=== PATIENT | male | born 1975 | race Caucasian/White ===

== ENCOUNTER 2020-12-12 13:16 | Outpatient (REF) | payer OTHER, SELFPAY ==
[2020-12-12 15:02] LABS: Erythrocyte Sedimentation Rate 4 MM/HR (0-15)
[2020-12-12 15:25] LABS: Folate > 20.0 ng/mL (> or = 4.0); Vitamin B12 434 pg/mL (200-900)
[2020-12-13 08:42] LABS: Lyme Abs Screen <0.90 index
[2020-12-13 08:56] LABS: Syphilis Screen Nonreactive (Nonreactive)
[2020-12-13 23:22] LABS: Anti Nuclear Antibody Screen NEGATIVE (NEGATIVE)
== END 2020-12-12 13:17 | disposition home or self-care (01) ==
LOC: HO.LAB 13:16
PROVIDERS: PCP Internal Medicine; Visit Provider Psychiatry & Neurology Neurology
DX: G31.84 Mild cognitive impairment of uncertain or unknown etiology (principal)
CPT/HCPCS: 36415; 82607; 82746; 85652; 86038; 86039; 86617; 86618; 86780

== ENCOUNTER 2020-12-21 13:06 | Outpatient (REF) | payer OTHER, SELFPAY ==
--- NOTE | ~2020-12-21 | MR_ITS ---
MRI OF THE BRAIN WITHOUT IV CONTRAST INDICATION: Encephalopathy COMPARISON: None available. TECHNIQUE: Multiplanar multisequence MR imaging of the brain was obtained without IV contrast. FINDINGS: There is no hydrocephalus, extra-axial surface collection, or herniation. No parenchymal signal abnormality. The major flow voids at the skull base are preserved. There is no acute infarct on diffusion-weighted imaging. There is no intracranial hemorrhage on the gradient recalled echo acquisition. The midline structures are normal. The cerebellar tonsils are normally positioned. The cerebellum and brainstem are normal. The craniocervical junction is normal. Osseous marrow signal intensity is homogenous. The visualized soft tissues are unremarkable. MR/MR head/brain wo con IMPRESSION: Unremarkable noncontrast MRI of the brain.
== END 2020-12-21 13:07 | disposition home or self-care (01) ==
LOC: HO.MRI 13:06
PROVIDERS: PCP Internal Medicine; Visit Provider Psychiatry & Neurology Neurology
DX: G93.40 Encephalopathy, unspecified (principal)
CPT/HCPCS: 70551

== ENCOUNTER → 2021-04-26 10:31 | Outpatient (BNVA) | payer OTHER, SELFPAY | PROVIDERS: PCP Internal Medicine; Visit Provider Urology | DX: N50.819 Testicular pain, unspecified (principal); N43.40 Spermatocele of epididymis, unspecified | CPT/HCPCS: 99212 ==

== ENCOUNTER 2021-05-28 11:05 | Day surgery (SDC) | payer OTHER, SELFPAY ==
--- NOTE | 2021-05-25 12:21 | P.CONAN_ITS ---
Documented by User: Lisa Vo NP 05/25/21 12:23 HPI - Anesthesia Eval Consult details Narrative: 46yo M for Right micro inguinal Denervation Testicle, Excision Spermatocele of epididymis FOR[facility], [facility] Active Problems Active Problems: All Active Problems (Updated 05/21/21 @ 14:51 by Renita Malcolm, RN) Orchalgia (Acute) Spermatocele (Acute) Past Medical History Medical History (Updated 05/25/21 @ 12:23 by Lisa Vo NP) Anxiety GERD (gastroesophageal reflux disease) Spermatocele Surgical History Surgical History (Updated 05/21/21 @ 14:51 by Renita Malcolm, RN) History of testicular surgery Social History Social History Patient Tobacco Use Status: Former Tobacco user Quit Date: 1 YR AGO Use of substances other than those prescribed or required for medical reasons: No Are you DNR?: No Advance Directives: No Advance Directives Information Provided: Yes Meds Allergies Allergy/AdvReac Type Severity Reaction Status Date / Time No Known Allergies Allergy Verified 05/21/21 14:51 [No Known Allergies*] Home Medications Medication Instructions Recorded Confirmed Last Taken Type fluticasone propionate 50 1 spray INTRANASAL DAILY 04/26/21 05/21/21 Unknown History mcg/actuation nasal spray,suspension lorazepam 2 mg tablet 2 mg PO TID PRN 04/26/21 05/21/21 Unknown History omeprazole 20 mg capsule,delayed 20 mg PO DAILY 04/26/21 05/21/21 Unknown History release pantoprazole 20 mg tablet,delayed 20 mg PO DAILY 04/26/21 05/21/21 Unknown History release quetiapine 25 mg tablet 0 mg PO DAILY 04/26/21 05/21/21 Unknown History Exam Exam Date and Time: May 25, 2021 1221 Assessment and Plan Assessment Anesthesia Assessment: Chart Reviewed Documented by User: Jayleen Cash MD 05/28/21 12:42 [facility] Past Medical History Medical History (Updated 05/25/21 @ 12:23 by iLsa Vo NP) Anxiety GERD (gastroesophageal reflux disease) Spermatocele Family History Family history of problems with anesthesia: No Surgical History Surgical History (Updated 05/21/21 @ 14:51 by Renita Malcolm RN) History of testicular surgery History of Problems with Anesthesia: No Social History Social History Patient Tobacco Use Status: Former Tobacco user Quit Date: 1 YR AGO Use of substances other than those prescribed or required for medical reasons: No Are you DNR?: No Advance Directives: No Advance Directives Information Provided: Yes Meds Allergies Allergy/AdvReac Type Severity Reaction Status Date / Time No Known Allergies Allergy Verified 05/21/21 14:51 [No Known Allergies*] Home Medications Medication Instructions Recorded Confirmed Last Taken Type fluticasone propionate 50 1 spray INTRANASAL DAILY 04/26/21 05/21/21 Unknown History mcg/actuation nasal spray,suspension lorazepam 2 mg tablet 2 mg PO TID PRN 04/26/21 05/21/21 Unknown History omeprazole 20 mg capsule,delayed 20 mg PO DAILY 04/26/21 05/21/21 Unknown History release pantoprazole 20 mg tablet,delayed 20 mg PO DAILY 04/26/21 05/21/21 Unknown History release quetiapine 25 mg tablet 0 mg PO DAILY 04/26/21 05/21/21 Unknown History Exam Airway Mallampati Class: II (Caps upper front) TM Dist: >3cm Neck ROM: Full Heart: rrr Lungs: cta Assessment and Plan Assessment Anesthesia Assessment: Anesthesia Plan Discussed and Chart Reviewed Final Anesthetic Review Family History of Problems with Anesthesia: No History of Problems with Anesthesia: No NPO: Yes ASA Class: II Final Preanesthetic Review: No Changes in Pt Med Stat, Meds/Allgs Chart Reviewed and Consent Obtained/Reviewed Patient Risk: Intermediate Procedure Risk: Intermediate Anesthetic Plan Anesthetic Plan: GA Disposition: Standard PACU
[2021-05-28] VITALS (10 sets, daily range): BP systolic 152–174; BP diastolic 85–97; PULSE 57–72; RESP 16–18; TEMP 36.5–37.1; O2SAT 98–100; BMI 27.1
[2021-05-28] MEDS: Lactated Ringers 1,000 ML 100 ML IVCONT (12:45)
--- NOTE | 2021-05-28 13:18 | MHC.SHP ---
Pre-Procedural Eval Section A Date of Service: 05/28/21 The patient is an INPATIENT: No Changes since office visit: No Cold of Flu in the past 2 weeks, No New Medical Problems, No Changes in Medication and No Patient answered all questions The History & Physical has been completed within 30 days and I have reviewed it.: Yes Section B Chief Complaint: testicular pain,spermatocele of epididymis Details of Present Illness: Right-sided testicular denervation Allergies: Allergies Allergy/AdvReac Type Severity Reaction Status Date / Time No Known Allergies Allergy Verified 05/21/21 14:51 [No Known Allergies*] Plan Diagnosis/Plan: Unchanged (Right-sided testicular denervation) I have reviewed the history and physical and performed a pertinent physical examination on my patient. No changes have occurred unless specified.
--- NOTE | 2021-05-28 15:00 | P.OP_ITS ---
Operative Note Operative Note Date of Service: 05/28/21 Narrative: PreOperative Diagnosis: Right persistent testicular pain with spermatocele Post Operative Diagnosis: Right persistent sacral pain Procedure: Right microscopic inguinal denervation and testicular exploration Surgeon: Dr Reed Box Anesthesia: General Indications for procedure: Right Persistent testicular pain. Prior for matter select me with question of recurrence on the right side. offered microscopic inguinal cord denervation. Understands this is 80% successful and primary risk is loss of testicle. Procedure: After informed consent was verified the patient was brought to the operating room and placed in a supine position. Anesthesia was administered per protocol. The patient was shaved and prepped and draped in a sterile fashion. Safety pause time-out was performed. Antibiotics had been given. The right inguinal canal was palpated. This was marked and then a 4 cm incision was marked approximately 1 cm distal to the inguinal canal. The skin was infiltrated with local anesthetic. Using a 15 blade skin was incised and dissection was performed in the subcutaneous tissue. Dissection was performed until inguinal cord was isolated. The cord was delivered through the incision to the skin surface. A tongue depressor was then used to elevate the cord from the incision. The testicle was delivered from the scrotum. If there was scarring from the prior spermatocele on the tunica vaginalis. Careful dissection was performed around the head of the epididymis. Small area of scarring was felt that appeared to have been recurrent spermatocele but there was no evidence of recurrence spermatocele. The testicle was placed back in the scrotum. In had not been freed from the reattachment that had formed with the gubernaculum. The operating microscope was brought into place. Dissection was then performed on the cord. Muscle fibers surrounding the cord were all dissected. This was performed using bipolar cautery and scissors. The overlying tissue was removed and the cord packets exposed. Fascia was cauterized and dissected from the packet. The vas deferens packet was dissected. The primary vascular packet was then tagged with a vessel loop and retracted from the field. Dissection and denervation were performed on the 3 identified areas including the cremasteric muscle layer, rigo vasal tissues, and the posterior periarterial - lipomatous tissue. Care was taken to leave all veins and feeding arterial vessels intact. Doppler ultrasound was available to assist with identification. Following the dissection and cautery of the posterior periarterial packet the vas deferens packet was identified and the cord was isolated. Using an ocular blade the cord was denervated for approximately 1-1.5 cm. The blade was swept across the surface of the vas deferens small bleeding areas were controlled using bipolar cautery When this was complete the cord was examined. The tongue depressor was removed and the cord allowed to sit in its normal position. The area was irrigated with saline. Reapproximation of deep tissue was performed using interrupted 3-0 Vicryl. Skin was reapposed using a 4-0 running Monocryl. Incisions were closed with Dermabond He tolerated the procedure well and was extubated in operating room and trans ferred in stable condition to the recovery area.
[2021-05-28] MEDS: Acetaminophen 325 MG TABLET 650 MG PO (15:15)
[2021-05-28] MEDS: oxyCODONE HCl Immed Release 5 MG TABLET PO ×2 (15:16→16:18)
[2021-05-28] MEDS: fentaNYL citrate/PF 100 MCG/2 ML VIAL 50 MCG IVPUSH ×2 (15:17→15:31)
== END 2021-05-28 17:01 | disposition home or self-care (01) ==
PROVIDERS: PCP Internal Medicine; Visit Provider Urology
PROC: (CPT 55110; principal; 2021-05-28 13:00)
PROC: (CPT 54840; 2021-05-28 13:00)
DX: N50.811 Right testicular pain (principal); Z87.438 Personal history of other diseases of male genital organs
CPT/HCPCS: 55110; 55899; J0690; J1100; J2250; J2405; J3010

== ENCOUNTER → 2021-07-10 13:04 | Outpatient (BNVA) | payer OTHER, SELFPAY | PROVIDERS: PCP Internal Medicine; Visit Provider Urology | DX: N43.40 Spermatocele of epididymis, unspecified (principal) | CPT/HCPCS: 99212 ==

== ENCOUNTER → 2021-08-24 10:53 | Outpatient (BNVA) | payer OTHER, SELFPAY | PROVIDERS: PCP Internal Medicine; Visit Provider Urology | DX: N50.819 Testicular pain, unspecified (principal) | CPT/HCPCS: 99212 ==

== ENCOUNTER → 2021-11-30 10:58 | Outpatient (BNVA) | payer OTHER, SELFPAY | PROVIDERS: PCP Internal Medicine; Visit Provider Urology | DX: N28.1 Cyst of kidney, acquired (principal); R39.9 Unspecified symptoms and signs involving the genitourinary system; N50.819 Testicular pain, unspecified | CPT/HCPCS: 99212 ==

== ENCOUNTER 2021-11-30 12:56 | Outpatient (REF) | payer OTHER, SELFPAY | END 2021-11-30 12:57 | disposition home or self-care (01) | LOC: HO.LAB 12:56 | PROVIDERS: Visit Provider Urology | DX: R39.9 Unspecified symptoms and signs involving the genitourinary system (principal) | CPT/HCPCS: 87086 ==

== ENCOUNTER 2022-06-14 14:31 | Outpatient (REF) | payer OTHER, SELFPAY ==
[2022-06-14 15:42] LABS: Appearance Urine Clear; Color Urine Yellow; Glucose Urine UA Negative (Negative); Leukocyte Esterase Urine Negative (Negative); Nitrite Urine Negative (Negative); PH 6.5 (5.0-9.0); Specific Gravity - Urine 1.015 (1.005-1.025); Urine Blood Negative (Negative); Urine Ketones Negative (Negative); Urine Protein Negative (Neg-Trace)
[2022-06-14 15:47] LABS: Bacteria Urine None Seen (None Seen); Hyaline Casts Urine 0-2 /LPF (0-2); RBC Urine 0-2 /HPF (0-2); Squamous Epithelial Cell Urine 0-2 /HPF (0-2); WBC Urine 0-5 /HPF (0-5)
== END 2022-06-14 14:32 | disposition home or self-care (01) ==
LOC: HO.LAB 14:31
PROVIDERS: PCP Internal Medicine; Visit Provider Urology
DX: N50.819 Testicular pain, unspecified (principal)
CPT/HCPCS: 81001; 87086

== ENCOUNTER → 2022-06-26 15:25 | Outpatient (BNVA) | payer OTHER, SELFPAY | PROVIDERS: PCP Internal Medicine; Visit Provider Nurse Practitioner Family | DX: N45.1 Epididymitis (principal); N50.811 Right testicular pain; N43.40 Spermatocele of epididymis, unspecified | CPT/HCPCS: 99212 ==

== ENCOUNTER 2022-07-10 12:59 | Outpatient (REF) | payer OTHER, SELFPAY ==
--- NOTE | ~2022-07-10 | US_ITS ---
EXAMINATION: US SCROTUM CLINICAL INFORMATION: Right testicular pain. COMPARISON: Ultrasound scrotum 12/29/2018. TECHNIQUE: A sonogram of the scrotum was performed assessing silva-scale appearance and color Doppler flow. Spectral Doppler analysis of the arterial and venous flow were performed in the testes bilaterally. FINDINGS: RIGHT: Right testicle measures 4.6 x 2.3 x 3.4 cm, volume 19.3 mL. No focal testicular parenchymal lesions are visualized. Spectral Doppler analysis of the arterial and venous flow is very minimally increased in the right testis. Right epididymal head is remarkable for a 0.6 x 0.5 x 0.7 cm mixed solid and cystic mass with hyperechoic solid components. Right epididymal head cysts measuring up to 1.9 cm, previously 1.2 cm. No right hydrocele or varicocele is seen. Right epididymal Doppler flow is normal. LEFT: Left testicle measures 4.8 x 2.2 x 2.7 cm, volume 14.9 mL. No focal testicular parenchymal lesions are visualized. Spectral Doppler analysis of the arterial and venous flow is normal in the left testis. Left epididymal head is normal in size. No left hydrocele or varicocele is seen. Left epididymal Doppler flow is normal. US/US scrotum IMPRESSION: A 0.7 cm mixed solid and cystic mass in the right epididymal head, of indeterminate etiology however most common differential considerations could include a adenomatoid tumor, epididymal leiomyoma, or a papillary cystadenoma of the epididymis. Recommend urologic evaluation and management. The right testicle demonstrates very minimal asymmetric hypervascularity with respect to the contralateral side, of uncertain clinical significance, consider correlation with clinical symptoms and labs as an isolated orchitis would be uncommon. Several right epididymal head cysts measuring up to 1.9 cm.
== END 2022-07-10 13:00 | disposition home or self-care (01) ==
LOC: HO.US 12:59
PROVIDERS: PCP Internal Medicine; Visit Provider Nurse Practitioner Family
DX: N50.811 Right testicular pain (principal); N45.1 Epididymitis
CPT/HCPCS: 76870

== ENCOUNTER → 2022-07-17 11:17 | Outpatient (BNVA) | payer OTHER, SELFPAY | PROVIDERS: PCP Internal Medicine; Visit Provider Nurse Practitioner Family | DX: N50.811 Right testicular pain (principal); N50.3 Cyst of epididymis | CPT/HCPCS: 99212 ==

== ENCOUNTER 2022-07-23 15:37 | Outpatient (REF) | payer OTHER, SELFPAY ==
[2022-07-23 17:06] LABS: Appearance Urine Clear; Color Urine Yellow; Glucose Urine UA Negative (Negative); Leukocyte Esterase Urine Negative (Negative); Nitrite Urine Negative (Negative); PH 6.5 (5.0-9.0); Urine Blood Negative (Negative); Urine Ketones Negative (Negative); Urine Protein Negative (Neg-Trace)
[2022-07-23 17:09] LABS: Bacteria Urine None Seen (None Seen); Hyaline Casts Urine 0-2 /LPF (0-2); RBC Urine 0-2 /HPF (0-2); Squamous Epithelial Cell Urine 0-2 /HPF (0-2); WBC Urine 0-5 /HPF (0-5)
== END 2022-07-23 15:38 | disposition home or self-care (01) ==
LOC: HO.LAB 15:37
PROVIDERS: PCP Internal Medicine; Visit Provider Urology
DX: N45.1 Epididymitis (principal)
CPT/HCPCS: 81001; 87086

== ENCOUNTER 2022-09-16 06:32 | Day surgery (SDC) | payer OTHER, SELFPAY ==
[2022-09-16] VITALS (10 sets, daily range): BP systolic 124–149; BP diastolic 68–94; PULSE 62–74; RESP 15–18; TEMP 36.3–36.7; O2SAT 97–99; BMI 29.8
[2022-09-16] MEDS: Lactated Ringers 1,000 ML 50 ML IVCONT (07:43)
--- NOTE | 2022-09-16 08:26 | P.HPSUR_ITS ---
Pre-Procedural Eval Section A Date of Service: 09/16/22 The patient is an INPATIENT: No Changes since office visit: No Cold of Flu in the past 2 weeks, No New Medical Problems, No Changes in Medication and No Patient answered all questions The History & Physical has been completed within 30 days and I have reviewed it.: Yes Section B Chief Complaint: Epididymitis Relevant Family History (Specify if Yes): No Relevant Social History: None Present Medications: see Short Stay Collaborative assessment Medical History: No relevant PMH History of Previous Operations: Relevant previous surgery/procedure and date(s) Allergies: Allergies Allergy/AdvReac Type Severity Reaction Status Date / Time prednisone AdvReac Anxiety Uncoded 09/16/22 06:43 Review of Systems Sugical H&P ROS: Negative: Constitution, Cardiovascular, Respiratory, Neurological, Psychiatric, Hem-Onc, Allergic/Immunologic, Gastrointestinal, Genitourinary, Musculoskeletal, Integumentary, Endocrine and Eyes/Ears/Nose/Thro at Exam Surgical H&P Exam: Normal: HEENT, Normal: Heart, Normal: Lungs, Normal: Extremities, Normal: Abdomen, Normal: Skin and Normal: Neurological Plan Diagnosis/Plan: Unchanged ( right epididymectomy) I have reviewed the history and physical and performed a pertinent physical examination on my patient. No changes have occurred unless specified. Time Spent With Patient Time: Total time managing care of this patient today ____ minutes.
--- NOTE | 2022-09-16 08:32 | HO.ANESPROP2 ---
HPI - Anesthesia Eval Consult details Narrative: Right epididymectomy PMFSH Active Problems Active Problems: All Active Problems (Updated 09/10/22 @ 16:26 by Renita Malcolm RN) Orchalgia (Acute) Renal cyst (Acute) Epididymitis (Acute) Right testicular pain (Acute) Epididymal cyst (Acute) Spermatocele (Acute) Past Medical History Medical History Anxiety GERD (gastroesophageal reflux disease) Hypertension Spermatocele Family History Family history of problems with anesthesia: No Surgical History Surgical History History of colonoscopy History of surgery History of testicular surgery Hx of esophagogastroduodenoscopy History of Problems with Anesthesia: No Social History Social History Patient Tobacco Use Status: Former Tobacco user Quit Date: 3 yrs ago Use of substances other than those prescribed or required for medical reasons: No Are you DNR?: No Advance Directives: No Advance Directives Information Provided: Yes Meds Allergies Allergy/AdvReac Type Severity Reaction Status Date / Time prednisone AdvReac Anxiety Uncoded 09/16/22 06:43 Active Medications: Current Medications Lactated Ringer's (Lr) 1,000 mls @ 50 mls/hr IVCONT .Q20H JAIMEE Last Admin: 09/16/22 07:43 Dose: 50 mls/hr Levofloxacin (Levaquin) 500 mg in 100 mls @ 100 mls/hr IV PREOP ONE Stop: 09/16/22 08:36 Home Medications Medication Instructions Recorded Confirmed Last Taken Type lorazepam 2 mg tablet 2 mg PO TID PRN Anxiety 04/26/21 09/16/22 09/16/22 05:45 History cholecalciferol (vitamin D3) 50 50 mcg PO DAILY 07/10/21 09/16/22 Unknown History mcg (2,000 unit) capsule (Vitamin D3) amlodipine 5 mg tablet 5 mg PO DAILY 07/17/22 09/16/22 Unknown History cetirizine 10 mg tablet 10 mg PO DAILY 09/16/22 09/16/22 Unknown History Exam Exam Date and Time: September 16, 2022 0832 Height,Weight and Vital Signs: Height 5 ft 11 in Weight 97.069 kg Last Vital Signs Temp 98.0 F 09/16/22 07:26 Pulse 68 09/16/22 07:26 Resp 15 09/16/22 07:26 BP 149/78 H 09/16/22 07:26 Pulse Ox 97 09/16/22 07:26 O2 Del Method Room Air 09/16/22 07:26 Airway Mallampati Class: II TM Dist: >3cm Neck ROM: Full Heart: ok Lungs: ok Assessment and Plan Assessment Anesthesia Assessment: Anesthesia Plan Discussed and Chart Reviewed Final Anesthetic Review Family History of Problems with Anesthesia: No History of Problems with Anesthesia: No NPO: Yes ASA Class: II Final Preanesthetic Review: No Changes in Pt Med Stat, Meds/Allgs Chart Reviewed, Consent Obtained/Reviewed and Anes Risks/Benef Reviewed Patient Risk: Intermediate Procedure Risk: Low Anesthetic Plan Anesthetic Plan: GA and Agree w/ Assess. and Plan Disposition: Standard PACU
--- NOTE | 2022-09-16 09:55 | W.PM.OPN ---
Operative Note Operative Note Date of Service: 09/16/22 Narrative: PreOperative Diagnosis: persistent right orchalgia Post Operative Diagnosis: persistent right orchalgia, right spermatocele Procedure: right epididymectomy, right spermatocele removal Surgeon: Dr Reed Box Anesthesia: general Indications for procedure: prior scrotal Procedure is for hydrocele, prior right inguinal denervation procedure. Persistent right orchalgia particularly on epididymal structures around the testicle. Plan for right epididymectomy. He is aware of potential of loss of vascular supply to the testicle and loss of testicle. Procedure: After informed consent was verified the patient was brought to the operating room and placed in a supine position. Anesthesia was administered per protocol. The patient was prepped and draped in a sterile fashion. Safety pause time-out was performed. Antibiotics being given. Incision made on prior right scrotal horizontal incision. This was taken down onto the testicle itself. There was no hydrocele sac consistent previously been removed. The testicle was then released sharply from the scar attachments and mobilized. The testicle was delivered through the incision. Mobilization was continued to allow the testicle and cord structures a to be mobile. We were able to palpate the head of the epididymis and Vasa through the scar tissue. Scar tissue was carefully dissected around the head of the epididymis. Stay suture was placed through the head of the epididymis to give us traction. The epididymis was carefully dissected from the testicle. The feeding vessels were isolated and controlled with suture. The dissection was continued and the epididymis released along with the Vasa. Would during the dissection a small spermatocele was identified through the cord structures. This was released and during dissection with punctured so was removed. The Vasa was followed up to its proximal portion. A suture was placed through the para basal tissue around the Vasa before division. Once the head of the epididymis with laser attachments had been handed off for pathology any bleeding areas were cauterized. The testicle was replaced back into the scrotum. Closure was performed using 2-0 Vicryl for deep structures and interrupted 4-0 chromic sutures to reapposed the skin. dressing was applied with scrotal support. The patient tolerated the procedure well, was extubated in operating room And transferred in stable condition recovery area. Pathology: epididymis with Vasa Drains: none
[2022-09-16] MEDS: ondansetron HCL 4 MG/2 ML VIAL IVPUSH (10:13)
[2022-09-16] MEDS: oxyCODONE HCl Immed Release 5 MG TABLET 10 MG PO (10:14)
[2022-09-16] MEDS: fentaNYL citrate/PF 100 MCG/2 ML VIAL 50 MCG IVPUSH ×2 (10:18→10:26)
== END 2022-09-16 11:15 | disposition home or self-care (01) ==
PROVIDERS: PCP Internal Medicine; Visit Provider Urology
PROC: (CPT 54860; principal; 2022-09-16 08:10)
DX: N45.1 Epididymitis (principal); N50.811 Right testicular pain; N50.3 Cyst of epididymis; N43.40 Spermatocele of epididymis, unspecified; N44.8 Other noninflammatory disorders of the testis; N50.82 Scrotal pain; Z98.890 Other specified postprocedural states; I10 Essential (primary) hypertension; F41.1 Generalized anxiety disorder; K21.9 Gastro-esophageal reflux disease without esophagitis; Z79.899 Other long term (current) drug therapy; Z88.8 Allergy status to other drugs, medicaments and biological substances; Z87.891 Personal history of nicotine dependence
CPT/HCPCS: 54860; 54840; 88304; J0131; J1885; J1956; J2250; J2405; J2795; J3010

== ENCOUNTER → 2022-10-01 08:59 | Outpatient (BNVA) | payer OTHER, SELFPAY | PROVIDERS: PCP Internal Medicine; Visit Provider Urology ==

== ENCOUNTER → 2022-10-30 15:07 | Outpatient (BNVA) | payer OTHER, SELFPAY | PROVIDERS: PCP Internal Medicine; Visit Provider Urology | DX: N45.1 Epididymitis (principal); N50.819 Testicular pain, unspecified | CPT/HCPCS: 99212 ==

== ENCOUNTER 2023-03-12 15:09 | Outpatient (AMB) | payer OTHER, SELFPAY ==
--- NOTE | 2023-03-12 15:26 | A.OFFVIS_ITS ---
Intake Intake Visit Reasons: follow up/urinary issues Intake Note: Patient presents for follow up urinary issues Urology Medications: none Blood Thinner: none Statistician Theoretical Required: No Accompanied by: Self / Same As Patient Allergies prednisone Adverse Reaction (Uncoded 03/15/23 15:50) Anxiety Medication List - Last Reconciled 03/15/23 by ANNABELLE Gabriel amlodipine 5 mg PO DAILY cetirizine 10 mg PO DAILY cholecalciferol (vitamin D3) (Vitamin D3) 50 mcg PO DAILY cholecalciferol (vitamin D3) (Vitamin D3) 50 mcg PO DAILY hydrocodone-acetaminophen 5-325 mg 1 tab PO Q4H PRN 7 days lorazepam 2 mg PO TID PRN quetiapine 25 - 75 mg PO BEDTIME HPI HPI Comments History of Present Illness Details Rolan is a 47-year-old male patient of Dr. Camilo. He has a past medical history of anxiety, GERD, and hypertension. He presents to the office to day for follow-up of his ongoing scrotal issues and new onset lower urinary tract symptoms. Of note, patient was seen approximately [address] Box at which time reassurance was provided for patient's ongoing orchalgia. Patient has undergone multiple surgical interventions for ongoing orchalgia. He has had a right epididymectomy and spermatocelectomy 09/12 and prior denervation 05/2021 but persistent pain. Discussed and stressed that epididymectomy has a 70-80% success rate and there is still a chance of persistent pain postprocedure. He is requesting a scrotal ultrasound for reassurance. When asked he does report new onset urinary issues. He states he has been having urinary urgency, and frequency with episodes of incontinence if not near a bathroom. He discusses while at work he will have urinary urgency and frequency however given the bathroom is a far distance at times he is incontinent. He otherwise denies hematuria, dysuria, foul smelling urine, changes to urinary stream, flank pain, fever, and or chills. In office urinalysis results reviewed with the patient today. Patient defers physical exam of symptoms despite reported symptoms. Educated and stressed the importance of physical exam for further assessment evaluation however patient declines at this time. [facility] Medical History Hypertension GERD (gastroesophageal reflux disease) Anxiety Spermatocele Surgical History History of surgery History of colonoscopy Hx of esophagogastroduodenoscopy History of testicular surgery Social History Patient Tobacco Use Status: Former Tobacco user Quit Date: 3 yrs ago Review of Systems Const Reports as per HPI Eyes Reports no additional complaints ENT Reports no additional complaints Card Reports as per HPI Resp Reports no additional complaints GI Reports as per HPI Reports as per HPI Musc Reports no additional complaints Neuro Reports no additional complaints Psych Reports as per HPI Endo Reports no additional complaints Roldan/Lymph Reports no additional complaints Aller/Immun Reports no additional complaints Physical Exam Const General: healthy appearing, comfortable, no acute distress, well developed, alert and awake Orientation/consciousness: patient oriented x3 Limitations: no limitations HEENT Head: Yes normal to inspection, Yes normocephalic and Yes atraumatic Ears: hearing grossly normal bilaterally Eyes General: appearance normal, both eyes and all related structures Neck Neck: Yes normal visual inspection and Yes trachea midline Chest Chest palpation & inspection: normal inspection of the chest Resp Effort & Inspection: normal respiratory effort and able to speak in complete sentences Cardio Rate: regular rate GI Inspection: Yes normal to inspection General: Yes no CVA tenderness Back/Spine/Pelvis Back: no CVA tenderness Skin General skin exam: no rashes or lesions noted Neuro General: patient oriented x3 Extrem General: Yes normal to inspection Psych Appearance: grossly normal and well kempt Mental Status: mental status grossly normal Speech and movement: Normal speech and movement present and Clear speech present Affect: normal affect Attitude: cooperative Thought process: Normal thought process present Thought content: Normal thought content present Insight: Fair insight present (Psych) Judgement: Fair judgement present (Psych) Results AMB Urinalysis, Automated UA Leukoctes 0 Shukri/uL Last Edit by [employer] Baker on 03/12/23 15:54 UA Nitrite Negative Last Edit by Mansi Baker on 03/12/23 15:54 UA Urobilinogen 0.2 mg/dL Last Edit by [employer] Baker on 03/12/23 15:54 UA Protein 15 mg/dL Last Edit by [employer] Baker on 03/12/23 15:54 UA pH 6.5 Last Edit by [employer] Baker on 03/12/23 15:54 UA Blood 0 Francis/uL Last Edit by Mansi Baker on 03/12/23 15:54 UA Specific [place] 1.020 Last Edit by Mansi Baker on 03/12/23 15:54 UA Ketone Negative Last Edit by Mansi Baker on 03/12/23 15:54 UA Bilirubin 0 mg/dL Last Edit by Mansi Baker on 03/12/23 15:54 UA Glucose 0 mg/dL Last Edit by Mansi Baker on 03/12/23 15:54 Results Reviewed Results Reviewed: Laboratory Last Values Urine pH (Auto) 6.5 03/12/23 15:27 Specific [place] (Auto) 1.020 03/12/23 15:27 Urine Protein (Auto) 15 mg/dL 03/12/23 15:27 Glucose (UA)(Auto) 0 mg/dL 03/12/23 15:27 Urine Ketones (Auto) Negative 03/12/23 15:27 Urine Blood (Auto) 0 Francis/uL 03/12/23 15:27 Urine Nitrite (Auto) Negative 03/12/23 15:27 Urine Bilirubin (Auto) 0 mg/dL 03/12/23 15:27 Urine Urobilinogen (Auto) 0.2 mg/dL 03/12/23 15:27 Leukocyte Esterase (Auto) 0 Shukri/uL 03/12/23 15:27 Assessment & Plan Assessment & Plan (1) Orchalgia: Code(s): N50.819 - Testicular pain, unspecified (2) Lower urinary tract symptoms: Code(s): R39.9 - Unspecified symptoms and signs involving the genitourinary system (3) Renal cyst: Code(s): N28.1 - Cyst of kidney, acquired Plan In office urinalysis results reviewed with the patient today; as noted above. Patient continues to report testicular/scrotal pain; despite reassurance provided at last office visit with Dr. Box. Will obtain scrotal ultrasound for further assessment evaluation; as noted above. Will obtain retroperitoneal ultrasound for further assessment evaluation. Discussed at length potential causes for orchialgia Discussed bladder triggers/irritants. Follow-up in 1 month with imaging and lab to be completed prior; or sooner with any issues, concerns, and or questions. Orders: Orders US retroperitoneal comp 03/12/23 R39.9 - Unspecified symptoms and signs involving the genitourinary system AMB Urinalysis Automated 03/12/23 Z13.9 - Encounter for screening, unspecified US scrotum 03/12/23 N50.819 - Testicular pain, unspecified Prostate Specific Antigen Today N40.1 - Benign prostatic hyperplasia with lower urinary tract symptoms Patient Instructions: The patient had an opportunity to ask questions regarding the treatment plan. All questions were answered. Physical exam, labs, and imaging were discussed and reviewed in detail. As well as risks, benefits, and discussion of treatment choices. No major barriers to understanding were identified. The patient expressed understanding and agreement with the above treatment plan. The patient was made aware they should contact our office by phone for worsening of their current condition, the appearance of new symptoms, or with any qu estions or concerns. Compliance is encouraged with any medications and follow up testing that is ordered. It is a privilege to be allowed the opportunity to participate in? your urological care.? Again, if you have any questions or concerns If you have any questions or concerns please do not hesitate to contact me. The office is [phone]. This note is constructed using voice recognition software. While every effort has been made to ensure accuracy fisher swordfish errors may have been included. Yours sincerely, ANNABELLE Gabriel Coding Level of Care Code Est Pt Level 3 (64580) Diagnoses Orchalgia N50.819 Lower urinary tract symptoms R39.9 Renal cyst N28.1
== END 2023-03-12 16:10 | disposition home or self-care (01) ==
PROVIDERS: PCP Internal Medicine; Visit Provider Nurse Practitioner Family
DX: N50.819 Testicular pain, unspecified (principal); R39.9 Unspecified symptoms and signs involving the genitourinary system; N28.1 Cyst of kidney, acquired
CPT/HCPCS: 99213

== ENCOUNTER → 2023-03-12 15:09 | Outpatient (BNVA) | payer OTHER, SELFPAY | PROVIDERS: PCP Internal Medicine; Visit Provider Nurse Practitioner Family | DX: N50.819 Testicular pain, unspecified (principal); N28.1 Cyst of kidney, acquired; R39.9 Unspecified symptoms and signs involving the genitourinary system | CPT/HCPCS: 81003; 99212 ==

== ENCOUNTER 2023-03-31 14:59 | Outpatient (REF) | payer OTHER, SELFPAY ==
--- NOTE | ~2023-03-31 | US_ITS ---
EXAMINATION: US SCROTUM CLINICAL INFORMATION: Testicular pain, unspecified. COMPARISON: Scrotal ultrasound 07/10/2022 and 12/29/2018. TECHNIQUE: A sonogram of the scrotum was performed assessing silva-scale appearance and color Doppler flow. Spectral Doppler analysis of the arterial and venous flow were performed in the testes bilaterally. FINDINGS: RIGHT: Right testicle measures 5.1 x 2.2 x 3.5 cm, volume 20.1 mL. No focal testicular parenchymal lesions are visualized. Spectral Doppler analysis of the arterial and venous flow is normal in the right testis. There are multiple right epididymal head lesion measuring 1.8 cm (simple cyst), 0.7 cm (simple cyst), and 0.7 cm (mixed solid and cystic mass) without significant change from 07/10/2022. No right hydrocele or varicocele is seen. Right epididymal Doppler flow is normal. LEFT: Left testicle measures 4.6 x 2.4 x 3.1 cm, volume 17.9 mL. No focal testicular parenchymal lesions are visualized. Spectral Doppler analysis of the arterial and venous flow is normal in the left testis. Left epididymal head is normal in size. No left hydrocele or varicocele is seen. Left epididymal Doppler flow is normal. US/US scrotum IMPRESSION: Stable mixed cystic and solid mass in the right epididymal head measuring 0.7 cm.
--- NOTE | ~2023-03-31 | US_ITS ---
EXAMINATION: US RETROPERITONEAL COMPLETE (RENAL) CLINICAL INFORMATION: Unspecified symptoms and signs involving the genitourinary system. COMPARISON: CT abdomen and pelvis 09/29/2020. TECHNIQUE: Real-time imaging of the kidneys and bladder. FINDINGS: RIGHT KIDNEY: 11.3 x 4.5 x 5.6 cm (SAG x AP x TRV). The kidney is normal in size, contour, and echogenicity. Renal cortical thickness is normal. No calculi or focal parenchymal lesions. No hydronephrosis. LEFT KIDNEY: 11.9 x 5.6 x 5.8 cm (SAG x AP x TRV). The kidney is normal in size, contour, and echogenicity. Renal cortical thickness is normal. No calculi or focal parenchymal lesions. No hydronephrosis. BLADDER: Well distended. Bilateral ureteral jets are demonstrated. Prevoid bladder volume is 136.0 mL. Postvoid bladder volume is 16.0 mL. Posterior volume 22.6 mL. US/US retroperitoneal comp IMPRESSION: Unremarkable examination.
== END 2023-03-31 15:00 | disposition home or self-care (01) ==
LOC: HO.US 14:59
PROVIDERS: PCP Internal Medicine; Visit Provider Nurse Practitioner Family
DX: N50.819 Testicular pain, unspecified (principal); R39.9 Unspecified symptoms and signs involving the genitourinary system
CPT/HCPCS: 76770; 76870

== ENCOUNTER 2023-04-07 14:10 | Outpatient (REF) | payer OTHER, SELFPAY ==
[2023-04-07 15:58] LABS: Prostate Specific Antigen 0.77 ng/mL (<0.05-4.0)
[2023-04-11 19:09] LABS: Testosterone, Free 37.1 pg/mL (35.0-155.0); Testosterone, Total 183 ng/dL (250-1100)
== END 2023-04-07 14:11 | disposition home or self-care (01) ==
LOC: HO.LAB 14:10
PROVIDERS: Absent Provider Urology; PCP Internal Medicine; Visit Provider Nurse Practitioner Family
DX: Z12.5 Encounter for screening for malignant neoplasm of prostate (principal); N40.1 Benign prostatic hyperplasia with lower urinary tract symptoms; R39.9 Unspecified symptoms and signs involving the genitourinary system; N50.819 Testicular pain, unspecified
CPT/HCPCS: 36415; 81003; 84153; 84402; 84403; 99212

== ENCOUNTER 2023-04-07 14:55 | Outpatient (AMB) | payer OTHER, SELFPAY ==
--- NOTE | 2023-04-07 15:29 | MHC.OFFVIS ---
Intake Intake Visit Reasons: 1m/US Intake Note: Patient presents for follow up ultrasound/psa lab/testicular pain Urology Medications: none Blood Thinner: none Cs Associate Required: No Accompanied by: Self / Same As Patient Allergies prednisone Adverse Reaction (Uncoded 04/07/23 15:59) Anxiety Medication List - Last Reconciled 04/07/23 by CAROLINA GabrielP- amlodipine 5 mg PO DAILY cetirizine 10 mg PO DAILY cholecalciferol (vitamin D3) (Vitamin D3) 50 mcg PO DAILY cholecalciferol (vitamin D3) (Vitamin D3) 50 mcg PO DAILY hydrocodone-acetaminophen 5-325 mg 1 tab PO Q4H PRN 7 days ibuprofen 800 mg PO Q12H 30 days lorazepam 2 mg PO TID PRN quetiapine 25 - 75 mg PO BEDTIME HPI HPI Comments History of Present Illness Details Rolan is a 47-year-old male patient of Dr. Camilo. He has a past medical history of anxiety, GERD, and hypertension. He presents to the office today for follow-up of his ongoing scrotal issues and new onset lower urinary tract symptoms. Of note, patient was seen approximately 1 month ago for ongoing lower urinary tract symptoms and ongoing/longstanding orchalgia. At which time a retroperitoneal ultrasound and scrotal ultrasound was ordered for further assessment evaluation. These results were reviewed with the patient today. Scrotal ultrasound noting stable mixed cystic and solid mass in the right epididymal head measuring a 0.7cm which is stable when compared to previous scrotal ultrasound in June of this year. Bilateral kidneys with no calculi, lesions, and or hydronephrosis. The bladder is well distended and normal. Pre void bladder volume is approximately 140 mL. Postvoid bladder volume is approximately 15 mL. Prostate volume is approximately 23 mL. He has had a right epididymectomy and spermatocelectomy 09/12 and prior denervation 05/2021 but persistent pain. Discussed and stressed that epididymectomy has a 70-80% success rate and there is still a chance of persistent pain post-procedure. Reassurance is provided. When asked he does report urinary issues (He states he has been having urinary urgency, and frequency with episodes of incontinence if not near a bathroom). However does not feel they are bothersome enough to undergo further work up with in office cystoscopy and or urodynamics and or trial of medication. He discusses while at work he will have urinary urgency and frequency however given the bathroom is a far distance at times he is incontinent. He otherwise denies hematuria, dysuria, foul smelling urine, changes to urinary stream, flank pain, fever, and or chills. In office urinalysis results reviewed with the patient today. Patient defers physical exam of symptoms despite reported symptoms. Educated and stressed the importance of physical exam for further assessment evaluation however patient continues to decline at this time. last seen 02/12 [facility] Medical History Hypertension GERD (gastroesophageal reflux disease) Anxiety Spermatocele Surgical History History of surgery History of colonoscopy Hx of esophagogastroduodenoscopy History of testicular surgery Social History Patient Tobacco Use Status: Former Tobacco user Quit Date: 3 yrs ago Review of Systems Const Reports as per HPI Eyes Reports no additional complaints ENT Reports no additional complaints Card Reports as per HPI Resp Reports no additional complaints GI Reports as per HPI Reports as per HPI Musc Reports no additional complaints Neuro Reports no additional complaints Psych Reports as per HPI Endo Reports no additional complaints Roldan/Lymph Reports no additional complaints Aller/Immun Reports no additional complaints Physical Exam Const General: healthy appearing, comfortable, no acute distress, well developed, alert and awake Orientation/consciousness: patient oriented x3 Limitations: no limitations HEENT Head: Yes normal to inspection, Yes normocephalic and Yes atraumatic Ears: hearing grossly normal bilaterally Eyes General: appearance normal, both eyes and all related structures Neck Neck: Yes normal visual inspection and Yes trachea midline Chest Chest palpation & inspection: normal inspection of the chest Resp Effort & Inspection: normal respiratory effort and able to speak in complete sentences Cardio Rate: regular rate GI Inspection: Yes normal to inspection General: Yes no CVA tenderness Back/Spine/Pelvis Back: no CVA tenderness Skin General skin exam: no rashes or lesions noted Neuro General: patient oriented x3 Extrem General: Yes normal to inspection Psych Appearance: grossly normal and well kempt Mental Status: mental status grossly normal Speech and movement: Normal speech and movement present and Clear speech present Affect: normal affect Attitude: cooperative Thought process: Normal thought process present Thought content: Normal thought content present Insight: Fair insight present (Psych) Judgement: Fair judgement present (Psych) Results AMB Urinalysis, Automated UA Leukoctes 0 Shukri/uL Last Edit by Mansi Baker on 04/07/23 16:04 UA Nitrite Negative Last Edit by Mansi Baker on 04/07/23 16:04 UA Urobilinogen 0.2 mg/dL Last Edit by Mansi Baker on 04/07/23 16:04 UA Protein 15 mg/dL Last Edit by [facility] on 04/07/23 16:04 UA pH 7.5 Last Edit by [facility] on 04/07/23 16:04 UA Blood 0 Francis/uL Last Edit by [employer]upp[employer] on 04/07/23 16:04 UA Specific [place] 1.010 Last Edit by [facility] on 04/07/23 16:04 UA Ketone Negative Last Edit by [facility] on 04/07/23 16:04 UA Bilirubin 0 mg/dL Last Edit by [facility] on 04/07/23 16:04 UA Glucose 0 mg/dL Last Edit by [facility] [employer]upp[employer]an on 04/07/23 16:04 Results Reviewed Results Reviewed: Laboratory Last Values Urine pH (Auto) 7.5 04/07/23 15:31 Specific [place] (Auto) 1.010 04/07/23 15:31 Urine Protein (Auto) 15 mg/dL 04/07/23 15:31 Glucose (UA)(Auto) 0 mg/dL 04/07/23 15:31 Urine Ketones (Auto) Negative 04/07/23 15:31 Urine Blood (Auto) 0 Francis/uL 04/07/23 15:31 Urine Nitrite (Auto) Negative 04/07/23 15:31 Urine Bilirubin (Auto) 0 mg/dL 04/07/23 15:31 Urine Urobilinogen (Auto) 0.2 mg/dL 04/07/23 15:31 Leukocyte Esterase (Auto) 0 Shukri/uL 04/07/23 15:31 Date of Service: 03/31/23 EXAMINATION: US RETROPERITONEAL COMPLETE (RENAL) FINDINGS: RIGHT KIDNEY: 11.3 x 4.5 x 5.6 cm (SAG x AP x TRV). The kidney is normal in size, contour, and echogenicity. Renal cortical thickness is normal. No calculi or focal parenchymal lesions. No hydronephrosis. LEFT KIDNEY: 11.9 x 5.6 x 5.8 cm (SAG x AP x TRV). The kidney is normal in size, contour, and echogenicity. Renal cortical thickness is normal. No calculi or focal parenchymal lesions. No hydronephrosis. BLADDER: Well distended. Bilateral ureteral jets are demonstrated. Prevoid bladder volume is 136.0 mL. Postvoid bladder volume is 16.0 mL. Posterior volume 22.6 mL. IMPRESSION: Unremarkable examination. Date of Service: 03/31/23 EXAMINATION: US SCROTUM FINDINGS: RIGHT: Right testicle measures 5.1 x 2.2 x 3.5 cm, volume 20.1 mL. No focal testicular parenchymal lesions are visualized. Spectral Doppler analysis of the arterial and venous flow is normal in the right testis. There are multiple right epididymal head lesion measuring 1.8 cm (simple cyst), 0.7 cm (simple cyst), and 0.7 cm (mixed solid and cystic mass) without significant change from 07/10/2022. No right hydrocele or varicocele is seen. Right epididymal Doppler flow is normal. LEFT: Left testicle measures 4.6 x 2.4 x 3.1 cm, volume 17.9 mL. No focal testicular parenchymal lesions are visualized. Spectral Doppler analysis of the arterial and venous flow is normal in the left testis. Left epididymal head is normal in size. No left hydrocele or varicocele is seen. Left epididymal Doppler flow is normal. IMPRESSION: Stable mixed cystic and solid mass in the right epididymal head measuring 0.7 cm. Assessment & Plan Assessment & Plan (1) Lower urinary tract symptoms: Code(s): R39.9 - Unspecified symptoms and signs involving the genitourinary system (2) Orchalgia: Code(s): N50.819 - Testicular pain, unspecified Plan In office urinalysis results reviewed with the patient today; as noted above. Recent retroperitoneal ultrasound in scrotal ultrasound results reviewed with the patient today; as noted above. Discussed at length potential causes for orchialgia Discussed bladder triggers/irritants. Discussed further workup with in office cystoscopy and/or urodynamics however patient declines at this time Discuss trial of medication Discussed importance of timed voiding to avoid episodes of urinary incontinence. Patient reports feeling urinary issues are not bothersome. Follow-up in 6 month with [facility]; or sooner with any issues, concerns, and or questions. Orders: Orders AMB Urinalysis Automated Today Z13.9 - Encounter for screening, unspecified Medications: New ibuprofen 800 mg PO Q12H 30 days 60 tabs 1RF Patient Instructions: The patient had an opportunity to ask questions regarding the treatment plan. All questions were answered. Physical exam, labs, and imaging were discussed and reviewed in detail. As well as risks, benefits, and discussion of treatment choices. No major barriers to understanding were identified. The patient expressed understanding and agreement with the above treatment plan. The patient was made aware they should contact our office by phone for worsening of their current condition, the appearance of new symptoms, or with any questions or concerns. Compliance is encouraged with any medications and follow up testing that is ordered. It is a privilege to be allowed the opportunity to participate in? your urological care.? Again, if you have any questions or concerns If you have any questions or concerns please do not hesitate to contact me. The office is [phone]. This note is constructed using voice recognition software. While every effort has been made to ensure accuracy senior oracle database administrator errors may have been included. Yours sincerely, ANNABELLE Gabriel Coding Level of Care Code Est Pt Level 3 (97208) Diagnoses Lower urinary tract symptoms R39.9 Orchalgia N50.819
== END 2023-04-07 15:58 | disposition home or self-care (01) ==
PROVIDERS: PCP Internal Medicine; Visit Provider Nurse Practitioner Family
DX: R39.9 Unspecified symptoms and signs involving the genitourinary system (principal); N50.819 Testicular pain, unspecified
CPT/HCPCS: 99213

== ENCOUNTER 2023-10-07 15:50 | Outpatient (AMB) | payer OTHER, SELFPAY ==
--- NOTE | 2023-10-07 15:51 | MHC.OFFVIS ---
Intake Intake Visit Reasons: 6m/PVR Intake Note: Patient presents for follow up testicular pain Urology Medications: none Blood Thinner: none PVR: 44ml's Sexual Abuse Counsellor Required: No Accompanied by: Self / Same As Patient Allergies prednisone Adverse Reaction (Uncoded 10/07/23 16:19) Anxiety Medication List - Last Reconciled 10/07/23 by CAROLINA GabrielP- amlodipine 5 mg PO DAILY cetirizine 10 mg PO DAILY cholecalciferol (vitamin D3) (Vitamin D3) 50 mcg PO DAILY hydrocodone-acetaminophen 5-325 mg 1 tab PO Q4H PRN 7 days ibuprofen 800 mg PO Q12H 30 days lorazepam 2 mg PO TID PRN quetiapine 25 - 75 mg PO BEDTIME tadalafil (Cialis) 5 mg PO DAILY 90 days HPI HPI Comments History of Present Illness Details Rolan is a 48-year-old male patient of Dr. Camilo. He has a past medical history of anxiety, GERD, and hypertension. He presents to the office today for follow-up of his ongoing scrotal issues, ongoing/longstanding orchalgia, lower urinary tract symptoms, and hypogonadism. In discussion with the patient today he continues to report ongoing scrotal discomfort. He reports at times he experiences pain more frequently and with different intensity. However he describes this pain as variable day to day. Previous workup has included scrotal ultrasound noting stable mixed cystic and solid mass in the right epididymal head measuring a 0.7cm which is stable when compared to previous scrotal ultrasounds. Retroperitoneal ultrasound noted bilateral kidneys with no calculi, lesions, and or hydronephrosis. The bladder is well distended and normal. Pre void bladder volume is approximately 140 mL. Postvoid bladder volume is approximately 15 mL. Prostate volume is approximately 23 mL. He has had a right epididymectomy and spermatocelectomy 09/12 and prior denervation 05/2021 but persistent pain. Discussed and stressed that epididymectomy has a 70-80% success rate and there is still a chance of persistent pain post-procedure. Reassurance is provided. When asked he reports previous lower urinary tract symptoms he had been experiencing of urinary urgency and frequency with episodes of incontinence if not near a bathroom have since resolved. Recent PSA and testosterone results reviewed with the patient today. 04/14 PSA 0.8 04/14 Total Testosterone 183, free testosterone 37.1 He currently denies any bothersome urinary issues. He continues to report intermittent ongoing right-sided groin and scrotal discomfort. Patient defers physical exam of symptoms despite reported symptoms. Educated and stressed the importance of physical exam for further assessment evaluation however patient continues to decline at this time. He otherwise offers no other issues or concerns at this time. [facility] Medical History Hypertension GERD (gastroesophageal reflux disease) Anxiety Spermatocele Surgical History History of surgery History of colonoscopy Hx of esophagogastroduodenoscopy History of testicular surgery Social History Patient Tobacco Use Status: Former Tobacco user Quit Date: 3 yrs ago Review of Systems Const Reports as per HPI Eyes Reports no additional complaints ENT Reports no additional complaints Card Reports as per HPI Resp Reports no additional complaints GI Reports as per HPI Reports as per HPI Musc Reports no additional complaints Neuro Reports no additional complaints Psych Reports as per HPI Endo Reports no additional complaints Roldan/Lymph Reports no additional complaints Aller/Immun Reports no additional complaints Physical Exam Const General: healthy appearing, comfortable, no acute distress, well developed, alert and awake Orientation/consciousness: patient oriented x3 Limitations: no limitations HEENT Head: Yes normal to inspection, Yes normocephalic and Yes atraumatic Ears: hearing grossly normal bilaterally Eyes General: appearance normal, both eyes and all related structures Neck Neck: Yes normal visual inspection and Yes trachea midline Chest Chest palpation & inspection: normal inspection of the chest Resp Effort & Inspection: normal respiratory effort and able to speak in complete sentences Cardio Rate: regular rate GI Inspection: Yes normal to inspection General: Yes no CVA tenderness Back/Spine/Pelvis Back: no CVA tenderness Skin General skin exam: no rashes or lesions noted Neuro General: patient oriented x3 Extrem General: Yes normal to inspection Psych Appearance: grossly normal and well kempt Mental Status: mental status grossly normal Speech and movement: Normal speech and movement present and Clear speech present Affect: normal affect Attitude: cooperative Thought process: Normal thought process present Thought content: Normal thought content present Insight: Fair insight present (Psych) Judgement: Fair judgement present (Psych) Office Procedures Post Void Residual Post Residual Void Post Void Residual (PVR): 44 [id number] Void Residual by ultrasound Results AMB Urinalysis, Automated UA Leukoctes 0 Shukri/uL Last Edit by Mansi Baker on 10/07/23 16:17 UA Nitrite Negative Last Edit by Mansi Baker on 10/07/23 16:17 UA Urobilinogen 0.2 mg/dL Last Edit by Mansi Baker on 10/07/23 16:17 UA Protein 0 mg/dL Last Edit by Mansi Baker on 10/07/23 16:17 UA pH 7.0 Last Edit by Mansi Baker on 10/07/23 16:17 UA Blood 0 Francis/uL Last Edit by Mansi Baker on 10/07/23 16:17 UA Specific [place] 1.010 Last Edit by Mansi Baker on 10/07/23 16:17 UA Ketone Negative Last Edit by Mansi Baker on 10/07/23 16:17 UA Bilirubin 0 mg/dL Last Edit by Mansi Baker on 10/07/23 16:17 UA Glucose 0 mg/dL Last Edit by Mansi Baker on 10/07/23 16:17 Results Reviewed Results Reviewed: Laboratory Last Values Urine pH (Auto) 7.0 10/07/23 15:54 Specific [place] (Auto) 1.010 10/07/23 15:54 Urine Protein (Auto) 0 mg/dL 10/07/23 15:54 Glucose (UA)(Auto) 0 mg/dL 10/07/23 15:54 Urine Ketones (Auto) Negative 10/07/23 15:54 Urine Blood (Auto) 0 Francis/uL 10/07/23 15:54 Urine Nitrite (Auto) Negative 10/07/23 15:54 Urine Bilirubin (Auto) 0 mg/dL 10/07/23 15:54 Urine Urobilinogen (Auto) 0.2 mg/dL 10/07/23 15:54 Leukocyte Esterase (Auto) 0 Shkuri/uL 10/07/23 15:54 Assessment & Plan Assessment & Plan (1) Hypogonadism in male: Code(s): E29.1 - Testicular hypofunction (2) Orchalgia: Code(s): N50.819 - Testicular pain, unspecified (3) Scrotal pain: Code(s): N50.82 - Scrotal pain Plan In office urinalysis results reviewed with the patient today; as noted above. Most recent PSA and testosterone results reviewed with the patient today; as noted above. Discussed referral to physical therapy given right-sided groin pain patient is experiencing; however patient declines at this time. Will obtain scrotal ultrasound for further assessment evaluation. Start 5 mg of Cialis daily as discussed and prescribed. Discussed at length potential causes and affects of hypogonadism. Discussed further treatment options for orchalgia and hypogonadism; this was discussed at length. He currently denies any bothersome urinary issues. He reports be happy with current voiding parameters. Will obtain prolactin, LH, SHBG, estradiol, FSH, testosterone, and free testosterone. Discussed lifestyle modifications to assist with hypogonadism Follow-up in 3 months with labs and imaging to be completed prior; or sooner with any issues, concerns, and or questions Orders: Orders AMB Urinalysis Automated Today Z13.9 - Encounter for screening, unspecified AMB Post Void Residual by ultrasound Today R39.9 - Unspecified symptoms and signs involving the genitourinary system US scrotum Today N43.3 - Hydrocele, unspecified Prolactin 3 Months E29.1 - Testicular hypofunction Lutenizing Hormone 3 Months E29.1 - Testicular hypofunction Sex Hormone Binding Globulin 3 Months E29.1 - Testicular hypofunction Estradiol Ultra Sensitive 3 Months E29.1 - Testicular hypofunction Follicle Stimulating Hormone 3 Months E29.1 - Testicular hypofunction Testosterone, Free/Total 3 Months E29.1 - Testicular hypofunction Medications: New tadalafil (Cialis) [id number] [facility] [id number] Member [id number] 5 mg PO DAILY 90 days 90 tabs 1RF Patient Instructions: The patient had an opportunity to ask questions regarding the treatment plan. All questions were answered. Physical exam, labs, and imaging were discussed and reviewed in detail. As well as risks, benefits, and discussion of treatment choices. No major barriers to understanding were identified. The patient expressed understanding and agreement with the above treatment plan. The patient was made aware they should contact our office by phone for worsening of their current condition, the appearance of new symptoms, or with any questions or concerns. Compliance is encouraged with any medications and follow up testing that is ordered. It is a privilege to be allowed the opportunity to participate in? your urological care.? Again, if you have any questions or concerns If you have any questions or concerns please do not hesitate to contact me. The office is [phone]. This note is constructed using voice recognition software. While every effort has been made to ensure accuracy consumer product advisor errors may have been included. Yours sincerely, KALE Gabriel-TONY Coding Level of Care Code Est Pt Level 4 (11817) Diagnoses Hypogonadism in male E29.1 Orchalgia N50.819 Scrotal pain N50.82 CPT Codes Post Residual Void - PVR CPT Code: 52496-Idhj Void Residual by ultrasound ([id number])
== END 2023-10-07 16:21 | disposition home or self-care (01) ==
PROVIDERS: PCP Internal Medicine; Visit Provider Nurse Practitioner Family
DX: E29.1 Testicular hypofunction (principal); N50.819 Testicular pain, unspecified; N50.82 Scrotal pain
CPT/HCPCS: 99214

== ENCOUNTER → 2023-10-07 15:50 | Outpatient (BNVA) | payer OTHER, SELFPAY | PROVIDERS: PCP Internal Medicine; Visit Provider Nurse Practitioner Family | DX: E29.1 Testicular hypofunction (principal); N50.819 Testicular pain, unspecified; N50.82 Scrotal pain | CPT/HCPCS: 51798; 81003; 99212 ==

== ENCOUNTER 2024-01-02 15:40 | Outpatient (REF) | payer OTHER, SELFPAY ==
--- NOTE | ~2024-01-02 | US_ITS ---
EXAMINATION: US SCROTUM CLINICAL INFORMATION: Hydrocele, unspecified. COMPARISON: Ultrasound scrotum 03/31/2023. Per animal warden, patient states 3 previous testicular surgeries. Correlation with surgical report is recommended. TECHNIQUE: A sonogram of the scrotum was performed assessing silva-scale appearance and color Doppler flow. Spectral Doppler analysis of the arterial and venous flow were performed in the testes bilaterally. FINDINGS: RIGHT: Right testicle measures 5.0 x 2.4 x 3.1 cm, volume 18.8 mL. No focal testicular parenchymal lesions are visualized. Spectral Doppler analysis of the arterial and venous flow is normal in the right testis. Right epididymal head 1.4 x 1.3 x 1.6 cm and 0.7 x 0.5 x 0.6 cm cysts. Simple-appearing epididymal cysts were demonstrated on prior exams. 0.4 x 0.2 x 0.5 cm complex cyst versus solid mass in the right epididymal head with hyperechoic components redemonstrated, previously measuring 0.7 cm on 07/10/2022 and 03/31/2023. No right hydrocele or varicocele is seen. Right epididymal Doppler flow is normal. LEFT: Left testicle measures 4.5 x 2.8 x 2.7 cm, volume 17.6 mL. No focal testicular parenchymal lesions are visualized. Spectral Doppler analysis of the arterial and venous flow is normal in the left testis. Left epididymal head is normal in size. No left hydrocele or varicocele is seen. Left epididymal Doppler flow is normal. US/US scrotum IMPRESSION: 1. Redemonstration of 0.5 cm mass in the right epididymal head. Apparent differences in size could be related to differences in measurement/technique. Urology consultation recommended to determine further management. 2. Right epididymal head cysts measuring up to 1.8 cm.
== END 2024-01-02 15:41 | disposition home or self-care (01) ==
LOC: HO.US 15:40
PROVIDERS: PCP Internal Medicine; Visit Provider Nurse Practitioner Family
DX: N43.3 Hydrocele, unspecified (principal)
CPT/HCPCS: 76870

== ENCOUNTER 2024-01-29 15:21 | Outpatient (REF) | payer OTHER, SELFPAY ==
[2024-01-29 17:21] LABS: Appearance Urine Clear; Color Urine Yellow; Glucose Urine UA Negative (Negative); Leukocyte Esterase Urine Negative (Negative); Nitrite Urine Negative (Negative); PH 7.5 (5.0-9.0); Urine Blood Negative (Negative); Urine Ketones Negative (Negative); Urine Protein Negative (Neg-Trace)
[2024-01-30 21:49] LABS: Prolactin 11.8 ng/mL (2.0-18.0); Sex Hormone Binding Globulin 15 nmol/L (10-50)
[2024-02-04 23:24] LABS: Estradiol Ultra Sensitive 16 pg/mL (< OR = 29)
[2024-02-05 16:43] LABS: Testosterone, Free 36.3 pg/mL (35.0-155.0); Testosterone, Total 159 ng/dL (250-1100)
== END 2024-01-29 15:22 | disposition home or self-care (01) ==
LOC: HO.LAB 15:21
PROVIDERS: Visit Provider Nurse Practitioner Family
DX: E29.1 Testicular hypofunction (principal); R39.9 Unspecified symptoms and signs involving the genitourinary system
CPT/HCPCS: 36415; 81003; 82670; 83001; 83002; 84146; 84270; 84402; 84403

== ENCOUNTER → 2024-06-21 14:24 | Outpatient (BNVA) | payer SELFPAY | PROVIDERS: PCP Internal Medicine; Visit Provider Nurse Practitioner Family | DX: E29.1 Testicular hypofunction (principal); N50.812 Left testicular pain; N50.811 Right testicular pain; R39.9 Unspecified symptoms and signs involving the genitourinary system; F41.9 Anxiety disorder, unspecified | CPT/HCPCS: 81003; 99212 ==

== ENCOUNTER 2024-06-21 14:26 | Outpatient (AMB) | payer OTHER, SELFPAY ==
--- NOTE | 2024-06-21 14:27 | A.OFFVIS_ITS ---
Intake Visit Reasons: follow up/labs(set) Intake Note: Patient presents for follow up testicular pain, penile discharge, and lab results Urology Medications: none Blood Thinner: none Property Accountant Required: No Accompanied by: Self / Same As Patient Allergies prednisone Adverse Reaction (Uncoded 06/21/24 20:55) Anxiety Medication List - Last Reconciled 06/21/24 by ANNABELLE Gabriel amlodipine 5 mg PO DAILY cholecalciferol (vitamin D3) (Vitamin D3) 50 mcg PO DAILY ibuprofen 800 mg PO Q12H 30 days lorazepam 2 mg PO TID PRN quetiapine 25 - 75 mg PO BEDTIME HPI Comments Details: Rolan is a 49 year-old male patient of Dr. Camilo. He has a past medical history of anxiety, GERD, and hypertension. He presents to the office today for follow-up of his ongoing scrotal issues, ongoing/longstanding orchalgia, lower urinary tract symptoms, and hypogonadism. In discussion with the patient today he continues to report intermittent episodes of ongoing scrotal discomfort. He reports feeling scrotal discomfort is exacerbated when lifting heavy objects. He reports feeling pain is more bothersome while at work as this is when he typically tends to lift heavy objects. He discusses at length the recent loss of his son approximately 3 months ago in [place] to motorcycle accident. He discusses feeling this has affected his health and well-being. He discusses feeling he is losing weight as he is unable to have an appetite. He discusses his new patient appointment today with his psychiatric provider to discuss further treatment options as he knows he has been anxious and depressed. During last office visit over 6 months ago patient had been reporting low libido and fatigue at which time hypogonadal labs were ordered for further assessment evaluation. These results reviewed with the patient today as noted and trended below. PSA 04/14 0.8 Estradiol 02/13 16 FSH 02/13 3.0 LH 02/13 5.0 Prolactin 02/13 11.8 Total testosterone 04/14 183, 02/13 159 Free testosterone 04/14 37.1, 02/13 36.3 SHBG 02/13 15 Previous workup has included scrotal ultrasound 04/14 noting multiple right epididymal head lesions measuring 1.8 cm, 0.7 cm, and 0.7 cm without significant change from previous scrotal ultrasound 07/10/2022. Most recent scrotal ultrasound 01/13 reviewed with the patient today. Redemonstration of 0.5 cm right epididymal head mass in right epididymal head cysts measuring up to 1.8 cm. We discussed stability regarding results. Patient defers physical exam of symptoms despite reported symptoms. Educated and stressed the importance of physical exam for further assessment evaluation however patient continues to decline at this time. Retroperitoneal ultrasound 04/14 noted bilateral kidneys with no calculi, lesions, and or hydronephrosis. The bladder is well distended and normal. Pre void bladder volume is approximately 140 mL. Postvoid bladder volume is approximately 15 mL. Prostate volume is approximately 23 mL. He has had a right epididymectomy and spermatocelectomy 09/12 and prior denervation 05/2021 but persistent pain. Discussed and stressed that epididymectomy has a 70-80% success rate and there is still a chance of persistent pain post- procedure. Reassurance was provided. When asked he reports previous lower urinary tract symptoms he had been experiencing of urinary urgency and frequency with episodes of incontinence if not near a bathroom continue however he feels these symptoms are variable. Educated and stressed the importance of physical exam for further assessment evaluation however patient continues to decline at this time. He otherwise offers no other issues or concerns at this time. [facility] Medical History Hypertension GERD (gastroesophageal reflux disease) Anxiety Spermatocele Surgical History History of surgery History of colonoscopy Hx of esophagogastroduodenoscopy History of testicular surgery Social History Patient Tobacco Use Status: Former Tobacco user Review of Systems Const Reports as per HPI Eyes Reports no additional complaints ENT Reports no additional complaints Card Reports as per HPI Resp Reports no additional complaints GI Reports as per HPI Reports as per HPI Musc Reports no additional complaints Neuro Reports no additional complaints Psych Reports as per HPI Endo Reports no additional complaints Roldan/Lymph Reports no additional complaints Aller/Immun Reports no additional complaints Physical Exam Const General: healthy appearing, comfortable, no acute distress, well developed, alert and awake Orientation/consciousness: patient oriented x3 Limitations: no limitations HEENT Head: Yes normal to inspection, Yes normocephalic and Yes atraumatic Ears: hearing grossly normal bilaterally Eyes General: appearance normal, both eyes and all related structures Neck Neck: Yes normal visual inspection and Yes trachea midline Chest Chest palpation & inspection: normal inspection of the chest Resp Effort & Inspection: normal respiratory effort and able to speak in complete sentences Cardio Rate: regular rate GI Inspection: Yes normal to inspection General: Yes no CVA tenderness Back/Spine/Pelvis Back: no CVA tenderness Skin General skin exam: no rashes or lesions noted Neuro General: patient oriented x3 Extrem General: Yes normal to inspection Psych Appearance: grossly normal and well kempt Mental Status: mental status grossly normal Speech and movement: Normal speech and movement present and Clear speech present Affect: normal affect Attitude: cooperative Thought process: Normal thought process present Thought content: Normal thought content present Insight: Fair insight present (Psych) Judgement: Fair judgement present (Psych) Results AMB Urinalysis, Automated UA Leukoctes 0 Hsukri/uL Last Edit by HeTexted on 06/21/24 15:12 UA Nitrite Negative Last Edit by HeTexted on 06/21/24 15:12 UA Urobilinogen 0.2 mg/dL Last Edit by HeTexted on 06/21/24 15:12 UA Protein 0 mg/dL Last Edit by HeTexted on 06/21/24 15:12 UA pH 5.5 Last Edit by HeTexted on 06/21/24 15:12 UA Blood 0 Francis/uL Last Edit by HeTexted on 06/21/24 15:12 UA Specific [place] 1.020 Last Edit by HeTexted on 06/21/24 15:12 UA Ketone Last Edit by HeTexted on 06/21/24 15:12 UA Bilirubin 0 mg/dL Last Edit by HeTexted on 06/21/24 15:12 UA Glucose 0 mg/dL Last Edit by HeTexted on 06/21/24 15:12 Results Reviewed Results Reviewed: Laboratory Last Values Urine pH (Auto) 5.5 06/21/24 15:11 Specific [place] (Auto) 1.020 06/21/24 15:11 Urine Protein (Auto) 0 mg/dL 06/21/24 15:11 Glucose (UA)(Auto) 0 mg/dL 06/21/24 15:11 Urine Blood (Auto) 0 Francis/uL 06/21/24 15:11 Urine Nitrite (Auto) Negative 06/21/24 15:11 Urine Bilirubin (Auto) 0 mg/dL 06/21/24 15:11 Urine Urobilinogen (Auto) 0.2 mg/dL 06/21/24 15:11 Leukocyte Esterase (Auto) 0 Shukri/uL 06/21/24 15:11 Assessment & Plan Assessment & Plan (1) Hypogonadism in male: Code(s): E29.1 - Testicular hypofunction Category: Medical (2) Lower urinary tract symptoms: Code(s): R39.9 - Unspecified symptoms and signs involving the genitourinary system Category: Medical (3) Orchalgia: Code(s): N50.819 - Testicular pain, unspecified Category: Medical Plan In office urinalysis results reviewed with the patient today; as noted above. Previous testosterone labs reviewed with the patient today; as noted above. Previous scrotal ultrasound results reviewed with the patient today; as noted above. We discussed redraw of PSA as well as testosterone free and total for further assessment evaluation. We discussed further treatment options of hypogonadism. Will obtain retroperitoneal ultrasound for further assessment evaluation as patient continues to report variable lower urinary tract symptoms. Patient currently denies any UTI like symptoms. We discussed importance of follow-up with PCP as well as psychiatrist to discussed further treatment options regarding anxiety and depression that patient was reporting. Information provided regarding counseling service however he declines as he reports new patient psychiatric evaluation appointment today. Follow-up in 1-3 months with labs and imaging; or sooner with any issues, concerns, and or questions. Orders: Orders Prostate Specific Antigen Today E29.1 - Testicular hypofunction AMB Urinalysis Automated Today Z13.9 - Encounter for screening, unspecified Testosterone, Free/Total Today E29.1 - Testicular hypofunction Patient Instructions: The patient had an opportunity to ask questions regarding the treatment plan. All questions were answered. Physical exam, labs, and imaging were discussed and reviewed in detail. As well as risks, benefits, and discussion of treatment choices. No major barriers to understanding were identified. The patient expressed understanding and agreement with the above treatment plan. The patient was made aware they should contact our office by phone for worsening of their current condition, the appearance of new symptoms, or with any questions or concerns. Compliance is encouraged with any medications and follow up testing that is ordered. It is a privilege to be allowed the opportunity to participate in? your urological care.? Again, if you have any questions or concerns If you have any questions or concerns please do not hesitate to contact me. The office is [phone]. This note is constructed using voice recognition software. While every effort has been made to ensure accuracy team driver errors may have been included. Yours sincerely, ANNABELLE Gabriel Coding Level of Care Code Est Pt Level 4 (31872) Complex EM visit Add On G2211 Diagnoses Hypogonadism in male E29.1 Lower urinary tract symptoms R39.9 Orchalgia N50.819 Time Spent (min) 35
== END 2024-06-21 15:16 | disposition home or self-care (01) ==
PROVIDERS: PCP Internal Medicine; Visit Provider Nurse Practitioner Family
DX: E29.1 Testicular hypofunction (principal); R39.9 Unspecified symptoms and signs involving the genitourinary system; N50.819 Testicular pain, unspecified; Z13.9 Encounter for screening, unspecified
CPT/HCPCS: 99214; G2211

== ENCOUNTER 2024-07-20 10:14 | Outpatient (REF) | payer OTHER, SELFPAY ==
--- NOTE | ~2024-07-20 | US_ITS ---
CLINICAL HISTORY: Lower urinary tract symptoms, renal cyst US kidneys and bladder Comparison: None Findings: Right kidney 12.8 cm length. No significant focal abnormality. Left kidney 12.1 cm length. No significant focal abnormality. No bilateral hydronephrosis. Normal bilateral renal echogenicity. The urinary bladder is unremarkable. Prevoid volume 244 mL. Post void volume 19 mL. Bilateral ureteral jets visualized. Impression: No significant abnormalities. Ultrasound prostate Comparison: None Findings: Heterogeneous prostate with calcifications. Prostate measures 3.8 x 3.7 x 3.1 cm. Prostate volume 22 mL, this is normal. Impression: Heterogeneous prostate without enlargement This document has been electronically signed by: Bry Humphrey MD on 07/20/2024 19:20:55
--- OUTSIDE RECORDS SUMMARY | 2024-07-20 11:08 | XMS_ITS | Encounter Summary ---
Author Organization [facility] Address [address] [place] [address] Care Team Providers Care Body Shop Supervisor Name Role Phone Venancio Camilo MD Primary Care Provider [phone] Encounter Details Date Type Department Care Team (Late Contact Info) Description 06/15/2024 Telephone Adult Medicine [facility] [address] [place] [id number] Venancio Camilo MD [address] [place], [place] [id number] Social History Tobacco Use Types Packs/Day Years Used Date Smoking Tobacco: Former Cigarettes Smokeless Tobacco: Never Alcohol Use Standard Drinks/Week Comments No 0 (1 standard drink = 0.6 oz pur e alcohol) Sex and Gender Information Value Date Recorded Sex Assigned at Male 07/15/2024 1:15 PM EST Gender Identity Male 07/15/2024 1:15 PM EST Sexual Orientation Straight 07/15/2024 1: 15 PM EST Job Start Date Occupation Industry Not on file Not on file Not on file documented as of this encounter Progress Notes * Kamala Ac - 06/15/2024 1:48 PM EST PATIENT WOULD LIKE A CALL BACK REGARDING MOST RECENT URINE SCREENING. documented in this encounter Plan of Treatment Upcoming Encounters Date Type Department Care Team (Late Contact Info) Description 07/28/2024 10:30 AM EST Appointment [facility] Ultrasound [address] [place] [phone] 08/20/2024 11:00 AM EST Office Visit Gastroenterology - [address] [place] [address] Irma Pimentel PA [address] [place] [address] documented as of this encounter Visit Diagnoses Not on filedocumented in this encounter Care Teams Body Shop Supervisor Relationship Specialty Start Date End Date Venancio Camilo MD [address] [place] [id number] PCP - General Internal Medicine 12/09/14 documented as of this encounter
--- OUTSIDE RECORDS SUMMARY | 2024-07-20 11:08 | XMS_ITS | Clinical Summary ---
Author Organization [facility] Address [address] [place] [id number] Care Team Providers Care Mineral Economist Name Role Phone Diana Velázquez MD Primary Care Provider [phone] Social History Tobacco Use Types Packs/Day Years Used Date Smoking Tobacco: Never Assessed Sex and Gender Information Value Date Recorded Sex Assigned at Not on file Gender Identity Not on file Sexual Orientation Not on file Plan of Treatment Health Maintenance Due Date Last Done Comments Hepatitis C Virus Screening 1975 HIV Screening 1988 DTaP/Tdap/Td Vaccines (1 - Tdap) 1994 Hepatitis B Vaccines (1 of 3 - 19+ 3-dose series) 1994 COVID-19 Vaccine (2023-2 5 season) 2024 Pneumococcal Vaccine: Pediat malena (0-5 Years) and At-Risk Patients (6 to 49 Years) Aged Out No longer eligible b ased on patient's age to complete this topic Care Teams Mineral Economist Relationship Specialty Start Date End Date Diana Velázquez MD [address] [place] [id number] PCP - General 07/02/22
--- OUTSIDE RECORDS SUMMARY | 2024-07-20 11:08 | XMS_ITS | Encounter Summary ---
Author Organization [facility] Address [address] [address] Phone Care Team Providers Care Director Child Name Role Phone Venancio Camilo MD Primary Care Provider [phone] Reason for Visit * Reason Comments Hypertension Vitamin D Deficiency Encounter Details Date Type Department Care Team (Late st Contact Info) Description 06/21/2024 11:45 AM EST Office Visit [facility]. [address] [address] Chasity Kaufman ARNP [address] [phone] Hypertension (Primary Dx) Social History Tobacco Use Types Packs/Day Years Used Date Smoking Tobacco: Former Smokeless Tobacco: Never Alcohol Use Standard Drinks/Week Comments Not Currently 0 (1 standard drink = 0.6 oz pure alcohol) Alcoholic Drinks/day: Occasional social drink Sex and Gender Information Value Date Recorded Sex Assigned at Not on file Legal Sex Male 4:57 PM EST Gender Identity Not on file Sexual Orientation Not on file documented as of this encounter Last Filed Vital Signs Vital Sign Reading Time Taken Comments Blood Pressure 146/90 06/21/2024 12:30 PM EST Pulse 116 06/21/2024 11:59 AM EST Temperature - - Respiratory Rate - - Oxygen Saturation 98% 06/21/2024 11:59 AM EST Inhaled Oxygen Concentration - - Weight 86.2 kg (190 lb) 06/21/2024 11:59 AM EST Height - - Body Mass Index 26.5 09/11/2021 3:25 PM EDT documented in this encounter Patient Instructions * Patient Instructions* Chasity Kaufman ARNP - 06/21/2024 11:45 AM EST Blood pressure monitoring education: Monitor home blood pressure values after sitting for 5 minutes with back and arm support. Keep a log. Bring your log and blood pressure cuff to your next visit. documented in this encounter Progress Notes * Chasity Kaufman ARNP - 06/21/2024 11:45 AM EST Images from the original note were not included. Patient Name: Rolan Esteban, Male Date of : 1975, 49 y.o. Date: 06/21/2024 History of Present Illness Rolan Esteban is a 49 y.o. male here in follow-up for Hypertension. He's had a documented h/o anxiety, H pylori and a small renal stone and benign renal cyst. No h/o proteinuria. He's been grieving the loss of his son. His blood pressure has been running elevated in the 140s-150s systolic for the past week. He self increased his Amlodipine from 2.5 mg QD to 5 mg QD without improvement. The following portions of the patient's chart were reviewed in this encounter and updated as appropriate: Allergies Meds Problems Med Hx Surg Hx Fam Hx Review of Systems Constitutional: Negative for chills, fever, weight gain and weight loss. HENT: Negative for nosebleeds. Eyes: Negative for blurred vision and double vision. Respiratory: Negative for cough and shortness of breath. Cardiovascular: Negative for chest pain, palpitations and leg swelling. Gastrointestinal: Negative for abdominal pain, constipation, diarrhea, nausea, vomiting and poor appetite. Genitourinary: Negative for dysuria, flank pain, frequency, hematuria and urgency. Skin: Negative for rash. Neurological: Negative for dizziness, tingling, numbness and headaches. Endo/Heme/Allergies: Does not bruise/bleed easily. Psychiatric/Behavioral: Negative. Medication List Current Outpatient Medications Medication Sig Dispense Refill amLODIPine (NORVASC) 2.5 MG tablet Take 3 tablets (7.5 mg total) by mouth 1 (one) time each day 90 tablet 2 cholecalciferol (VITAMIN D-3 SUPER STRENGTH) 50 MCG (2000 UT) tablet Take 1 tablet by mouth 1 (one)time each day LORazepam (ATIVAN) 2 MG tablet TAKE 1 TABLET BY MOUTH 3 TIMES PER DAY NEEDED FOR ANXIETY QUEtiapine (SEROquel) 25 MG tablet TAKE 1 3 TABLETS BY MOUTH AT BEDTIME. No current facility-administered medications for this visit. Allergy List Allergies Allergen Reactions Lisinopril Diarrhea and Nausea And Vomiting Losartan Physical Exam BP 146/90 (BP Location: Left upper arm, Patient Position: Sitting, BP Cuff Size: Adult) Pulse (!)116 Wt 190 lb (86.2 kg) SpO2 98% BMI 26.50 kg/m?? Vitals reviewed. Constitutional: He is oriented to person, place, and time. He does not appear ill. No distress. HEENT: Mouth/Throat: Oropharynx is clear and moist. Eyes: Conjunctivae are normal. Neck: No JVD present. Cardiovascular: Normal rate and regular rhythm. He exhibits no edema. Pulmonary/Chest: Effort normal and breath sounds normal. Abdominal: Soft. He exhibits no distension. There is no abdominal tenderness. Neurological: He is alert and oriented to person, place, and time. Skin: Skin is warm and dry. No erythema. Psychiatric: He has a normal mood and affect. His behavior is normal. Chemistry Lab Units 12/02/23 1510 12/02/23 1509 02/19/23 1441 08/14/22 1626 CREATININE mg/dL 0.96 0.92 1.0 1.0 BUN mg/dL 14 14 14 10 POTASSIUM mmol/L 4.5 4.5 4.6 4.4 SODIUM mmol/L 139 139 138 141 CO2 mmol/L 22 23 26 31* CHLORIDE mmol/L 104 103 101 103 ALBUMIN g/dL 4.2 4.1 4.4 4.4 4.7 EGFRNAFR ML/MIN/1.73 M2 -- -- 97 98 EGFR mL/min/1.73 98 103 -- -- WBC AUTO x10E3/uL 7.3 -- 9.9 8.9 HEMATOCRIT % 46.8 -- 43.7 48.2 HEMOGLOBIN g/dL 15.2 -- 14.3 15.4 PLATELETS AUTO x10E3/uL 343 -- 368 363 Bone Mineral Lab Units 12/26/23 1234 12/02/23 1510 12/02/23 1509 02/19/23 1441 08/14/22 1626 CALCIUM mg/dL -- 9.0 9.1 9.5 10.1 PHOSPHORUS mg/dL -- 2.8 2.9 3.2 3.0 ALK PHOS U/L -- -- -- 88 -- PTH pg/mL -- 25 -- -- -- VIT D 25 HYDROXY ng/mL 43.2 34.8 -- -- -- Urine Lab Units 12/02/23 1510 12/02/23 1509 02/19/23 1450 08/14/22 1626 ALB MG/G CREAT UR mg/g creat 6 5 Unable to calculate 106.8 7.0 255.3 Assessment & Plan Problem List Items Addressed This Visit Hypertension - Primary Overview Blood pressure has been elevated for the past week Currently taking Amlodipine 5 mg QD (pt self increased from 2.5 mg 1 wk ago) Increase Amlodipine from 5 mg to 7.5 mg QD Continue home BP monitoring and bring in reads to next visit (calibrated home monitor here today - reads to 10 points higher) No proteinuria and Normal Renal function as of 12/2023 - Rechecking this Follow low NA diet Avoid NSAIDs/OTC Decongestant medications Target BP <120/80 Exercise, weight loss for healthy BMI Orders Placed This Encounter amLODIPine (NORVASC) 2.5 MG tablet Return in about 4 weeks (around 07/19/2024) for Next scheduled follow-up with Rocio for BP check. MICHELLE Vega Cosigned by Man Lerma MD at 06/28/2024 1:07 AM EST documented in this encounter Plan of Treatment Upcoming Encounters Date Type Department Care Team (Late st Contact Info) Description 07/26/2024 11:45 AM EST [facility] [address] [address] Chasity Kaufman ARNP [address] [facility] [address] [place] [address] 09/02/2024 11:30 AM EDT Office Visit [facility] [address] [phone] Chasity Kaufman ARNP [address] [phone] 11/02/2024 4:00 PM EDT Office Visit [facility] [address] [phone] Chasity Kaufman ARNP [address] [address] documented as of this encounter Visit Diagnoses Diagnosis Hypertension- Primary documented in this encounter Care Teams Director Child Relationship Specialty Start Date End Date Venancio Camilo MD [address] [place] [phone] PCP - General 07/03/20 documented as of this encounter
--- OUTSIDE RECORDS SUMMARY | 2024-07-20 11:08 | XMS_ITS | Encounter Summary ---
Author Organization [facility] Address [address] [place] [address] Care Team Providers Care Professor Of Mechanical Engineering Name Role Phone Venancio Camilo MD Primary Care Provider [phone] Encounter Details Date Type Department Care Team (Late st Contact Info) Description 07/09/2024 2:10 PM EST Lab Draw Station - [address] [place] [phone] Heartburn; Weight loss, unintentional Social History Tobacco Use Types Packs/Day Years [...] as of this encounter Progress Notes * MICKY Workman - 07/09/2024 2:10 PM EST Please call patient and let him know his vitamin D level is excellent! Will await ultrasound. documented in this encounter Plan of Treatment Upcoming Encounters Date Type Department Care Team (Late st Contact Info) Description 07/28/2024 10:30 AM EST Appointment [facility] [address] [place] [phone] 08/20/2024 11:00 AM EST Office Visit Gastroenterology - [address] [place] [phone] Irma Pimentel PA [address] [place] [address] documented as of this encounter Procedures Procedure Name Priority Date/Time Associated Diagnosis Comments VITAMIN B12 AND FOLATE Routine 07/09/2024 2:36 PM EST Weight loss, unintentional CBC WITH AUTO DIFFERENTIAL Routine 07/09/2024 2:36 PM EST Weight loss, unintentional HELICOBACTER PYLORI BREATH TEST Routine 07/09/2024 2:36 PM EST Heartburn VITAMIN D 1,25 DIHYDROXY Routine 07/09/2024 2:36 PM EST Weight loss, unintentional CBC AND DIFFERENTIAL Routine 07/09/2024 2:36 PM EST Weight loss, unintentional COMPREHENSIVE METABOLIC PANEL Routine 07/09/2024 2:36 PM EST Weight loss, unintentional documented in this encounter Results * CBC auto differential (07/09/2024 2:36 PM EST) WBC 8.7 4.8 - 10.8 K/mcL LAB HEMETOLOGY METHOD 07/09/2024 4:05 PM [facility] RBC 5.30 4.50 - 5.50 M/mcL LAB HEMETOLOGY METHOD 07/09/2024 4:05 PM [facility] Hemoglobin 15.3 13.5 - 17.5 g/dL LAB HEMETOLOGY METHOD 07/09/2024 4:05 PM [facility] Hematocrit 46.4 42.0 - 54.0 % LAB HEMETOLOGY METHOD 07/09/2024 4:05 PM [facility] MCV 87.7 79.0 - 98.0 FL LAB HEMETOLOGY METHOD 07/09/2024 4:05 PM [facility] MCH 28.9 27.0 - 32.0 pcg LAB HEMETOLOGY METHOD 07/09/2024 4:05 PM [facility] MCHC 33.0 32.0 - 37.0 g/dL LAB HEMETOLOGY METHOD 07/09/2024 4:05 PM [facility] RDW 12.6 11.0 - 15.0 % LAB HEMETOLOGY METHOD 07/09/2024 4:05 PM [facility] Platelets 397 130 - 400 K/mcL LAB HEMETOLOGY METHOD 07/09/2024 4:05 PM [facility] MPV 9.4 7.0 - 11.0 FL LAB HEMETOLOGY METHOD 07/09/2024 4:05 PM [facility] NRBC 0.0 <1.0 % LAB HEMETOLOGY METHOD 07/09/2024 4:05 PM [facility] NRBC Absolute 0.00 <0.10 K/mcL LAB HEMETOLOGY METHOD 07/09/2024 4:05 PM [facility] Neutrophils Relative 67.1 % LAB HEMETOLOGY METHOD 07/09/2024 4:05 PM [facility] Lymphocytes Relative 26.4 % LAB HEMETOLOGY METHOD 07/09/2024 4:05 PM [facility] Monocytes Relative 5.5 % LAB HEMETOLOGY METHOD 07/09/2024 4:05 PM [facility] Eosinophils Relative 0.2 % LAB HEMETOLOGY METHOD 07/09/2024 4:05 PM [facility] Basophils Relative 0.6 % LAB HEMETOLOGY METHOD 07/09/2024 4:05 PM [facility] Immature Granulocytes Relative 0.2 % LAB HEMETOLOGY METHOD 07/09/2024 4:05 PM [facility] Neutrophils Absolute 5.83 1.50 - 7.00 K/mcL LAB HEMETOLOGY METHOD 07/09/2024 4:05 PM EST [facility] Lymphocytes Absolute 2.30 1.00 - 5.00 K/mcL LAB HEMETOLOGY METHOD 07/09/2024 4:05 PM [facility] Monocytes Absolute 0.48 0.20 - 1.00 K/mcL LAB HEMETOLOGY METHOD 07/09/2024 4:05 PM [facility] Eosinophils Absolute 0.02 0.00 - 0.50 K/[facility] LAB HEMETOLOGY METHOD 07/09/2024 4:05 PM [facility] Basophils Absolute 0.05 0.00 - 0.20 K/[facility] HEMETOLOGY METHOD 07/09/2024 4:05 PM [facility] Immature Granulocytes Absolute 0.02 0.00 - 0.03 K/[facility] HEMETOLOGY METHOD 07/09/2024 4:05 PM [facility] Blood Venous blood specimen / Unknown Venipuncture / Unknown 07/09/2024 2:36 PM EST 07/09/2024 4:05 PM EST Irma WEEKS LAB BLOOD ORDERABLES [facility] [address] [place], [place] [address] [phone] * Vitamin B12 and folate (07/09/2024 2:36 PM EST) [facility] Vitamin B-12 401 250 - 900 pcg/mL LAB CHEMISTRY METHOD 07/09/2024 10:02 PM EST [facility] Folate 11.1 2.8 - 17.0 ng/ml LAB CHEMISTRY METHOD 07/09/2024 10:02 PM [facility] Blood Venous blood specimen / Unknown Venipuncture / Unknown 07/09/2024 2:36 PM EST 07/09/2024 9:35 PM EST Irma WEEKS LAB BLOOD ORDERABLES [facility] [address] [place] [address], * Vitamin D 1,25 dihydroxy (07/09/2024 2:36 PM EST) Vitamin D, 1, 25-Dihydroxy 77 20 - 79 pg/mL 07/12/2024 9:28 PM EST [facility] Comment: Vitamin D 1, 25 dihydroxy levels should be primarily used to assess Vitamin D status in patients with renal disease and hypercalcemia. Vitamin D 1,25-dihydroxy levels are generally less than 5 pg/mL in end stage renal disease patients. The preferred initial test for assessing Vitamin D status in the general population is Vitamin D 25-hydroxy (VITD). Test performed at [facility], [address] , [place], [place] ??[address] ? [phone] Geraldine Kern MD, PhD - Application Assistant Blood Venous blood specimen / Unknown Venipuncture / Unknown 07/09/2024 2:36 PM EST 07/09/2024 3:37 PM EST Irma Pimentel PA LAB BLOOD ORDERABLES Performing Organization Address City/[facility]/ZIP Co de Phone Number [facility] [address] [place] [address] * Comprehensive metabolic panel (07/09/2024 2:36 PM EST) Sodium 135 133 - 145 mmol/L LAB CHEMISTRY METHOD 07/09/2024 9:35 PM EST [facility] Potassium 4.4 3.5 - 5.5 mmol/L LAB CHEMISTRY METHOD 07/09/2024 9:35 PM EST [facility] Chloride 102 96 - 110 mmol/L LAB CHEMISTRY METHOD 07/09/2024 9:35 PM EST [facility] CO2 29 21 - 32 mmol/L LAB CHEMISTRY METHOD 07/09/2024 9:35 PM [facility] Anion Gap 4 3 - 11 LAB CHEMISTRY METHOD 07/09/2024 9:35 PM [facility] Glucose 95 70 - 100 mg/dL LAB CHEMISTRY METHOD 07/09/2024 9:35 PM [facility] BUN 10 5 - 25 mg/dL LAB CHEMISTRY METHOD 07/09/2024 9:35 PM [facility] Creatinine 1.09 0.70 - 1.30 mg/dL LAB CHEMISTRY METHOD 07/09/2024 9:35 PM [facility] eGFR 83 >=60 mL/min/1. 73m2 LAB CHEMISTRY METHOD 07/09/2024 9:35 PM [facility] Comment:Calculation based on the??Chronic Kidney Disease Epidemiology Collaboration (CKD-EPI) equation refit??without adjustment for race. BUN/Creatinine Ratio 9.2 LAB CHEMISTRY METHOD 07/09/2024 9:35 PM [facility] Calcium 9.1 8.5 - 10.5 mg/dL LAB CHEMISTRY METHOD 07/09/2024 9:35 PM [facility] AST (SGOT) 11 10 - 42 unit/L LAB CHEMISTRY METHOD 07/09/2024 9:35 PM [facility] ALT (SGPT) 21 10 - 60 unit/L LAB CHEMISTRY METHOD 07/09/2024 9:35 PM [facility] Alkaline Phosphatase 98 42 - 121 unit/L LAB CHEMISTRY METHOD 07/09/2024 9:35 PM [facility] Total Protein 7.7 6.0 - 8.0 g/dL LAB CHEMISTRY METHOD 07/09/2024 9:35 PM [facility] Albumin 4.1 3.2 - 5.0 g/dL LAB CHEMISTRY METHOD 07/09/2024 9:35 PM [facility] Total Bilirubin 0.7 0.0 - 1.4 mg/dL LAB CHEMISTRY METHOD 07/09/2024 9:35 PM EST [facility] Blood Venous blood specimen / Unknown Venipuncture / Unknown 07/09/2024 2:36 PM EST 07/09/2024 9:35 PM EST Irma WEEKS LAB BLOOD ORDERABLES Performing Organization Address City/[facility]/ZIP Co de Phone Number [facility] [address] [place] [address], * Helicobacter pylori breath test (07/09/2024 2:36 PM EST) H Pylori Breath Test Negative Negative LAB CHEMISTRY METHOD 07/10/2024 1:19 PM EST [facility] Breath Oral cavity structure / Unknown Non-blood Collection / Unknown 07/09/2024 2:36 PM EST 07/10/2024 11:25 AM EST Irma WEEKS LAB BODY FLUIDS AND STOOLS ORDERABLES Performing Organization Address City/[facility]/ZIP Co de Phone Number [facility] [address] [place] [address], documented in this encounter Visit Diagnoses Diagnosis Heartburn Weight loss, unintentional Loss of weight documented in this encounter Care Teams Professor Of Mechanical Engineering Relationship Specialty Start Date End Date Venancio Camilo MD [address] [place] [phone] PCP - General Internal Medicine 12/09/14 documented as of this encounter
--- OUTSIDE RECORDS SUMMARY | 2024-07-20 11:08 | XMS_ITS | Clinical Summary ---
Author Organization Patient Business Ser [facility] Address [address] [place] [address] Care Team Providers Care Vice President Network Name Role Phone Venancio Camilo MD Primary Care Provider [phone] Allergies Active Allergy Reactions Criticality Noted Date Comments Lisinopril Diarrhea,Nausea And Vomiting 020 Medications Medication Sig Dispensed Refills Start Date End Date Status diclofenac (VOLTAREN) 1 % topical gel 4 Active amLODIPine (NORVASC) 2.5 mg tablet 1 Active LORazepam (ATIVAN) 2 mg tablet TAKE 1 TABLET BY MOUTH 3 TIMES PER DAY NEEDED FOR ANXIETY 1 Active QUEtiapine (SEROquel) 25 mg tablet Take 1 tablet (25 mg total) by mouth at bedtime. Active Vitamin D3 50 mcg (2,000 unit) capsuleIndicati ons:Scrotal pain,Right lower quadrant pain TAKE 1 CAPSULE BY MOUTH EVERY DAY 90 capsule 5 Active losartan (COZAAR) 25 mg tablet Take 1 tablet (25 mg total) by mouth 1 (one) time each day. 5 07/06/19 26 Active psyllium (Metamucil, with sugar,) 3.4 gram packetIndicatio ns:RUQ pain Take 1 packet by mouth 1 (one) time each day. Mix and drink with at least 8 ounces of water or juice. 30 packet 11 5 07/09/19 26 Active omeprazole (PriLOSEC) [address] capsuleIndicati ons:Heartburn Take 1 capsule (20 mg total) by mouth 1 (one) time each day. 30 each 5 07/12/19 26 Active Additional Information Patient not taking.Reported on 07/19/2024 cholecalciferol (VITAMIN D-3) 50 mcg (2,000 unit) capsule Take 1 capsule (2,000 Units total) by mouth 1 (one) time each day. 4 06/28/19 25 Discontinued cetirizine (ZyrTEC) 10 mg tablet Take 1 tablet (10 mg total) by mouth 1 (one) time each day. 3 07/19/19 25 Discontinued(The rapy completed) omeprazole OTC (PriLOSEC OTC) 20 mg EC tabletIndicatio ns:Heartburn Take 1 tablet (20 mg total) by mouth 1 (one) time each day. Do not crush, chew, or split. 30 tablet 5 5 07/12/19 25 Discontinued Active Problems Problem Noted Date Diagnosed Date Abdominal pain 05/07/2024 Epigastric pain 05/07/2024 Hemorrhoids 05/07/2024 Rectal bleed 05/07/2024 Straining with stools 05/07/2024 Tubular adenoma of colon 05/07/2024 Allergic rhinitis 07/31/2022 Liver hemangioma 03/06/2022 H. pylori infection 01/19/2021 Hypertension 11/09/2019 Overview (05/07/2024): Please see most recent note with director of guidance/hypertension specialist, Dr. Burkett December 2020. Nephrology is aware of patient's discontinuation of Norvasc/blood pressure medication Fatty liver 05/04/2015 SRI (obstructive sleep apnea) 11/23/2014 Known medical problems 09/07/2014 Overview (05/07/2024): Sleep-related hypoventilation Hepatitis C antibody test positive 10/05/2013 Overview (05/07/2024): Hepatitis C viral load is undetectable on September 2013. The patient explains to me that he was treated for 6 months for hepatitis at [facility]. Anxiety 04/14/2013 Overview (05/07/2024): Patient has a psychiatrist. Dr Footadge? Assessment & Plan (07/20/2024 8:28 AM EST): Patient is established with behavioral health. His anxiety seems to be uncontrolled. With patient's overall complex picture, will defer management to their expertise. No crisis symptoms. Orders: Vitamin B1; Future Vitamin B6; Future Complete blood count; Future Thyroid stimulating hormone; Future Hemoglobin A1c; Future XR Lumbar Spine 4+ Views; Future Thyroid stimulating hormone; Future Basic metabolic panel; Future Treponema pallidum antibody with reflex to RPR and particle agglutination; Future Testosterone free, bioavailable and total; Future Assessment & Plan (06/15/2024 8:57 AM EST): Patient reports she has been increasingly anxious after his son on this year. The patient has an upcoming appointment with his psychiatrist, but is currently in between psychiatrists because his previous one retired. He takes Seroquel and lorazepam for management of his anxiety. The patient is asking me to give him 7 weeks of continuous leave. 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 I explained to the patient that I typically do not complete long-term relief with thing such as anxiety and depression. He was encouraged to bring this form to his psychiatrist who will be seeing next week. I discussed the signs and symptoms that warrant emergent evaluation. I gave the patient the information for [facility] in [place] should he develop any crisis symptoms. He should continue to follow closely with a psychiatrist. No SI or HI. I will need to review the forms, but I was clear with the pt I would not be doing any extended time off. I will consider completing 1-2 weeks so the pt may see his psychiatrist. Nephrolithiasis 04/14/2012 Overview (05/07/2024): CT 04/01 2mm nonobstructing left stone Encounters Date Type Department Care Team Description 07/19/2024 4:00 PM EST Office Visit Adult Medicine [address] [phone] Melquiades Villasenor PA Routine general medical examination at a health care facility (Primary Dx); Anxiety; Memory difficulties; Urinary symptom or sign; Chronic low back pain, unspecified back pain laterality, unspecified whether sciatica present 07/13/2024 Telephone Gastroenterology - [address] [place] [phone] Cherelle Muhammad MA 07/12/2024 Telephone Gastroenterology - [address] [place] [phone] Neeru Loyola MD 07/09/2024 2:10 PM EST Lab Draw Station - [address] [place] [phone] Heartburn; Weight loss, unintentional 07/09/2024 1:20 PM EST Office Visit Gastroenterology - [address] [place] [phone] Irma Pimentel PA Weight loss, unintentional (Primary Dx); Heartburn; RUQ pain 06/15/2024 8:00 AM EST Office Visit Adult Medicine [address] [phone] Melquiades Villasenor PA Urinary frequency (Primary Dx); Anxiety 06/15/2024 Telephone Adult Medicine [address] [phone] Venancio Camilo MD 05/06/2024 Telephone Adult Medicine [address] [phone] Venancio Camilo MD Back Pain from Last 3 Months Immunizations Name Administration Dates Next Due Influenza Quadravalent, MDCK , 0.5ml, with preservative (Flucelvax) 6mo and older 05/07/2017 Influenza trivalent, 0.5mL, preservative free (Fluarix; FluLaval; Fluzone) ages 6mo and older (Afluria) 3 years and older 04/17/2015,04/15/2014 Tdap Tetanus diptheria acell ular pertussis (Boostrix; Adacel) 7yo and older 07/01/2023,04/14/2013 Surgical History Surgery Date Site/Laterality Comments OTHER SURGICAL HISTORY PROCEDURE: [place] EXCISION MULLERIAN DUCT CYST; COMMENT: testicular cyst removal COLONOSCOPY 02/14/2021 TAx1 recall 5 years ESOPHAGOGASTRODUODENOSCOPY 02/14/2021 negative gastric biopsy Medical History Medical History Date Comments Nephrolithiasis 04/14/2012 DX:Nephrolithias is Abdominal pain DX:Abdominal cathy n Straining with stools DX:Straini ng with stools Rectal bleed DX:Rectal bleed History of Helicobacter pylo ri infection DX:History of Helicobacter p ylori infection Esophageal reflux DX:Esophageal reflux Hemorrhoids DX:Hemorrhoids Tubular adenoma of colon DX:Tubu lar adenoma of colon Anxiety state DX:Anxiety state Depressive disorder DX:Depressiv e disorder Tubular adenoma of colon DX:Tubu lar adenoma of colon Essential hypertension DX:Essent ial hypertension Epigastric pain DX:Epigastric pa in Family History Medical History Relation Name Comments No Known Problems Brother 1 No Known Problems Brother 2 No Known Problems Brother 3 No Known Problems Brother 4 No Known Problems Father Hypertension Mother Floria Other: anxiety Mother Floria Other: prediabetes Mother Floria Breast cancer Sister discovered at age 51. chemo Other: elevated BP Sister Relation Name Status Comments Brother 1 Alive twin, anxiety Brother 2 Alive Brother 3 Alive Brother 4 Alive Daughter Alive Father Alive not known Mother Mariah Alive asthma, anxiety , osteoporosis, HTN, fibromyalgia. DM Sister Alive anxiety Son Alive Social History Tobacco Use Types Packs/Day Years Used Date Smoking Tobacco: Former Cigarettes Smokeless Tobacco: Never Tobacco Cessation:Counseling Given: Not Answered Alcohol Use Standard Drinks/Week Comments No 0 (1 standard drink = 0.6 oz pur e alcohol) Sex and Gender Information Value Date Recorded Sex Assigned at Male 07/15/2024 1:15 PM EST Gender Identity Male 07/15/2024 1:15 PM EST Sexual Orientation Straight 07/15/2024 1: 15 PM EST Job Start Date Occupation Industry Not on file Not on file Not on file Obstetrics History Last Filed Vital Signs Vital Sign Reading Time Taken Comments Blood Pressure 122/76 07/19/2024 3:47 PM EST Pulse 86 07/19/2024 3:47 PM EST Temperature 36.5 ??C (97.7 ??F) 07/19/2024 3:47 PM ES T Respiratory Rate 14 07/19/2024 3:47 PM EST Oxygen Saturation 98% 07/19/2024 3:47 PM EST Inhaled Oxygen Concentration - - Weight 83 kg (183 lb) 07/19/2024 3:47 PM EST Height 180.3 cm (5' 11 ) 07/19/2024 3:47 PM EST Body Mass Index 25.52 07/19/2024 3:47 PM EST Plan of Treatment Upcoming Encounters Date Type Department Care Team (Late st Contact Info) Description 07/28/2024 10:30 AM EST Appointment [facility] Ultrasound [address] [place] [phone] 08/20/2024 11:00 AM EST Office Visit Gastroenterology - [address] [place] [phone] Irma Pimentel PA [address] [phone] Health Maintenance Due Date Last Done Comments Pneumococcal Vaccine: Pediatrics (0 to 5 Years) and At-Risk Patients (6 to 64 Years) (1 of 2 - PCV) 1981 Hepatitis A Vaccines (1 of 2 - Risk 2-dose series) 1994 Hepatitis B Vaccines (1 of 3 - 19+ 3-dose series) 1994 Colorectal Cancer Screening: Colonoscopy 07/25/2020 Social Influencers of Health Screening 07/25/2020 COVID-19 Vaccine ( - 2023-2 5 season) 2024 Influenza Vaccine (#1) 2024 7, 04/17/2015, 04/15/2014 Depression Screening 07/01/2024 07/01/2023 Diabetes: Blood Sugar Contro l Test (HGBA1C) 01/16/2025 07/19/2024, 07/03/2023, 09/11/2021 Diabetes: Annual Urine Albumin-Creatinine Ratio (uACR) 06/21/2025 06/21/2024, 12/02/2023 Diabetes: Annual GFR (Glomerular Filtration Rate) 07/19/2025 07/19/2024, 07/09/2024, 07/02/2023 Hypertension/CHF/CAD Annual BMP Blood Test 07/19/2025 07/19/2024, 07/09/2024, 07/02/2023 Cholesterol Screening (Lipid Panel) 07/02/2028 07/02/2023 DTaP,Tdap,and Td Vaccines (3 - Td or Tdap) 07/01/2033 07/01/2023, 04/14/2013 HIV Screening Completed 07/02/2023 Hepatitis C Screening Completed 07/02/2023 Diabetes: Annual Foot Exam Discontinued Diabetes: Annual Retina Eye Exam Discontinued HIB Vaccines Aged Out No longer eligi ble based on patient's age to complete this topic HPV Vaccines Aged Out No longer eligi ble based on patient's age to complete this topic IPV Vaccines Aged Out No longer eligi ble based on patient's age to complete this topic MMR Vaccines Aged Out No longer eligi ble based on patient's age to complete this topic Meningococcal ACWY Vaccine Aged Out N o longer eligible based on patient's age to complete this topic RSV Immunization Patients Under 20 months Aged Out No longer eligible based on patient's age to complete this topic Varicella Vaccines Aged Out No longer eligible based on patient's age to complete this topic Procedures Procedure Name Priority Date/Time Associated Diagnosis Comments TREPONEMA PALLIDUM ANTIBODY WITH REFLEX TO RPR AND PARTICLE AGGLUTINATION Routine 07/19/2024 5:06 PM EST Routine general medical examination at a health care facility Anxiety Memory difficulties BASIC METABOLIC PANEL Routine 07/19/2024 5:06 PM EST Routine general medical examination at a health care facility Anxiety Memory difficulties HEMOGLOBIN A1C Routine 07/19/2024 5:06 PM EST Routine general medical examination at a health care facility Anxiety Memory difficulties THYROID STIMULATING HORMONE Routine 07/19/2024 5:06 PM EST Routine general medical examination at a health care facility Anxiety Memory difficulties COMPLETE BLOOD COUNT Routine 07/19/2024 5:06 PM EST Routine general medical examination at a health care facility Anxiety Memory difficulties TESTOSTERONE FREE, BIOAVAILABLE AND TOTAL Routine 07/19/2024 5:06 PM EST Routine general medical examination at a health care facility Anxiety Memory difficulties CBC WITH AUTO DIFFERENTIAL Routine 07/09/2024 2:36 PM EST Weight loss, unintentional VITAMIN B12 AND FOLATE Routine 07/09/2024 2:36 PM EST Weight loss, unintentional VITAMIN D 1,25 DIHYDROXY Routine 07/09/2024 2:36 PM EST Weight loss, unintentional CBC AND DIFFERENTIAL Routine 07/09/2024 2:36 PM EST Weight loss, unintentional COMPREHENSIVE METABOLIC PANEL Routine 07/09/2024 2:36 PM EST Weight loss, unintentional HELICOBACTER PYLORI BREATH TEST Routine 07/09/2024 2:36 PM EST Heartburn SANCHEZ URINE CULTURE TUBE Routine 06/15/2024 9:02 AM EST Urinary frequency URINALYSIS WITH REFLEX MICROSCOPIC AND CULTURE Routine 06/15/2024 9:02 AM EST Urinary frequency URINALYSIS WITH REFLEX MICROSCOPIC AND CULTURE Routine 06/15/2024 9:02 AM EST Urinary frequency HM URINE ALBUMIN CREATININE RATIO Routine 12/02/2023 HEPATITIS C SCREENING Routine 07/02/2023 HM HIV SCREENING Routine 07/02/2023 LIPID PANEL Routine 07/02/2023 HM DEPRESSION SCREENING Routine 07/01/2023 from Last 3 Months or Most Recently Relevant to Health Maintenance Results * Treponema pallidum antibody with reflex to RPR and particle agglutination (07/19/2024 5:06 PM EST) T. Pallidum Antibodies Negative Negative LAB CHEMISTRY METHOD 07/19/2024 8:00 PM EST [facility] Blood Venous blood specimen / Unknown Venipuncture / Unknown 07/19/2024 5:06 PM EST 07/19/2024 5:06 PM EST Melquiades WEEKS LAB BLOOD ORDERA BLES [facility] [address] [place] [address], * (ABNORMAL) Testosterone free, bioavailable and total (07/19/2024 5:06 PM EST) Testosterone 175(L) 229 - 902 ng/dL LAB CHEMISTRY METHOD 07/19/2024 7:50 PM EST [facility] Testosterone, Free 5.2 4.6 - 22.4 ng/dL LAB CHEMISTRY METHOD 07/19/2024 7:50 PM EST [facility] Testosterone, Bioavailable 114 110 - 575 ng/dL LAB CHEMISTRY METHOD 07/19/2024 7:50 PM EST [facility] Sex Hormone Binding 13.7 See Comment nmol/L LAB CHEMISTRY METHOD 07/19/2024 7:50 PM EST [facility] Comment: FEMALES: ??pre-menopausal ?? 10.8 - >180 ??post-menopausal ??23.2 - 159.1 MALES: ?? 21-49 years ? 14.6 - 94.6 ?? 50-89 years ? 21.6 - 113.1 CHILDREN: ??No established reference range Over the counter supplements containing high doses of biotin may interfere with this assay. ??If interference is suspected, patients should be retested after refraining from biotin supplements for 72 hours. Albumin 4.0 3.2 - 5.0 g/dL LAB CHEMISTRY METHOD 07/19/2024 7:50 PM EST [facility] Blood Venous blood specimen / Unknown Venipuncture / Unknown 07/19/2024 5:06 PM EST 07/19/2024 5:06 PM EST Melquiades WEEKS LAB BLOOD ORDERA BLES [facility] [address] [place] [address], [place] [phone] * Complete blood count (07/19/2024 5:06 PM EST) [facility] WBC 9.2 4.8 - 10.8 K/mcL LAB HEMETOLOGY METHOD 07/19/2024 6:54 PM [facility] RBC 5.20 4.50 - 5.50 M/mcL LAB HEMETOLOGY METHOD 07/19/2024 6:54 PM EST [facility] Hemoglobin 15.4 13.5 - 17.5 g/dL LAB HEMETOLOGY METHOD 07/19/2024 6:54 PM [facility] Hematocrit 45.8 42.0 - 54.0 % LAB HEMETOLOGY METHOD 07/19/2024 6:54 PM [facility] MCV 87.4 79.0 - 98.0 FL LAB HEMETOLOGY METHOD 07/19/2024 6:54 PM [facility] MCH 29.4 27.0 - 32.0 pcg LAB HEMETOLOGY METHOD 07/19/2024 6:54 PM [facility] MCHC 33.6 32.0 - 37.0 g/dL LAB HEMETOLOGY METHOD 07/19/2024 6:54 PM [facility] RDW 12.5 11.0 - 15.0 % LAB HEMETOLOGY METHOD 07/19/2024 6:54 PM [facility] Platelets 393 130 - 400 K/mcL LAB HEMETOLOGY METHOD 07/19/2024 6:54 PM [facility] MPV 10.0 7.0 - 11.0 FL LAB HEMETOLOGY METHOD 07/19/2024 6:54 PM [facility] NRBC 0.0 <1.0 % LAB HEMETOLOGY METHOD 07/19/2024 6:54 PM [facility] NRBC Absolute 0.00 <0.10 K/mcL LAB HEMETOLOGY METHOD 07/19/2024 6:54 PM EST [facility] Blood Venous blood specimen / Unknown Venipuncture / Unknown 07/19/2024 5:06 PM EST 07/19/2024 5:06 PM EST Melquiades WEEKS LAB BLOOD ORDERA BLES Performing Organization Address City/[facility]/ZIP Co de Phone Number [facility] [address] [place] [address], [place] [phone] * Thyroid stimulating hormone (07/19/2024 5:06 PM EST) Pathologist [facility] TSH 0.70 0.40 - 4.00 mcIU/mL LAB CHEMISTRY METHOD 07/19/2024 7:47 PM EST [facility] Blood Venous blood specimen / Unknown Venipuncture / Unknown 07/19/2024 5:06 PM EST 07/19/2024 5:06 PM EST Melquiades WEKES LAB BLOOD ORDERA BLES Performing Organization Address [facility]/ZIP Co de Phone Number [facility] [address] [place] [address], [place] [phone] * Hemoglobin A1c (07/19/2024 5:06 PM EST) Pathologist [facility] Hemoglobin A1C 5.3 <6.5 % LAB CHEMISTRY METHOD 07/19/2024 9:16 PM EST [facility] Mean Bld Glu Estim. 105 mg/dL LAB CHEMISTRY METHOD 07/19/2024 9:16 PM EST [facility] Blood Venous blood specimen / Unknown Venipuncture / Unknown 07/19/2024 5:06 PM EST 07/19/2024 5:06 PM EST Melquiades WEEKS LAB BLOOD ORDERA BLES Performing Organization Address City/[facility]/ZIP Co de Phone Number [facility] [address] [place] [address], * Basic metabolic panel (07/19/2024 5:06 PM EST) Sodium 136 133 - 145 mmol/L LAB CHEMISTRY METHOD 07/19/2024 7:36 PM [facility] Potassium 3.9 3.5 - 5.5 mmol/L LAB CHEMISTRY METHOD 07/19/2024 7:36 PM [facility] Chloride 103 96 - 110 mmol/L LAB CHEMISTRY METHOD 07/19/2024 7:36 PM [facility] CO2 26 21 - 32 mmol/L LAB CHEMISTRY METHOD 07/19/2024 7:36 PM [facility] Anion Gap 7 3 - 11 LAB CHEMISTRY METHOD 07/19/2024 7:36 PM [facility] Glucose 98 70 - 100 mg/dL LAB CHEMISTRY METHOD 07/19/2024 7:36 PM [facility] BUN 11 5 - 25 mg/dL LAB CHEMISTRY METHOD 07/19/2024 7:36 PM [facility] Creatinine 0.94 0.70 - 1.30 mg/dL LAB CHEMISTRY METHOD 07/19/2024 7:36 PM [facility] eGFR 99 >=60 mL/min/1. 73m2 LAB CHEMISTRY METHOD 07/19/2024 7:36 PM [facility] Comment:Calculation based on the??Chronic Kidney Disease Epidemiology Collaboration (CKD-EPI) equation refit??without adjustment for race. BUN/Creatinine Ratio 11.7 LAB CHEMISTRY METHOD 07/19/2024 7:36 PM [facility] Calcium 9.3 8.5 - 10.5 mg/dL LAB CHEMISTRY METHOD 07/19/2024 7:36 PM [facility] Blood Venous blood specimen / Unknown Venipuncture / Unknown 07/19/2024 5:06 PM EST 07/19/2024 5:06 PM EST Melquiades WEEKS LAB BLOOD ORDERA BLES [facility] [address] [place] [address], [place] [phone] * Vitamin B12 and folate (07/09/2024 2:36 PM EST) [facility] Vitamin B-12 401 250 - 900 pcg/mL LAB CHEMISTRY METHOD 07/09/2024 10:02 PM EST [facility] Folate 11.1 2.8 - 17.0 ng/ml LAB CHEMISTRY METHOD 07/09/2024 10:02 PM [facility] Blood Venous blood specimen / Unknown Venipuncture / Unknown 07/09/2024 2:36 PM EST 07/09/2024 9:35 PM EST Irma WEEKS LAB BLOOD ORDERABLES [facility] [address] [place] [address], [place] [phone] * CBC auto differential (07/09/2024 2:36 PM EST) [facility] WBC 8.7 4.8 - 10.8 K/mcL LAB HEMETOLOGY METHOD 07/09/2024 4:05 PM [facility] RBC 5.30 4.50 - 5.50 M/mcL LAB HEMETOLOGY METHOD 07/09/2024 4:05 PM [facility] Hemoglobin 15.3 13.5 - 17.5 g/dL LAB HEMETOLOGY METHOD 07/09/2024 4:05 PM [facility] Hematocrit 46.4 42.0 - 54.0 % LAB HEMETOLOGY METHOD 07/09/2024 4:05 PM [facility] MCV 87.7 79.0 - 98.0 FL LAB HEMETOLOGY METHOD 07/09/2024 4:05 PM [facility] MCH 28.9 27.0 - 32.0 pcg LAB HEMETOLOGY METHOD 07/09/2024 4:05 PM [facility] MCHC 33.0 32.0 - 37.0 g/dL LAB HEMETOLOGY METHOD 07/09/2024 4:05 PM [facility] RDW 12.6 11.0 - 15.0 % LAB HEMETOLOGY METHOD 07/09/2024 4:05 PM [facility] Platelets 397 130 - 400 K/mcL LAB HEMETOLOGY METHOD 07/09/2024 4:05 PM [facility] MPV 9.4 7.0 - 11.0 FL LAB HEMETOLOGY METHOD 07/09/2024 4:05 PM [facility] NRBC 0.0 <1.0 % LAB HEMETOLOGY METHOD 07/09/2024 4:05 PM [facility] NRBC Absolute 0.00 <0.10 K/mcL LAB HEMETOLOGY METHOD 07/09/2024 4:05 PM [facility] Neutrophils Relative 67.1 % LAB HEMETOLOGY METHOD 07/09/2024 4:05 PM [facility] Lymphocytes Relative 26.4 % LAB HEMETOLOGY METHOD 07/09/2024 4:05 PM [facility] Monocytes Relative 5.5 % LAB HEMETOLOGY METHOD 07/09/2024 4:05 PM [facility] Eosinophils Relative 0.2 % LAB HEMETOLOGY METHOD 07/09/2024 4:05 PM [facility] Basophils Relative 0.6 % LAB HEMETOLOGY METHOD 07/09/2024 4:05 PM [facility] Immature Granulocytes Relative 0.2 % LAB HEMETOLOGY METHOD 07/09/2024 4:05 PM EST [facility] Neutrophils Absolute 5.83 1.50 - 7.00 K/mcL LAB HEMETOLOGY METHOD 07/09/2024 4:05 PM [facility] Lymphocytes Absolute 2.30 1.00 - 5.00 K/mcL LAB HEMETOLOGY METHOD 07/09/2024 4:05 PM [facility] Monocytes Absolute 0.48 0.20 - 1.00 K/mcL LAB HEMETOLOGY METHOD 07/09/2024 4:05 PM [facility] Eosinophils Absolute 0.02 0.00 - 0.50 K/mcL LAB HEMETOLOGY METHOD 07/09/2024 4:05 PM [facility] Basophils Absolute 0.05 0.00 - 0.20 K/mcL LAB HEMETOLOGY METHOD 07/09/2024 4:05 PM [facility] Immature Granulocytes Absolute 0.02 0.00 - 0.03 K/mcL LAB HEMETOLOGY METHOD 07/09/2024 4:05 PM [facility] Blood Venous blood specimen / Unknown Venipuncture / Unknown 07/09/2024 2:36 PM EST 07/09/2024 4:05 PM EST Irma WEEKS LAB BLOOD ORDERABLES [facility] [address] [place] [address], * Helicobacter pylori breath test (07/09/2024 2:36 PM EST) H Pylori Breath Test Negative Negative LAB CHEMISTRY METHOD 07/10/2024 1:19 PM EST [facility] Breath Oral cavity structure / Unknown Non-blood Collection / Unknown 07/09/2024 2:36 PM EST 07/10/2024 11:25 AM EST Irma Pimentel PA LAB BODY FLUIDS AND STOOLS ORDERABLES [facility] [address] [place] [address], * Vitamin D 1,25 dihydroxy (07/09/2024 2:36 PM EST) Vitamin D, 1, 25-Dihydroxy 77 20 - 79 pg/mL 07/12/2024 9:28 PM EST [facility] Comment: Vitamin D 1, 25 dihydroxy levels should be primarily used to assess Vitamin D status in patients with renal disease and hypercalcemia. Vitamin D 1,25-dihydroxy levels are generally less than 5 pg/mL in end stage renal disease patients. The preferred initial test for assessing Vitamin D status in the general population is Vitamin D 25-hydroxy (VITD). Test performed at [facility], [address] , [place], [place] ??[address] ? [phone] Geraldine Kern MD, PhD - [employer] Blood Venous blood specimen / Unknown Venipuncture / Unknown 07/09/2024 2:36 PM EST 07/09/2024 3:37 PM EST Irma WEEKS LAB BLOOD ORDERABLES [facility] [address] [place] [address] * Comprehensive metabolic panel (07/09/2024 2:36 PM EST) Pathologist [facility] Sodium 135 133 - 145 mmol/L LAB CHEMISTRY METHOD 07/09/2024 9:35 PM EST [facility] Potassium 4.4 3.5 - 5.5 mmol/L LAB CHEMISTRY METHOD 07/09/2024 9:35 PM EST [facility] Chloride 102 96 - 110 mmol/L LAB CHEMISTRY METHOD 07/09/2024 9:35 PM EST [facility] CO2 29 21 - 32 mmol/L LAB CHEMISTRY METHOD 07/09/2024 9:35 PM EST [facility] Anion Gap 4 3 - 11 LAB CHEMISTRY METHOD 07/09/2024 9:35 PM [facility] Glucose 95 70 - 100 mg/dL LAB CHEMISTRY METHOD 07/09/2024 9:35 PM [facility] [facility] BUN 10 5 - 25 mg/dL LAB CHEMISTRY METHOD 07/09/2024 9:35 PM [facility] Creatinine 1.09 0.70 - 1.30 mg/dL LAB CHEMISTRY METHOD 07/09/2024 9:35 PM [facility] eGFR 83 >=60 mL/min/1. 73m2 LAB CHEMISTRY METHOD 07/09/2024 9:35 PM [facility] Comment:Calculation based on the??Chronic Kidney Disease Epidemiology Collaboration (CKD-EPI) equation refit??without adjustment for race. BUN/Creatinine Ratio 9.2 LAB CHEMISTRY METHOD 07/09/2024 9:35 PM [facility] Calcium 9.1 8.5 - 10.5 mg/dL LAB CHEMISTRY METHOD 07/09/2024 9:35 PM [facility] AST (SGOT) 11 10 - 42 unit/L LAB CHEMISTRY METHOD 07/09/2024 9:35 PM [facility] ALT (SGPT) 21 10 - 60 unit/L LAB CHEMISTRY METHOD 07/09/2024 9:35 PM [facility] Alkaline Phosphatase 98 42 - 121 unit/L LAB CHEMISTRY METHOD 07/09/2024 9:35 PM [facility] Total Protein 7.7 6.0 - 8.0 g/dL LAB CHEMISTRY METHOD 07/09/2024 9:35 PM [facility] Albumin 4.1 3.2 - 5.0 g/dL LAB CHEMISTRY METHOD 07/09/2024 9:35 PM [facility] Total Bilirubin 0.7 0.0 - 1.4 mg/dL LAB CHEMISTRY METHOD 07/09/2024 9:35 PM [facility] Blood Venous blood specimen / Unknown Venipuncture / Unknown 07/09/2024 2:36 PM EST 07/09/2024 9:35 PM EST Irma WEEKS LAB BLOOD ORDERABLES [facility] [address] [place] [address], * (ABNORMAL) Urinalysis with reflex microscopic and culture (06/15/2024 9:02 AM EST) Specific [place] Urine 1.014 1.003 - 1.030 LAB URINALYSIS - AUTOMATED METHOD 06/15/2024 10:07 AM [facility] pH, Urine 7.0 5.0 - 8.0 pH LAB URINALYSIS - AUTOMATED METHOD 06/15/2024 10:07 AM [facility] Leukocytes, Urine Negative Negative LAB URINALYSIS - AUTOMATED METHOD 06/15/2024 10:07 AM [facility] Nitrite, Urine Negative Negative LAB URINALYSIS - AUTOMATED METHOD 06/15/2024 10:07 AM [facility] Protein, Urine Negative <=Trace mg/dL LAB URINALYSIS - AUTOMATED METHOD 06/15/2024 10:07 AM [facility] Glucose, Urine Negative Negative mg/dL LAB URINALYSIS - AUTOMATED METHOD 06/15/2024 10:07 AM [facility] Ketones, Urine Trace(A) Negative mg/dL LAB URINALYSIS - AUTOMATED METHOD 06/15/2024 10:07 AM [facility] Urobilinogen, Urine 1.0 0.2 - 1.0 mg/dL LAB URINALYSIS - AUTOMATED METHOD 06/15/2024 10:07 AM [facility] Bilirubin, Urine Negative Negative LAB URINALYSIS - AUTOMATED METHOD 06/15/2024 10:07 AM [facility] Blood, Urine Negative Negative LAB URINALYSIS - AUTOMATED METHOD 06/15/2024 10:07 AM EST [facility] Urine Urine specimen obtained by clean catch procedure / Unknown Non-blood Collection / Unknown 06/15/2024 9:02 AM EST 06/15/2024 9:02 AM EST Melquiades WEEKS LAB URINE ORDERA BLES [facility] [address] [place] [address], [place] [phone] * Sanchez urine culture tube (06/15/2024 9:02 AM EST) [facility] Extra Tube Hold for add-ons. 06/15/2024 11:01 AM EST [facility] Comment:Auto resulted. Urine Urine specimen obtained by clean catch procedure / Unknown Non-blood Collection / Unknown 06/15/2024 9:02 AM EST 06/15/2024 9:02 AM EST Melquiades WEEKS LAB URINE ORDERA BLES [facility] [address] [place] [address], [place] [phone] * Urine Albumin Creatinine Ratio (12/02/2023) Pathologist [facility] Urine Albumin Creatinine Ratio abstracted Historical Provider [facility] * HIV Screening (07/02/2023) [facility] HIV Screening abstracted Historical Provider [facility] * Hepatitis C Screening (07/02/2023) [facility] Hepatitis C Screening abstracted Historical Provider [facility] * (ABNORMAL) Lipid panel (07/02/2023) [facility] LDL/HDL Ratio 5(A) 0 - 4 Triglycerides 179(A) 0 - 150 mg/dL Cholesterol 185 0 - 200 mg/dL HDL 37(A) 40 mg/dL LDL Cholesterol 113(A) 0 - 100 mg/dL Blood Venous blood specimen / Unknown Historical Provider LAB BLOOD ORDERAB LES * Depression Screening (07/01/2023) [facility] Depression Screening abstracted Historical Provider [facility] from Last 3 Months or Most Recently Relevant to Health Maintenance Care Teams Vice President Network Relationship Specialty Start Date End Date Venancio Camilo MD [address] [place] [address] PCP - General Internal Medicine 12/09/14
--- OUTSIDE RECORDS SUMMARY | 2024-07-20 11:08 | XMS_ITS | Encounter Summary ---
Author Organization [facility] Address [address] [phone] Phone Care Team Providers Care [employer] Name Role Phone Venancio Camilo MD Primary Care Provider [phone] Reason for Visit * Reason Comments Med Refill Encounter Details Date Type Department Care Team (Late st Contact Info) Description 06/21/2024 Refill [facility] [address] [place] [phone] Chasity Kaufman ARNP [address] [phone] Hypertension Social History Tobacco Use Types Packs/Day Years [...] on file documented as of this encounter Plan of Treatment Upcoming Encounters Date Type Department Care Team (Late st Contact Info) Description 07/26/2024 11:45 AM EST Office Visit [facility] [address] [phone] Chasity Kaufman ARNP [address] [phone] 09/02/2024 11:30 AM EDT Office Visit [facility] [address] [phone] Chasity Kaufman ARNP [address] [phone] 11/02/2024 4:00 PM EDT Office Visit [facility] [address] [phone] Chasity Kaufman ARNP [address] [phone] documented as of this encounter Visit Diagnoses Diagnosis Hypertension documented in this encounter Care Teams [employer] Relationship Specialty Start Date End Date Venancio Camilo MD [address] [place] [id number] PCP - General 07/03/20 documented as of this encounter
--- OUTSIDE RECORDS SUMMARY | 2024-07-20 11:08 | XMS_ITS | Encounter Summary ---
Author Organization [facility] Address [address] [place] [address] Care Team Providers Care Camp Program Director Name Role Phone Venancio Camilo MD Primary Care Provider [phone] Reason for Visit * Reason Comments Annual Exam Encounter Details Date Type Department Care Team (Late st Contact Info) Description 07/19/2024 4:00 PM EST Office Visit Adult Medicine [facility] [address] [place] [address] Melquiades Villasenor PA [address] [place] [address] Routine general medical examination at a health care facility (Primary Dx); Anxiety; Memory difficulties; Urinary symptom or sign; Chronic low back pain, unspecified back pain laterality, unspecified whether sciatica present Social History Tobacco Use Types Packs/Day Years [...] Mass Index 25.52 07/19/2024 3:47 PM EST documented in this encounter Progress Notes * MICKY Pham - 07/19/2024 4:00 PM ESTAssociated Problem(s): Anxiety Patient is established with behavioral health. His anxiety seems to be uncontrolled. With patient'soverall complex picture, will defer management to their expertise. No crisis symptoms. Orders: Vitamin B1; Future Vitamin B6; Future Complete blood count; Future Thyroid stimulating hormone; Future Hemoglobin A1c; Future XR Lumbar Spine 4+ Views; Future Thyroid stimulating hormone; Future Basic metabolic panel; Future Treponema pallidum antibody with reflex to RPR and particle agglutination; Future Testosterone free, bioavailable and total; Future * MICKY Pham - 07/19/2024 4:00 PM EST Images from the original note were not included. Physical Examination Rolan Esteban is a 49 y.o. male presenting for Annual Exam Subjective History Of Present Illness: HPI This is a 49-year-old gentleman presenting for physical exam. He has been very anxious over the last few months due to the passing of a loved one. He feels like his mouth is been exceedingly dry overthe last month. He is worried about diabetes. He also feels like he is more forgetful, and having difficulty concentrating. He feels like this started around the time his anxiety got worse. He is also worried about bubbles in his urine. He reports unintentional weight loss, and states he has been eating 2 meals a day. He also complains of a weaker urine stream, and feels like he needs to press onhis lower abdomen to finish urinating. He is following with nephrology and GI. Wt Readings from Last 10 Encounters: 07/19/24 83 kg (183 lb) 07/09/24 86.2 kg (190 lb) 06/15/24 89.1 kg (196 lb 6.4 oz) 02/04/24 98 kg (216 lb) 07/02/23 98 kg (216 lb) 07/01/23 100 kg (221 lb) 11/27/22 100 kg (221 lb) 11/12/22 102 kg (225 lb) 10/29/22 101 kg (221 lb 9.6 oz) 07/31/22 96.7 kg (213 lb 3.2 oz) Comprehensive Medical and Social History: Patient Active Problem List Diagnosis Abdominal pain Allergic rhinitis Anxiety Epigastric pain Fatty liver H. pylori infection Hemorrhoids Hepatitis C antibody test positive Hypertension Liver hemangioma Nephrolithiasis SRI (obstructive sleep apnea) Rectal bleed Straining with stools Tubular adenoma of colon Known medical problems Allergies Allergen Reactions Lisinopril Diarrhea and Nausea And Vomiting Current Outpatient Medications Medication Instructions amLODIPine (NORVASC) 2.5 mg tablet diclofenac (VOLTAREN) 1 % topical gel LORazepam (ATIVAN) 2 mg tablet TAKE 1 TABLET BY MOUTH 3 TIMES PER DAY NEEDED FOR ANXIETY losartan (COZAAR) 25 mg tablet 1 tablet, oral, Daily omeprazole (PRILOSEC) 20 mg, oral, Daily psyllium (Metamucil, with sugar,) 3.4 gram packet 1 packet, oral, Daily, Mix and drink with at least 8 ounces of water or juice. QUEtiapine (SEROQUEL) 25 mg, oral, Nightly Vitamin D3 2,000 Units, oral, Daily Past Medical History: Diagnosis Date Abdominal pain DX:Abdominal pain Anxiety state DX:Anxiety state Depressive disorder DX:Depressive disorder Epigastric pain DX:Epigastric pain Esophageal reflux DX:Esophageal reflux Essential hypertension DX:Essential hypertension Hemorrhoids DX:Hemorrhoids History of Helicobacter pylori infection DX:History of Helicobacter pylori infection Nephrolithiasis 04/14/2012 DX:Nephrolithiasis Rectal bleed DX:Rectal bleed Straining with stools DX:Straining with stools Tubular adenoma of colon DX:Tubular adenoma of colon Tubular adenoma of colon DX:Tubular adenoma of colon Past Surgical History: Procedure Laterality Date COLONOSCOPY 02/14/2021 TAx1 recall 5 years ESOPHAGOGASTRODUODENOSCOPY 02/14/2021 negative gastric biopsy OTHER SURGICAL HISTORY PROCEDURE: RI EXCISION MULLERIAN DUCT CYST; COMMENT: testicular cyst removal Social History Socioeconomic History Marital status: Spouse name: None Number of children: None Years of education: 11th Highest education level: None Occupational History None Tobacco Use Smoking status: Former Current packs/day: 0.10 Types: Cigarettes Smokeless tobacco: Never Substance and Sexual Activity Alcohol use: No Drug use: No Sexual activity: Yes Partners: Female control/protection: None Other Topics Concern None Social History Narrative 05/07/17 - 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 Lives in [place] with and kids. Tells me that he feels safe at home. Family History Problem Relation Name Age of Onset Other (Other: anxiety) Mother Mariah Other (Other: prediabetes) Mother Mariah Hypertension Mother Mariah No Known Problems Father Breast cancer Sister discovered at age 51. chemo Other (Other: elevated BP) Sister No Known Problems Brother No Known Problems Brother No Known Problems Brother No Known Problems Brother Immunization History Administered Date(s) Administered Influenza Quadravalent, MDCK, 0.5ml, with preservative (Flucelvax) 6mo and older 05/07/2017 Influenza trivalent, 0.5mL, preservative free (Fluarix; FluLaval; Fluzone) ages 6mo and older (Afluria) 3 years and older 04/15/2014, 04/17/2015 Tdap Tetanus diptheria acellular pertussis (Boostrix; Adacel) 7yo and older 04/14/2013, 07/01/2023 Health Maintenance Topic Date Due Pneumococcal Vaccine: Pediatrics (0 to 5 Years) and At-Risk Patients (6 to 64 Years) (1 of 2 - PCV)Never done Diabetes: Annual Foot Exam Never done Diabetes: Annual Retina Eye Exam Never done Hepatitis B Vaccines (1 of 3 - 19+ 3-dose series) Never done Hepatitis A Vaccines (1 of 2 - Risk 2-dose series) Never done Colorectal Cancer Screening: Colonoscopy Never done Social Influencers of Health Screening Never done Influenza Vaccine (1) 02/22/2024 COVID-19 Vaccine ( - 2023- season) Never done Depression Screening 07/01/2024 Diabetes: Blood Sugar Control Test (HGBA1C) 01/16/2025 Diabetes: Annual Urine Albumin-Creatinine Ratio (uACR) 06/21/2025 Diabetes: Annual GFR (Glomerular Filtration Rate) 07/19/2025 Hypertension/CHF/CAD Annual BMP Blood Test 07/19/2025 Cholesterol Screening (Lipid Panel) 07/02/2028 DTaP,Tdap,and Td Vaccines (3 - Td or Tdap) 07/01/2033 HIV Screening Completed Hepatitis C Screening Completed HIB Vaccines Aged Out IPV Vaccines Aged Out MMR Vaccines Aged Out Varicella Vaccines Aged Out Meningococcal ACWY Vaccine Aged Out HPV Vaccines Aged Out RSV Immunization Patients Under 20 months Aged Out Review of Systems: Review of Systems Constitutional: Positive for unexpected weight change. Negative for chills, diaphoresis and fever. HENT: Negative for ear discharge, ear pain, nosebleeds and sore throat. Eyes: Negative for discharge and redness. Respiratory: Negative for cough and shortness of breath. Cardiovascular: Negative for chest pain, palpitations and leg swelling. Gastrointestinal: Negative for abdominal pain and blood in stool. Endocrine: Negative for polyuria. Genitourinary: Positive for decreased urine volume. Negative for difficulty urinating, hematuria, penile discharge and scrotal swelling. Musculoskeletal: Negative for gait problem. Skin: Negative for rash. Neurological: Negative for dizziness, syncope and weakness. Psychiatric/Behavioral: Negative for confusion. Objective BP 122/76 Pulse 86 Temp 36.5 ??C (97.7 ??F) (Temporal) Resp 14 Ht 1.803 m (71 ) Wt 83 kg (183 lb) BMI 25.52 kg/m?? SpO2: 98 % Physical Exam Constitutional: General: He is not in acute distress. Appearance: Normal appearance. He is not ill-appearing. HENT: Head: Normocephalic and atraumatic. Right Ear: Tympanic membrane and ear canal normal. Left Ear: Tympanic membrane and ear canal normal. Nose: Nose normal. No rhinorrhea. Mouth/Throat: Mouth: Mucous membranes are moist. Pharynx: Oropharynx is clear. No oropharyngeal exudate or posterior oropharyngeal erythema. Eyes: General: Right eye: No discharge. Left eye: No discharge. Conjunctiva/sclera: Conjunctivae normal. Pupils: Pupils are equal, round, and reactive to light. Cardiovascular: Rate and Rhythm: Normal rate and regular rhythm. Heart sounds: No murmur heard. Pulmonary: Effort: Pulmonary effort is normal. Breath sounds: Normal breath sounds. No wheezing, rhonchi or rales. Abdominal: General: Bowel sounds are normal. There is no distension. Palpations: Abdomen is soft. There is no mass. Tenderness: There is no abdominal tenderness. There is no guarding or rebound. Hernia: No hernia is present. Genitourinary: Penis: Normal. Testes: Normal. Rectum: Normal. Guaiac result negative. Comments: Somewhat enlarged prostate without induration or masses. Musculoskeletal: General: Normal range of motion. Cervical back: Normal range of motion and neck supple. Right lower leg: No edema. Left lower leg: No edema. Skin: General: Skin is warm and dry. Capillary Refill: Capillary refill takes less than 2 seconds. Coloration: Skin is not jaundiced. Findings: No bruising, erythema or rash. Neurological: General: No focal deficit present. Mental Status: He is alert and oriented to person, place, and time. Mental status is at baseline. Motor: No weakness. Gait: Gait normal. Deep Tendon Reflexes: Reflexes normal. Psychiatric: Mood and Affect: Mood normal. Behavior: Behavior normal. Thought Content: Thought content normal. Judgment: Judgment normal. Assessment/Plan Patient completed physical examination today. Health Care Maintenance and Immunizations reviewed. Assessment & Plan Routine general medical examination at a health care facility Orders: Vitamin B1; Future Vitamin B6; Future Complete blood count; Future Thyroid stimulating hormone; Future Hemoglobin A1c; Future XR Lumbar Spine 4+ Views; Future Thyroid stimulating hormone; Future Basic metabolic panel; Future Treponema pallidum antibody with reflex to RPR and particle agglutination; Future Testosterone free, bioavailable and total; Future Anxiety Patient is established with behavioral health. His anxiety seems to be uncontrolled. With patient'soverall complex picture, will defer management to their expertise. No crisis symptoms. Orders: Vitamin B1; Future Vitamin B6; Future Complete blood count; Future Thyroid stimulating hormone; Future Hemoglobin A1c; Future XR Lumbar Spine 4+ Views; Future Thyroid stimulating hormone; Future Basic metabolic panel; Future Treponema pallidum antibody with reflex to RPR and particle agglutination; Future Testosterone free, bioavailable and total; Future Memory difficulties Suspect anxiety plays a large component. Labs to exclude reversible dementia. Recently B12 levels were normal. Orders: Vitamin B1; Future Vitamin B6; Future Complete blood count; Future Thyroid stimulating hormone; Future Hemoglobin A1c; Future XR Lumbar Spine 4+ Views; Future Thyroid stimulating hormone; Future Basic metabolic panel; Future Treponema pallidum antibody with reflex to RPR and particle agglutination; Future Testosterone free, bioavailable and total; Future Urinary symptom or sign Decreased urine stream most consistent with BPH. Patient does follow with urology. Will check PSA. Prostate examination showed enlargement but no induration or mass. Orders: Urinalysis with reflex microscopic and culture; Future Prostate specific antigen screen; Future Chronic low back pain, unspecified back pain laterality, unspecified whether sciatica present He has chronic low back pain. In the setting of unintentional weight loss, favor repeating x-ray imaging. I did review his x-rays from 2 years ago. He reported having low testosterone in the past. Will place orders for repeat testing. He has upcoming follow-up visits with nephrology as well as gastroenterology. The GI team is following him for his unintentional weight loss. Pt to follow back with myself or pcp in 2-3 months. Sooner if any new or worsening symptoms. Discussed the patient's BMI with him. The BMI is above average. No BMI management plan is appropriate. Patient was counseled on the following: Eat healthy foods. Choose fruits, vegetables, whole grains,lean protein, and low-fat dairy foods. Limit saturated fat and reduce salt. Exercise. Get at least 30 minutes of exercise on most days of the week. Walking can be a good choice. Reach and stay at your healthy weight. This will lower your risk for many health problems. Take care of your mental health. Try to stay connected with friends, family, and community, and find ways to manage stress. Avoid tobacco and nicotine: Don't smoke, vape, or chew. If you need help quitting, please do not be afraidto reach out. [place] your teeth twice a day and follow routinely with the dentist. Safety Issues- Always wear a seat belt and a helmet when in a bike or motorcycle. Apply Sunscreen daily to your face and body if appropriate. Aim to get at least 7 hours of sleep to maintain good health and well-being. MICKY Pham [facility] [address] [address] Dept: [phone] Dept Date of Service: 07/19/2024 documented in this encounter Plan of Treatment Upcoming Encounters Date Type Department Care Team (Late st Contact Info) Description 07/28/2024 10:[address] [facility] Ultrasound [address] [place] [phone] 08/20/2024 11:00 AM EST Office Visit Gastroenterology - [address] [facility] [address] [place] [phone] Irma Pimentel PA [address] [facility] [address] Mi[address] [place] [id number] Pending Results Name Type Priority Associated Diagnoses Date /Time Vitamin B1 Lab Routine Routine general medical examination at a health care facility Anxiety Memory difficulties 07/19/2024 5:06 PM EST Vitamin B6 Lab Routine Routine general medical examination at a [facility] facility Anxiety Memory difficulties 07/19/2024 5:06 PM EST Scheduled Orders Name Type Priority Associated Diagnoses Orde r Schedule Vitamin B1 Lab Routine Routine general medical examination at a health care facility Anxiety Memory difficulties 1 Occurrences starting 07/19/2024 until 07/19/2025 Vitamin B6 Lab Routine Routine general medical examination at a health care facility Anxiety Memory difficulties 1 Occurrences starting 07/19/2024 until 07/19/2025 XR Lumbar Spine 4+ Views Imaging Routine Routine general medical examination at a [facility] care facility Anxiety Memory difficulties Expected: 07/19/2024, Expires: 07/19/2025 Urinalysis with reflex microscopic and culture Lab Routine Urinary symptom or sign 1 Occurrences starting 07/20/2024 until 07/20/2025 Prostate specific antigen screen Lab Routine Urinary symptom or sign 1 Occurrences starting 07/20/2024 until 07/20/2025 documented as of this encounter Results * (ABNORMAL) Testosterone free, bioavailable and total (07/19/2024 5:06 PM EST) Testosterone 175(L) 229 - 902 ng/dL LAB CHEMISTRY METHOD 07/19/2024 7:50 PM EST [facility] Testosterone, Free 5.2 4.6 - 22.4 ng/dL LAB CHEMISTRY METHOD 07/19/2024 7:50 PM EST [facility] Testosterone, Bioavailable 114 110 - 575 ng/dL LAB CHEMISTRY METHOD 07/19/2024 7:50 PM EST [facility] Sex Hormone Binding 13.7 See Comment nmol/L LAB CHEMISTRY METHOD 07/19/2024 7:50 PM EST [facility] Comment: FEMALES: ??pre-menopausal ?? 10.8 [...] LAB CHEMISTRY METHOD 07/19/2024 7:50 PM EST [facility] Blood Venous blood specimen / Unknown Venipuncture / Unknown 07/19/2024 5:06 PM EST 07/19/2024 5:06 PM EST Melquiades WEEKS LAB BLOOD ORDERA BLES Performing Organization Address [facility]/ZIP Co de Phone Number [facility] [address] [place] [address], * Treponema pallidum antibody with reflex to RPR and particle agglutination (07/19/2024 5:06 PM EST) T. Pallidum Antibodies Negative Negative LAB CHEMISTRY METHOD 07/19/2024 8:00 PM EST [facility] Blood Venous blood specimen / Unknown Venipuncture / Unknown 07/19/2024 5:06 PM EST 07/19/2024 5:06 PM EST Melquiades WEEKS LAB BLOOD ORDERA BLES Performing Organization Address City/[facility]/ZIP Co de Phone Number [facility] [address] [place] [address], * Basic metabolic panel (07/19/2024 5:06 PM EST) Sodium 136 133 - 145 mmol/L LAB CHEMISTRY METHOD 07/19/2024 7:36 PM [facility] Potassium 3.9 3.5 - 5.5 mmol/L LAB CHEMISTRY METHOD 07/19/2024 7:36 PM [facility] Chloride 103 96 - 110 mmol/L LAB CHEMISTRY METHOD 07/19/2024 7:36 PM [facility] CO2 26 21 - 32 mmol/L LAB CHEMISTRY METHOD 07/19/2024 7:36 PM [facility] Anion Gap 7 3 - 11 LAB CHEMISTRY METHOD 07/19/2024 7:36 PM [facility] Glucose 98 70 - 100 mg/dL LAB CHEMISTRY METHOD 07/19/2024 7:36 PM [facility] BUN 11 5 - 25 mg/dL LAB CHEMISTRY METHOD 07/19/2024 7:36 PM [facility] Creatinine 0.94 0.70 - 1.30 mg/dL LAB CHEMISTRY METHOD 07/19/2024 7:36 PM [facility] eGFR 99 >=60 mL/min/1. 73m2 LAB CHEMISTRY METHOD 07/19/2024 7:36 PM [facility] Comment:Calculation based on the??Chronic Kidney Disease Epidemiology Collaboration (CKD-EPI) equation refit??without adjustment for race. BUN/Creatinine Ratio 11.7 LAB CHEMISTRY METHOD 07/19/2024 7:36 PM [facility] Calcium 9.3 8.5 - 10.5 mg/dL LAB CHEMISTRY METHOD 07/19/2024 7:36 PM [facility] Blood Venous blood specimen / Unknown Venipuncture / Unknown 07/19/2024 5:06 PM EST 07/19/2024 5:06 PM EST Melquiades WEEKS LAB BLOOD ORDERA BLES Performing Organization Address City/[facility]/ZIP Co de Phone Number [facility] [address] [place] [address], * Hemoglobin A1c (07/19/2024 5:06 PM EST) Pathologist [facility] Hemoglobin A1C 5.3 <6.5 % LAB CHEMISTRY METHOD 07/19/2024 9:16 PM EST [facility] Mean Bld Glu Estim. 105 mg/dL LAB CHEMISTRY METHOD 07/19/2024 9:16 PM EST [facility] Blood Venous blood specimen / Unknown Venipuncture / Unknown 07/19/2024 5:06 PM EST 07/19/2024 5:06 PM EST Melquiades WEEKS LAB BLOOD ORDERA BLES Performing Organization Address [facility]/ZIP Co de Phone Number [facility] [address] [place] [address], [place] [phone] * Thyroid stimulating hormone (07/19/2024 5:06 PM EST) [facility] TSH 0.70 0.40 - 4.00 mcIU/mL LAB CHEMISTRY METHOD 07/19/2024 7:47 PM EST [facility] Blood Venous blood specimen / Unknown Venipuncture / Unknown 07/19/2024 5:06 PM EST 07/19/2024 5:06 PM EST Melquiades WEEKS LAB BLOOD ORDERA BLES Performing Organization Address City/[facility]/ZIP Co de Phone Number [facility] [address] [place] [address], [place] [phone] * Complete blood count (07/19/2024 5:06 PM EST) [facility] WBC 9.2 4.8 - 10.8 K/mcL LAB HEMETOLOGY METHOD 07/19/2024 6:54 PM [facility] RBC 5.20 4.50 - 5.50 M/mcL LAB HEMETOLOGY METHOD 07/19/2024 6:54 PM [facility] Hemoglobin 15.4 13.5 - 17.5 g/dL LAB HEMETOLOGY METHOD 07/19/2024 6:54 PM [facility] Hematocrit 45.8 42.0 - 54.0 % LAB HEMETOLOGY METHOD 07/19/2024 6:54 PM [facility] MCV 87.4 79.0 - 98.0 FL LAB HEMETOLOGY METHOD 07/19/2024 6:54 PM [facility] MCH 29.4 27.0 - 32.0 pcg LAB HEMETOLOGY METHOD 07/19/2024 6:54 PM [facility] MCHC 33.6 32.0 - 37.0 g/dL LAB HEMETOLOGY METHOD 07/19/2024 6:54 PM [facility] RDW 12.5 11.0 - 15.0 % LAB HEMETOLOGY METHOD 07/19/2024 6:54 PM [facility] Platelets 393 130 - 400 K/mcL LAB HEMETOLOGY METHOD 07/19/2024 6:54 PM [facility] MPV 10.0 7.0 - 11.0 FL LAB HEMETOLOGY METHOD 07/19/2024 6:54 PM [facility] NRBC 0.0 <1.0 % LAB HEMETOLOGY METHOD 07/19/2024 6:54 PM [facility] NRBC Absolute 0.00 <0.10 K/mcL LAB HEMETOLOGY METHOD 07/19/2024 6:54 PM [facility] Blood Venous blood specimen / Unknown Venipuncture / Unknown 07/19/2024 5:06 PM EST 07/19/2024 5:06 PM EST Melquiades WEEKS LAB BLOOD ORDERA BLES [facility] [address] [place] [address], documented in this encounter Visit Diagnoses Diagnosis Routine general medical examination at a health care facility- Primary Anxiety Anxiety state, unspecified Memory difficulties Memory loss Urinary symptom or sign Chronic low back pain, unspecified back pain laterality, unspecified whether sciatica present documented in this encounter Discontinued Medications Medication Sig Discontinue Reason Start Date End Da te cetirizine (ZyrTEC) 10 mg tablet Take 1 tablet (10 mg total) by mouth 1 (one) time each day. Therapy completed 07/31/2022 07/19/2024 documented as of this encounter Orders Lab Orders Without Results Count Last Ordered D ate First Ordered Date THYROID STIMULATING HORMONE 1 07/19/2024 documented in this encounter Care Teams Camp Program Director Relationship Specialty Start Date End Date Venancio Camilo MD [address] [place] [address] PCP - General Internal Medicine 12/09/14 documented as of this encounter
--- OUTSIDE RECORDS SUMMARY | 2024-07-20 11:08 | XMS_ITS | Encounter Summary ---
Author Organization [facility] Address [address] [facility] [address] [place] [address] Phone Care Team Providers Care Medical Equipment Technician Name Role Phone Venancio Camilo MD Primary Care Provider [phone] Encounter Details Date Type Department Care Team (Late st Contact Info) Description 07/05/2024 Office Communication [facility] [address] [phone] María Clifton [place] [address] [facility] [address] [place] [address] Social History Tobacco Use Types Packs/Day Years [...] Office Visit [facility] [address] [phone] Chasity Kaufman ARNP [address] [phone] 09/02/2024 11:30 AM EDT Office Visit [facility] [address] [phone] Chasity Kaufman ARNP [address] [phone] 11/02/2024 4:00 PM EDT Office Visit [facility] [address] [phone] Chasity Kaufman [facility] [address] [address] documented as of this encounter Visit Diagnoses Not on filedocumented in this encounter Care Teams Medical Equipment Technician Relationship Specialty Start Date End Date Venancio Camilo MD [address] [place] [address] PCP - General 07/03/20 documented as of this encounter
--- OUTSIDE RECORDS SUMMARY | 2024-07-20 11:08 | XMS_ITS | Encounter Summary ---
Author Organization [facility] Address [address] [facility] 200 [place] [address] Phone Care Team Providers Care Clinical Pharmacy Manager Name Role Phone Venancio Camilo MD Primary Care Provider [phone] Encounter Details Date Type Department Care Team (Late st Contact Info) Description 10/26/2021 Documentation Only [facility] [address] [place] [address] Jesus Bull MD [address] [place] [phone] Social History Tobacco Use Types Packs/Day Years Used Date Smoking Tobacco: Former Smokeless Tobacco: Never Alcohol Use Standard Drinks/Week Comments Yes 0 (1 standard drink = 0.6 oz [...] Office Visit [facility] [address] [phone] Chasity Kaufman ARNP [address] [phone] 09/02/2024 11:30 AM EDT Office Visit [facility] [address] [phone] Chasity Kaufman ARNP [address] [phone] 11/02/2024 4:00 PM EDT Office Visit [facility] [address] [phone] Chasity Kaufman ARNP [address] [phone] documented as of this encounter Visit Diagnoses Not on filedocumented in this encounter Care Teams Clinical Pharmacy Manager Relationship Specialty Start Date End Date Venancio Camilo MD [address] [place] [address] PCP - General 07/03/20 documented as of this encounter
--- OUTSIDE RECORDS SUMMARY | 2024-07-20 11:08 | XMS_ITS | Encounter Summary ---
Author Organization [facility] Address [address] [place] [address] Phone Care Team Providers Care Quarry Boss Name Role Phone Venancio Camilo MD Primary Care Provider [phone] Encounter Details Date Type Department Care Team (Late Contact Info) Description 05/20/2022 Telephone [facility] [address] [place] [address] Jesus Bull MD [address] [place] [address], [address] [phone] Social History Tobacco Use Types Packs/Day Years [...] on file documented as of this encounter Miscellaneous Notes * Telephone Encounter - Daniella Darnell - 05/21/2022 1:23 PM EST Pt couldn't come in today so he's scheduled for next Friday at 11:30 * Telephone Encounter - Daniella Darnell - 05/20/2022 10:37 AM EST Pt called, he has been experiencing some pain in his lower back for a couple weeks and would like to speak with you about it. Please call him back at [phone] Thank you documented in this encounter Plan of Treatment Upcoming Encounters Date Type Department Care Team (Late st Contact Info) Description 07/26/2024 11:45 AM EST [facility] [address] [phone] Mandeep Chasity, SPECIAL EDUCATION ITINERANT TEACHER [facility] [address] [phone] 09/02/2024 11:30 AM EDT Office Visit [facility] [address] [phone] Chasity Kaufman ARNP [facility] [address] [phone] 11/02/2024 4:00 PM EDT [facility] [address] [phone] Chasity Kaufman ARNP [facility] [address] [phone] documented as of this encounter Visit Diagnoses Not on filedocumented in this encounter Care Teams Quarry Boss Relationship Specialty Start Date End Date Venancio Camilo MD [address] [place] [address] PCP - General 07/03/20 documented as of this encounter
--- OUTSIDE RECORDS SUMMARY | 2024-07-20 11:08 | XMS_ITS | Encounter Summary ---
Author Organization [facility] Address [address] [facility] 200 [place] [address] Phone Care Team Providers Care Technical Account Executive Name Role Phone Venancio Camilo MD Primary Care Provider [phone] Encounter Details Date Type Department Care Team (Late st Contact Info) Description 08/15/2022 Telephone [facility] [address] [place] [address] Daniella Darnell MA Social History Tobacco Use Types Packs/Day Years [...] Notes * Telephone Encounter - Daniella Darnell MA - 08/15/2022 4:53 PM EST Pt called he would to review his lab results from 08/14/22 with you. Please call him back at [phone] Thank you documented in this encounter Plan of Treatment Upcoming Encounters Date Type Department Care Team (Late st Contact Info) Description 07/26/2024 11:45 AM EST Office Visit [facility] [address] [facility] 204 [place] [address] Chasity Kaufman ARNP [address] [facility] 204 [place] [address] 09/02/2024 11:30 AM EDT Office Visit [facility] [address] [phone] Chasity Kaufman ARNP [address] [phone] 11/02/2024 4:00 PM EDT Office Visit [facility] [address] [phone] Chasity Kaufman ARNP [address] [phone] documented as of this encounter Visit Diagnoses Not on filedocumented in this encounter Care Teams Technical Account Executive Relationship Specialty Start Date End Date Venancio Camilo MD [address] [place] [address] PCP - General 07/03/20 documented as of this encounter
--- OUTSIDE RECORDS SUMMARY | 2024-07-20 11:08 | XMS_ITS | Encounter Summary ---
Author Organization [facility] Address [address] [facility] 200 [place] [address] Phone Care Team Providers Care Sample Clerk Name Role Phone Venancio Camilo MD Primary Care Provider [phone] Encounter Details Date Type Department Care Team (Late st Contact Info) Description 11/02/2021 Documentation Only [facility] [address] [place] [address] Jesus Bull MD [address] [place] [phone] Social History Tobacco Use Types Packs/Day Years [...] Office Visit [facility] [address] [phone] Chasity Kaufman ARNP [address] [phone] 09/02/2024 11:30 AM EDT Office Visit [facility] [address] [phone] Chasity Kaufman ARNP [address] [phone] 11/02/2024 4:00 PM EDT Office Visit [facility] [address] [phone] Chasity Kaufman ARNP [address] [phone] documented as of this encounter Visit Diagnoses Not on filedocumented in this encounter Care Teams Sample Clerk Relationship Specialty Start Date End Date Venancio Camilo MD [address] [place] [address] PCP - General 07/03/20 documented as of this encounter
--- OUTSIDE RECORDS SUMMARY | 2024-07-20 11:08 | XMS_ITS | Encounter Summary ---
Author Organization [facility] Address [address] [place] [address] Care Team Providers Care Stud Setter Name Role Phone Pcp, Nani Primary Care Provider Diana Castro MD Primary Care Provider [phone] Encounter Details Date Type Department Care Team (Late st Contact Info) Description 03/19/2018 Scanned Document [facility] [place] [address] [facility] [address] [place] [address] Prashant Naylor MD [address] [facility] [address] [place] [address] Social History Tobacco Use Types Packs/Day Years Used Date Smoking Tobacco: Never Assessed Sex and Gender Information Value Date Recorded Sex Assigned at Not on file Gender Identity Not on file Sexual Orientation Not on file documented as of this encounter Plan of Treatment Not on file documented as of this encounter Visit Diagnoses Not on filedocumented in this encounter Care Teams Stud Setter Relationship Specialty Start Date End Date Pcp, Nani PCP - General General Medicine 03/17/18 07/01/22 Diana Velázquez MD [address] [place] [address] PCP - General 07/02/22 documented as of this encounter
--- OUTSIDE RECORDS SUMMARY | 2024-07-20 11:08 | XMS_ITS | Encounter Summary ---
Author Organization [facility] Address [address] [address] Phone Care Team Providers Care Medical Orderly Name Role Phone Venancio Camilo MD Primary Care Provider [phone] Reason for Visit * Reason Comments Hypertension Encounter Details Date Type Department Care Team (Latest Contact Info) Description 07/06/2024 11:45 AM EST Office Visit [facility] [address] [phone] Chasity Kaufman ARNP [address] [phone] Hypertension (Primary Dx); Vitamin D deficiency, not otherwise specified; Type 2 diabetes mellitus with hyperglycemia (HCC) Social History Tobacco Use Types Packs/Day Years [...] Sign Reading Time Taken Comments Blood Pressure 130/90 07/06/2024 11:59 AM EST Pulse 84 07/06/2024 11:59 AM EST Temperature - - Respiratory Rate - - Oxygen Saturation - - Inhaled Oxygen Concentration - - Weight 85.6 kg (188 lb 12.8 oz) 025 11:59 AM EST Height - - Body Mass Index 26.33 09/11/2021 3:25 PM EDT documented in this encounter Progress Notes * Chasity Kaufman ARNP - 07/06/2024 11:45 AM EST Images from the original note were not included. Patient Name: Rolan Esteban, Male Date of : 1975, 49 y.o. Date: 07/06/24 History of Present Illness Rolan Esteban is a 49 y.o. male here in follow-up for Hypertension. He's had a documented h/o anxiety, H pylori and a small renal stone and benign renal cyst. No h/o proteinuria. He's been grieving the loss of his son. He reports he did not feel well with intermittent confusion and very thirsty since he increased hisAmlodipine dose from 5 to 7.5 mg. He is asking to come off this medication altogether. His serum glucose was elevated at 144 on 06/21/24 with no DM history. Mom is a diabetic. The following portions of the patient's chart were reviewed in this encounter and updated as appropriate: Allergies Meds Problems Med Hx Surg Hx Fam Hx Review of Systems Constitutional: Positive for weight loss. Negative for chills, fever and weight gain. HENT: Negative for nosebleeds. Eyes: Negative for blurred vision and double vision. Respiratory: Negative for cough and shortness of breath. Cardiovascular: Negative for chest pain, palpitations and leg swelling. Gastrointestinal: Negative for abdominal pain, constipation, diarrhea, nausea, vomiting and poor appetite. Genitourinary: Negative for dysuria, flank pain, frequency, hematuria and urgency. Musculoskeletal: Positive for back pain. Skin: Negative for rash. Neurological: Negative for dizziness, tingling, numbness and headaches. Endo/Heme/Allergies: Does not bruise/bleed easily. Increased thirst Psychiatric/Behavioral: The patient is nervous/anxious. Medication List Current Outpatient Medications Medication Sig Dispense Refill cholecalciferol (VITAMIN D-3 SUPER STRENGTH) 50 MCG (2000 UT) tablet Take 1 tablet by mouth 1 (one)time each day LORazepam (ATIVAN) 2 MG tablet TAKE 1 TABLET BY MOUTH 3 TIMES PER DAY NEEDED FOR ANXIETY QUEtiapine (SEROquel) 25 MG tablet TAKE 1 3 TABLETS BY MOUTH AT BEDTIME. losartan (Cozaar) 25 MG tablet Take 1 tablet (25 mg total) by mouth 1 (one) time each day 30 [id number] No current facility-administered medications for this visit. Allergy List Allergies Allergen Reactions Lisinopril Diarrhea and Nausea And Vomiting Physical Exam BP 130/90 Pulse 84 Wt 188 lb 12.8 oz (85.6 kg) BMI 26.33 kg/m?? Vitals reviewed. Constitutional: He is oriented to person, place, and time. He does not appear ill. No distress. HEENT: Mouth/Throat: Oropharynx is clear and moist. Eyes: Conjunctivae are normal. Neck: No JVD present. Cardiovascular: Normal rate and regular rhythm. He exhibits no edema. Pulmonary/Chest: Effort normal and breath sounds normal. Abdominal: Soft. He exhibits no distension. There is no abdominal tenderness. No CVA tenderness bilat Musculoskeletal: He exhibits musculoskeletal pain. Comments: Bilateral thoracic muscle tenderness Neurological: He is alert and oriented to person, place, and time. Skin: Skin is warm and dry. No erythema. Psychiatric: He has a normal mood and affect. His behavior is normal. Chemistry Lab Units 06/21/24 1251 12/02/23 1510 12/02/23 1509 02/19/23 1441 08/14/22 1626 CREATININE mg/dL 0.97 0.96 0.92 1.0 1.0 BUN mg/dL 13 14 14 14 10 POTASSIUM mmol/L 4.1 4.5 4.5 4.6 4.4 SODIUM mmol/L 139 139 139 138 141 CO2 mmol/L 22 22 23 26 31* CHLORIDE mmol/L 100 104 103 101 103 ALBUMIN g/dL 4.6 4.2 4.1 4.4 4.4 4.7 EGFRNAFR ML/MIN/1.73 M2 -- -- -- 97 98 EGFR mL/min/1.73 96 98 103 -- -- WBC AUTO x10E3/uL -- 7.3 -- 9.9 8.9 HEMATOCRIT % -- 46.8 -- 43.7 48.2 HEMOGLOBIN g/dL -- 15.2 -- 14.3 15.4 PLATELETS AUTO x10E3/uL -- 343 -- 368 363 Bone Mineral Lab Units 06/21/24 1251 12/26/23 1234 12/02/23 1510 12/02/23 1509 02/19/23 1441 08/14/22 1626 CALCIUM mg/dL 9.8 -- 9.0 9.1 9.5 10.1 PHOSPHORUS mg/dL 2.7* -- 2.8 2.9 3.2 3.0 ALK PHOS U/L -- -- -- -- 88 -- PTH pg/mL -- -- 25 -- -- -- VIT D 25 HYDROXY ng/mL -- 43.2 34.8 -- -- -- Urine Lab Units 06/21/24 1251 12/02/23 1510 12/02/23 1509 02/19/23 1450 08/14/22 1626 PROT/CREAT RATIO UR mg/g creat 64 -- -- -- -- ALB MG/G CREAT UR mg/g creat 6 6 5 Unable to calculate 106.8 7.0 255.3 Assessment & Plan Problem List Items Addressed This Visit Hypertension - Primary Overview Blood pressure is sub-optimally controlled, BP 130/90 today Target <120/80 Currently taking Amlodipine 5 mg QD - last took yesterday, wants to stop this Discontinue Amlodipine altogether Start Losartan 25 mg QD Check BMP in 1 week Continue home BP monitoring and bring in reads to next visit (calibrated home monitor here today - reads to 10 points higher) No proteinuria and Normal Renal function Follow low NA diet Avoid NSAIDs/OTC Decongestant medications Exercise, weight loss for healthy BMI and to reduce anxiety F/u with PCP regarding Anxiety, possible tx Vitamin D deficiency, not otherwise specified Overview Vitamin D 25 level WNL On daily supplementation Monitor level annually Other Visit Diagnoses Type 2 diabetes mellitus with hyperglycemia (HCC) (Chronic) (Acute) Recently elevated serum glucose at 142 as of 06/21/24 w/o h/o DM Checking HgbA1c Follow low Carb/low sugar diet Follow-up with your PCP as discussed Orders Placed This Encounter Hemoglobin A1c TSH Renal function panel Glucose, random losartan (Cozaar) 25 MG tablet Return in about 8 weeks (around 08/31/2024) for Next scheduled follow-up with Rocio for BP check. MICHELLE Vega Cosigned by Francisco J Head MD at 07/07/2024 8:59 AM EST documented in this encounter Plan of Treatment Upcoming Encounters Date Type Department Care Team (Late st Contact Info) Description 07/26/2024 11:45 AM EST [facility] Visit [facility] [address] [place] [phone] Chasity Kaufman ARNP [address] [phone] 09/02/2024 11:30 AM EDT Office Visit [facility] [address] [phone] Chasity Kaufman ARNP [address] [phone] 11/02/2024 4:00 PM EDT Office Visit [facility] [address] [phone] Chasity Kaufman ARNP [facility] [address] [phone] Scheduled Orders Name Type Priority Associated Diagnoses Orde r Schedule Hemoglobin A1c Lab Routine Type 2 diabetes mellitus with hyperglycemia (HCC) Expected: 07/06/2024, Expires: 08/06/2025 TSH Lab Routine Hypertension Expected: 07/06/2024, Expires: 08/06/2025 Renal function panel Lab Routine Hypertension Expected: 07/06/2024, Expires: 08/06/2025 Glucose, random Lab Routine Type 2 diabetes mellitus with hyperglycemia (HCC) Expected: 07/06/2024, Expires: 08/06/2025 documented as of this encounter Visit Diagnoses Diagnosis Hypertension- Primary Vitamin D deficiency, not otherwise specified Type 2 diabetes mellitus with hyperglycemia (HCC) documented in this encounter Care Teams Medical Orderly Relationship Specialty Start Date End Date Venancio Camilo MD [address] [place] [address] PCP - General 07/03/20 documented as of this encounter
--- OUTSIDE RECORDS SUMMARY | 2024-07-20 11:08 | XMS_ITS | Encounter Summary ---
Author Organization [facility] Address [address] [place] [address] Care Team Providers Care Manager Location Name Role Phone Venancio Camilo MD Primary Care Provider [phone] Encounter Details Date Type Department Care Team (Late Contact Info) Description 07/13/2024 Telephone Gastroenterology - [address] [facility] [address] [place] [phone] Cherelle Muhammad MA Social History Tobacco Use Types Packs/Day [...] as of this encounter Progress Notes * Cherelle Muhammad MA - 07/13/2024 8:12 AM EST ----- Message from MICKY Galan sent at 07/13/2024 7:57 AM EST ----- Please call patient and let him know his vitamin D level is excellent! Will await ultrasound. documented in this encounter Plan of Treatment Upcoming Encounters Date Type Department Care Team (Late Contact Info) Description 07/28/2024 10:30 AM EST Appointment [facility] Ultrasound [address] [place] [address] 08/20/2024 11:00 AM EST Office Visit Gastroenterology - [address] [facility] [address] [place] [phone] Irma Pimentel PA [address] [place] [address] documented as of this encounter Visit Diagnoses Not on filedocumented in this encounter Care Teams Manager Location Relationship Specialty Start Date End Date Venancio Camilo MD [address] [place] [address] PCP - General Internal Medicine 12/09/14 documented as of this encounter
--- OUTSIDE RECORDS SUMMARY | 2024-07-20 11:08 | XMS_ITS | Encounter Summary ---
Author Organization [facility] Address [address] [place] [address] Care Team Providers Care Porcelain Enameler Name Role Phone Venancio Camilo MD Primary Care Provider [phone] Reason for Referral * Imaging (Routine) - Pending Review Specialty Diagnoses / Procedures Referred By Anna stern Referred To Contact Radiology Diagnoses RUQ pain Procedures US Abdomen Limited Irma Pimentel PA [address] [address] Referral ID Status Reason Start Date Expiration Date V isits Requested Visits Authorized [id number] Pending Review 07/09/2024 07/09/2025 1 1 Reason for Visit * Reason Comments Abdominal Pain Encounter Details Date Type Department Care Team (Latest Contact Info) Description 07/09/2024 1:20 PM EST Office Visit Gastroenterology - [address] [place] [address] [facility] [address] [address] Irma Pimentel PA [address] [address] Weight loss, unintentional (Primary Dx); Heartburn; RUQ pain Social History Tobacco Use Types Packs/Day Years [...] Sign Reading Time Taken Comments Blood Pressure - - Pulse - - Temperature - - Respiratory Rate - - Oxygen Saturation - - Inhaled Oxygen Concentration - - Weight 86.2 kg (190 lb) 07/09/2024 1:27 PM EST Height 180.3 cm (5' 11 ) 07/09/2024 1:27 PM EST Body Mass Index 26.5 07/09/2024 1:27 PM EST documented in this encounter Ordered Prescriptions Prescription Sig Dispensed Refills Start Date End Da te psyllium (Metamucil, with sugar,) 3.4 gram packetIndications:RUQ pain Take 1 packet by mouth 1 (one) time each day. Mix and drink with at least 8 ounces of water or juice. 30 packet 11 07/09/2024 07/09/2025 omeprazole OTC (PriLOSEC OTC) 20 mg EC tabletIndications:Heartbu rn Take 1 tablet (20 mg total) by mouth 1 (one) time each day. Do not crush, chew, or split. 30 tablet 5 07/09/2024 07/12/2024 documented in this encounter Progress Notes * MICKY Workman - 07/09/2024 1:20 PM EST CHIEF COMPLAINT: Abdominal Pain HPI: Rolan Esteban is a 49 y.o. old male who was originally referred to us by Venancio Camilo MD now presents to the gastroenterology department today for abdominal pain. Right sided abdominal pain and back pain. Constant daily rated 3/10. Worse with anxiety. Haven't taken anything for the pain. Ibuprofen helpful for lower back pain. Pain present for about 3 weeks. Patient reports about 10-15lbs in last 2 weeks. Weight on 02/04/24 216lb per ortho visitnote. [id number] on 06/08/24 per nephrology note. On 06/15/24 weight 196lb per internal med note. In nephrology note from 07/06/24, provider comments that weight loss has been encouraged. Patient does not believe the weight loss is intentional and is very anxious about this and concerned regardingcancer. He struggles with constipation. BM every other day typically, reports a lot of straining. Reports heartburn typically daily, not controlled. He has used TUMs before but is currently not using medication for this concern. Denies hematochezia, nausea/vomiting, melena ROS: GENERAL: No malaise, significant weight loss or fever HEENT: No changes in hearing or vision, nose bleeds or swallowing problems NECK: No lumps, goiter, pain or significant neck swelling RESPIRATORY: No cough, wheezing or shortness of breath CARDIOVASCULAR: No chest pain, leg swelling or palpitations GI: See above MUSCULOSKELETAL: No joint pain or swelling, back pain, or muscle pain. SKIN: No lesions, rash or itching The remainder of the review of systems is reviewed and negative. PROBLEM LIST: Patient Active Problem List Diagnosis Abdominal pain Allergic rhinitis Anxiety Epigastric pain Fatty liver H. pylori infection Hemorrhoids Hepatitis C antibody test positive Hypertension Liver hemangioma Nephrolithiasis SRI (obstructive sleep apnea) Rectal bleed Straining with stools Tubular adenoma of colon Known medical problems Past Medical History: Diagnosis Date Abdominal pain [...] adenoma of colon DX:Tubular adenoma of colon PAST SURGICAL HISTORY: Past Surgical History: Procedure Laterality Date COLONOSCOPY 02/14/2021 TAx1 recall 5 years ESOPHAGOGASTRODUODENOSCOPY 02/14/2021 negative gastric biopsy OTHER SURGICAL HISTORY PROCEDURE: CA EXCISION MULLERIAN DUCT CYST; COMMENT: testicular cyst removal SOCIAL HISTORY: Social History Tobacco Use Smoking status: Former Current packs/day: 0.10 Types: Cigarettes Smokeless tobacco: Never Substance Use Topics Alcohol use: No FAMILY HISTORY: Family History Problem Relation Name Age of Onset Other (Other: anxiety) Mother Floria Other (Other: prediabetes) Mother Floria Hypertension Mother Floria No Known Problems Father Breast cancer Sister discovered at age 51. chemo Other (Other: elevated BP) Sister No Known Problems Brother No Known Problems Brother No Known Problems Brother No Known Problems Brother ACTIVE MEDICATIONS: Current Outpatient Medications Medication Sig Dispense Refill LORazepam (ATIVAN) 2 mg tablet TAKE 1 TABLET BY MOUTH 3 TIMES PER DAY NEEDED FOR ANXIETY losartan (COZAAR) 25 mg tablet Take 1 tablet (25 mg total) by mouth 1 (one) time each day. QUEtiapine (SEROquel) 25 mg tablet Take 1 tablet (25 mg total) by mouth at bedtime. Vitamin D3 50 mcg (2,000 unit) capsule TAKE 1 CAPSULE BY MOUTH EVERY DAY 90 capsule 0 amLODIPine (NORVASC) 2.5 mg tablet (Patient not taking: Reported on 07/09/2024) cetirizine (ZyrTEC) 10 mg tablet Take 1 tablet (10 mg total) by mouth 1 (one) time each day. (Patient not taking: Reported on 06/15/2024) diclofenac (VOLTAREN) 1 % topical gel Apply 4 g topically 2 times daily. (Patient not taking: Reported on 06/15/2024) omeprazole OTC (PriLOSEC OTC) 20 mg EC tablet Take 1 tablet (20 mg total) by mouth 1 (one) time each day. Do not crush, chew, or split. 30 tablet 5 psyllium (Metamucil, with sugar,) 3.4 gram packet Take 1 packet by mouth 1 (one) time each day. Mixand drink with at least 8 ounces of water or juice. 30 packet 11 No current facility-administered medications for this visit. ALLERGIES: Allergies Allergen Reactions Lisinopril Diarrhea and Nausea And Vomiting PHYSICAL EXAM: Visit Vitals Ht 1.803 m (71 ) Wt 86.2 kg (190 lb) BMI 26.50 kg/m?? Smoking Status Former BSA 2.06 m?? APPEARANCE: Alert and in no acute distress EYES: PERRLA, conjunctiva and sclera normal. MOUTH/THROAT: no erythema or exudates NECK: Neck supple, no adenopathy HEART: RRR with normal S1 and S2, no murmurs appreciated LUNG: clear to auscultation LYMPH NODES: grossly normal ABDOMEN: soft non tender, no ascites, guarding, or rebound, no organomegaly. EXTREMITIES: Extremities warm and well perfused SKIN: Skin color, texture, turgor normal. NEURO: Awake, alert and oriented, normal ROM LABS: No results found. Assessment/Plan Assessment & Plan Weight loss, unintentional Will order labwork, per patient request. Advised to follow up in 1 month, if continued weight loss and no change in abdominal pain will order CT scan for unintentional weight loss. Orders: Comprehensive metabolic panel; Future CBC and differential; Future Vitamin D 1,25 dihydroxy; Future Vitamin B12 and folate; Future Heartburn Uncontrolled. Will test for h.pylori, patient does have history of prior infection. Plan to start omeprazole 20mg daily if negative. Orders: Helicobacter pylori breath test; Future omeprazole OTC (PriLOSEC OTC) 20 mg EC tablet; Take 1 tablet (20 mg total) by mouth 1 (one) time each day. Do not crush, chew, or split. RUQ pain Suspect constipation-related. Advised to start metamucil daily for constipation relief as this may improve abdominal discomfort. Will repeat RUQ ultrasound for this concern and given patient's history of liver hemangioma and hepatitis C. Orders: US Abdomen Limited; Future psyllium (Metamucil, with sugar,) 3.4 gram packet; Take 1 packet by mouth 1 (one) time each day. Mix and drink with at least 8 ounces of water or juice. Follow up in about 6 weeks (around 08/20/2024). Gastroenterology and Hepatology Practice [facility] [email or web address] [phone] [place] [id number] MICKY Workman documented in this encounter Plan of Treatment Upcoming Encounters Date Type Department Care Team (Late st Contact Info) Description 07/28/2024 10:30 AM EST Appointment [facility] Ultrasound [address] [place] [phone] 08/20/2024 11:00 AM EST Office Visit Gastroenterology - 299 [facility] [address] [phone] Irma Pimentel PA [address] [address] Scheduled Orders Name Type Priority Associated Diagnoses Orde r Schedule US Abdomen Limited Imaging Routine RUQ pain Expected: 07/09/2024, Expires: 07/09/2025 documented as of this encounter Results * Vitamin B12 and folate (07/09/2024 2:36 PM EST) Pathologist [facility] [place] Vitamin B-12 401 250 - 900 pcg/mL LAB CHEMISTRY METHOD 07/09/2024 10:02 PM EST [facility] Folate 11.1 2.8 - 17.0 ng/ml LAB CHEMISTRY METHOD 07/09/2024 10:02 PM EST [facility] Blood Venous blood specimen / Unknown Venipuncture / Unknown 07/09/2024 2:36 PM EST 07/09/2024 9:35 PM EST Irma WEEKS LAB BLOOD ORDERABLES [facility] [address] [place] [address], * Vitamin D 1,25 dihydroxy (07/09/2024 2:36 PM EST) Pathologist [facility] [place] Vitamin D, 1, 25-Dihydroxy 77 20 - 79 pg/mL 07/12/2024 9:28 PM EST [facility] Comment: Vitamin D 1, 25 dihydroxy levels should be primarily used to assess Vitamin D status in patients with renal disease and hypercalcemia. Vitamin D 1,25-dihydroxy levels are generally less than 5 pg/mL in end stage renal disease patients. The preferred initial test for assessing Vitamin D status in the general population is Vitamin D 25-hydroxy (VITD). Test performed at [facility], [address] [facility], [place], [place] ??[address] ? [phone] Geraldine Kern MD, PhD - Political Science Research Assistant Blood Venous blood specimen / Unknown Venipuncture / Unknown 07/09/2024 2:36 PM EST 07/09/2024 3:37 PM EST Irma WEEKS LAB BLOOD ORDERABLES [address] [place] [address] [address] [place] [address] * Comprehensive metabolic panel (07/09/2024 2:36 PM EST) Sodium 135 133 - 145 mmol/L LAB CHEMISTRY METHOD 07/09/2024 9:35 PM [facility] Potassium 4.4 3.5 - 5.5 mmol/L LAB CHEMISTRY METHOD 07/09/2024 9:35 PM [facility] Chloride 102 96 - 110 mmol/L LAB CHEMISTRY METHOD 07/09/2024 9:35 PM [facility] CO2 29 21 - 32 mmol/L LAB CHEMISTRY METHOD 07/09/2024 9:35 PM [facility] Anion Gap 4 3 - 11 LAB CHEMISTRY METHOD 07/09/2024 9:35 PM [facility] Glucose 95 70 - 100 mg/dL LAB CHEMISTRY METHOD 07/09/2024 9:35 PM [facility] BUN 10 5 - 25 mg/dL LAB CHEMISTRY METHOD 07/09/2024 9:35 PM [facility] Creatinine 1.09 0.70 - 1.30 mg/dL LAB CHEMISTRY METHOD 07/09/2024 9:35 PM [facility] eGFR 83 >=60 mL/min/1. 73m2 LAB CHEMISTRY METHOD 07/09/2024 9:35 PM [facility] Comment:Calculation based on the??Chronic Kidney Disease Epidemiology Collaboration (CKD-EPI) equation refit??without adjustment for race. BUN/Creatinine Ratio 9.2 LAB CHEMISTRY METHOD 07/09/2024 9:35 PM [facility] Calcium 9.1 8.5 - 10.5 mg/dL LAB CHEMISTRY METHOD 07/09/2024 9:35 PM [facility] AST (SGOT) 11 10 - 42 unit/L LAB CHEMISTRY METHOD 07/09/2024 9:35 PM [facility] ALT (SGPT) 21 10 - 60 unit/L LAB CHEMISTRY METHOD 07/09/2024 9:35 PM [facility] Alkaline Phosphatase 98 42 - 121 unit/L LAB CHEMISTRY METHOD 07/09/2024 9:35 PM [facility] Total Protein 7.7 6.0 - 8.0 g/dL LAB CHEMISTRY METHOD 07/09/2024 9:35 PM [facility] Albumin 4.1 3.2 - 5.0 g/dL LAB CHEMISTRY METHOD 07/09/2024 9:35 PM [facility] Total Bilirubin 0.7 0.0 - 1.4 mg/dL LAB CHEMISTRY METHOD 07/09/2024 9:35 PM [facility] Blood Venous blood specimen / Unknown Venipuncture / Unknown 07/09/2024 2:36 PM EST 07/09/2024 9:35 PM EST Irma WEEKS LAB BLOOD ORDERABLES [facility] [address] [place] [address], [place] [phone] * Helicobacter pylori breath test (07/09/2024 2:36 PM EST) H Pylori Breath Test Negative Negative LAB CHEMISTRY METHOD 07/10/2024 1:19 PM EST [facility] Breath Oral cavity structure / Unknown Non-blood Collection / Unknown 07/09/2024 2:36 PM EST 07/10/2024 11:25 AM EST Irma WEEKS LAB BODY FLUIDS AND STOOLS ORDERABLES Performing Organization Address City/[facility]/ZIP Co de Phone Number [facility] [address] [place] [address], [place] [phone] documented in this encounter Visit Diagnoses Diagnosis Weight loss, unintentional- Primary Loss of weight Heartburn RUQ pain Abdominal pain, right upper quadrant documented in this encounter Historical Medications * This list may reflect changes made after this encounter. Medication Sig Dispensed Refills Start Date End Date losartan (COZAAR) 25 mg tablet Take 1 tablet (25 mg total) by mouth 1 (one) time each day. 07/06/2024 07/06/2025 added in this encounter Care Teams Porcelain Enameler Relationship Specialty Start Date End Date Venancio Camilo MD [address] [place] [address] PCP - General Internal Medicine 12/09/14 documented as of this encounter
--- OUTSIDE RECORDS SUMMARY | 2024-07-20 11:08 | XMS_ITS | Encounter Summary ---
Author Organization [facility] Address [address] [place] [address] Care Team Providers Care Fuel Handler Name Role Phone Venancio Camilo MD Primary Care Provider [phone] Encounter Details Date Type Department Care Team ([facility] st Contact Info) Description 07/12/2024 Telephone Gastroenterology - [address] [facility] [address] [place] [phone] Neeru Loyola MD [address] [place] [address] Social History Tobacco Use Types Packs/Day Years [...] encounter Progress Notes * MICKY Workman - 07/12/2024 9:12 AM EST Called patient, reviewed blood work. All WNL, still waiting on Vit D level. Will go forward with plan as scheduled. U/S then follow up for weight check. * Negrita George - 07/12/2024 9:04 AM EST 09 pt, looking for results of labs done last Friday, please call documented in this encounter Plan of Treatment Upcoming Encounters Date Type Department Care Team (Late st Contact Info) Description 07/28/2024 10:30 AM EST Appointment [facility] Ultrasound [address] [place] [phone] 08/20/2024 11:00 AM EST Office Visit Gastroenterology - [address] [facility] [address] [place] [phone] Irma Pimentel PA [address] [address] documented as of this encounter Visit Diagnoses Not on filedocumented in this encounter Care Teams Fuel Handler Relationship Specialty Start Date End Date Venancio Camilo MD [address] [place] [address] PCP - General Internal Medicine 12/09/14 documented as of this encounter
--- OUTSIDE RECORDS SUMMARY | 2024-07-20 11:09 | XMS_ITS | Encounter Summary ---
Author Organization [facility] Address [address] [facility] [address] [place] [address] Care Team Providers Care Compliance Consultant Name Role Phone Unavailable Primary Care Provider Unavailabl e Encounter Details Date Type Department Care Team (Latest Contact Info) Description 03/21/2021 Abstract [facility] CONVERSIONS Dental, Provider, DDS Social History Tobacco Use Types Packs/Day Years Used Date Smoking Tobacco: Never Assessed Sex and Gender Information Value Date Recorded Sex Assigned at Male 04/22/2022 10:39 AM EDT Legal Sex Male 10:39 AM EDT Gender Identity Male 04/22/2022 10:39 AM EDT Sexual Orientation Straight 04/22/2022 10 :39 AM EDT documented as of this encounter Plan of Treatment Not on file documented as of this encounter Visit Diagnoses Not on filedocumented in this encounter
--- OUTSIDE RECORDS SUMMARY | 2024-07-20 11:09 | XMS_ITS | Clinical Summary ---
Author Organization [facility] Address [address] [address] Phone Care Team Providers Care Waste Water Treatment Plant Operator Name Role Phone Venancio Camilo MD Primary Care Provider [phone] Allergies Active Allergy Reactions Criticality Noted Date Comments Lisinopril Diarrhea,Nausea And Vomiting 020 Medications LORazepam (ATIVAN) 2 MG tablet TAKE 1 TABLET BY MOUTH 3 TIMES PER DAY NEEDED FOR ANXIETY 1 Active QUEtiapine (SEROquel) 25 MG tablet TAKE 1 3 TABLETS BY MOUTH AT BEDTIME. 1 Active cholecalcifero l (VITAMIN D-3 SUPER STRENGTH) 50 MCG (1999 UT) tablet Take 1 tablet by mouth 1 (one) time each day 3 Active losartan (Cozaar) 25 MG tabletIndicati ons:Hypertensi on Take 1 tablet (25 mg total) by mouth 1 (one) time each day 30 tablet 11 5 07/06/19 26 Active Blood Pressure Monitoring (Omron 3 Series BP Monitor) deviceIndicati ons:Hypertensi on 1 Device 1 (one) time each day 1 each 5 Active amLODIPine (NORVASC) 2.5 MG tabletIndicati ons:Hypertensi on Take 1 tablet (2.5 mg total) by mouth 1 (one) time each day 30 tablet 2 4 06/21/20 24 Discontinued amLODIPine (NORVASC) 2.5 MG tabletIndicati ons:Hypertensi on Take 3 tablets (7.5 mg total) by mouth 1 (one) time each day 90 tablet 2 4 06/21/20 24 Discontinued amLODIPine (NORVASC) 2.5 MG tabletIndicati ons:Hypertensi on TAKE 3 TABLETS (7.5 MG TOTAL) BY MOUTH EVERY DAY 270 tablet 4 07/06/19 25 Discontinued Active Problems Problem Noted Date Diagnosed Date Vitamin D deficiency, not otherwise specified Overview (06/09/2024): Vitamin D 25 level WNL On daily supplementation Monitor level annually Assessment & Plan (11/03/2023 4:38 PM EDT): Checking level, on supplementation for this Abdominal pain 11/04/2022 Defecation straining 11/04/2022 Epigastric pain 11/04/2022 Assessment & Plan (11/03/2023 4:37 PM EDT): Patient requesting to have H pylori checked again as same symptoms as previous time I stressed the importance of PCP needing to be aware of this, but did send him for testing for now Hemorrhoid 11/04/2022 History of Helicobacter pylori infection 023 Rectal hemorrhage 11/04/2022 Tubular adenoma of colon 11/04/2022 Allergic rhinitis 07/31/2022 Hemangioma of liver 03/06/2022 Infection caused by Helicobacter pylori 01/20/20 21 Hypertension 08/10/2020 Overview (07/06/2024): Blood pressure is sub-optimally controlled, BP 130/90 [...] F/u with PCP regarding Anxiety, possible tx Assessment & Plan (06/09/2024 8:14 PM EST): Blood pressure is well controlled On single therapy Amlodipine 2.5 mg QD Off Metoprolol No Edema Normal renal function No proteinuria No medication changes Assessment & Plan (11/03/2023 4:36 PM EDT): Blood pressure well controlled Amlodipine 5 mg QD Rx renewed for him today, also taking Metoprolol XL 25 mg QD No Edema Continue current medications, no changes made today Fatty liver 05/04/2015 Obstructive sleep apnea syndrome 11/23/2014 Sleep hypoventilation 09/07/2014 Hepatitis C antibody detected 10/05/2013 Overview (08/14/2022): Hepatitis C viral load is undetectable on September 2013. The patient explains to me that he was treated for 6 months for hepatitis at [facility]. Anxiety 04/14/2013 Overview (11/04/2022): Patient has a psychiatrist. Dr Mares? Nephrolithiasis 04/14/2012 Overview (08/14/2022): CT 04/01 2mm nonobstructing left stone Encounters Date Type Department Care Team Description 07/06/2024 11:45 AM EST [facility] [address] [phone] Chasity Kaufman ARNP Hypertension (Primary Dx); Vitamin D deficiency, not otherwise specified; Type 2 diabetes mellitus with hyperglycemia (HCC) 07/05/2024 Office Communication [facility] [address] [phone] María Clifton MA 06/21/2024 11:45 AM EST [facility] [address] [phone] Chasity Kaufman ARNP Hypertension (Primary Dx) 06/21/2024 Refill [facility] [address] [phone] Chasity Kaufman ARNP Hypertension 06/08/2024 3:45 PM EST Office [facility] [address] [phone] Chasity Kaufman ARNP Vitamin D deficiency, not otherwise specified (Primary Dx); Hypertension from Last 3 Months Family History Medical History Relation Comments Diabetes Mother 78 prediabetic Relation Status Comments Father Alive Mother Alive Social History Tobacco Use Types Packs/Day Years Used Date Smoking Tobacco: Former Smokeless Tobacco: Never Tobacco Cessation:Counseling Given: Not Answered Alcohol Use Standard Drinks/Week Comments Not Currently 0 (1 standard drink = 0.6 oz pure alcohol) Alcoholic Drinks/day: Occasional social drink Sex and Gender Information Value Date Recorded Sex Assigned at Not on file Legal Sex Male 4:57 PM EST Gender Identity Not on file Sexual Orientation Not on file Last Filed Vital Signs Vital Sign Reading Time Taken Comments Blood Pressure 130/90 07/06/2024 11:59 AM EST Pulse 84 07/06/2024 11:59 AM EST Temperature - - Respiratory Rate - - Oxygen Saturation 98% 06/21/2024 11: 59 AM EST Inhaled Oxygen Concentration - - Weight 85.6 kg (188 lb 12.8 oz) 025 11:59 AM EST Height 180.3 cm (5' 11 ) 09/11/2021 3:25 PM EDT Body Mass Index 26.33 09/11/2021 3:25 PM EDT Plan of Treatment Upcoming Encounters Date Type Department Care Team (Late st Contact Info) Description 07/26/2024 11:45 AM EST [facility] Visit [facility] [address] [phone] Chasity Kaufman ARNP [address] [phone] 09/02/2024 11:30 AM EDT Office Visit [facility] [address] [place] [phone] Chasity Kaufman ARNP [address] [phone] 11/02/2024 4:00 PM EDT Office Visit [facility] [address] [phone] KaufmanChasityMICHELLE [address] [phone] Health Maintenance Due Date Last Done Comments Pneumococcal Vaccine: Pediat rics (0 to 5 Years) and At-Risk Patients (6 to 64 Years) (1 of 2 - PCV) 1981 Hepatitis B Vaccine (1 of 3 - 19+ 3-dose series) 1994 Influenza Vaccine (#1) 2024 7, 04/17/2015, 04/15/2014 Colorectal Cancer Screening: Annual FOBT 2024 Colorectal Cancer Screening: Colonoscopy 2024 Colorectal Cancer Screening: Sigmoidoscopy 2024 Diabetes: Hemoglobin A1C 07/06/2024 022, 06/22/2020, 10/07/2019 Diabetes: Ophthalmology Exam 07/06/2024 Diabetes: Pedal Pulse Checked 07/06/2024 Diabetes: Sensory Foot Exam 07/06/2024 Diabetes: Visual Foot Exam 07/06/2024 Procedures Procedure Name Priority Date/Time Associated Diagnosis Comments PROTEIN / CREATININE RATIO, URINE Routine 06/21/2024 12:51 PM EST Hypertension URINE ALBUMIN / CREATININE RATIO Routine 06/21/2024 12:51 PM EST Hypertension RENAL FUNCTION PANEL Routine 06/21/2024 12:51 PM EST Hypertension HEMOGLOBIN A1C Routine 09/11/2021 3:57 PM EDT from Last 3 Months or Most Recently Relevant to Health Maintenance Results * Urine Protein / creatinine ratio (06/21/2024 12:51 PM EST) Creatinine, Ur 175.5 Not Estab. mg/dL [facility] Protein, Ur 11.2 Not Estab. mg/dL [facility] Urine Protein/Creatin ine Ratio 64 0 - 200 mg/g creat [facility] Urine (Urine, Clean Catch) 06/21/2024 12:51 PM EST 06/21/2024 Chasity Kaufman [facility] LAB URINE ORDERABLES Final Result Performing Organization Address City/[facility]/ZIP Co de Phone Number [facility] [address] [place] [address] * Urine Albumin / Creatinine Ratio (06/21/2024 12:51 PM EST) Urine Microalbumin 9.8 Not Estab. ug/mL [facility] Microalbumin/Crea tinine Ratio 6 0 - 29 mg/g creat [facility] Comment: ? Normal: ?0 - ??29 ? Moderately increased: 30 - 300 ? Severely increased: ? >300 Urine (Urine, Clean Catch) 06/21/2024 12:51 PM EST 06/21/2024 Ch[facility]ity [facility] LAB URINE ORDERABLES Final Result Performing Organization Address City/[facility]/ZIP Co de Phone Number [employer] Desi [facility] [address] [place] [address] * (ABNORMAL) Renal function panel (06/21/2024 12:51 PM EST) Glucose 142(H) 70 - 99 mg/dL [facility] BUN 13 6 - 24 mg/dL [facility] Creatinine 0.97 0.76 - 1.27 mg/dL [facility] eGFR CKD-EPI CR 2020 96 >59 mL/min/1.7 3 [facility] BUN/Creatinine Ratio 13 9 - 20 [facility] Sodium 139 134 - 144 mmol/L [facility] Potassium 4.1 3.5 - 5.2 mmol/L [facility] Chloride 100 96 - 106 mmol/L [facility] Bicarbonate (CO2) 22 20 - 29 mmol/L [facility] Calcium 9.8 8.7 - 10.2 mg/dL [facility] Albumin 4.6 4.1 - 5.1 g/dL [facility] Phosphorus 2.7(L) 2.8 - 4.1 mg/dL [facility] Blood (Blood, Venous) 06/21/2024 12:51 PM EST 06/21/2024 Chasity Kaufman [facility] LAB BLOOD ORDERABLES Final Result [facility] [address] [place] [address] * Hemoglobin A1c (09/11/2021 3:57 PM EDT) [facility] Hemoglobin A1C 5.3 (4.0-5.6) % [facility] Comment: MONITORING: In known diabetic patients, hemoglobin A1c targets should be discussed with health care provider. DIAGNOSTIC USE: ??The [place] Diabetes Association (ADA) and the World Health Organization (WHO) recommend the use of HbA1c to diagnose diabetes using a threshold of 6.5%. Patients who have an HbA1c between 5.7% and 6.4% are considered at increased risk for developing diabetes in the future. CAUTION: Falsely low HbA1c results may be observed in patients with hemolytic anemia, homozygous forms of abnormal hemoglobin (e.g. SS, CC, SC), , recent blood loss or hemoglobin F greater than 7%. Fructosamine may be used as an alternate test in these cases. REFERENCE: ADA: Standards of Medical Care in Diabetes 2020, The Journal of Clinical and Applied Research and Education Volume 43, Supplement 1 Testing performed or reported by [facility] Reference Shared Performance, a Service of [facility], [address] [place] [address] Katlyn Holley MD, Casino Investigator [facility]# [id number] 09/11/2021 3:57 PM EDT 09/11/2021 3:59 PM EDT Jesus Bull MD LAB BLOOD ORDERABLES Final Re sult [facility] from Last 3 Months or Most Recently Relevant to Health Maintenance Insurance [facility] MEDICAID Care Teams Waste Water Treatment Plant Operator Relationship Specialty Start Date End Date Venancio Camilo MD [address] [place] [id number] PCP - General 07/03/20
--- OUTSIDE RECORDS SUMMARY | 2024-07-20 11:09 | XMS_ITS | Encounter Summary ---
Author Organization [facility] Address [address] [facility] [address] [place] [address] Phone Care Team Providers Care Defence Force Senior Officer Name Role Phone Venancio Camilo MD Primary Care Provider [phone] Encounter Details Date Type Department Care Team (Late st Contact Info) Description 08/14/2022 Documentation Only [facility] [address] [place] [phone] Daniella Darnell MA Social History Tobacco Use [...] [facility] [address] [phone] Chasity Kaufman ARNP [address] [phone] 09/02/2024 11:30 AM EDT Office Visit [facility] [address] [phone] Chasity Kaufman ARNP [address] [phone] 11/02/2024 4:00 PM EDT Office Visit [facility] [address] [phone] Chasity Kaufman ARNP [address] [phone] documented as of this encounter Visit Diagnoses Not on filedocumented in this encounter Care Teams Defence [employer] Senior Officer Relationship Specialty Start Date End Date Venancio Camilo MD [address] [place] [phone] PCP - General 07/03/20 documented as of this encounter
--- OUTSIDE RECORDS SUMMARY | 2024-07-20 11:09 | XMS_ITS | Clinical Summary ---
Author Organization [employer] Address [address] [facility] [address] [place] [address] Care Team Providers Care Licensed Land Surveyor Name Role Phone Unavailable Primary Care Provider Unavailabl e Social History Tobacco Use Types Packs/Day Years Used Date Smoking Tobacco: Never Assessed Sex and Gender Information Value Date Recorded Sex Assigned at Male 04/22/2022 10:39 AM EDT Legal Sex Male 10:39 AM EDT Gender Identity Male 04/22/2022 10:39 AM EDT Sexual Orientation Straight 04/22/2022 10 :39 AM EDT Plan of Treatment Health Maintenance Due Date Last Done Comments CT Colonography 1975 Colonoscopy 1975 Colorectal Cancer Screening 1975 Depression Screening 1975 FIT DNA/Cologuard 1975 FIT 1975 FOBT 1975 Lipid Panel 1975 Sigmoidoscopy 1975 Alcohol/Substance Use Screening 1987 Tobacco Screening 1987 Family Planning (PISQ) 1990 DTaP/Tdap/Td Vaccines (1 - Tdap) 1994 Hepatitis B Vaccines (1 of 3 - 19+ 3-dose series) 1994 COVID-19 Vaccine ( - 2023-2 5 season) 2024 Influenza Vaccine (#1) 2024 Zoster Vaccines (1 of 2) 2025 RSV Patients and Pa tients Aged 60 years or older (1 - 1-dose 75+ series) 2050 HIB Vaccines Aged Out No longer eligi ble based on patient's age to complete this topic HPV Vaccines Aged Out No longer eligi ble based on patient's age to complete this topic Hepatitis A Vaccines Aged Out No long er eligible based on patient's age to complete this topic IPV Vaccines Aged Out No longer eligi ble based on patient's age to complete this topic Meningococcal Vaccine Aged Out No alexandra dwight eligible based on patient's age to complete this topic Pneumococcal Vaccine: Pediat rics (0 to 5 Years) and At-Risk Patients (6 to 64 Years) Aged Out No longer eligible b ased on patient's age to complete this topic RSV under 20 months Aged Out No longe r eligible based on patient's age to complete this topic Rotavirus Vaccines Aged Out No longer eligible based on patient's age to complete this topic
--- OUTSIDE RECORDS SUMMARY | 2024-07-20 11:09 | XMS_ITS | Encounter Summary ---
Author Organization [facility] Address [address] [facility] [address] [place] [address] Phone Care Team Providers Care Street And Building Decorator Name Role Phone Venancio Camilo MD Primary Care Provider [phone] Encounter Details Date Type Department Care Team (Late st Contact Info) Description 08/14/2022 Documentation Only [facility] [address] [place] [phone] Daniella Darnell MA Social History Tobacco Use [...] Office Visit [facility] [address] [phone] Chasity Kaufman ARNP [address] [phone] 09/02/2024 11:30 AM EDT Office Visit [facility] [address] [phone] Chasity Kaufman ARNP [address] [phone] 11/02/2024 4:00 PM EDT Office Visit [facility] [address] [phone] Chasity Kaufman ARNP [address] [phone] documented as of this encounter Visit Diagnoses Not on filedocumented in this encounter Care Teams Street And Building Decorator Relationship Specialty Start Date End Date Venancio Camilo MD [address] [place] [phone] PCP - General 07/03/20 documented as of this encounter
--- OUTSIDE RECORDS SUMMARY | 2024-07-20 11:09 | XMS_ITS | Data Portability ---
Author Organization [facility] [facility], [address] [place] [address] Assessment No assessment recorded. Plan of Treatment Reminders Order Date Submit Date Provider Last Modified By Organization Details Last Modified Time Details Appointments None record ed. Lab None record ed. Referral None record ed. Procedures None record ed. Surgeries None record ed. Imaging None record ed. Medication Orders None record ed. Patient TargetsNo targets recorded. Patient InstructionsNo instructions recorded. Reason for Referral None Reported. Procedures Surgical History Date Name Laterality Status Provider Name and Address Organization Details Recorded Time OC-UDS Send Out Template NON DOT completed Karmen Domingo [employer] 01/21/2024 16:15:15 Imaging Results None recorded. Procedure Notes None recorded. Medical Equipment None Reported. Medications Name Sig Start Date Stop Date Status Note LastModified by Organization Details LastModified Time quetiapine 25 mg tablet TAKE 1 TO 3 TABLETS BY MOUTH AT BEDTIME active Not Available Not Available No t Available ibuprofen 800 mg tablet TAKE 1 TABLET BY MOUTH EVERY 12 HOURS active Not Available Not Available No t Available amlodipine 5 mg tablet TAKE 1 TABLET BY MOUTH 1 TIME EACH DAY. active Not Available Not Available No t Available lorazepam 2 mg tablet TAKE 1 TABLET BY MOUTH 3 TIMES PER DAY NEEDED FOR ANXIETY active Not Available Not Available No t Available ibuprofen 600 mg tablet TAKE 1 TABLET BY MOUTH EVERY 6 HOURS NEEDED FOR PAIN FOR UP TO 30 DAYS. active Not Available Not Available No t Available cholecalciferol (vitamin D3) 50 mcg (2,000 unit) capsule TAKE 1 CAPSULE BY MOUTH EVERY DAY active Not Available Not Available No t Available Vitamin D3 50 mcg (2,000 unit) tablet TAKE 1 TABLET BY MOUTH EVERY DAY active Not Available Not Available No t Available Vitals None Recorded Social History None recorded. Functional Status None recorded. Mental Status None recorded. Family History Nothing Reported. Medical History No medical history recorded. Past Encounters Encounter ID Performer Location Encounter Start Date Encounter Closed Date Diagnosis/Indication Diagnosis SNOMED-CT Code Diagnosis ICD10 Code Diagnosis Note [id number] MICKY Johnson [address] [facility] [address] [facility] Y[place]ON ruiz [phone] 01/21/2024 16:00:27 01/21/2024 16:30:43 History and physical examination, occupation 059067283 Z02.1 Health Concerns Section Related Observation LastModified by Organization Detai ls LastModified Time None Recorded Concern Status LastModified by Organization Details LastModified Time None Recorded Advance Directives Directive None Recorded Payers Encounter Date Sequence Insurance Name Policy Number Policy Russo Covered Member ID Russo Member ID Guarantor Name 01/21/2024 [employer]-ESCREEN [employer] OTHER An elle Esteban
== END 2024-07-20 10:15 | disposition home or self-care (01) ==
LOC: HO.HMGCX 10:14
PROVIDERS: PCP Internal Medicine; Visit Provider Nurse Practitioner Family
DX: N50.82 Scrotal pain (principal); E29.1 Testicular hypofunction; R39.9 Unspecified symptoms and signs involving the genitourinary system
CPT/HCPCS: 76770

== ENCOUNTER → 2024-07-20 10:17 | Outpatient (BNV) | payer OTHER, SELFPAY | PROVIDERS: PCP Internal Medicine; Visit Provider Radiology Diagnostic Radiology | DX: N42.89 Other specified disorders of prostate (principal) | CPT/HCPCS: 76770 ==

== ENCOUNTER 2024-08-03 15:40 | Outpatient (REF) | payer OTHER, SELFPAY ==
--- NOTE | ~2024-08-03 | US_ITS ---
CLINICAL HISTORY: N50.82 - Scrotal pain US Scrotum with Doppler Comparison: None Findings: Right testicle normal size and echotexture, 4.9 x 2.2 x 3.6 cm. Left testicle normal size and echotexture, 4.8 x 2.1 x 3.4 cm. Color Doppler and arterial/venous spectral tracings of Both testicles within normal limits. A normal right epididymal head is not identified. Two benign-appearing unilocular cysts are noted versus a cyst with a single septation. The left epididymis is unremarkable. No varicoceles. No hydroceles. The larger of these measures 1.5 cm in greatest diameter and the smaller 6 mm in greatest diameter. IMPRESSION: right epididymal head is not identified. Two benign cysts or a cyst with a single septation noted in this area. This document has been electronically signed by: Pepito Díaz MD on 08/04/2024 09:39:59
--- OUTSIDE RECORDS SUMMARY | 2024-08-03 16:14 | XMS_ITS | Encounter Summary ---
Author Organization [facility] Address [address] [facility] [address] [place] [address] Phone Care Team Providers Care Sole Layer Hand Name Role Phone Venancio Camilo MD Primary Care Provider [phone] Encounter Details Date Type Department Care Team (Late st Contact Info) Description 10/26/2021 Documentation Only [facility] [address] [facility] [address] [place] [address] Jesus Bull MD [address] [place] [phone] Social History Tobacco Use Types Packs/Day Years [...] Care Team (Late st Contact Info) Description 10/25/2024 10:45 AM EDT Office Visit [facility] [address] [phone] Chasity Kaufman ARNP [address] [facility] [address] [place] [address] documented as of this encounter Visit Diagnoses Not on filedocumented in this encounter Care Teams Sole Layer Hand Relationship Specialty Start Date End Date Venancio Camilo MD [address] [place] [phone] PCP - General 07/03/20 documented as of this encounter
--- OUTSIDE RECORDS SUMMARY | 2024-08-03 16:14 | XMS_ITS | Encounter Summary ---
Author Organization [employer] Address [address] [place] [address] Care Team Providers Care Boarding Kennel Or Cattery Operator Name Role Phone Venancio Camilo MD Primary Care Provider [phone] Encounter Details Date Type Department Care Team (Late Contact Info) Description 07/09/2024 2:10 PM EST Lab Draw Station - [address] [address] Heartburn; Weight loss, unintentional Social History Tobacco Use Types Packs/Day Years Used Date Smoking Tobacco: Former Cigarettes Smokeless Tobacco: Never Alcohol Use Standard Drinks/Week Comments No 0 (1 standard drink = 0.6 oz pur e alcohol) Sex and Gender Information Value Date Recorded Sex Assigned at Male 07/15/2024 1:15 PM EST Legal Sex Male 5:08 PM EST Gender Identity Male 07/15/2024 1:15 PM EST Sexual Orientation Straight 07/15/2024 1: 15 PM EST documented as of this encounter Progress Notes * MICKY Workman - 07/09/2024 2:10 PM EST Please call patient and let him know his vitamin D level is excellent! Will await ultrasound. documented in this encounter Plan of Treatment Upcoming Encounters Date Type Department Care Team (Late Contact Info) Description 08/16/2024 11:30 AM EST Consult Endocrinology - [place] [address] [place] [phone] Pratik Dumont MD [address] [place] [address] 08/20/2024 11:00 AM EST Office Visit Gastroenterology - [address] [address] [facility] [address] [place] [address] Irma Pimentel PA [address] [place] [address] documented as of this encounter Procedures Procedure [...] K/mcL LAB HEMETOLOGY METHOD 07/09/2024 4:[address] [facility] RBC 5.30 4.50 - 5.50 M/mcL LAB HEMETOLOGY METHOD 07/09/2024 4:[address] [facility] Hemoglobin 15.3 13.5 - 17.5 g/dL LAB HEMETOLOGY METHOD 07/09/2024 4:[address] [facility] Hematocrit 46.4 42.0 - 54.0 % LAB HEMETOLOGY METHOD 07/09/2024 4:[address] [facility] MCV 87.7 79.0 - 98.0 FL LAB HEMETOLOGY METHOD 07/09/2024 4:[address] [facility] MCH 28.9 27.0 - 32.0 pcg LAB HEMETOLOGY METHOD 07/09/2024 4:[address] [facility] MCHC 33.0 32.0 - 37.0 g/dL LAB HEMETOLOGY METHOD 07/09/2024 4:[address] [facility] RDW 12.6 11.0 - 15.0 % LAB HEMETOLOGY METHOD 07/09/2024 4:[address] [facility] Platelets 397 130 - 400 K/mcL LAB HEMETOLOGY METHOD 07/09/2024 4:[address] [facility] MPV 9.4 7.0 - 11.0 FL LAB HEMETOLOGY METHOD 07/09/2024 4:[address] [facility] NRBC 0.0 <1.0 % LAB HEMETOLOGY METHOD 07/09/2024 4:[address] [facility] NRBC Absolute 0.00 <0.10 K/mcL LAB HEMETOLOGY METHOD 07/09/2024 4:[address] [facility] Neutrophils Relative 67.1 % LAB HEMETOLOGY METHOD 07/09/2024 4:[address] [facility] Lymphocytes Relative 26.4 % LAB HEMETOLOGY METHOD 07/09/2024 4:[address] [facility] Monocytes Relative 5.5 % LAB HEMETOLOGY METHOD 07/09/2024 4:[address] [facility] Eosinophils Relative 0.2 % LAB HEMETOLOGY METHOD 07/09/2024 4:[address] [facility] Basophils Relative 0.6 % LAB HEMETOLOGY METHOD 07/09/2024 4:[address] [facility] Immature Granulocytes Relative 0.2 % LAB HEMETOLOGY METHOD 07/09/2024 4:[address] [facility] Neutrophils Absolute 5.83 1.50 - 7.00 K/mcL LAB HEMETOLOGY METHOD 07/09/2024 4:[address] [facility] Lymphocytes Absolute 2.30 1.00 - 5.00 K/mcL LAB HEMETOLOGY METHOD 07/09/2024 4:[address] [facility] Monocytes Absolute 0.48 0.20 - 1.00 K/mcL LAB HEMETOLOGY METHOD 07/09/2024 4:[address] [facility] Eosinophils Absolute 0.02 0.00 - 0.50 K/mcL LAB HEMETOLOGY METHOD 07/09/2024 4:[address] [facility] Basophils Absolute 0.05 0.00 - 0.20 K/mcL LAB HEMETOLOGY METHOD 07/09/2024 4:[address] [facility] Immature Granulocytes Absolute 0.02 0.00 - 0.03 K/mcL LAB HEMETOLOGY METHOD 07/09/2024 4:[address] [facility] Blood Venous blood specimen / Unknown Venipuncture / Unknown 07/09/2024 2:36 PM EST 07/09/2024 4:05 PM EST us Irma WEEKS LAB BLOOD ORDERABLES Final Resu lt [facility] [address] [place] [address], * Vitamin B12 and folate (07/09/2024 2:36 PM EST) Pathologist [facility] Vitamin B-12 401 250 - 900 pcg/mL LAB CHEMISTRY METHOD 07/09/2024 10:02 PM EST [facility] Folate 11.1 2.8 - 17.0 ng/ml LAB CHEMISTRY METHOD 07/09/2024 10:02 PM EST [facility] Blood Venous blood specimen / Unknown Venipuncture / Unknown 07/09/2024 2:36 PM EST 07/09/2024 9:35 PM EST Irma Pimentel [place] LAB BLOOD ORDERABLES Final Resu lt Performing Organization Address City/[facility]/ZIP Co de Phone Number [facility] [address] [place] [address], * Vitamin D 1,25 dihydroxy (07/09/2024 2:36 PM EST) Vitamin D, 1, 25-Dihydroxy 77 20 - 79 pg/mL 07/12/2024 9:28 PM EST [facility] Comment: Vitamin D 1, 25 dihydroxy levels should be primarily used to assess Vitamin D status in patients with renal disease and hypercalcemia. Vitamin D 1,25-dihydroxy levels are generally less than 5 pg/mL in end stage renal disease patients. The preferred initial test for assessing Vitamin D status in the general population is Vitamin D 25-hydroxy (VITD). Test performed at [facility], [address] , [place], [place] ??[address] ? [phone] Geraldine Kern MD, PhD - Measurement Supervisor Blood Venous blood specimen / Unknown Venipuncture / Unknown 07/09/2024 2:36 PM EST 07/09/2024 3:37 PM EST Irma Pimentel [place] LAB BLOOD ORDERABLES Final Resu lt [facility] [address] [place] [address] * Comprehensive metabolic panel (07/09/2024 2:36 PM EST) Sodium 135 133 - 145 mmol/L LAB CHEMISTRY METHOD 07/09/2024 9:35 PM EST [facility] Potassium 4.4 3.5 - 5.5 mmol/L LAB CHEMISTRY METHOD 07/09/2024 9:[address] [facility] Chloride 102 96 - 110 mmol/L LAB CHEMISTRY METHOD 07/09/2024 9:[address] [facility] CO2 29 21 - 32 mmol/L LAB CHEMISTRY METHOD 07/09/2024 9:[address] [facility] Anion Gap 4 3 - 11 LAB CHEMISTRY METHOD 07/09/2024 9:[address] [facility] Glucose 95 70 - 100 mg/dL LAB CHEMISTRY METHOD 07/09/2024 9:[address] [facility] BUN 10 5 - 25 mg/dL LAB CHEMISTRY METHOD 07/09/2024 9:[address] [facility] Creatinine 1.09 0.70 - 1.30 mg/dL LAB CHEMISTRY METHOD 07/09/2024 9:[address] [facility] eGFR 83 >=60 mL/min/1. 73m2 LAB CHEMISTRY METHOD 07/09/2024 9:[address] [facility] Comment:Calculation based on the??Chronic Kidney Disease Epidemiology Collaboration (CKD-EPI) equation refit??without adjustment for race. BUN/Creatinine Ratio 9.2 LAB CHEMISTRY METHOD 07/09/2024 9:[address] [facility] Calcium 9.1 8.5 - 10.5 mg/dL LAB CHEMISTRY METHOD 07/09/2024 9:[address] [facility] AST (SGOT) 11 10 - 42 unit/L LAB CHEMISTRY METHOD 07/09/2024 9:[address] [facility] ALT (SGPT) 21 10 - 60 unit/L LAB CHEMISTRY METHOD 07/09/2024 9:[address] [facility] Alkaline Phosphatase 98 42 - 121 unit/L LAB CHEMISTRY METHOD 07/09/2024 9:[address] [facility] Total Protein 7.7 6.0 - 8.0 g/dL LAB CHEMISTRY METHOD 07/09/2024 9:[address] [facility] Albumin 4.1 3.2 - 5.0 g/dL LAB CHEMISTRY METHOD 07/09/2024 9:35 PM EST [facility] Total Bilirubin 0.7 0.0 - 1.4 mg/dL LAB CHEMISTRY METHOD 07/09/2024 9:35 PM EST [facility] Blood Venous blood specimen / Unknown Venipuncture / Unknown 07/09/2024 2:36 PM EST 07/09/2024 9:35 PM EST Irma WEEKS LAB BLOOD ORDERABLES Final Resu lt [facility] [address] [place] [address], [place] [phone] * Helicobacter pylori breath test (07/09/2024 2:36 PM EST) H Pylori Breath Test Negative Negative LAB CHEMISTRY METHOD 07/10/2024 1:19 PM EST [facility] Breath Oral cavity structure / Unknown Non-blood Collection / Unknown 07/09/2024 2:36 PM EST 07/10/2024 11:25 AM EST us Irma WEEKS LAB BODY FLUIDS AND STOOLS ORDE RABJILLIAN Final Result [facility] [address] [place] [address], [place] [phone] documented in this encounter Visit Diagnoses Diagnosis Heartburn Weight loss, unintentional Loss of weight documented in this encounter Care Teams Boarding Kennel Or Cattery Operator Relationship Specialty Start Date End Date Venancio Camilo MD [address] [place] [address] PCP - General Internal Medicine 12/09/14 documented as of this encounter
--- OUTSIDE RECORDS SUMMARY | 2024-08-03 16:14 | XMS_ITS | Encounter Summary ---
Author Organization [facility] Address [address] [place] [address] Care Team Providers Care Instructor Adjunct Pharmacy Technician Name Role Phone Venancio Camilo MD Primary Care Provider [phone] Reason for Visit * Reason Onset Date Comments Dry Mouth 07/29/2024 Encounter Details Date Type Department Care Team ([facility] st Contact Info) Description 07/29/2024 Telephone Adult Medicine [facility] [address] [place] [address] Venancio Camilo MD [address] [place] [address] Dry Mouth Social History Tobacco Use Types Packs/Day Years [...] as of this encounter Progress Notes * Juliana Peña - 07/29/2024 11:48 AM EST Patient returning phone call - states when you called his phone didn't ring. He is asking that you call back and if he doesn't shredder picker to please call right back * Lara Ruiz RN - 07/29/2024 11:39 AM EST Pt was seen by concepción flanagan 1 week ago for pE and by nephrology on Friday, did c/o thirst on amlodipine but this had improved since being changed to losartan Call to pt. Left message for pt to call triage * Juliet Sarkar - 07/29/2024 11:29 AM EST Patient call requires triage: Symptoms patient is presenting: c/o dry mouth, confusion, head pressure and body aches How long has patient had these symptoms?: 2 months For ALL patients calling to schedule any appointment (routine, sick visit, follow up, consult, etc.) in the outpatient setting please ask the following questions: Do you have fever of higher than 101, sore throat with difficulty swallowing or severe shortness ofbreath? no If YES to any of these above symptoms, send a message to triage and do not book. Red dot. If no, an audio or video visit should be booked. Have you had close contact with someone with Coronavirus in the last 14 days? no Have you traveled abroad? no Have you traveled recently to another state outside of [place], [place], [place], [place], [place], [place], [place]? no o If yes, did you quarantine for 14 days or have a negative covid test? no If yes to any of the above, patient is not to be scheduled in office until after 14 day quarantine or negative covid test. If pain or injury related was it due to an accident at work or from a motor vehicle accident? If yes, date of accident/Injury: No If yes, gather 3rd libertarian insurance information Third Democrat Information: not applicable PCP: Venancio Camilo MD Payor: [employer] PLAN / Plan: [employer] QHP / Product Type: *No Product type* / documented in this encounter Plan of Treatment Upcoming Encounters Date Type Department Care Team ([facility] st Contact Info) Description 08/16/2024 11:30 AM EST Consult Endocrinology - [address] [address] Pratik Dumont MD [address] [place] [address] 08/20/2024 11:00 AM EST Office Visit Gastroenterology - [address] [facility] [address] [place] [phone] Irma Pimentel PA [address] [place] [address] documented as of this encounter Visit Diagnoses Not on filedocumented in this encounter Care Teams Instructor Adjunct Pharmacy Technician Relationship Specialty Start Date End Date Venancio Camilo MD [address] [place] [address] PCP - General Internal Medicine 12/09/14 documented as of this encounter
--- OUTSIDE RECORDS SUMMARY | 2024-08-03 16:14 | XMS_ITS | Encounter Summary ---
Author Organization [facility] Address [address] [place] [address] Care Team Providers Care African Studies Professor Name Role Phone Venancio Camilo MD Primary Care Provider [phone] Reason for Referral * Imaging (Routine) - Closed Specialty Diagnoses / Procedures Referred By Contac t Referred To Contact Radiology Diagnoses RUQ pain Procedures US Abdomen Limited Irma Pimentel PA [address] [address] Phone: tel: fax: [address] [address] Phone: tel: Referral ID Status Reason Start Date Expiration Date Visits Re quested Visits Authorized [id number] Closed 07/09/2024 07/09/2025 1 1 Reason for Visit * Imaging (Routine) - Closed Specialty Diagnoses / Procedures Referred By Contac t Referred To Contact Radiology Diagnoses RUQ pain Procedures US Abdomen Limited Irma Pimentel PA [address] [address] Phone: tel: fax: [address] [address] Phone: tel: Referral ID Status Reason Start Date Expiration Date Visits Re quested Visits Authorized [id number] Closed 07/09/2024 07/09/2025 1 1 Encounter Details Date Type Department Care Team (Latest Contact Info) Description 07/28/2024 10:15 AM EST - 07/28/2024 11:59 PM EST Hospital Encounter [facility] Ultrasound [address] [place] [address] RUQ pain Discharge Disposition: Home or Self Care Social History Tobacco Use Types Packs/Day Years [...] PM EST documented as of this encounter Medications at Time of Discharge amLODIPine (NORVASC) 2.5 mg tablet 06/04/2021 diclofenac (VOLTAREN) 1 % topical gel 02/04/2024 LORazepam (ATIVAN) 2 mg tablet TAKE 1 TABLET BY MOUTH 3 TIMES PER DAY NEEDED FOR ANXIETY 08/25/2020 losartan (COZAAR) 25 mg tablet Take 1 tablet (25 mg total) by mouth 1 (one) time each day. 07/06/2024 07/06/2025 omeprazole (PriLOSEC) [address] capsuleIndication s:Heartburn Take 1 capsule (20 mg total) by mouth 1 (one) time each day. 30 each 11 07/12/2024 07/12/2025 psyllium (Metamucil, with sugar,) 3.4 gram packetIndications :RUQ pain Take 1 packet by mouth 1 (one) time each day. Mix and drink with at least 8 ounces of water or juice. 30 packet 11 07/09/2024 07/09/2025 QUEtiapine (SEROquel) 25 mg tablet Take 1 tablet (25 mg total) by mouth at bedtime. Vitamin D3 50 mcg (2,000 unit) capsuleIndication s:Scrotal pain,Right lower quadrant pain TAKE 1 CAPSULE BY MOUTH EVERY DAY 90 capsule 06/28/2024 documented as of this encounter Discharge Disposition Disposition Code Departure Means Destination Home or Self Care documented in this encounter Progress Notes * MICKY Workman - 07/28/2024 10:30 AM EST U/S reveals hepatic hemangioma, unchanged since 2021 U/S. Otherwise unremarkable study. F/u as scheduled. * MICKY Workman - 07/28/2024 10:30 AM EST Montenegrin speaking only. I am unsure what type of hormonal therapy he is referring to and what condition, but assuming he is referring to the liver hemangioma: Hormonal therapy with estrogen could potentially affect a liver hemangioma by causing it to grow, though this effect is not universal and many people with liver hemangiomas do not experience any change or complications from hormonal therapy. He should defer to the provider initiating hormonal therapy for further questions. They (or we) can monitor his liver with ultrasound in 6months-1 year documented in this encounter Plan of Treatment Upcoming Encounters Date Type Department Care Team (Late st Contact Info) Description 08/16/2024 11:30 AM EST Consult Endocrinology - [place] [id number] [place] [address] Pratik Dumont MD [address] [place] [address] 08/20/2024 11:00 AM EST Office Visit Gastroenterology - [address] [address] Irma Pimentel PA 299 [facility] [address] [address] documented as of this encounter Procedures Procedure Name Priority Date/Time Associated Diagnosis Comments US ABDOMEN LIMITED Routine 07/28/2024 11 :16 AM EST RUQ pain documented in this encounter Results * US Abdomen Limited (07/28/2024 11:16 AM EST) Anatomical Region Laterality Modality Body Ultrasound 07/28/2024 3:58 PM EST Impressions 07/28/2024 4:00 PM EST Similar 14 mm hepatic hemangioma. -------- FINAL REPORT -------- Dictated By: Bharat Kaminski Dictated Date: 07/28/2024 15:58 ET Assigned Physician: Bharat Kaminski Reviewed and Electronically Signed By: Bharat Kaminski Signed Date: 07/28/2024 16:00 ET Workstation ID: [id number] Transcribed By: Self Edit Transcribed Date: 07/28/2024 15:58 ET Narrative 07/28/2024 4:00 PM EST INDICATION: ??Right upper quadrant pain FINDINGS: Ultrasound of the right upper quadrant performed. Prior relevant studies: Outside study from May 27, 2022 Pancreas: Partially obscured due to bowel gas. Visualized portions demonstrate no abnormality. Liver: Normal in size, shape and echogenicity. Echogenic focus within the right lobe centrally measuring up to 14 mm there is no cysts with a hemangioma, similar to the prior study. Portal vein patent with hepatopedal flow. Gallbladder: No cholelithiasis, gallbladder wall thickening, pericholecystic fluid or distention. Common bile duct: 4 mm Right kidney: Survey images are within normal limits. Ascites: None Procedure Note Bharat Kaminski MD - 07/28/2024 INDICATION: Right upper quadrant pain FINDINGS: Ultrasound of the right upper quadrant performed. Prior relevant studies: Outside study from May 27, 2022 Pancreas: Partially obscured due to bowel gas. Visualized portionsdemonstrate no abnormality. Liver: Normal in size, shape and echogenicity. Echogenic focus within theright lobe centrally measuring up to 14 mm there is no cysts with ahemangioma, similar to the prior study. Portal vein patent withhepatopedal flow. Gallbladder: No cholelithiasis, gallbladder wall thickening,pericholecystic fluid or distention. Common bile duct: 4 mm Right kidney: Survey images are within normal limits. Ascites: None IMPRESSION: Similar 14 mm hepatic hemangioma. -------- FINAL REPORT -------- Dictated By: Bharat Kaminski Dictated Date: 07/28/2024 15:58 ET Assigned Physician: Bharat Kaminski Reviewed and Electronically Signed By: Bharat Kaminski Signed Date: 07/28/2024 16:00 ET Workstation ID: [id number] Transcribed By: Self Edit Transcribed Date: 07/28/2024 15:58 ET us rIma WEEKS IMG US PROCEDURES Final Result documented in this encounter Visit Diagnoses Diagnosis RUQ pain Abdominal pain, right upper quadrant documented in this encounter Care Teams African Studies Professor Relationship Specialty Start Date End Date Venancio Camilo MD [address] [place] [phone] PCP - General Internal Medicine 12/09/14 documented as of this encounter
--- OUTSIDE RECORDS SUMMARY | 2024-08-03 16:14 | XMS_ITS | Clinical Summary ---
Author Organization [employer] Address [address] [facility] [address] [place] [address] Care Team Providers Care Band Reamer Machine Operator Name Role Phone Unavailable Primary Care Provider [...] 5 Years) and At-Risk Patients (6 to 49) Years) Aged Out No longer eligible b ased on patient's age to complete this topic RSV under 20 months Aged Out No longe r eligible based on patient's age to complete this topic Rotavirus Vaccines Aged Out No longer eligible based on patient's age to complete this topic
--- OUTSIDE RECORDS SUMMARY | 2024-08-03 16:14 | XMS_ITS | Encounter Summary ---
Author Organization [facility] Address [address] [address] Phone Care Team Providers Care Soft Iron Inspector Name Role Phone Venancio Camilo MD Primary Care Provider [phone] Reason for Visit * Reason Comments Hypertension Encounter Details Date Type Department Care Team (Latest Contact Info) Description 07/06/2024 11:45 AM EST Office Visit [facility] [address] [address] Chasity Kaufman ARNP [address] [address] Hypertension (Primary Dx); Vitamin D [...] mouth 1 (one) time each day 30 [id number] No current facility-administered medications for this visit. [...] [facility] [address] [address] Chasity Kaufman ARNP [address] [address] Scheduled Orders Name Type Priority Associated Diagnoses [...] (HCC) documented in this encounter Care Teams Soft Iron Inspector Relationship Specialty Start Date End Date Venancio Camilo MD [address] [place] [address] PCP - General 07/03/20 documented as of this encounter
--- OUTSIDE RECORDS SUMMARY | 2024-08-03 16:14 | XMS_ITS | Clinical Summary ---
Author Organization Patient Business Ser [facility] Address [address] [place] [address] Care Team Providers Care Coroner'S Juror Name Role Phone Venancio Camilo MD Primary Care Provider [phone] Allergies Active Allergy Reactions Criticality Noted Date Comments Lisinopril Diarrhea,Nausea And Vomiting 020 Medications diclofenac (VOLTAREN) 1 % topical gel 02/04/20 24 Active amLODIPine (NORVASC) 2.5 mg tablet 06/04/20 21 Active LORazepam (ATIVAN) 2 mg tablet TAKE 1 TABLET BY MOUTH 3 TIMES PER DAY NEEDED FOR ANXIETY 08/26/19 21 Active QUEtiapine (SEROquel) 25 mg tablet Take 1 tablet (25 mg total) by mouth at bedtime. Active Vitamin D3 50 mcg (2,000 unit) capsuleIndica tions:Scrotal pain,Right lower quadrant pain TAKE 1 CAPSULE BY MOUTH EVERY DAY 90 capsule 06/28/19 25 Active losartan (COZAAR) 25 mg tablet Take 1 tablet (25 mg total) by mouth 1 (one) time each day. 07/06/19 25 026 Active psyllium (Metamucil, with sugar,) 3.4 gram packetIndicat ions:RUQ pain Take 1 packet by mouth 1 (one) time each day. Mix and drink with at least 8 ounces of water or juice. 30 packet 07/09/19 25 026 Active omeprazole (PriLOSEC) [address] capsuleIndica tions:Heartbu rn Take 1 capsule (20 mg total) by mouth 1 (one) time each day. 30 each 11 07/12/19 026 Active Additional Information Patient not taking.Reported on 07/19/2024 cetirizine (ZyrTEC) 10 mg tablet Take 1 tablet (10 mg total) by mouth 1 (one) time each day. 07/31/19 025 Discontinued(Th erapy completed) omeprazole OTC (PriLOSEC OTC) 20 mg EC tabletIndicat ions:Heartbur n Take 1 tablet (20 mg total) by mouth 1 (one) time each day. Do not crush, chew, or split. 30 tablet 5 07/09/19 025 Discontinued Active Problems Problem Noted Date Diagnosed Date Abdominal pain 05/07/2024 Epigastric pain 05/07/2024 Hemorrhoids 05/07/2024 Rectal bleed 05/07/2024 Straining with stools 05/07/2024 Tubular adenoma of colon 05/07/2024 Allergic rhinitis 07/31/2022 Liver hemangioma 03/06/2022 H. pylori infection 01/19/2021 Hypertension 11/09/2019 Overview (05/07/2024): Please see most recent note with hotel clerk/hypertension specialist, Dr. Burkett December 2020. Nephrology is aware of patient's discontinuation of Norvasc/blood pressure medication Fatty liver 05/04/2015 SRI (obstructive sleep apnea) 11/23/2014 Known medical problems 09/07/2014 Overview (05/07/2024): Sleep-related hypoventilation Hepatitis C antibody test positive 10/05/2013 Overview (05/07/2024): Hepatitis C viral load is undetectable on September 2013. The patient explains to me that he was treated for 6 months for hepatitis at [facility]. Anxiety 04/14/2013 Overview (05/07/2024): Patient has a psychiatrist. Dr Mares? Assessment & Plan (07/20/2024 8:28 AM EST): [...] of continuous leave. 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 I explained to the patient that I typically do not complete long-term relief with thing such as anxiety and depression. He was encouraged to bring this form to his psychiatrist who will be seeing next week. I discussed the signs and symptoms that warrant emergent evaluation. I gave the patient the information for [facility] in [place] should he develop any crisis symptoms. He [...] Encounters Date Type Department Care Team Description 07/29/2024 Telephone Adult Medicine [address] [phone] Venancio Camilo MD Dry Mouth 07/28/2024 10:15 AM EST - 07/28/2024 11:59 PM EST Hospital Encounter [facility] Ultrasound [address] [place] [phone] RUQ pain Discharge Disposition: Home or Self Care 07/19/2024 4:00 PM EST Office Visit Adult Medicine [address] [phone] Melquiades Villasenor PA Routine general medical examination at a health care facility (Primary Dx); Anxiety; Memory difficulties; Urinary symptom or sign; Chronic low back pain, unspecified back pain laterality, unspecified whether sciatica present 07/13/2024 Telephone Gastroenterology - [address] [place] [phone] Cherelle Muhammad MA 07/12/2024 Telephone Gastroenterology - [address] [place] [phone] Neeru Loyola MD 07/09/2024 2:10 PM EST Lab Draw Station - [address] [place] [address] Heartburn; Weight loss, unintentional 07/09/2024 1:20 PM EST Office Visit Gastroenterology - [address] [place] [phone] Irma Pimentel PA Weight loss, unintentional (Primary Dx); Heartburn; RUQ pain 06/15/2024 8:00 AM EST Office Visit Adult Medicine [address] [phone] Melquiades Villasenor PA Urinary frequency (Primary Dx); Anxiety 06/15/2024 Telephone Adult Medicine [address] [phone] Venancio Camilo MD 05/06/2024 Telephone Adult Medicine [address] [phone] Venancio Camilo MD Back Pain from Last [...] Date Site/Laterality Comments OTHER SURGICAL HISTORY PROCEDURE: WI EXCISION MULLERIAN DUCT CYST; COMMENT: testicular cyst [...] Father Hypertension Mother Floria Other: anxiety Mother Florjess Other: prediabetes Mother Mariah Breast cancer Sister discovered at age 51. [...] Orientation Straight 07/15/2024 1: 15 PM EST Obstetrics History Last Filed Vital Signs Vital [...] 08/16/2024 11:30 AM EST Consult Endocrinology - [place] [address] [place] [phone] Pratik Dumont MD [address] [place] [phone] 08/20/2024 11:00 AM EST Office Visit Gastroenterology - [address] [facility] [address] [place] [phone] Irma Pimentel PA [address] [facility] [address] [place] [phone] Health Maintenance Due Date Last Done Comments Hepatitis A Vaccines (1 of 2 - Risk 2-dose series) 1994 Hepatitis B Vaccines (1 of 3 - 19+ 3-dose series) 1994 Pneumococcal Vaccine: Pediatrics (0 to 5 Years) and At-Risk Patients (6 to 64 Years) (1 of 2 - PCV) 1994 Social Influencers of Health Screening 07/25/2020 DTaP,Tdap,and Td Vaccines (3 - Td or Tdap) 12/30/2023 07/01/2023, 04/14/2013 COVID-19 Vaccine ( - 2023-2 5 season) 2024 Influenza Vaccine (#1) 2024 7, 04/17/2015, 04/15/2014 Depression Screening 07/01/2024 07/01/2023 Diabetes: Blood Sugar Contro l Test (HGBA1C) 01/16/2025 07/19/2024, 07/03/2023, 09/11/2021 Diabetes: Annual Urine Albumin-Creatinine Ratio (uACR) 06/21/2025 06/21/2024, 12/02/2023 Diabetes: Annual GFR (Glomerular Filtration Rate) 07/19/2025 07/19/2024, 07/09/2024, 07/02/2023 Hypertension/CHF/CAD Annual BMP Blood Test 07/19/2025 07/19/2024, 07/09/2024, 07/02/2023 Colorectal Cancer Screening: Colonoscopy 02/18/2026 Cholesterol Screening (Lipid Panel) 07/02/2028 07/02/2023 HIV Screening Completed 07/02/2023 Hepatitis C Screening [...] patient's age to complete this topic Meningococcal B Vacine Aged Out No lo nger eligible based on patient's age to complete this topic RSV Immunization Patients Under 20 months Aged Out No longer eligible based on patient's age to complete this topic Varicella Vaccines Aged Out No longer eligible based on patient's age to complete this topic Procedures Procedure Name Priority Date/Time Associated Diagnosis Comments US ABDOMEN LIMITED Routine 07/28/2024 11 :16 AM EST RUQ pain SANCHEZ URINE CULTURE TUBE Routine 07/27/2024 8:40 AM EST Urinary symptom or sign URINALYSIS WITH REFLEX MICROSCOPIC AND CULTURE Routine 07/27/2024 8:39 AM EST Urinary symptom or sign URINALYSIS WITH REFLEX MICROSCOPIC AND CULTURE Routine 07/27/2024 8:39 AM EST Urinary symptom or sign TESTOSTERONE FREE, BIOAVAILABLE AND TOTAL Routine 07/27/2024 8:39 AM EST Other fatigue PROSTATE SPECIFIC ANTIGEN SCREEN Routine 07/27/2024 8:39 AM EST Urinary symptom or sign TREPONEMA PALLIDUM ANTIBODY WITH REFLEX TO RPR [...] a health care facility Anxiety Memory difficulties VITAMIN B6 Routine 07/19/2024 5:06 PM EST Routine general medical examination at a health care facility Anxiety Memory difficulties VITAMIN B1 Routine 07/19/2024 5:06 PM EST Routine general [...] Recently Relevant to Health Maintenance Results * US Abdomen Limited (07/28/2024 11:16 AM EST) Anatomical Region Laterality Modality Body Ultrasound 07/28/2024 3:58 PM EST Impressions 07/28/2024 4:00 PM EST Similar 14 mm hepatic hemangioma. -------- FINAL REPORT -------- Dictated By: Bharat Kaminski Dictated Date: 07/28/2024 15:58 ET Assigned Physician: Bharat Kaminski Reviewed and Electronically Signed By: Bharat Kaminski Signed Date: 07/28/2024 16:00 ET Workstation ID: [id number] Transcribed By: Self Edit Transcribed Date: 07/28/2024 [...] Signed Date: 07/28/2024 16:00 ET Workstation ID: [id number] Transcribed By: Self Edit Transcribed Date: 07/28/2024 15:58 ET us Irma WEEKS IMG US PROCEDURES Final Result * Sanchez urine culture tube (07/27/2024 8:40 AM EST) Only the most recent of2 resultswithin the time period is included. Extra Tube Hold for add-ons. 07/27/2024 11:[address] [facility] Comment:Auto resulted. Urine Urine specimen obtained by clean catch procedure / Unknown Non-blood Collection / Unknown 07/27/2024 8:40 AM EST 07/27/2024 8:40 AM EST Melquiades WEEKS LAB URINE ORDERABLES Fin al Result [facility] [address] [place] [address], [place] [phone] * Prostate specific antigen screen (07/27/2024 8:39 AM EST) PSA 0.75 0.00 - 4.00 ng/mL LAB CHEMISTRY METHOD 07/27/2024 12:19 PM EST [facility] Blood Venous blood specimen / Unknown Venipuncture / Unknown 07/27/2024 8:39 AM EST 07/27/2024 8:39 AM EST Narrative [facility] - 07/27/2024 12:19 PM EST The Siemens Advia Centaur Chemiluminescent Immunoassay is used. Results obtained with different assay methods or kits cannot be used interchangeably. Results cannot be interpreted as absolute evidence of the presence or absence of malignant disease. Melquiades WEEKS LAB BLOOD ORDERABLES Fin al Result Performing Organization Address City/[facility]/ZIP Co de Phone Number [facility] [address] [place] [address], * Urinalysis with reflex microscopic and culture (07/27/2024 8:39 AM EST) Only the most recent of2 resultswithin the time period is included. Specific [place] Urine 1.023 1.003 - 1.030 LAB URINALYSIS - AUTOMATED METHOD 07/27/2024 10:14 AM EST [facility] pH, Urine 6.0 5.0 - 8.0 pH LAB URINALYSIS - AUTOMATED METHOD 07/27/2024 10:14 AM EST [facility] Leukocytes, Urine Negative Negative LAB URINALYSIS - AUTOMATED METHOD 07/27/2024 10:14 AM [facility] Nitrite, Urine Negative Negative LAB URINALYSIS - AUTOMATED METHOD 07/27/2024 10:14 AM [facility] Protein, Urine Negative <=Trace mg/dL LAB URINALYSIS - AUTOMATED METHOD 07/27/2024 10:14 AM [facility] Glucose, Urine Negative Negative mg/dL LAB URINALYSIS - AUTOMATED METHOD 07/27/2024 10:14 AM [facility] Ketones, Urine Negative Negative mg/dL LAB URINALYSIS - AUTOMATED METHOD 07/27/2024 10:14 AM [facility] Urobilinogen, Urine 1.0 0.2 - 1.0 mg/dL LAB URINALYSIS - AUTOMATED METHOD 07/27/2024 10:14 AM [facility] Bilirubin, Urine Negative Negative LAB URINALYSIS - AUTOMATED METHOD 07/27/2024 10:14 AM [facility] Blood, Urine Negative Negative LAB URINALYSIS - AUTOMATED METHOD 07/27/2024 10:14 AM [facility] Urine Urine specimen obtained by clean catch procedure / Unknown Non-blood Collection / Unknown 07/27/2024 8:39 AM EST 07/27/2024 8:39 AM EST us Melquiades WEEKS LAB URINE ORDERABLES Fin al Result [facility] [address] [place] [address], * (ABNORMAL) Testosterone free, bioavailable and total (07/27/2024 8:39 AM EST) Only the most recent of2 resultswithin the time period is included. Testosterone 175(L) 229 - 902 ng/dL LAB CHEMISTRY METHOD 07/27/2024 12:13 PM [facility] Testosterone, Free 5.2 4.6 - 22.4 ng/dL LAB CHEMISTRY METHOD 07/27/2024 12:13 PM [facility] Testosterone, Bioavailable 116 110 - 575 ng/dL LAB CHEMISTRY METHOD 07/27/2024 12:13 PM [facility] Sex Hormone Binding 13.0 See Comment nmol/L LAB CHEMISTRY METHOD 07/27/2024 12:13 PM [facility] Comment: FEMALES: ??pre-menopausal ?? 10.8 [...] from biotin supplements for 72 hours. Albumin 4.1 3.2 - 5.0 g/dL LAB CHEMISTRY METHOD 07/27/2024 12:13 PM [facility] Blood Venous blood specimen / Unknown Venipuncture / Unknown 07/27/2024 8:39 AM EST 07/27/2024 8:39 AM EST Melquiades WEEKS LAB BLOOD ORDERABLES Fin al Result [facility] [address] [place] [address], * Treponema pallidum antibody with reflex to RPR and particle agglutination (07/19/2024 5:06 PM EST) T. Pallidum Antibodies Negative Negative LAB CHEMISTRY METHOD 07/19/2024 8:00 PM [facility] Blood Venous blood specimen / Unknown Venipuncture / Unknown 07/19/2024 5:06 PM EST 07/19/2024 5:06 PM EST us Melquiades WEEKS LAB BLOOD ORDERABLES Fin al Result [facility] [address] [place] [address], * Complete blood count (07/19/2024 5:06 PM EST) [facility] WBC 9.2 4.8 - 10.8 K/mcL LAB HEMETOLOGY METHOD 07/19/2024 6:54 PM EST [facility] RBC 5.20 4.50 - 5.50 M/mcL LAB HEMETOLOGY METHOD 07/19/2024 6:54 PM [facility] Hemoglobin 15.4 13.5 - 17.5 g/dL LAB HEMETOLOGY METHOD 07/19/2024 6:54 PM [facility] Hematocrit 45.8 42.0 - 54.0 % LAB HEMETOLOGY METHOD 07/19/2024 6:54 PM [facility] MCV 87.4 79.0 - 98.0 FL LAB HEMETOLOGY METHOD 07/19/2024 6:54 PM [facility] MCH 29.4 27.0 - 32.0 pcg LAB HEMETOLOGY METHOD 07/19/2024 6:54 PM [facility] MCHC 33.6 32.0 - 37.0 g/dL LAB HEMETOLOGY METHOD 07/19/2024 6:54 PM [facility] RDW 12.5 11.0 - 15.0 % LAB HEMETOLOGY METHOD 07/19/2024 6:54 PM [facility] Platelets 393 130 - 400 K/mcL LAB HEMETOLOGY METHOD 07/19/2024 6:54 PM [facility] MPV 10.0 7.0 - 11.0 FL LAB HEMETOLOGY METHOD 07/19/2024 6:54 PM [facility] NRBC 0.0 <1.0 % LAB HEMETOLOGY METHOD 07/19/2024 6:54 PM EST [facility] NRBC Absolute 0.00 <0.10 K/mcL LAB HEMETOLOGY METHOD 07/19/2024 6:54 PM EST [facility] Blood Venous blood specimen / Unknown Venipuncture / Unknown 07/19/2024 5:06 PM EST 07/19/2024 5:06 PM EST Melquiades WEEKS LAB BLOOD ORDERABLES Fin al Result Performing Organization Address [facility]/ZIP Co de Phone Number [facility] [address] [place] [address], [place] [phone] * Thyroid stimulating hormone (07/19/2024 5:06 PM EST) Pathologist [facility] TSH 0.70 0.40 - 4.00 mcIU/mL LAB CHEMISTRY METHOD 07/19/2024 7:47 PM EST [facility] Blood Venous blood specimen / Unknown Venipuncture / Unknown 07/19/2024 5:06 PM EST 07/19/2024 5:06 PM EST Melquiades WEEKS LAB BLOOD ORDERABLES Fin al Result Performing Organization Address [facility]/ZIP Co de Phone Number [facility] [address] [place] [address], [place] [phone] * Vitamin B1 (07/19/2024 5:06 PM EST) Vitamin B1 Whole Blood 58 38 - 122 ug/L 07/23/2024 7:57 AM EST [facility] Comment: This test was developed and the performance characteristics determined by [facility]. It has not been cleared or approved by the FDA. The laboratory is regulated under CLIA as qualified to perform high-complexity testing. This test is used for patient testing purposes. It should not be regarded as investigational or for research. Test performed at [facility], [facility] [address] [place], [place] ??[address] ? [phone] Geraldine Kern MD, PhD - Utility Lineman Blood Venous blood specimen / Unknown Venipuncture / Unknown 07/19/2024 5:06 PM EST 07/19/2024 5:06 PM EST Melquiades WEEKS LAB BLOOD ORDERABLES Fin al Result Performing Organization Address [facility]/ZIP Co de Phone Number [facility] [address] [place] [address] * Vitamin B6 (07/19/2024 5:06 PM EST) [facility] Vitamin B6 (Pyridoxine) Level 15 5 - 50 ug/L 07/23/2024 10:28 AM EST [facility] Comment: This test was developed and the performance characteristics determined by [facility]. It has not been cleared or approved by the FDA. The laboratory is regulated under CLIA as qualified to perform high-complexity testing. This test is used for patient testing purposes. It should not be regarded as investigational or for research. Test performed at [facility], [address] [place], [place] ??[address] ? [phone] Geraldine Kern MD, PhD - Utility Lineman Blood Venous blood specimen / Unknown Venipuncture / Unknown 07/19/2024 5:06 PM EST 07/19/2024 5:06 PM EST Melquiades WEEKS LAB BLOOD ORDERABLES Fin al Result Performing Organization Address [facility]/ZIP Co de Phone Number [facility] [address] [place] [address] * Hemoglobin A1c (07/19/2024 5:06 PM EST) Pathologist [facility] Hemoglobin A1C 5.3 <6.5 % LAB CHEMISTRY METHOD 07/19/2024 9:16 PM EST [facility] Mean Bld Glu Estim. 105 mg/dL LAB CHEMISTRY METHOD 07/19/2024 9:16 PM EST [facility] Blood Venous blood specimen / Unknown Venipuncture / Unknown 07/19/2024 5:06 PM EST 07/19/2024 5:06 PM EST us Melquiades WEEKS LAB BLOOD ORDERABLES Fin al Result [facility] [address] [place] [address], [place] [phone] * Basic metabolic panel (07/19/2024 5:06 PM EST) Sodium 136 133 - 145 mmol/L LAB CHEMISTRY METHOD 07/19/2024 7:36 PM [facility] Potassium 3.9 3.5 - 5.5 mmol/L LAB CHEMISTRY METHOD 07/19/2024 7:36 PM [facility] Chloride 103 96 - 110 mmol/L LAB CHEMISTRY METHOD 07/19/2024 7:36 PM [facility] CO2 26 21 - 32 mmol/L LAB CHEMISTRY METHOD 07/19/2024 7:36 PM [facility] Anion Gap 7 3 - 11 LAB CHEMISTRY METHOD 07/19/2024 7:36 PM [facility] Glucose 98 70 - 100 mg/dL LAB CHEMISTRY METHOD 07/19/2024 7:36 PM [facility] BUN 11 5 - 25 mg/dL LAB CHEMISTRY METHOD 07/19/2024 7:36 PM [facility] Creatinine 0.94 0.70 - 1.30 mg/dL LAB CHEMISTRY METHOD 07/19/2024 7:36 PM [facility] eGFR 99 >=60 mL/min/1. 73m2 LAB CHEMISTRY METHOD 07/19/2024 7:36 PM [facility] Comment:Calculation based on the??Chronic Kidney Disease Epidemiology Collaboration (CKD-EPI) equation refit??without adjustment for race. BUN/Creatinine Ratio 11.7 LAB CHEMISTRY METHOD 07/19/2024 7:36 PM EST [facility] Calcium 9.3 8.5 - 10.5 mg/dL LAB CHEMISTRY METHOD 07/19/2024 7:36 PM EST [facility] Blood Venous blood specimen / Unknown Venipuncture / Unknown 07/19/2024 5:06 PM EST 07/19/2024 5:06 PM EST Melquiades WEEKS LAB BLOOD ORDERABLES Fin al Result Performing Organization Address [facility]/ZIP Co de Phone Number [facility] [address] [place] [address], [place] [phone] * Vitamin B12 and folate (07/09/2024 2:36 PM EST) Pathologist [facility] Vitamin B-12 401 250 - 900 pcg/mL LAB CHEMISTRY METHOD 07/09/2024 10:02 PM EST [facility] Folate 11.1 2.8 - 17.0 ng/ml LAB CHEMISTRY METHOD 07/09/2024 10:02 PM EST [facility] Blood Venous blood specimen / Unknown Venipuncture / Unknown 07/09/2024 2:36 PM EST 07/09/2024 9:35 PM EST Irma WEEKS LAB BLOOD ORDERABLES Final Resu lt Performing Organization Address City/[facility]/ZIP Co de Phone Number [facility] [address] [place] [address], [place] [phone] * CBC auto differential (07/09/2024 2:36 PM EST) WBC 8.7 4.8 - 10.8 K/[facility] LAB HEMETOLOGY METHOD 07/09/2024 4:05 PM [facility] RBC 5.30 4.50 - 5.50 M/[facility] LAB HEMETOLOGY METHOD 07/09/2024 4:05 PM EST [facility] Hemoglobin 15.3 13.5 - 17.5 g/dL LAB HEMETOLOGY METHOD 07/09/2024 4:05 PM [facility] Hematocrit 46.4 42.0 - 54.0 % LAB HEMETOLOGY METHOD 07/09/2024 4:05 PM [facility] MCV 87.7 79.0 - 98.0 FL LAB HEMETOLOGY METHOD 07/09/2024 4:05 PM [facility] MCH 28.9 27.0 - 32.0 pcg LAB HEMETOLOGY METHOD 07/09/2024 4:05 PM [facility] MCHC 33.0 32.0 - 37.0 g/dL LAB HEMETOLOGY METHOD 07/09/2024 4:05 PM [facility] RDW 12.6 11.0 - 15.0 % LAB HEMETOLOGY METHOD 07/09/2024 4:05 PM [facility] Platelets 397 130 - 400 K/mcL LAB HEMETOLOGY METHOD 07/09/2024 4:05 PM [facility] MPV 9.4 7.0 - 11.0 FL LAB HEMETOLOGY METHOD 07/09/2024 4:05 PM [facility] NRBC 0.0 <1.0 % LAB HEMETOLOGY METHOD 07/09/2024 4:05 PM [facility] NRBC Absolute 0.00 <0.10 K/mcL LAB HEMETOLOGY METHOD 07/09/2024 4:05 PM [facility] Neutrophils Relative 67.1 % LAB HEMETOLOGY METHOD 07/09/2024 4:05 PM [facility] Lymphocytes Relative 26.4 % LAB HEMETOLOGY METHOD 07/09/2024 4:05 PM [facility] Monocytes Relative 5.5 % LAB HEMETOLOGY METHOD 07/09/2024 4:05 PM [facility] Eosinophils Relative 0.2 % LAB HEMETOLOGY METHOD 07/09/2024 4:05 PM [facility] Basophils Relative 0.6 % LAB HEMETOLOGY METHOD 07/09/2024 4:05 PM [facility] Immature Granulocytes Relative 0.2 % LAB HEMETOLOGY METHOD 07/09/2024 4:05 PM [facility] Neutrophils Absolute 5.83 1.50 - 7.00 K/mcL LAB HEMETOLOGY METHOD 07/09/2024 4:05 PM [facility] Lymphocytes Absolute 2.30 1.00 - 5.00 K/mcL LAB HEMETOLOGY METHOD 07/09/2024 4:05 PM [facility] Monocytes Absolute 0.48 0.20 - 1.00 K/mcL LAB HEMETOLOGY METHOD 07/09/2024 4:05 PM [facility] Eosinophils Absolute 0.02 0.00 - 0.50 K/mcL LAB HEMETOLOGY METHOD 07/09/2024 4:05 PM [facility] Basophils Absolute 0.05 0.00 - 0.20 K/mcL LAB HEMETOLOGY METHOD 07/09/2024 4:05 PM [facility] Immature Granulocytes Absolute 0.02 0.00 - 0.03 K/mcL LAB HEMETOLOGY METHOD 07/09/2024 4:05 PM [facility] Blood Venous blood specimen / Unknown Venipuncture / Unknown 07/09/2024 2:36 PM EST 07/09/2024 4:05 PM EST us Irma WEEKS LAB BLOOD ORDERABLES Final Resu lt [facility] [address] [place] [address], * Helicobacter pylori breath test (07/09/2024 2:36 PM EST) Pathologist [facility] H Pylori Breath Test Negative Negative LAB CHEMISTRY METHOD 07/10/2024 1:19 PM EST [facility] Breath Oral cavity structure / Unknown Non-blood Collection / Unknown 07/09/2024 2:36 PM EST 07/10/2024 11:25 AM EST Irma WEEKS LAB BODY FLUIDS AND STOOLS ORDE RABLES Final Result Performing Organization Address [facility]/ZIP Co de Phone Number [facility] [address] [place] [address], [place] [phone] * Vitamin D 1,25 dihydroxy (07/09/2024 2:36 PM EST) [facility] Vitamin D, 1, 25-Dihydroxy 77 20 - 79 pg/mL 07/12/2024 9:28 PM EST [facility] Comment: Vitamin D 1, 25 dihydroxy levels should be primarily used to assess Vitamin D status in patients with renal disease and hypercalcemia. Vitamin D 1,25-dihydroxy levels are generally less than 5 pg/mL in end stage renal disease patients. The preferred initial test for assessing Vitamin D status in the general population is Vitamin D 25-hydroxy (VITD). Test performed at [facility], [address] [place], [place] ??[address] ? [phone] Geraldine Kern MD, PhD - Utility Lineman Blood Venous blood specimen / Unknown Venipuncture / Unknown 07/09/2024 2:36 PM EST 07/09/2024 3:37 PM EST Irma WEEKS LAB BLOOD ORDERABLES Final Resu lt [facility] [address] [place] [address] * Comprehensive metabolic panel (07/09/2024 2:36 PM EST) [facility] Sodium 135 133 - 145 mmol/L LAB CHEMISTRY METHOD 07/09/2024 9:35 PM [facility] Potassium 4.4 3.5 - 5.5 mmol/L LAB CHEMISTRY METHOD 07/09/2024 9:35 PM [facility] [facility] Chloride 102 96 - 110 mmol/L LAB CHEMISTRY METHOD 07/09/2024 9:35 PM [facility] CO2 29 21 - 32 mmol/L LAB CHEMISTRY METHOD 07/09/2024 9:35 PM [facility] Anion Gap 4 3 - 11 LAB CHEMISTRY METHOD 07/09/2024 9:35 PM [facility] Glucose 95 70 - 100 mg/dL LAB CHEMISTRY METHOD 07/09/2024 9:35 PM [facility] BUN 10 5 - 25 mg/dL LAB CHEMISTRY METHOD 07/09/2024 9:35 PM [facility] Creatinine 1.09 0.70 - 1.30 mg/dL LAB CHEMISTRY METHOD 07/09/2024 9:35 PM [facility] eGFR 83 >=60 mL/min/1. 73m2 LAB CHEMISTRY METHOD 07/09/2024 9:35 PM [facility] Comment:Calculation based on the??Chronic Kidney Disease Epidemiology Collaboration (CKD-EPI) equation refit??without adjustment for race. BUN/Creatinine Ratio 9.2 LAB CHEMISTRY METHOD 07/09/2024 9:35 PM [facility] Calcium 9.1 8.5 - 10.5 mg/dL LAB CHEMISTRY METHOD 07/09/2024 9:35 PM [facility] AST (SGOT) 11 10 - 42 unit/L LAB CHEMISTRY METHOD 07/09/2024 9:35 PM [facility] ALT (SGPT) 21 10 - 60 unit/L LAB CHEMISTRY METHOD 07/09/2024 9:35 PM [facility] Alkaline Phosphatase 98 42 - 121 unit/L LAB CHEMISTRY METHOD 07/09/2024 9:35 PM [facility] Total Protein 7.7 6.0 - 8.0 g/dL LAB CHEMISTRY METHOD 07/09/2024 9:35 PM EST [facility] Albumin 4.1 3.2 - 5.0 g/dL LAB CHEMISTRY METHOD 07/09/2024 9:35 PM EST [facility] Total Bilirubin 0.7 0.0 - 1.4 mg/dL LAB CHEMISTRY METHOD 07/09/2024 9:35 PM EST [facility] Blood Venous blood specimen / Unknown Venipuncture / Unknown 07/09/2024 2:36 PM EST 07/09/2024 9:35 PM EST Result [facility] Irma WEEKS LAB BLOOD ORDERABLES Final Resu lt [facility] [address] [place] [address], * Urine Albumin Creatinine Ratio (12/02/2023) Pathologist [facility] Urine Albumin Creatinine Ratio abstracted [facility] Provider HEALTH MAINTENANCE Final Result * HIV Screening (07/02/2023) [facility] HIV Screening abstracted Result [facility] Provider HEALTH MAINTENANCE Final Result * Hepatitis C Screening (07/02/2023) [facility] Hepatitis C Screening abstracted Historical Provider HEALTH MAINTENANCE Final Result * (ABNORMAL) Lipid panel (07/02/2023) [facility] LDL/HDL Ratio 5(A) 0 - 4 Triglycerides 179(A) 0 - 150 mg/dL Cholesterol 185 0 - 200 mg/dL HDL 37(A) >=40 mg/dL LDL Cholesterol 113(A) 0 - 100 mg/dL Blood Venous blood specimen / Unknown Historical Provider LAB BLOOD ORDERABLES Key l Result * Depression Screening (07/01/2023) Depression Screening abstracted us Historical Provider HEALTH MAINTENANCE Final Result from Last 3 Months or Most Recently Relevant to Health Maintenance Insurance [facility] Care Teams Coroner'S Juror Relationship Specialty Start Date End Date Venancio Camilo MD [address] [place] [address] PCP - General Internal Medicine 12/09/14
--- OUTSIDE RECORDS SUMMARY | 2024-08-03 16:14 | XMS_ITS | Encounter Summary ---
Author Organization [facility] Address [address] [address] Phone Care Team Providers Care Skein Drier Name Role Phone Venancio Camilo MD Primary Care Provider [phone] Reason for Visit * Reason Comments Hypertension Encounter Details Date Type Department Care Team (Late st Contact Info) Description 07/26/2024 11:45 AM EST Office Visit [facility]. [address] [address] Chasity Kaufman ARNP [address] [address] Hypertension (Primary Dx) Social History [...] Sign Reading Time Taken Comments Blood Pressure 136/84 07/26/2024 11:33 AM EST Pulse 68 07/26/2024 11:33 AM EST Temperature - - Respiratory Rate - - Oxygen Saturation 97% 07/26/2024 11:33 AM EST Inhaled Oxygen Concentration - - Weight 83.5 kg (184 lb) 07/26/2024 11:33 AM EST Height - - Body Mass Index 25.66 09/11/2021 3:25 PM EDT documented in this encounter Patient Instructions * Patient Instructions* Chasity Kaufman ARNP - 07/26/2024 11:45 AM EST Blood pressure monitoring education: Monitor home blood pressure values after sitting for 5 minutes with back and arm support. Keep a log. Bring your log and blood pressure cuff to your next visit. documented in this encounter Progress Notes * Chasity Kaufman ARNP - 07/26/2024 11:45 AM EST Images from the original note were not included. Patient Name: Rolan Esteban, Male Date of : 1975, 49 y.o. Date: 07/26/24 History of Present Illness Rolan Esteban is [...] increased hisAmlodipine dose from 5 to 7.5 mg and he discontinued this medication altogether. He is tolerating Losartan well. Has not been checking home BP regularly, but can recall readings in the 120s- 130s systolic. The following portions of the patient's chart [...] Medication Sig Dispense Refill LORazepam (ATIVAN) 2 MG tablet TAKE 1 TABLET BY MOUTH 3 TIMES PER DAY NEEDED FOR ANXIETY losartan (Cozaar) 25 MG tablet Take 1 tablet (25 mg total) by mouth 1 (one) time each day 30 [id number] QUEtiapine (SEROquel) 25 MG tablet TAKE 1 3 TABLETS BY MOUTH AT BEDTIME. Blood Pressure Monitoring (Omron 3 Series BP Monitor) device 1 Device 1 (one) time each day 1 each 0 No current facility-administered medications for this visit. Allergy List Allergies Allergen Reactions Lisinopril Diarrhea and Nausea And Vomiting Physical Exam BP 136/84 Pulse 68 Wt 184 lb (83.5 kg) SpO2 97% BMI 25.66 kg/m?? Vitals reviewed. Constitutional: He is oriented [...] His behavior is normal. Chemistry Lab Units 07/19/24 1706 07/19/24 0000 07/09/24 1436 06/21/24 1251 12/02/23 1510 12/02/23 1509 02/19/23 1441 08/14/22 1626 CREATININE mg/dL 0.94 0.94 1.09 0.97 0.96 0.92 1.0 1.0 BUN mg/dL 11 11 10 13 14 14 14 10 POTASSIUM mmol/L 3.9 3.9 4.4 4.1 4.5 4.5 4.6 4.4 SODIUM mmol/L 136 136* 135 139 139 139 138 141 CO2 mmol/L 26 26 29 22 22 23 26 31* CHLORIDE mmol/L 103 -- 102 100 104 103 101 103 ALBUMIN g/dL -- -- 4.1 4.6 4.2 4.1 4.4 4.4 4.7 EGFRNAFR -- 99 -- -- -- -- 97 98 EGFR mL/min/1.73m2 99 -- 83 96 98 103 -- -- WBC AUTO 10*3/ML -- 9.2 -- -- 7.3 -- 9.9 8.9 HEMATOCRIT -- 45.8 -- -- 46.8 -- 43.7 48.2 HEMOGLOBIN -- 15.4 -- -- 15.2 -- 14.3 15.4 PLATELETS AUTO 10*3/UL -- 393 -- -- 343 -- 368 363 Bone Mineral Lab Units 07/19/24 1706 07/19/24 0000 07/09/24 1436 06/21/24 1251 12/26/23 1234 12/02/23 1510 12/02/23 1509 02/19/23 1441 08/14/22 1626 CALCIUM mg/dL 9.3 9.3 9.1 9.8 -- 9.0 9.1 9.5 10.1 PHOSPHORUS mg/dL -- -- -- 2.7* -- 2.8 2.9 3.2 3.0 ALK PHOS unit/L -- -- 98 -- -- -- -- 88 -- PTH pg/mL -- -- -- -- -- 25 -- -- -- VIT D 25 HYDROXY ng/mL -- -- -- -- 43.2 34.8 -- -- -- Urine Lab Units 06/21/24 1251 12/02/23 1510 12/02/23 1509 02/19/23 1450 08/14/22 1626 PROT/CREAT RATIO UR mg/g creat 64 -- -- -- -- ALB MG/G CREAT UR mg/g creat 6 6 5 Unable to calculate 106.8 7.0 255.3 Assessment & Plan Problem List Items Addressed This Visit Hypertension - Primary Overview Blood pressure is sub-optimally controlled in the office Need more home BP readings to determine where his BP is averaging Consider 24 hour BP monitor if need be No Edema No medication changes made today Target <120/80 C/w Losartan 25 mg QD Recommend increasing Losartan to 50 mg QD as next plan if BP avg >130/80 No proteinuria and Normal Renal function Follow low NA diet Avoid NSAIDs/OTC Decongestant medications Exercise, weight loss for healthy BMI and to reduce anxiety F/u with PCP regarding Anxiety, possible tx Does have h/o low Testosterone - following up with Urology for pending treatment - states topical tx was talked about Return in about 3 months (around 10/23/2024) for Next scheduled follow-up with Rocio for BP Check. MICHELLE Vega Cosigned by Titi Longoria MD at 07/27/2024 5:36 AM EST documented in this encounter Plan of Treatment Upcoming Encounters Date Type Department Care Team (Late st Contact Info) Description 10/25/2024 10:45 AM EDT Office Visit [facility] [address] [address] Chasity Kaufman ARNP [address] [address] documented as of this encounter Procedures Procedure Name Priority Date/Time Associated Diagnosis Comments EXT RESULT ENTRY Routine 07/19/2024 documented in this encounter Results * (ABNORMAL) EXT RESULT ENTRY (07/19/2024) WBC 9.2 3.3 - 10.0 10*3/ML Red Blood Cell Count 5.20 Hemoglobin 15.4 13.5 - 17.5 Hematocrit 45.8 41.0 - 53.0 Platelets 393 150 - 399 10*3/UL Sodium 136(A) 137 - 147 Potassium 3.9 3.4 - 5.5 Carbon Dioxide 26 mmol/L Anion Gap 7 <=30 MMOL/L Glucose 98 60 - 200 BUN 11 4 - 21 mg/dL Creatinine 0.94 0.60 - 1.30 mg/dL Calcium 9.3 8.7 - 10.7 mg/dL eGFR Non-Afr Citizen Of [place] 99 07/19/2024 Historical Provider LAB BLOOD ORDERABLES Key l Result documented in this encounter Visit Diagnoses Diagnosis Hypertension- Primary documented in this encounter Care Teams Skein Drier Relationship Specialty Start Date End Date Venancio Camilo MD [address] [place] [address] PCP - General 07/03/20 documented as of this encounter
--- OUTSIDE RECORDS SUMMARY | 2024-08-03 16:14 | XMS_ITS | Encounter Summary ---
Author Organization [facility] Address [address] [facility] [address] [place] [address] Phone Care Team Providers Care Rn Procedures Name Role Phone Venancio Camilo MD Primary Care Provider [phone] Encounter Details Date Type Department Care Team (Late st Contact Info) Description 11/02/2021 Documentation Only [facility] [address] [facility] [address] [place] [address] Jesus Bull MD [address] [place] [phone] Social History Tobacco Use Types Packs/Day Years [...] Visit [facility] [address] [address] Chasity Kaufman ARNP [address] [facility] [address] [place] [address] documented as of this encounter Visit Diagnoses Not on filedocumented in this encounter Care Teams Rn Procedures Relationship Specialty Start Date End Date Venancio Camilo MD [address] [place] [address] PCP - General 07/03/20 documented as of this encounter
--- OUTSIDE RECORDS SUMMARY | 2024-08-03 16:14 | XMS_ITS | Encounter Summary ---
Author Organization [facility] Address [address] [place] [address] Care Team Providers Care Junior Analyst Name Role Phone Pcp, Nani Primary Care Provider Diana Castro MD Primary Care Provider [phone] Encounter Details Date Type Department Care Team (Late st Contact Info) Description 03/19/2018 Scanned Document [facility] Urologic Surgery [place] [address] [facility] [address] [place] [address] Prashant Naylor MD [address] [facility] [address] [place] [address] Social History Tobacco Use Types Packs/Day Years Used Date Smoking Tobacco: Never Assessed Sex and Gender Information Value Date Recorded Sex Assigned at Not on file Gender Identity Not on file Sexual Orientation Not on file documented as of this encounter Plan of Treatment Not on file documented as of this encounter Visit Diagnoses Not on filedocumented in this encounter Care Teams Junior Analyst Relationship Specialty Start Date End Date Pcp, Nani PCP - General General Medicine 03/17/18 07/01/22 Diana Velázquez MD [address] [place] [address] PCP - General 07/02/22 documented as of this encounter
--- OUTSIDE RECORDS SUMMARY | 2024-08-03 16:14 | XMS_ITS | Encounter Summary ---
Author Organization [facility] Address [address] [place] [address] Care Team Providers Care Barrel Assembler Name Role Phone Venancio Camilo MD Primary Care Provider [phone] Reason for Visit * Reason Comments Annual Exam Encounter Details Date Type Department Care Team (Late st Contact Info) Description 07/19/2024 4:00 PM EST Office Visit [place] [facility] [address] [place] [address] Melquiades Villasenor PA [address] [place] [address] Routine general medical examination at a health [...] PM EST documented as of this encounter Last Filed [...] negative gastric biopsy OTHER SURGICAL HISTORY PROCEDURE: MS EXCISION MULLERIAN DUCT CYST; COMMENT: testicular cyst [...] 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 Lives in [place] with and kids. Tells me that he [...] please do not be afraidto reach out. [place] your teeth twice a day and follow routinely with the dentist. Safety Issues- Always wear a seat belt and a helmet when in a bike or motorcycle. Apply Sunscreen daily to your face and body if appropriate. Aim to get at least 7 hours of sleep to maintain good health and well-being. MICKY Pham [facility] [address] [address] Dept: [phone] Dept Date of Service: 07/19/2024 documented in this encounter Plan of Treatment Upcoming Encounters Date Type Department Care Team (Late st Contact Info) Description 08/16/2024 11:30 AM EST Consult Endocrinology - [place] [address] [place] [address] Pratik Dumont MD [address] [place] [address] 08/20/2024 11:00 AM EST Office Visit Gastroenterology - [address] [facility] [address] [place] [phone] Irma Pimentel PA [address] [address] Scheduled Orders Name Type Priority Associated Diagnoses Orde r Schedule XR Lumbar Spine 4+ Views Imaging Routine Routine general medical examination at a health care facility Anxiety Memory difficulties Expected: 07/19/2024, Expires: 07/19/2025 documented as of this encounter Results * Prostate specific antigen screen (07/27/2024 8:39 AM EST) PSA 0.75 0.00 - 4.00 ng/mL LAB CHEMISTRY METHOD 07/27/2024 12:19 PM EST [facility] Blood Venous blood specimen / Unknown Venipuncture / Unknown 07/27/2024 8:39 AM EST 07/27/2024 8:39 AM EST Narrative [facility] - 07/27/2024 12:19 PM EST The Siemens Advia Centaur Chemiluminescent Immunoassay is used. Results obtained with different assay methods or kits cannot be used interchangeably. Results cannot be interpreted as absolute evidence of the presence or absence of malignant disease. us Melquiades WEEKS LAB BLOOD ORDERABLES Fin al Result [facility] [address] [place] [address], [place] [phone] * (ABNORMAL) Testosterone free, bioavailable and total (07/19/2024 5:06 PM EST) Testosterone 175(L) 229 - 902 ng/dL LAB CHEMISTRY METHOD 07/19/2024 7:50 PM EST [facility] Testosterone, Free 5.2 4.6 - 22.4 ng/dL LAB CHEMISTRY METHOD 07/19/2024 7:50 PM EST [facility] Testosterone, Bioavailable 114 110 - 575 ng/dL LAB CHEMISTRY METHOD 07/19/2024 7:50 PM EST [facility] Sex Hormone Binding 13.7 See Comment nmol/L LAB CHEMISTRY METHOD 07/19/2024 7:50 PM EST [facility] Comment: FEMALES: ??pre-menopausal ?? 10.8 [...] LAB CHEMISTRY METHOD 07/19/2024 7:50 PM EST [facility] Blood Venous blood specimen / Unknown Venipuncture / Unknown 07/19/2024 5:06 PM EST 07/19/2024 5:06 PM EST us Melquiades WEEKS LAB BLOOD ORDERABLES Fin al Result [facility] [address] [place] [address], * Treponema pallidum antibody with reflex to RPR and particle agglutination (07/19/2024 5:06 PM EST) T. Pallidum Antibodies Negative Negative LAB CHEMISTRY METHOD 07/19/2024 8:00 PM [facility] Blood Venous blood specimen / Unknown Venipuncture / Unknown 07/19/2024 5:06 PM EST 07/19/2024 5:06 PM EST us Melquiades WEEKS LAB BLOOD ORDERABLES Fin al Result [facility] [address] [place] [address], * Basic metabolic panel (07/19/2024 5:06 PM EST) Sodium 136 133 - 145 mmol/L LAB CHEMISTRY METHOD 07/19/2024 7:36 PM [facility] Potassium 3.9 3.5 - 5.5 mmol/L LAB CHEMISTRY METHOD 07/19/2024 7:36 PM [facility] Chloride 103 96 - 110 mmol/L LAB CHEMISTRY METHOD 07/19/2024 7:36 PM [facility] CO2 26 21 - 32 mmol/L LAB CHEMISTRY METHOD 07/19/2024 7:36 PM [facility] Anion Gap 7 3 - 11 LAB CHEMISTRY METHOD 07/19/2024 7:36 PM [facility] Glucose 98 70 - 100 mg/dL LAB CHEMISTRY METHOD 07/19/2024 7:36 PM [facility] BUN 11 5 - 25 mg/dL LAB CHEMISTRY METHOD 07/19/2024 7:36 PM [facility] Creatinine 0.94 0.70 - 1.30 mg/dL LAB CHEMISTRY METHOD 07/19/2024 7:36 PM [facility] eGFR 99 >=60 mL/min/1. 73m2 LAB CHEMISTRY METHOD 07/19/2024 7:36 PM [facility] Comment:Calculation based on the??Chronic Kidney Disease Epidemiology Collaboration (CKD-EPI) equation refit??without adjustment for race. BUN/Creatinine Ratio 11.7 LAB CHEMISTRY METHOD 07/19/2024 7:36 PM EST [facility] Calcium 9.3 8.5 - 10.5 mg/dL LAB CHEMISTRY METHOD 07/19/2024 7:36 PM EST [facility] Blood Venous blood specimen / Unknown Venipuncture / Unknown 07/19/2024 5:06 PM EST 07/19/2024 5:06 PM EST Melquiades WEEKS LAB BLOOD ORDERABLES Fin al Result Performing Organization Address City/[facility]/ZIP Co de Phone Number [facility] [address] [place] [address], [place] [phone] * Hemoglobin A1c (07/19/2024 5:06 PM EST) Hemoglobin A1C 5.3 <6.5 % LAB CHEMISTRY METHOD 07/19/2024 9:16 PM EST [facility] Mean Bld Glu Estim. 105 mg/dL LAB CHEMISTRY METHOD 07/19/2024 9:16 PM EST [facility] Blood Venous blood specimen / Unknown Venipuncture / Unknown 07/19/2024 5:06 PM EST 07/19/2024 5:06 PM EST Melquiades WEEKS LAB BLOOD ORDERABLES Fin al Result [facility] [address] [place] [address], [place] [phone] * Thyroid stimulating hormone (07/19/2024 5:06 PM EST) TSH 0.70 0.40 - 4.00 mcIU/mL LAB CHEMISTRY METHOD 07/19/2024 7:47 PM EST [facility] Blood Venous blood specimen / Unknown Venipuncture / Unknown 07/19/2024 5:06 PM EST 07/19/2024 5:06 PM EST us Melquiades WEEKS LAB BLOOD ORDERABLES Fin al Result [facility] [address] [place] [address], * Complete blood count (07/19/2024 5:06 PM EST) Pathologist [facility] WBC 9.2 4.8 - 10.8 K/mcL LAB HEMETOLOGY METHOD 07/19/2024 6:54 PM [facility] RBC 5.20 4.50 - 5.50 M/mcL LAB HEMETOLOGY METHOD 07/19/2024 6:54 PM [facility] Hemoglobin 15.4 13.5 - 17.5 g/dL LAB HEMETOLOGY METHOD 07/19/2024 6:54 PM [facility] Hematocrit 45.8 42.0 - 54.0 % LAB HEMETOLOGY METHOD 07/19/2024 6:54 PM [facility] MCV 87.4 79.0 - 98.0 FL LAB HEMETOLOGY METHOD 07/19/2024 6:54 PM [facility] MCH 29.4 27.0 - 32.0 pcg LAB HEMETOLOGY METHOD 07/19/2024 6:54 PM [facility] MCHC 33.6 32.0 - 37.0 g/dL LAB HEMETOLOGY METHOD 07/19/2024 6:54 PM [facility] RDW 12.5 11.0 - 15.0 % LAB HEMETOLOGY METHOD 07/19/2024 6:54 PM [facility] Platelets 393 130 - 400 K/mcL LAB HEMETOLOGY METHOD 07/19/2024 6:54 PM [facility] MPV 10.0 7.0 - 11.0 FL LAB HEMETOLOGY METHOD 07/19/2024 6:54 PM EST [facility] NRBC 0.0 <1.0 % LAB HEMETOLOGY METHOD 07/19/2024 6:54 PM EST [facility] NRBC Absolute 0.00 <0.10 K/mcL LAB HEMETOLOGY METHOD 07/19/2024 6:54 PM EST [facility] Blood Venous blood specimen / Unknown Venipuncture / Unknown 07/19/2024 5:06 PM EST 07/19/2024 5:06 PM EST Melquiades WEEKS LAB BLOOD ORDERABLES Fin al Result Performing Organization Address City/[facility]/ZIP Co de Phone Number [facility] [address] [place] [address], [place] [phone] * Vitamin B6 (07/19/2024 5:06 PM EST) Pathologist [facility] Vitamin B6 (Pyridoxine) Level 15 5 - 50 ug/L 07/23/2024 10:28 AM EST [facility] Comment: This test was developed and the performance characteristics determined by [facility]. It has not been cleared or approved by the FDA. The laboratory is regulated under CLIA as qualified to perform high-complexity testing. This test is used for patient testing purposes. It should not be regarded as investigational or for research. Test performed at [facility], [address] , [place], [place] ??[address] ? [phone] Geraldine Kern MD, PhD - Community Health Advisor Blood Venous blood specimen / Unknown Venipuncture / Unknown 07/19/2024 5:06 PM EST 07/19/2024 5:06 PM EST Melquiades WEEKS LAB BLOOD ORDERABLES Fin al Result [facility] [address] [place] [address] * Vitamin B1 (07/19/2024 5:06 PM EST) Vitamin B1 Whole Blood 58 38 - 122 ug/L 07/23/2024 7:57 AM EST [facility] Comment: This test was developed and the performance characteristics determined by [facility]. It has not been cleared or approved by the FDA. The laboratory is regulated under CLIA as qualified to perform high-complexity testing. This test is used for patient testing purposes. It should not be regarded as investigational or for research. Test performed at [facility], [address] , [place], [place] ??[address] ? [phone] Geraldine Kern MD, PhD - Community Health Advisor Blood Venous blood specimen / Unknown Venipuncture / Unknown 07/19/2024 5:06 PM EST 07/19/2024 5:06 PM EST us Melquiades WEEKS LAB BLOOD ORDERABLES Fin al Result [facility] [address] [place] [address] documented in this encounter Visit Diagnoses Diagnosis [...] 07/19/2024 documented in this encounter Care Teams Barrel Assembler Relationship Specialty Start Date End Date Venancio Camilo MD [address] [place] [id number] PCP - General Internal Medicine 12/09/14 documented as of this encounter
--- OUTSIDE RECORDS SUMMARY | 2024-08-03 16:14 | XMS_ITS | Encounter Summary ---
Author Organization [facility] Address [address] [place] [address] Phone Care Team Providers Care Business Excellence Leader Name Role Phone Venancio Camilo MD Primary Care Provider [phone] Encounter Details Date Type Department Care Team (Late Contact Info) Description 05/20/2022 Telephone [facility] [address] [place] [address] Jesus Bull MD [address] [place] [address], [address] [address] Social History Tobacco Use Types Packs/Day Years [...] about it. Please call him back at [phone] Thank you documented in this encounter Plan of Treatment Upcoming Encounters Date Type Department Care Team (Late st Contact Info) Description 10/25/2024 10:45 AM EDT Office Visit [facility] [address] [address] Chasity Kaufman ARNP [address] [address] documented as of this encounter Visit Diagnoses Not on filedocumented in this encounter Care Teams Business Excellence Leader Relationship Specialty Start Date End Date Venancio Camilo MD [address] [place] [id number] PCP - General 07/03/20 documented as of this encounter
--- OUTSIDE RECORDS SUMMARY | 2024-08-03 16:14 | XMS_ITS | Encounter Summary ---
Author Organization [facility] Address [address] [facility] [address] [place] [address] Phone Care Team Providers Care Family Support Coordinator Name Role Phone Venancio Camilo MD Primary Care Provider [phone] Encounter Details Date Type Department Care Team (Late st Contact Info) Description 08/15/2022 Telephone [facility] [address] [place] [address] Daniella Darnell [place] Social History Tobacco [...] with you. Please call him back at [phone] Thank you documented in this encounter Plan of Treatment Upcoming Encounters Date Type Department Care Team (Late st Contact Info) Description 10/25/2024 10:45 AM EDT Office Visit [facility] [address] [facility] [address] [place] [address] Chasity Kaufman ARNP [address] [facility] [address] [place] [address] documented as of this encounter Visit Diagnoses Not on filedocumented in this encounter Care Teams Family Support Coordinator Relationship Specialty Start Date End Date Venancio Camilo MD [address] [place] [address] PCP - General 07/03/20 documented as of this encounter
--- OUTSIDE RECORDS SUMMARY | 2024-08-03 16:14 | XMS_ITS | Encounter Summary ---
Author Organization [email or web address] Address [address] [place] [address] Care Team Providers Care Client Service Associate Name Role Phone Venancio Camilo MD Primary Care Provider [phone] Encounter Details Date Type Department Care Team ([facility] st Contact Info) Description 07/12/2024 Telephone Gastroenterology - [address] [facility] [address] [place] [phone] Neeru oLyola MD [address] [place] [address] Social History Tobacco Use Types Packs/Day Years [...] 08/16/2024 11:30 AM EST Consult Endocrinology - [place] [address] [place] [address] Pratik Dumont MD [address] [place] [address] 08/20/2024 11:00 AM EST Office Visit Gastroenterology - [address] [facility] [address] [place] [phone] Irma Pimentel PA [address] [place] [address] documented as of this encounter Visit Diagnoses Not on filedocumented in this encounter Care Teams Client Service Associate Relationship Specialty Start Date End Date Venancio Camilo MD [address] [place] [address] PCP - General Internal Medicine 12/09/14 documented as of this encounter
--- OUTSIDE RECORDS SUMMARY | 2024-08-03 16:14 | XMS_ITS | Encounter Summary ---
Author Organization [facility] Address [address] [facility] 200 [place] [address] Phone Care Team Providers Care Brim Blocker Name Role Phone Venancio Camilo MD Primary Care Provider [phone] Encounter Details Date Type Department Care Team (Late st Contact Info) Description 08/14/2022 Documentation Only [facility] [address] [facility] [address] [place] [address] Daniella Darnell [place] Social History Tobacco Use Types Packs/Day Years [...] [facility] [address] [address] Chasity Kaufman ARNP [address] [address] documented as of this encounter Visit Diagnoses Not on filedocumented in this encounter Care Teams Brim Blocker Relationship Specialty Start Date End Date Venancio Camilo MD [address] [place] [address] PCP - General 07/03/20 documented as of this encounter
--- OUTSIDE RECORDS SUMMARY | 2024-08-03 16:14 | XMS_ITS | Encounter Summary ---
Author Organization [employer] Address [address] [facility] 7[address] [place] [address] Care Team Providers Care Trauma Surgeon Name Role Phone Unavailable Primary Care Provider Unavailabl e Encounter Details Date Type Department Care Team (Latest Contact Info) Description 03/21/2021 Abstract [facility] CONVERSIONS Dental, Provider, DDS Social History [...]
--- OUTSIDE RECORDS SUMMARY | 2024-08-03 16:14 | XMS_ITS | Encounter Summary ---
Author Organization [facility] Address [address] [place] [address] Care Team Providers Care Group Work Program Aide Name Role Phone Venancio Camilo MD Primary Care Provider [phone] Encounter Details Date Type Department Care Team (Late Contact Info) Description 06/15/2024 Telephone Adult Medicine [facility] [address] [place] [phone] Venancio Camilo MD [address] [place], [place] [phone] Social History Tobacco Use Types Packs/Day Years [...] Info) Description 08/16/2024 11:30 AM EST Consult [address] [phone] Pratik Dumont MD [address] [place] [address] 08/20/2024 11:00 AM EST Office Visit Gastroenterology - [address] [facility] [address] [phone] Irma Pimentel PA [address] [address] documented as of this encounter Visit Diagnoses Not on filedocumented in this encounter Care Teams Group Work Program Aide Relationship Specialty Start Date End Date Venancio Camilo MD [address] [place] [address] PCP - General Internal Medicine 12/09/14 documented as of this encounter
--- OUTSIDE RECORDS SUMMARY | 2024-08-03 16:14 | XMS_ITS | Encounter Summary ---
Author Organization [facility] Address [address] [place] [address] Care Team Providers Care Bottom Stainer Name Role Phone Venancio Camilo MD Primary Care Provider [phone] Encounter Details Date Type Department Care Team (Late Contact Info) Description 07/13/2024 Telephone Gastroenterology - [address] [place] [phone] Cherelle Muhammad [place] Social History Tobacco Use [...] 08/16/2024 11:30 AM EST Consult Endocrinology - [address] [phone] Pratik Dumont MD [address] [place] [address] 08/20/2024 11:00 AM EST Office Visit Gastroenterology - [address] [facility] [address] [phone] Irma Pimentel PA [address] [facility] [address] [address] documented as of this encounter Visit Diagnoses Not on filedocumented in this encounter Care Teams Bottom Stainer Relationship Specialty Start Date End Date Venancio Camilo MD [address] [place] [address] PCP - General Internal Medicine 12/09/14 documented as of this encounter
--- OUTSIDE RECORDS SUMMARY | 2024-08-03 16:14 | XMS_ITS | Clinical Summary ---
Author Organization [facility] Address [address] [place] [address] Care Team Providers Care Commutator Inspector Name Role Phone Diana Velázquez MD Primary Care Provider [phone] Social History Tobacco Use Types Packs/Day Years [...] age to complete this topic Care Teams Commutator Inspector Relationship Specialty Start Date End Date Diana Velázquez MD [address] [place] [address] PCP - General 07/02/22
--- OUTSIDE RECORDS SUMMARY | 2024-08-03 16:14 | XMS_ITS | Encounter Summary ---
Author Organization [facility] Address [address] [facility] [address] [place] [address] Phone Care Team Providers Care Code Inspector Name Role Phone Venancio Camilo MD Primary Care Provider Encounter Details Date Type Department Care Team (Late st Contact Info) Description 07/05/2024 Office Communication [facility] [address] [phone] María Clifton [place] 100 [facility] [address] [place] [address] Social History Tobacco Use Types [...] [facility] [address] [facility] [address] [place] [phone] Chasity Kaufman ARNP [address] [address] documented as of this encounter Visit Diagnoses Not on filedocumented in this encounter Care Teams Code Inspector Relationship Specialty Start Date End Date Venancio Camilo MD [address] [place] [phone] PCP - General 07/03/20 documented as of this encounter
--- OUTSIDE RECORDS SUMMARY | 2024-08-03 16:14 | XMS_ITS | Clinical Summary ---
Author Organization [facility] Address [address] [place] [phone] Phone Care Team Providers Care Currency Examiner Name Role Phone Venancio Camilo MD Primary Care Provider [phone] Allergies Active Allergy Reactions Criticality Noted Date Comments Lisinopril Diarrhea,Nausea And Vomiting 020 Medications LORazepam (ATIVAN) 2 MG tablet TAKE 1 TABLET BY MOUTH 3 TIMES PER DAY NEEDED FOR ANXIETY 07/28/19 21 Active QUEtiapine (SEROquel) 25 MG tablet TAKE 1 3 TABLETS BY MOUTH AT BEDTIME. 07/23/19 21 Active losartan (Cozaar) 25 MG tabletIndicati ons:Hypertensi on Take 1 tablet (25 mg total) by mouth 1 (one) time each day 30 tablet 11 07/06/19 25 026 Active Blood Pressure Monitoring (Omron 3 Series BP Monitor) deviceIndicati ons:Hypertensi on 1 Device 1 (one) time each day 1 each 07/14/19 25 Active cholecalcifero l (VITAMIN D-3 SUPER STRENGTH) 50 MCG (1999 UT) tablet Take 1 tablet by mouth 1 (one) time each day 07/31/19 23 025 Discontinued(Me d List Maintenance) amLODIPine (NORVASC) 2.5 MG tabletIndicati ons:Hypertensi on TAKE 3 TABLETS (7.5 MG TOTAL) BY MOUTH EVERY DAY 270 tablet 06/21/20 24 025 Discontinued Active Problems Problem Noted Date [...] Helicobacter pylori 01/20/20 21 Hypertension 08/10/2020 Overview (07/26/2024): Blood pressure is sub-optimally controlled in the [...] - states topical tx was talked about Assessment & Plan (06/09/2024 8:14 PM EST): [...] treated for 6 months for hepatitis at [facility]. Anxiety 04/14/2013 Overview (11/04/2022): Patient has a psychiatrist. Dr Mares? Nephrolithiasis 04/14/2012 Overview (08/14/2022): CT 04/01 2mm nonobstructing left stone Encounters Date Type Department Care Team Description 07/26/2024 11:45 AM EST [facility] Visit [facility] [address] [phone] Chasity Kaufman ARNP Hypertension (Primary Dx) 07/06/2024 11:45 AM EST Office Visit [facility] [address] [phone] Chasity Kaufman ARNP Hypertension (Primary Dx); Vitamin D deficiency, not otherwise specified; Type 2 diabetes mellitus with hyperglycemia (HCC) 07/05/2024 Office Communication [facility] [address] [phone] María Clifton [place] 06/21/2024 11:45 AM EST Office Visit [facility] [address] [phone] Chasity Kaufman ARNP Hypertension (Primary Dx) 06/21/2024 Refill [facility] [address] [phone] Chasity Kaufman ARNP Hypertension 06/08/2024 3:45 PM EST Office Visit [facility] [address] [address] Chasity Kaufman ARNP Vitamin D deficiency, not [...] (184 lb) 07/26/2024 11:33 AM EST Height 180.3 cm (5' 11 ) 09/11/2021 3:25 PM EDT Body Mass Index 25.66 09/11/2021 3:25 PM EDT Plan of Treatment Upcoming Encounters Date Type Department Care Team (Late st Contact Info) Description 10/25/2024 10:45 AM EDT Office Visit [facility] [address] [phone] Chasity Kaufman ARNP [address] [phone] Health Maintenance Due Date Last Done Comments Pneumococcal Vaccine: Pediat rics (0 to 5 Years) and At-Risk Patients (6 to 64 Years) (1 of 2 - PCV) 1981 Hepatitis B Vaccine (1 of 3 - 19+ 3-dose series) 1994 Influenza Vaccine (#1) 2024 7, 04/17/2015, 04/15/2014 Colorectal Cancer Screening: Annual FOBT 2024 Colorectal Cancer Screening: Colonoscopy 2024 Colorectal Cancer Screening: Sigmoidoscopy 2024 Diabetes: Ophthalmology Exam 07/06/2024 Diabetes: Pedal Pulse Checked 07/06/2024 Diabetes: Sensory Foot Exam 07/06/2024 Diabetes: Visual Foot Exam 07/06/2024 Diabetes: Hemoglobin A1C 10/17/2024 025, 09/11/2021, 06/22/2020, Additional history exists Procedures Procedure Name Priority Date/Time Associated Diagnosis Comments EXT RESULT ENTRY Routine 07/19/2024 PROTEIN / CREATININE RATIO, URINE Routine 06/21/2024 12:51 PM EST Hypertension URINE ALBUMIN / CREATININE RATIO Routine 06/21/2024 12:51 PM EST Hypertension RENAL FUNCTION PANEL Routine 06/21/2024 12:51 PM EST Hypertension HEMOGLOBIN A1C Routine 09/11/2021 3:57 PM EDT from Last 3 Months or Most Recently Relevant to Health Maintenance Results * (ABNORMAL) EXT RESULT ENTRY (07/19/2024) [...] 9.3 8.7 - 10.7 mg/dL eGFR Non-Afr [place] 99 07/19/2024 us Historical Provider LAB BLOOD ORDERABLES Key l Result * Urine Protein / creatinine ratio (06/21/2024 12:51 PM EST) Creatinine, Ur 175.5 Not Estab. mg/dL [facility] Protein, Ur 11.2 Not Estab. mg/dL [facility] Urine Protein/Creatin ine Ratio 64 0 - 200 mg/g creat [facility] Urine (Urine, Clean Catch) 06/21/2024 12:51 PM EST 06/21/2024 Chasity Kaufman [facility] LAB URINE ORDERABLES Final Result Performing Organization Address City/[facility] Co de Phone Number [facility] [place] [address] [place] [address] * Urine Albumin / Creatinine Ratio (06/21/2024 12:51 PM EST) Urine Microalbumin 9.8 Not Estab. ug/mL [facility] Microalbumin/Crea tinine Ratio 6 0 - 29 mg/g creat [facility] Comment: ? Normal: ?0 - ??29 ? Moderately increased: 30 - 300 ? Severely increased: ? >300 Urine (Urine, Clean Catch) 06/21/2024 12:51 PM EST 06/21/2024 Chasity Kaufman [facility] LAB URINE ORDERABLES Final Result Performing Organization Address City/[facility]/ZIP Co de Phone Number [facility] [place] [place] [address] * (ABNORMAL) Renal function panel (06/21/2024 12:51 PM EST) Glucose 142(H) 70 - 99 mg/dL [facility] [place] BUN 13 6 - 24 mg/dL [facility] Creatinine 0.97 0.76 - 1.27 mg/dL [facility] eGFR CKD-EPI CR 2020 96 >59 mL/min/1.7 3 [facility] BUN/Creatinine Ratio 13 9 - 20 [facility] Sodium 139 134 - 144 mmol/L [facility] Potassium 4.1 3.5 - 5.2 mmol/L [facility] Chloride 100 96 - 106 mmol/L [facility] Bicarbonate (CO2) 22 20 - 29 mmol/L [facility] Calcium 9.8 8.7 - 10.2 mg/dL [facility] Albumin 4.6 4.1 - 5.1 g/dL [facility] Phosphorus 2.7(L) 2.8 - 4.1 mg/dL [facility] Blood (Blood, Venous) 06/21/2024 12:51 PM EST 06/21/2024 Chasity Kaufman [facility] LAB BLOOD ORDERABLES Final Result [facility] [address] [place] [address] * Hemoglobin A1c (09/11/2021 3:57 PM EDT) [facility] Hemoglobin A1C 5.3 (4.0-5.6) % [facility] Comment: MONITORING: In known diabetic patients, hemoglobin A1c targets should be discussed with health care provider. DIAGNOSTIC USE: ??The [place] Diabetes Association (ADA) and the World Health [...] Supplement 1 Testing performed or reported by [facility] [employer], a Service of [facility], [address] [place] [address] Katlyn Holley MD, Occupational Physician [facility]# [id number] 09/11/2021 3:57 PM EDT 09/11/2021 3:59 PM EDT us Jesus Bull MD LAB BLOOD ORDERABLES Final Re sult [facility] from Last 3 Months or Most Recently Relevant to Health Maintenance Insurance [facility] MEDICAID Care Teams Currency Examiner Relationship Specialty Start Date End Date Venancio Camilo MD [address] [place] [address] PCP - General 07/03/20
--- OUTSIDE RECORDS SUMMARY | 2024-08-03 16:14 | XMS_ITS | Encounter Summary ---
Author Organization [facility] Address [address] [facility] [address] [place] [address] Phone Care Team Providers Care Camera Repairman Name Role Phone Venancio Camilo MD Primary Care Provider [phone] Encounter Details Date Type Department Care Team (Late st Contact Info) Description 08/14/2022 Documentation Only [facility] [address] [facility] [address] [place] [address] Daniella Darnell [place] Social History Tobacco Use Types Packs/Day Years [...] Visit [facility] [address] [phone] Chasity Kaufman ARNP [address] [address] documented as of this encounter Visit Diagnoses Not on filedocumented in this encounter Care Teams Camera Repairman Relationship Specialty Start Date End Date Venancio Camilo MD [address] [place] [address] PCP - General 07/03/20 documented as of this encounter
--- OUTSIDE RECORDS SUMMARY | 2024-08-03 16:14 | XMS_ITS | Encounter Summary ---
Author Organization [facility] Address [address] [place] [address] Care Team Providers Care Construction Foreman Name Role Phone Venancio Camilo MD Primary Care Provider [phone] Reason for Referral * Imaging (Routine) - Closed Specialty Diagnoses / Procedures Referred By Anna stern Referred To Contact Radiology Diagnoses RUQ pain Procedures US Abdomen Limited Irma Pimentel PA [address] [facility] [address] [address] Phone: tel: fax: [address] [address] Phone: tel: Referral ID Status Reason Start Date Expiration Date Visits Re quested Visits Authorized [id number] Closed 07/09/2024 07/09/2025 1 1 Reason for Visit * Reason Comments Abdominal Pain Encounter Details Date Type Department Care Team (Latest Contact Info) Description 07/09/2024 1:20 PM EST Office Visit Gastroenterology - [address] [facility] [address] [address] Irma Pimentel PA [address] [address] Weight loss, unintentional (Primary Dx); Heartburn; RUQ [...] in this encounter Ordered Prescriptions Prescription Sig Dispense Quantity Refills Last Filled Start Date End Date psyllium (Metamucil, with sugar,) 3.4 gram packetIndications: RUQ pain Take 1 packet by mouth 1 (one) time each day. Mix and drink with at least 8 ounces of water or juice. 30 packet 11 07/09/2024 07/09/2025 omeprazole OTC (PriLOSEC OTC) 20 mg EC tabletIndications: Heartburn Take 1 tablet (20 mg total) by [...] Weight on 02/04/24 216lb per ortho visitnote. [id number] on 06/08/24 per nephrology note. On 06/15/24 [...] negative gastric biopsy OTHER SURGICAL HISTORY PROCEDURE: IL EXCISION MULLERIAN DUCT CYST; COMMENT: testicular cyst removal SOCIAL HISTORY: Social History Tobacco Use Smoking status: Former Current packs/day: 0.10 Types: Cigarettes Smokeless tobacco: Never Substance Use Topics Alcohol use: No FAMILY HISTORY: Family History Problem Relation Name Age of Onset Other (Other: anxiety) Mother Mariah Other (Other: prediabetes) Mother Florjess Hypertension Mother Florjess No Known Problems Father Breast cancer Sister [...] weeks (around 08/20/2024). Gastroenterology and Hepatology Practice [facility] [email or web address] [phone] [place] [address]. [address] [place] [phone] MICKY Workman documented in this encounter Plan of Treatment Upcoming Encounters Date Type Department Care Team (Late st Contact Info) Description 08/16/2024 11:30 AM EST Consult Endocrinology - [address] [address] Pratik Dumont MD [address] [place] [address] 08/20/2024 11:00 AM EST Office Visit Gastroenterology - [address] [place] [phone] Irma Pimentel PA [address] [place] [address] documented as of this encounter Results * US Abdomen Limited (07/28/2024 11:16 AM EST) Anatomical Region Laterality Modality Body Ultrasound 07/28/2024 3:58 PM EST Impressions 07/28/2024 4:00 PM EST Similar 14 mm hepatic hemangioma. -------- FINAL REPORT -------- Dictated By: Bharat Kaminski Dictated Date: 07/28/2024 15:58 ET Assigned Physician: Bharat Kaminski Reviewed and Electronically Signed By: Bharat Kaminski Signed Date: 07/28/2024 16:00 ET Workstation ID: [id number] Transcribed By: Self Edit Transcribed Date: 07/28/2024 [...] Signed Date: 07/28/2024 16:00 ET Workstation ID: [id number] Transcribed By: Self Edit Transcribed Date: 07/28/2024 15:58 ET Irma WEEKS IMG US PROCEDURES Final Result * Vitamin B12 and folate (07/09/2024 2:36 PM EST) Pathologist [facility] Vitamin B-12 401 250 - 900 pcg/mL LAB CHEMISTRY METHOD 07/09/2024 10:02 PM EST [facility] Folate 11.1 2.8 - 17.0 ng/ml LAB CHEMISTRY METHOD 07/09/2024 10:02 PM EST [facility] Blood Venous blood specimen / Unknown Venipuncture / Unknown 07/09/2024 2:36 PM EST 07/09/2024 9:35 PM EST Irma WEEKS LAB BLOOD ORDERABLES Final Resu lt [facility] [address] [place] [address], [place] [phone] * Vitamin D 1,25 dihydroxy (07/09/2024 2:36 [...] Vitamin D 25-hydroxy (VITD). Test performed at [facility], [address] , [place], [place] ??[address] ? [phone] Geraldine Kern MD, PhD - Dog Raiser Blood Venous blood specimen / Unknown Venipuncture / Unknown 07/09/2024 2:36 PM EST 07/09/2024 3:37 PM EST us Irma WEEKS LAB BLOOD ORDERABLES Final Resu lt [facility] [address] [place] [address] * Comprehensive metabolic panel (07/09/2024 2:36 PM EST) Sodium 135 133 - 145 mmol/L LAB CHEMISTRY METHOD 07/09/2024 9:35 PM [facility] Potassium 4.4 3.5 - 5.5 mmol/L LAB CHEMISTRY METHOD 07/09/2024 9:35 PM [facility] Chloride 102 96 - 110 mmol/L LAB CHEMISTRY METHOD 07/09/2024 9:35 PM [facility] CO2 29 21 - 32 mmol/L LAB CHEMISTRY METHOD 07/09/2024 9:35 PM [facility] Anion Gap 4 3 - 11 LAB CHEMISTRY METHOD 07/09/2024 9:35 PM [facility] Glucose 95 70 - 100 mg/dL LAB CHEMISTRY METHOD 07/09/2024 9:35 PM [facility] BUN 10 5 - 25 mg/dL LAB CHEMISTRY METHOD 07/09/2024 9:35 PM [facility] Creatinine 1.09 0.70 - 1.30 mg/dL LAB CHEMISTRY METHOD 07/09/2024 9:35 PM [facility] eGFR 83 >=60 mL/min/1. 73m2 LAB CHEMISTRY METHOD 07/09/2024 9:35 PM [facility] Comment:Calculation based on the??Chronic Kidney Disease Epidemiology Collaboration (CKD-EPI) equation refit??without adjustment for race. BUN/Creatinine Ratio 9.2 LAB CHEMISTRY METHOD 07/09/2024 9:35 PM [facility] Calcium 9.1 8.5 - 10.5 mg/dL LAB CHEMISTRY METHOD 07/09/2024 9:35 PM [facility] AST (SGOT) 11 10 - 42 unit/L LAB CHEMISTRY METHOD 07/09/2024 9:35 PM [facility] ALT (SGPT) 21 10 - 60 unit/L LAB CHEMISTRY METHOD 07/09/2024 9:35 PM [facility] Alkaline Phosphatase 98 42 - 121 unit/L LAB CHEMISTRY METHOD 07/09/2024 9:35 PM [facility] Total Protein 7.7 6.0 - 8.0 g/dL LAB CHEMISTRY METHOD 07/09/2024 9:35 PM [facility] Albumin 4.1 3.2 - 5.0 g/dL LAB CHEMISTRY METHOD 07/09/2024 9:35 PM [facility] Total Bilirubin 0.7 0.0 - 1.4 mg/dL LAB CHEMISTRY METHOD 07/09/2024 9:35 PM [facility] Blood Venous blood specimen / Unknown Venipuncture / Unknown 07/09/2024 2:36 PM EST 07/09/2024 9:35 PM EST us Irma WEEKS LAB BLOOD ORDERABLES Final Resu lt [facility] [address] [place] [address], * Helicobacter pylori breath test (07/09/2024 2:36 PM EST) H Pylori Breath Test Negative Negative LAB CHEMISTRY METHOD 07/10/2024 1:19 PM EST [facility] Breath Oral cavity structure / Unknown Non-blood Collection / Unknown 07/09/2024 2:36 PM EST 07/10/2024 11:25 AM EST us Irma WEES[facility] BODY FLUIDS AND STOOLS AMANDA MATA Final Result [facility] [address] [place] [address], [place] [phone] documented in this encounter Visit Diagnoses Diagnosis Weight loss, unintentional- Primary Loss of weight Heartburn RUQ pain Abdominal pain, right upper quadrant RUQ pain Abdominal pain, right upper quadrant documented in this encounter Historical Medications * This list may reflect changes made after this encounter. losartan (COZAAR) 25 mg tablet Take 1 tablet (25 mg total) by mouth 1 (one) time each day. 07/06/2024 07/06/2025 added in this encounter Care Teams Construction Foreman Relationship Specialty Start Date End Date Venancio Camilo MD [address] [place] [address] PCP - General Internal Medicine 12/09/14 documented as of this encounter
== END 2024-08-03 15:41 | disposition home or self-care (01) ==
LOC: HO.HMGCX 15:40
PROVIDERS: PCP Internal Medicine; Visit Provider Nurse Practitioner Family
DX: N50.82 Scrotal pain (principal); R39.9 Unspecified symptoms and signs involving the genitourinary system; N50.819 Testicular pain, unspecified
CPT/HCPCS: 76870

== ENCOUNTER → 2024-08-03 15:41 | Outpatient (BNV) | payer OTHER, SELFPAY | PROVIDERS: PCP Internal Medicine; Visit Provider Radiology Diagnostic Radiology | DX: N50.82 Scrotal pain (principal) | CPT/HCPCS: 76870; 93976 ==

== ENCOUNTER 2024-08-18 08:12 | Outpatient (AMB) | payer OTHER, SELFPAY ==
--- NOTE | 2024-08-18 08:12 | A.OFFVIS_ITS ---
Intake Visit Reasons: 3m/US/Labs Intake Note: Patient presents for tele visit follow up on: testicular pain,lab and ultrasound results Testosterone: 175; Free Testosterone: 5.2; PSA: 0.75 Urology Medications: none Blood Thinner: none Medical Payment Poster Required: No Accompanied by: Self / Same As Patient Allergies prednisone Adverse Reaction (Uncoded 08/18/24 11:23) Anxiety Medication List - Last Reconciled 08/18/24 by ANNABELLE Gabriel cholecalciferol (vitamin D3) (Vitamin D3) 50 mcg PO DAILY lorazepam 2 mg PO TID PRN losartan mg PO DAILY quetiapine 25 - 75 mg PO BEDTIME HPI Comments Details: Rolan is a 49 year-old male patient of Dr. Camilo. He has a past medical history of anxiety, GERD, and hypertension. He is being followed up on today via telehealth for his longstanding history of ongoing scrotal issues, ongoing/longstanding orchalgia, lower urinary tract symptoms, and hypogonadism. In discussion with the patient today he reports having followed up with endocrinology through [facility] for ongoing issues he has been experiencing. We discussed recent labs as noted and trended below. We discussed treatment options for hypogonadism however patient would like to await follow-up with endocrinology to further assess the situation. Recent scrotal ultrasound results reviewed with the patient today 08/17 bilateral testicles are normal in size and echotexture. Both testicles with normal arterial and venous flow. Two benign-appearing cysts with single septations. The left epididymis is unremarkable. No varicoceles or hydroceles noted bilaterally. He continues to discuss feeling scrotal discomfort is noted when lifting heavy objects he also reports intermittent episodes of redness to his testicles. Unable to assess at this time as patient is being followed up via phone telehealth and not video as he is unable to have compatibility with video telehealth today. He discusses at length the recent loss of his son approximately 3 months ago in [place] to motorcycle accident. He discusses feeling this has affected his health and well- being. He discusses feeling he is losing weight as he is unable to have an appetite. He discusses following up with his psychiatric provider and has found this helpful. Labs are as follows: PSA 04/14 0.8, 08/17 0.8 Estradiol 02/13 16 FSH 02/13 3.0 LH 02/13 5.0 Prolactin 02/13 11.8 Total testosterone 04/14 183, 02/13 159, 08/17 175 Free testosterone 04/14 37.1, 02/13 36.3, 08/17 5.2 SHBG 02/13 15, 08/17 13.0 Previous workup has also included scrotal ultrasound 04/14 noting multiple right epididymal head lesions measuring 1.8 cm, 0.7 cm, and 0.7 cm without significant change from previous scrotal ultrasound 07/10/2022. Also scrotal imaging 01/13 noted redemonstration of 0.5 cm right epididymal head mass in right epididymal head cysts measuring up to 1.8 cm. We discussed stability regarding results of multiple scrotal imaging over the last 2-3 years. Retroperitoneal ultrasound 04/14 noted bilateral kidneys with no calculi, lesions, and or hydronephrosis. The bladder is well distended and normal. Pre void bladder volume is approximately 140 mL. Postvoid bladder volume is approximately 15 mL. Prostate volume is approximately 23 mL. He has had a right epididymectomy and spermatocelectomy 09/12 and prior denervation 05/2021 but persistent pain. Discussed and stressed that epididymectomy has a 70-80% success rate and there is still a chance of persistent pain post-procedure. Reassurance was provided. He otherwise offers no other issues or concerns at this time. [facility] Medical History Hypertension GERD (gastroesophageal reflux disease) Anxiety Spermatocele Surgical History History of surgery History of colonoscopy Hx of esophagogastroduodenoscopy History of testicular surgery Social History Patient Tobacco Use Status: Former Tobacco user Review of Systems Const Reports as per HPI Eyes Reports no additional complaints ENT Reports no additional complaints Card Reports as per HPI Resp Reports no additional complaints GI Reports as per HPI Reports as per HPI Musc Reports no additional complaints Neuro Reports no additional complaints Psych Reports as per HPI Endo Reports no additional complaints Roldan/Lymph Reports no additional complaints Aller/Immun Reports no additional complaints Physical Exam Const General: cooperative Resp Effort & Inspection: able to speak in complete sentences Psych Attitude: cooperative Thought content: Normal thought content present Insight: Fair insight present (Psych) Judgement: Fair judgement present (Psych) Telehealth Telehealth Telehealth Platform: G[employer] Location of provider rendering services: practice address Location of patient: address on file Patient Identification confirmed using: Name, : Yes Telehealth method: voice only Patient verbally consented to treatment: Yes Patient verbally consented to billing insurance company: Yes Patient informed of any privacy concerns related to visit: Yes Minutes spent on Phone/Video with Pt.: 22 Results Reviewed Results Reviewed: Date of Service: 08/03/24 US Scrotum with Doppler Comparison: None Findings: Right testicle normal size and echotexture, 4.9 x 2.2 x 3.6 cm. Left testicle normal size and echotexture, 4.8 x 2.1 x 3.4 cm. Color Doppler and arterial/venous spectral tracings of Both testicles within normal limits. A normal right epididymal head is not identified. Two benign-appearing unilocular cysts are noted versus a cyst with a single septation. The left epididymis is unremarkable. No varicoceles. No hydroceles. The larger of these measures 1.5 cm in greatest diameter and the smaller 6 mm in greatest diameter. IMPRESSION: right epididymal head is not identified. Two benign cysts or a cyst with a single septation noted in this area. Assessment & Plan Assessment & Plan (1) Scrotal pain: Code(s): N50.82 - Scrotal pain Category: Medical (2) Hypogonadism in male: Code(s): E29.1 - Testicular hypofunction Category: Medical (3) Orchalgia: Code(s): N50.819 - Testicular pain, unspecified Category: Medical Plan Recent scrotal imaging results reviewed the patient today; as noted above. Recent labs reviewed with the patient today; as noted above. We discussed follow-up in office for further assessment evaluation. Discussed further treatment options of hypogonadism and risks and benefits of these treatment options. Discussed and stressed the importance of adequate hydration relation to lower ur inary tract symptoms as well as overall health and well-being. Continue to follow-up with PCP, endocrinology, and psychiatric provider as planned. Follow-up in 3 months; or sooner with any issues, concerns, and or questions. Patient Instructions: The patient had an opportunity to ask questions regarding the treatment plan. All questions were answered. Physical exam, labs, and imaging were discussed and reviewed in detail. As well as risks, benefits, and discussion of treatment choices. No major barriers to understanding were identified. The patient expressed understanding and agreement with the above treatment plan. The patient was made aware they should contact our office by phone for worsening of their current condition, the appearance of new symptoms, or with any questions or concerns. Compliance is encouraged with any medications and follow up testing that is ordered. It is a privilege to be allowed the opportunity to participate in? your urological care.? Again, if you have any questions or concerns If you have any questions or concerns please do not hesitate to contact me. The office is [phone]. This note is constructed using voice recognition software. While every effort has been made to ensure accuracy airframe and power plant mechanic errors may have been included. Yours sincerely, ANNABELLE Gabriel Coding Level of Care Code Tele Est Pt Level 4 ([address]) Diagnoses Scrotal pain N50.82 Hypogonadism in male E29.1 Orchalgia N50.819 Time Spent (min) 22
--- OUTSIDE RECORDS SUMMARY | 2024-08-18 08:29 | XMS_ITS | Encounter Summary ---
Author Organization [facility] Address [address] [place] [address] Care Team Providers Care Marine Operations Coordinator Name Role Phone Pcp, Nani Primary Care Provider Diana Castro MD Primary Care Provider [phone] Encounter Details Date Type Department Care Team (Late st Contact Info) Description 03/19/2018 Scanned Document [facility] Urologic Surgery [place] [address] [place] [address] Prashant Naylor MD [address] [facility] [address] [place] [address] Social History Tobacco Use Types Packs/Day Years Used Date Smoking Tobacco: Never Assessed Sex and Gender Information Value Date Recorded Sex Assigned at Not on file Gender Identity Not on file Sexual Orientation Not on file documented as of this encounter Plan of Treatment Not on file documented as of this encounter Visit Diagnoses Not on filedocumented in this encounter Care Teams Marine Operations Coordinator Relationship Specialty Start Date End Date Pcp, Nani PCP - General General Medicine 03/17/18 07/01/22 Diana Velázquez MD [address] [place] [address] PCP - General 07/02/22 documented as of this encounter
--- OUTSIDE RECORDS SUMMARY | 2024-08-18 08:29 | XMS_ITS | Encounter Summary ---
Author Organization [facility] Address [address] [address] Phone Care Team Providers Care Outsole Compressor Name Role Phone Venancio Camilo MD Primary Care Provider [phone] Reason for Visit * Reason Comments Hypertension Encounter Details Date Type Department Care Team (Late st Contact Info) Description 07/26/2024 11:45 AM EST Office Visit [facility] [address] [address] Chasity Kaufman ARNP [address] [address] Hypertension (Primary Dx) Social History [...] mouth 1 (one) time each day 30 [id number] QUEtiapine (SEROquel) 25 MG tablet TAKE 1 [...] Visit [facility] [address] [address] Chasity Kaufman ARNP [address] [address] documented as of this encounter [...] 9.3 8.7 - 10.7 mg/dL eGFR Non-Afr Somali 99 07/19/2024 Historical Provider LAB BLOOD ORDERABLES Key l Result documented in this encounter Visit Diagnoses Diagnosis Hypertension- Primary documented in this encounter Care Teams Outsole Compressor Relationship Specialty Start Date End Date Venancio Camilo MD [address] [place] [address] PCP - General 07/03/20 documented as of this encounter
--- OUTSIDE RECORDS SUMMARY | 2024-08-18 08:30 | XMS_ITS | Encounter Summary ---
Author Organization [facility] Address [address] [place] [address] Care Team Providers Care Drum Builder Name Role Phone Venancio Camilo MD Primary Care Provider [phone] Reason for Visit * Reason Comments Difficulty Urinating C/o burning after u rination and bubbles in the urine x 5 days. Encounter Details Date Type Department Care Team (Late st Contact Info) Description 08/09/2024 3:30 PM EST Office Visit Adult Medicine [facility] [address] [place] [address] Melquiades Villasenor PA [address] [place] [address] Dysuria (Primary Dx) Social History Tobacco Use Types [...] Sign Reading Time Taken Comments Blood Pressure 134/78 08/09/2024 3:16 PM EST Pulse 68 08/09/2024 3:16 PM EST Temperature 36.5 ??C (97.7 ??F) 08/09/2024 3:16 PM ES T Respiratory Rate 14 08/09/2024 3:16 PM EST Oxygen Saturation 98% 08/09/2024 3:16 PM EST Inhaled Oxygen Concentration - - Weight 81.2 kg (179 lb) 08/09/2024 3:16 PM EST Height 180.3 cm (5' 11 ) 08/09/2024 3:16 PM EST Body Mass Index 24.97 08/09/2024 3:16 PM EST documented in this encounter Progress Notes * MICKY Pham - 08/09/2024 3:30 PM EST PATIENT'S PCP: Venancio Camilo MD LAST VISIT IN THIS DEPARTMENT: 07/29/2024 LAST VISIT WITH THIS PROVIDER: 07/19/2024 Rolan Esteban is a 49 y.o. (: 1975) male who presents today for: Chief Complaint Patient presents with Difficulty Urinating C/o burning after urination and bubbles in the urine x 5 days. Assessment/Plan Assessment & Plan Dysuria He is uncertain of the exact duration, he reports between 5 days in 2 weeks, but states he has beenhaving burning with urination as well as some foaminess in his urine. He was unable to provide urine sample in the office, so he will go down to the lab prior to leaving today to get a sample. He feels like it is mostly end stream dysuria, his skin exam did not reveal any balanitis. No hematuria per his report although he does have a history of nephrolithiasis. He also has a complex urology history, reports having 3 different surgeries I believe for testicular cyst. We will start with some urine testing, I will also check chlamydia and gonorrhea testing although it is unlikely. He has upcoming follow-ups with gastroenterology for unintentional weight loss as well as with endocrinology for low testosterone. Follow-up in 3 months in office. Sooner if need be. I will keep patient posted with test results once they are available for review over the next 2 weeks. Orders: Urinalysis with reflex microscopic and culture; Future Chlamydia trachomatis and Neisseria gonorrhoeae molecular study; Future No follow-ups on file. Subjective 49-year-old gentleman presents for evaluation of dysuria and foamy urine. Duration is somewhere between 5 and 14 days per his report. He is a bit unclear on this aspect. He complains of a small amount of burning during the urine stream and for a short period. No penile discharge. No abdominal pain. No flank pain. Difficulty Urinating Pertinent negatives include no chills. Review of Systems Constitutional: Positive for fatigue. Negative for chills, diaphoresis and fever. HENT: Negative for ear pain and sore throat. Eyes: Negative for discharge. Respiratory: Negative for cough and shortness of breath. Cardiovascular: Negative for chest pain, palpitations and leg swelling. Gastrointestinal: Negative for abdominal pain. Endocrine: Negative for polyuria. Genitourinary: Positive for dysuria. Negative for difficulty urinating. Musculoskeletal: Negative for gait problem. Skin: Negative for rash. Neurological: Negative for syncope and weakness. The following portions of the patient's chart were reviewed in this encounter and updated as appropriate: Tobacco Allergies Meds Problems Med Hx Surg Hx Fam Hx Objective Visit Vitals BP 134/78 Pulse 68 Temp 36.5 ??C (97.7 ??F) (Temporal) Resp 14 Ht 1.803 m (71 ) Wt 81.2 kg (179 lb) SpO2 98% BMI 24.97 kg/m?? Smoking Status Former BSA 2.01 m?? SpO2: 98 % BP Readings from Last 3 Encounters: 08/09/24 134/78 07/19/24 122/76 06/15/24 130/84 Wt Readings from Last 3 Encounters: 08/09/24 81.2 kg (179 lb) 07/19/24 83 kg (183 lb) 07/09/24 86.2 kg (190 lb) Physical Exam Constitutional: General: He is not in acute distress. Appearance: Normal appearance. He is not ill-appearing. Eyes: Conjunctiva/sclera: Conjunctivae normal. Pupils: Pupils are equal, round, and reactive to light. Cardiovascular: Rate and Rhythm: Normal rate and regular rhythm. Heart sounds: No murmur heard. Pulmonary: Effort: Pulmonary effort is normal. Breath sounds: Normal breath sounds. No wheezing, rhonchi or rales. Abdominal: General: Bowel sounds are normal. There is no distension. Palpations: Abdomen is soft. There is no mass. Hernia: No hernia is present. Genitourinary: Penis: Normal. Musculoskeletal: General: Normal range of motion. Cervical [...] and time. Mental status is at baseline. Psychiatric: Mood and Affect: Mood normal. Behavior: Behavior normal. Thought Content: Thought content normal. Judgment: Judgment normal. Allergies Allergen Reactions Lisinopril Diarrhea and Nausea And Vomiting Current Outpatient Medications Medication Instructions amLODIPine (NORVASC) 2.5 mg tablet diclofenac (VOLTAREN) 1 % topical gel LORazepam (ATIVAN) 2 mg tablet TAKE 1 TABLET BY MOUTH 3 TIMES PER DAY NEEDED FOR ANXIETY losartan (COZAAR) 25 mg tablet 1 tablet, Daily omeprazole (PRILOSEC) 20 mg, oral, Daily psyllium (Metamucil, with sugar,) 3.4 gram packet 1 packet, oral, Daily, Mix and drink with at least 8 ounces of water or juice. QUEtiapine (SEROQUEL) 25 mg, Nightly Vitamin D3 2,000 Units, oral, Daily IMAGING/LABORATORY: None MICKY Pham ADULT [facility]ICINE [address] [address] documented in this encounter Plan of Treatment Upcoming Encounters Date Type Department Care Team (Late st Contact Info) Description 08/20/2024 11:00 AM EST Office Visit Gastroenterology - [address] [facility] [address] [place] [phone] Irma Pimentel PA [address] [facility] [address] [place] [address] 09/09/2024 11:00 AM EDT Telemedicine [facility] [address] [facility] [address] [place] [phone] Patria Davila MD [address] [place] [address] 10/14/2024 11:15 AM EDT Office Visit Endocrinology - [place] [address] [place], [place] [phone] Pratik Dumont MD [address] [place] [phone] 11/09/2024 9:30 AM EDT Office Visit Adult Medicine [place] - [place] [address] [place], [place] [phone] Melquiades Villasenor PA [address] [place], [place] documented as of this encounter Results * Chlamydia trachomatis and Neisseria gonorrhoeae molecular study (08/09/2024 4:07 PM EST) Neisseria gonorrhoeae PCR Negative Negative LAB MOLECULAR DIAGNOSTICS METHOD 08/10/2024 10:53 AM EST [facility] Chlamydia trachomatis PCR Negative Negative LAB MOLECULAR DIAGNOSTICS METHOD 08/10/2024 10:53 AM EST [facility] Swab Urine specimen / Unknown Non-blood Collection / Unknown 08/09/2024 4:07 PM EST 08/09/2024 4:07 PM EST us Melquiades WEEKS LAB MICROBIOLOGY - GENER AL ORDERABLES Final Result [facility] [address] [place] [address], documented in this encounter Visit Diagnoses Diagnosis Dysuria- Primary documented in this encounter Discontinued Medications Medication Sig Discontinue Reason Start Date End Da te diclofenac (VOLTAREN) 1 % topical gel 02/04/2024 08/09/2024 amLODIPine (NORVASC) 2.5 mg tablet 06/04/2021 08/09/2024 omeprazole (PriLOSEC) [address] capsuleIndications:Heart burn Take 1 capsule (20 mg total) by mouth 1 (one) time each day. 07/12/2024 08/09/2024 psyllium (Metamucil, with sugar,) 3.4 gram packetIndications:RUQ pain Take 1 packet by mouth 1 (one) time each day. Mix and drink with at least 8 ounces of water or juice. 07/09/2024 08/09/2024 documented as of this encounter Care Teams Drum Builder Relationship Specialty Start Date End Date Venancio Camilo MD [address] [place] [address] PCP - General Internal Medicine 12/09/14 documented as of this encounter
--- OUTSIDE RECORDS SUMMARY | 2024-08-18 08:30 | XMS_ITS | Data Portability ---
Author Organization MICKY Domingo [facility] [id number] Address [address] [place] [address] Assessment No assessment recorded. Plan of Treatment [...] Out Template NON DOT completed Karmen Domingo [employer] 01/21/2024 16:15:15 Imaging Results None recorded. Procedure [...] SNOMED-CT Code Diagnosis ICD10 Code Diagnosis Note [id number] MICKY Johnson [id number] [facility] [address] [facility] [place] ruiz [phone] 01/21/2024 16:00:27 01/21/2024 16:30:43 History and physical examination, occupation [id number] Z02.1 Health Concerns Section Related Observation LastModified by Organization Detai ls LastModified Time None Recorded Concern Status LastModified by Organization Details LastModified Time None Recorded Advance Directives Directive None Recorded Payers Encounter Date Sequence Insurance Name Policy Number Policy Russo Covered Member ID Russo Member ID Guarantor Name 01/21/2024 OC-ESCREEN Escreen OTHER An elle Esteban
--- OUTSIDE RECORDS SUMMARY | 2024-08-18 08:30 | XMS_ITS | Encounter Summary ---
Author Organization [facility] Address [address] [facility] [[email or web address]] [address] [place] [address] Phone Care Team Providers Care Buffing Wheel Inspector Name Role Phone Venancio Camilo MD Primary Care Provider [phone] Encounter Details Date Type Department Care Team (Late st Contact Info) Description 08/15/2022 Telephone [facility] [address] [place] [address] Daniella Darnell [place] Social History Tobacco [...] with you. Please call him back at [phone] Thank you documented in this encounter Plan of Treatment Upcoming Encounters Date Type Department Care Team (Late st Contact Info) Description 10/25/2024 10:45 AM EDT Office Visit [facility] [address] [facility] [address] [place] [address] Chasity Kaufman ARNP [address] [facility] [address] [place] [address] documented as of this encounter Visit Diagnoses Not on filedocumented in this encounter Care Teams Buffing Wheel Inspector Relationship Specialty Start Date End Date Venancio Camilo MD [address] [place] [address] PCP - General 07/03/20 documented as of this encounter
--- OUTSIDE RECORDS SUMMARY | 2024-08-18 08:30 | XMS_ITS | Encounter Summary ---
Author Organization [facility] Address [address] [place] [address] Care Team Providers Care Blacking Wheel Tender Name Role Phone Venancio Camilo MD Primary Care Provider [phone] Encounter Details Date Type Department Care Team (Late st Contact Info) Description 08/04/2024 Telephone Gastroenterology - [address] [place] [phone] Chasity Roy [place] Social History Tobacco Use Types Packs/Day [...] as of this encounter Progress Notes * Chasity Roy MA - 08/04/2024 9:08 AM EST Spoke with pt per Irma. Per Irma unsure what type of hormonal therapy he is referring to and whatcondition, but assuming he is referring to the liver hemangioma: Hormonal therapy could potentially affect a liver hemangioma by causing it to grow, though this effect is not universal and many people with liver hemangiomas do not experience any change or complications from hormonal therapy. He should defer to the provider initiating hormonal therapy for furtherquestions. They (or we) can monitor his liver with ultrasound in 6months-1 year * Chasity Roy MA - 08/04/2024 9:08 AM EST ----- Message from MICKY Galan sent at 08/03/2024 6:32 PM EST ----- Patient speaks german. Please relay the following information: I am unsure what type of hormonal therapy he is referring to and what condition, but assuming he isreferring to the liver hemangioma: Hormonal therapy with estrogen could potentially affect a liver hemangioma by causing it to grow, though this effect is not universal and many people with liver hemangiomas do not experience any change or complications from hormonal therapy. He shoul d defer to the provider initiating hormonal therapy for further questions. They (or we) can monitorhis liver with ultrasound in 6months-1 year documented in this encounter Plan of Treatment Upcoming Encounters Date Type Department Care Team (Late st Contact Info) Description 08/20/2024 11:00 AM EST Office Visit Gastroenterology - [address] [facility] [address] [place] [address] Irma Pimentel PA [address] [facility] [address] [place] [address] 09/09/2024 11:00 AM EDT Telemedicine [facility] [address] [facility] [address] [place] [phone] Patria Davila MD [address] [place] [address] 10/14/2024 11:15 AM EDT Office Visit Endocrinology [address] [phone] Pratik Dumont MD [address] [place] [address] 11/09/2024 9:30 AM EDT Office Visit Adult Medicine [place] - [place] [address] [place], [place] [phone] Melquiades Villasenor PA [address] [place], [place] documented as of this encounter Visit Diagnoses Not on filedocumented in this encounter Care Teams Blacking Wheel Tender Relationship Specialty Start Date End Date Venancio Camilo MD [address] [place] [address] PCP - General Internal Medicine 12/09/14 documented as of this encounter
--- OUTSIDE RECORDS SUMMARY | 2024-08-18 08:30 | XMS_ITS | Encounter Summary ---
Author Organization [facility] Address [address] [place] [address] Care Team Providers Care Central Supply Tech Name Role Phone Venancio Camilo MD Primary Care Provider [phone] Reason for Referral * Consultation (Routine) - Authorized Specialty Diagnoses / Procedures Referred By Anna stern Referred To Contact Neurology Diagnoses Memory changes Pratik Dumont MD [address] [place] [phone] Phone: tel: fax: [address] [address] Phone: tel: fax: Referral ID Status Reason Start Date Expiration Date Visits Requested Visits Authorized [id number] Authorized Specialty Services Required 08/16/2024 08/16/2025 1 1 Reason for Visit * Reason Comments Advice Only Low testosterone Encounter Details Date Type Department Care Team ([facility] Contact Info) Description 08/16/2024 11:30 AM EST Consult Endocrinology - [place] [address] [place] [phone] Pratik Dumont MD [address] [place] [phone] Low testosterone (Primary Dx); Memory changes Social History Tobacco Use Types Packs/Day Years [...] Sign Reading Time Taken Comments Blood Pressure 132/80 08/16/2024 11:29 AM EST Pulse 67 08/16/2024 11:29 AM EST Temperature - - Respiratory Rate - - Oxygen Saturation - - Inhaled Oxygen Concentration - - Weight 81.5 kg (179 lb 9.6 oz) 08/16/2024 11:29 AM EST Height - - Body Mass Index 25.05 08/09/2024 3:16 PM EST documented in this encounter Progress Notes * Pratik Dumont MD - 08/16/2024 11:30 AM EST Schedule labs * Pratik Dumont MD - 08/16/2024 11:30 AM EST CHIEF COMPLAINT: Advice Only (Low testosterone) IDENTIFIER: Rolan Esteban is a 49 y.o. old male. REFERRING PROVIDER: MICKY Pham HPI: Pt referred for Low testosterone. Accompanied by . Complains of Low concentration, memory issues, tired, low sex drive. Since months. No issues with vision, sometimes pressure on forehead. Has Lost weight. Has kids, no plans for more. Never used testosterone. No supplements. Admits to feeling low/depressed, irritable. ROS: Negative except as noted in HPI PAST MEDICAL HISTORY: Patient Active Problem List Diagnosis Date Noted Abdominal pain 05/07/2024 Epigastric pain 05/07/2024 Hemorrhoids 05/07/2024 Rectal bleed 05/07/2024 Straining with stools 05/07/2024 Tubular adenoma of colon 05/07/2024 Allergic rhinitis 07/31/2022 Liver hemangioma 03/06/2022 H. pylori infection 01/19/2021 Hypertension 11/09/2019 Fatty liver 05/04/2015 SRI (obstructive sleep apnea) 11/23/2014 Known medical problems 09/07/2014 Hepatitis C antibody test positive 10/05/2013 Anxiety 04/14/2013 Nephrolithiasis 04/14/2012 Past Surgical History: Procedure Laterality Date COLONOSCOPY 02/14/2021 TAx1 recall 5 years ESOPHAGOGASTRODUODENOSCOPY 02/14/2021 negative gastric biopsy OTHER SURGICAL HISTORY PROCEDURE: AL EXCISION MULLERIAN DUCT CYST; COMMENT: testicular cyst [...] Known Problems Brother No Known Problems Brother Family Status Relation Name Status Mother Mariah Alive asthma, anxiety, osteoporosis, HTN, fibromyalgia. DM Father Alive not known Sister Alive anxiety Brother Alive twin, anxiety Brother Alive Brother Alive Brother Alive Daughter Alive Son Alive No partnership data on file MEDICATIONS DISCONTINUED/REORDERED: There are no discontinued medications. ACTIVE MEDICATIONS: Outpatient Medications Marked as Taking for the 08/16/24 encounter (Consult) with Pratik Dumont MD Medication Sig Dispense Refill blood pressure test kit-large kit USE ASA DIRECTED ONCE A DAY LORazepam (ATIVAN) 2 mg tablet TAKE 1 [...] BY MOUTH EVERY DAY 90 capsule 0 ALLERGIES: Allergies Allergen Reactions Lisinopril Diarrhea and Nausea And Vomiting PHYSICAL EXAM: Visit Vitals BP 132/80 Pulse 67 Wt 81.5 kg (179 lb 9.6 oz) BMI 25.05 kg/m?? Smoking Status Former BSA 2.01 m?? APPEARANCE: Alert and in no acute distress EYES: EOMI HEART: RRR with normal S1 and S2, no murmurs, no gallops, NECK: Thyroid normal to palpation. No nodules. Neck supple, no adenopathy. LUNG: clear to auscultation ABDOMEN: Soft, non-tender NEURO: Awake, alert. Patellar reflexes 2+, brisk and equal bilaterally LABS: Lab Results Component Value Date TSH 0.70 07/19/2024 No results found for: FT4 IMAGING: @[facility] IMPRESSION: 1. Low testosterone PLAN: Had a detailed discussion discussed usual work up, shall get repeat labs with pituitary hormones. Discussed possible results and plan afterwards, may consider imaging if needed. He pointes to memory issues including word finding issues? Little more then what would be expected with low testosterone,shall refer to neurology as well in the meantime. All questions answered. Medication and lab orders: Orders Placed This Encounter Procedures Follicle stimulating hormone Luteinizing hormone Testosterone, total Prolactin Insulin-like growth factor Cortisol ACTH Prostate specific antigen screen Hemoglobin and hematocrit Thyroid stimulating hormone Thyroxine free Other orders: None Pratik Dumont MD on 08/16/2024 at 12:31 PM EST documented in this encounter Plan of Treatment Upcoming Encounters Date Type Department Care Team (Late st Contact Info) Description 08/20/2024 11:00 AM EST Office Visit Gastroenterology - [address] [facility] [address] [facility] [address] [place] [phone] Irma Pimentel PA [address] [facility] [address] [place] [address] 09/09/2024 11:00 AM EDT Telemedicine [facility] [address] [facility] [address] [place] [phone] Patria Davila MD [address] [place] [address] 10/14/2024 11:15 AM EDT Office Visit Endocrinology [address] [phone] Pratik Dumont MD [address] [place] [phone] 11/09/2024 9:30 AM EDT Office Visit Adult Medicine [facility] [address] [place], [place] [phone] Melquiades Villasenor PA [address] [place], [place] Scheduled Orders Name Type Priority Associated Diagnoses Orde r Schedule Follicle stimulating hormone Lab Routine Low testosterone 1 Occurrences starting 08/16/2024 until 08/16/2025 Luteinizing hormone Lab Routine Low testosterone 1 Occurrences starting 08/16/2024 until 08/16/2025 Testosterone, total Lab Routine Low testosterone 1 Occurrences starting 08/16/2024 until 08/16/2025 Prolactin Lab Routine Low testosterone 1 Occurrences starting 08/16/2024 until 08/16/2025 Insulin-like growth factor Lab Routine Low testosterone 1 Occurrences starting 08/16/2024 until 08/16/2025 Cortisol Lab Routine Low testosterone 1 Occurrences starting 08/16/2024 until 08/16/2025 ACTH Lab Routine Low testosterone 1 Occurrences starting 08/16/2024 until 08/16/2025 Prostate specific antigen screen Lab Routine Low testosterone 1 Occurrences starting 08/16/2024 until 08/16/2025 Hemoglobin and hematocrit Lab Routine Low testosterone 1 Occurrences starting 08/16/2024 until 08/16/2025 Thyroid stimulating hormone Lab Routine Low testosterone Expected: 08/16/2024, Expires: 08/16/2025 Thyroxine free Lab Routine Low testosterone 1 Occurrences starting 08/16/2024 until 08/16/2025 Scheduled Referrals Name Type Priority Associated Diagnoses Order Schedule Ambulatory referral to Neurology Outpatient Referral Routine Memory changes 1 Occurrences starting 08/16/2024 until 08/16/2025 documented as of this encounter Visit Diagnoses Diagnosis Low testosterone- Primary Memory changes documented in this encounter Historical Medications * This list may reflect changes made after this encounter. blood pressure test kit-large kit USE ASA DIRECTED ONCE A DAY 07/14/2024 added in this encounter Care Teams Central Supply Tech Relationship Specialty Start Date End Date Venancio Camilo MD [address] [place] [address] PCP - General Internal Medicine 12/09/14 documented as of this encounter
--- OUTSIDE RECORDS SUMMARY | 2024-08-18 08:30 | XMS_ITS | Encounter Summary ---
Author Organization [employer] Address [address] [place] [address] Care Team Providers Care Parking Lot Attendant Name Role Phone Venancio Camilo MD Primary Care Provider [phone] Reason for Visit * Reason Comments Annual Exam Encounter Details Date Type Department Care Team (Late st Contact Info) Description 07/19/2024 4:00 PM EST Office Visit Adult Medicine [facility] [place] [address] [place] [address] Melquiades Villasenor PA [address] [place] [address] Routine general medical examination at a health [...] negative gastric biopsy OTHER SURGICAL HISTORY PROCEDURE: IA EXCISION MULLERIAN DUCT CYST; COMMENT: testicular cyst [...] Pt tells me that 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 Lives in [place] with and kids. Tells me that he [...] please do not be afraidto reach out. [place] your teeth twice a day and follow routinely with the dentist. Safety Issues- Always wear a seat belt and a helmet when in a bike or motorcycle. Apply Sunscreen daily to your face and body if appropriate. Aim to get at least 7 hours of sleep to maintain good health and well-being. MICKY Pham [facility] [address] [address] Dept: [phone] Dept Date of Service: 07/19/2024 documented in this encounter Plan of Treatment Upcoming Encounters Date Type Department Care Team (Late st Contact Info) Description 08/20/2024 11:00 AM EST Office Visit Gastroenterology - [address] [place] [address] Irma Pimentel PA [address] [place] [address] 09/09/2024 11:00 AM EDT Telemedicine [facility] [address] [place] [phone] Patria Davila MD [address] [place] [address] 10/14/2024 11:15 AM EDT Office Visit Endocrinology [address] [phone] Pratik Dumont MD [address] [place] [address] 11/09/2024 9:30 AM EDT Office Visit Adult Medicine [address] [phone] Melquiades Villasenor PA [address] [place], [place] Scheduled Orders Name Type Priority Associated Diagnoses Orde r Schedule XR Lumbar Spine 4+ Views Imaging Routine Routine general medical examination at a health care facility Anxiety Memory difficulties Expected: 07/19/2024, Expires: 07/19/2025 documented as of this encounter Results * Prostate specific antigen screen (07/27/2024 8:39 AM EST) PSA 0.75 0.00 - 4.00 ng/mL LAB CHEMISTRY METHOD 07/27/2024 12:19 PM EST [facility] ([facility]) [facility] Blood Venous blood specimen / Unknown Venipuncture / Unknown 07/27/2024 8:39 AM EST 07/27/2024 8:[address] [facility] - 07/27/2024 12:19 PM EST The Siemens Advia Centaur Chemiluminescent Immunoassay is used. Results obtained with different assay methods or kits cannot be used interchangeably. Results cannot be interpreted as absolute evidence of the presence or absence of malignant disease. us Melquiades WEEKS LAB BLOOD ORDERABLES Fin al Result [facility] [address] [place] [address], [place] [phone] * (ABNORMAL) Testosterone free, bioavailable and total (07/19/2024 5:06 PM EST) Testosterone 175(L) 229 - 902 ng/dL LAB CHEMISTRY METHOD 07/19/2024 7:[address] [facility] Testosterone, Free 5.2 4.6 - 22.4 ng/dL LAB CHEMISTRY METHOD 07/19/2024 7:[address] [facility] Testosterone, Bioavailable 114 110 - 575 ng/dL LAB CHEMISTRY METHOD 07/19/2024 7:50 PM [facility] Sex Hormone Binding 13.7 See Comment nmol/L LAB CHEMISTRY METHOD 07/19/2024 7:[address] [facility] Comment: FEMALES: ??pre-menopausal ?? 10.8 [...] LAB CHEMISTRY METHOD 07/19/2024 7:[address] [facility] Blood Venous blood specimen / Unknown Venipuncture / Unknown 07/19/2024 5:06 PM EST 07/19/2024 5:06 PM EST Melquiades WEEKS LAB BLOOD ORDERABLES Fin al Result Performing Organization Address [facility]/ZIP Co de Phone Number [facility] [address] [place] [address], [place] [phone] * Treponema pallidum antibody with reflex to RPR and particle agglutination (07/19/2024 5:06 PM EST) Pathologist [facility] T. Pallidum Antibodies Negative Negative LAB CHEMISTRY METHOD 07/19/2024 8:00 PM [facility] Blood Venous blood specimen / Unknown Venipuncture / Unknown 07/19/2024 5:06 PM EST 07/19/2024 5:06 PM EST Melquiades WEEKS LAB BLOOD ORDERABLES Fin al Result Performing Organization Address [facility]/ZIP Co de Phone Number [facility] [address] [place] [address], [place] [phone] * Basic metabolic panel (07/19/2024 5:06 PM EST) [facility] Sodium 136 133 - 145 mmol/L LAB CHEMISTRY METHOD 07/19/2024 7:36 PM [facility] Potassium 3.9 3.5 - 5.5 mmol/L LAB CHEMISTRY METHOD 07/19/2024 7:36 PM [facility] Chloride 103 96 - 110 mmol/L LAB CHEMISTRY METHOD 07/19/2024 7:36 PM [facility] CO2 26 21 - 32 mmol/L LAB CHEMISTRY METHOD 07/19/2024 7:36 PM [facility] Anion Gap 7 3 - 11 LAB CHEMISTRY METHOD 07/19/2024 7:36 PM [facility] Glucose 98 70 - 100 mg/dL LAB CHEMISTRY METHOD 07/19/2024 7:36 PM [facility] BUN 11 5 - 25 mg/dL LAB CHEMISTRY METHOD 07/19/2024 7:36 PM [facility] Creatinine 0.94 0.70 - 1.30 mg/dL LAB CHEMISTRY METHOD 07/19/2024 7:36 PM [facility] eGFR 99 >=60 mL/min/1. 73m2 LAB CHEMISTRY METHOD 07/19/2024 7:[address] [facility] Comment:Calculation based on the??Chronic Kidney Disease Epidemiology Collaboration (CKD-EPI) equation refit??without adjustment for race. BUN/Creatinine Ratio 11.7 LAB CHEMISTRY METHOD 07/19/2024 7:36 PM [facility] Calcium 9.3 8.5 - 10.5 mg/dL LAB CHEMISTRY METHOD 07/19/2024 7:36 PM [facility] Blood Venous blood specimen / Unknown Venipuncture / Unknown 07/19/2024 5:06 PM EST 07/19/2024 5:06 PM EST Melquiades WEEKS LAB BLOOD ORDERABLES Fin al Result [facility] [address] [place] [address], * Hemoglobin A1c (07/19/2024 5:06 PM EST) Hemoglobin A1C 5.3 <6.5 % LAB CHEMISTRY METHOD 07/19/2024 9:[address] [facility] Mean Bld Glu Estim. 105 mg/dL LAB CHEMISTRY METHOD 07/19/2024 9:16 PM [facility] Blood Venous blood specimen / Unknown Venipuncture / Unknown 07/19/2024 5:06 PM EST 07/19/2024 5:06 PM EST Melquiades WEEKS LAB BLOOD ORDERABLES Fin al Result Performing Organization Address City/[facility]/ZIP Co de Phone Number [facility] [address] [place] [address], [place] [phone] * Thyroid stimulating hormone (07/19/2024 5:06 PM EST) TSH 0.70 0.40 - 4.00 mcIU/mL LAB CHEMISTRY METHOD 07/19/2024 7:[address] [facility] Blood Venous blood specimen / Unknown Venipuncture / Unknown 07/19/2024 5:06 PM EST 07/19/2024 5:06 PM EST Melquiades WEEKS LAB BLOOD ORDERABLES Fin al Result Performing Organization Address [facility]/ZIP Co de Phone Number [facility] [address] [place] [address], [place] [phone] * Complete blood count (07/19/2024 5:06 PM EST) Pathologist [facility] WBC 9.2 4.8 - 10.8 K/mcL LAB HEMETOLOGY METHOD 07/19/2024 6:54 PM [facility] RBC 5.20 4.50 - 5.50 M/mcL LAB HEMETOLOGY METHOD 07/19/2024 6:54 PM [facility] Hemoglobin 15.4 13.5 - 17.5 g/dL LAB HEMETOLOGY METHOD 07/19/2024 6:54 PM [facility] Hematocrit 45.8 42.0 - 54.0 % LAB HEMETOLOGY METHOD 07/19/2024 6:54 PM [facility] MCV 87.4 79.0 - 98.0 FL LAB HEMETOLOGY METHOD 07/19/2024 6:54 PM [facility] MCH 29.4 27.0 - 32.0 pcg LAB HEMETOLOGY METHOD 07/19/2024 6:[address] [facility] MCHC 33.6 32.0 - 37.0 g/dL LAB HEMETOLOGY METHOD 07/19/2024 6:[address] [facility] RDW 12.5 11.0 - 15.0 % LAB HEMETOLOGY METHOD 07/19/2024 6:[address] [facility] Platelets 393 130 - 400 K/mcL LAB HEMETOLOGY METHOD 07/19/2024 6:[address] [facility] MPV 10.0 7.0 - 11.0 FL LAB HEMETOLOGY METHOD 07/19/2024 6:[address] [facility] NRBC 0.0 <1.0 % LAB HEMETOLOGY METHOD 07/19/2024 6:[address] [facility] NRBC Absolute 0.00 <0.10 K/mcL LAB HEMETOLOGY METHOD 07/19/2024 6:[address] [facility] Blood Venous blood specimen / Unknown Venipuncture / Unknown 07/19/2024 5:06 PM EST 07/19/2024 5:06 PM EST us Melquiades WEEKS LAB BLOOD ORDERABLES Fin al Result [facility] [address] [place] [address], * Vitamin B6 (07/19/2024 5:06 PM EST) Vitamin B6 (Pyridoxine) Level 15 5 - 50 ug/L 07/23/2024 10:28 AM EST [facility] Comment: This test was developed and the performance characteristics determined by [facility]. It has not been cleared or approved by the FDA. The laboratory is regulated under CLIA as qualified to perform high-complexity testing. This test is used for patient testing purposes. It should not be regarded as investigational or for research. Test performed at [facility], [address] [place], [place] ??[address] ? [phone] Geraldine Kern MD, PhD - K 9 Handler/ Deputy Blood Venous blood specimen / Unknown Venipuncture / Unknown 07/19/2024 5:06 PM EST 07/19/2024 5:06 PM EST Melquiades WEEKS LAB BLOOD ORDERABLES Fin al Result Performing Organization Address [facility] Co de Phone Number [facility] [address] [place] [address] * Vitamin B1 (07/19/2024 5:06 PM EST) [facility] Vitamin B1 Whole Blood 58 38 - 122 ug/L 07/23/2024 7:57 AM EST [facility] Comment: This test was developed and the performance characteristics determined by [facility]. It has not been cleared or approved by the FDA. The laboratory is regulated under CLIA as qualified to perform high-complexity testing. This test is used for patient testing purposes. It should not be regarded as investigational or for research. Test performed at [facility], [address] [place], [place] ??[address] ? [phone] Geraldine Kern MD, PhD - K 9 Handler/ Deputy Blood Venous blood specimen / Unknown Venipuncture / Unknown 07/19/2024 5:06 PM EST 07/19/2024 5:06 PM EST Melquiades WEEKS LAB BLOOD ORDERABLES Fin al Result Performing Organization Address [facility] de Phone Number [facility] [address] [place] [address] documented in this encounter Visit Diagnoses Diagnosis [...] 07/19/2024 documented in this encounter Care Teams Parking Lot Attendant Relationship Specialty Start Date End Date Venancio Camilo MD [address] [place] [address] PCP - General Internal Medicine 12/09/14 documented as of this encounter
--- OUTSIDE RECORDS SUMMARY | 2024-08-18 08:30 | XMS_ITS | Encounter Summary ---
Author Organization [facility] Address [address] [facility] [address] [place] [address] Phone Care Team Providers Care Wood Drill Operator Name Role Phone Venancio Camilo MD Primary Care Provider [phone] Encounter Details Date Type Department Care Team (Late st Contact Info) Description 07/05/2024 Office Communication [facility] [address] [phone] María Clifton MA [address] [facility] [address] [place] [address] Social History Tobacco Use Types [...] [facility] [address] [facility] [address] [place] [phone] Chasity Kaufman ARNP [address] [address] documented as of this encounter Visit Diagnoses Not on filedocumented in this encounter Care Teams Wood Drill Operator Relationship Specialty Start Date End Date Venancio Camilo MD [address] [place] [id number] PCP - General 07/03/20 documented as of this encounter
--- OUTSIDE RECORDS SUMMARY | 2024-08-18 08:30 | XMS_ITS | Encounter Summary ---
Author Organization [facility] [facility] Address [address] [facility] [address] [place] [address] Care Team Providers Care Miner Operator Name Role Phone Unavailable Primary Care Provider Unavailabl e Encounter Details Date Type Department Care Team (Latest Contact Info) Description 03/21/2021 Abstract [facility] CONVERSIONS Dental, Provider, DDS Social History Tobacco [...]
--- OUTSIDE RECORDS SUMMARY | 2024-08-18 08:30 | XMS_ITS | Clinical Summary ---
Author Organization [employer] Address [address] [facility] [address] [place] [address] Care Team Providers Care Licensed Bondsman Name Role Phone Unavailable Primary Care Provider [...]
--- OUTSIDE RECORDS SUMMARY | 2024-08-18 08:30 | XMS_ITS | Clinical Summary ---
Author Organization Patient Business Ser [facility] Address [address] [place] [address] Care Team Providers Care Weld Inspector Name Role Phone Venancio Camilo MD Primary Care Provider [phone] Allergies Active Allergy Reactions Criticality Noted Date Comments Lisinopril Diarrhea,Nausea And Vomiting 020 Medications LORazepam (ATIVAN) 2 mg tablet TAKE 1 TABLET BY MOUTH 3 TIMES PER DAY NEEDED FOR ANXIETY 1 Active QUEtiapine (SEROquel) 25 mg tablet Take 1 tablet (25 mg total) by mouth at bedtime. Active Vitamin D3 50 mcg (2,000 unit) capsuleIndicat ions:Scrotal pain,Right lower quadrant pain TAKE 1 CAPSULE BY MOUTH EVERY DAY 90 capsule 5 Active losartan (COZAAR) 25 mg tablet Take 1 tablet (25 mg total) by mouth 1 (one) time each day. 5 026 Active blood pressure test kit-large kit USE ASA DIRECTED ONCE A DAY 5 Active diclofenac (VOLTAREN) 1 % topical gel 4 025 Discontinued amLODIPine (NORVASC) 2.5 mg tablet 1 025 Discontinued psyllium (Metamucil, with sugar,) 3.4 gram packetIndicati ons:RUQ pain Take 1 packet by mouth 1 (one) time each day. Mix and drink with at least 8 ounces of water or juice. 30 packet 11 5 025 Discontinued omeprazole (PriLOSEC) [address] capsuleIndicat ions:Heartburn Take 1 capsule (20 mg total) by mouth 1 (one) time each day. 30 each 11 5 025 Discontinued Active Problems Problem Noted Date Diagnosed Date Abdominal pain 05/07/2024 Epigastric pain 05/07/2024 Hemorrhoids 05/07/2024 Rectal bleed 05/07/2024 Straining with stools 05/07/2024 Tubular adenoma of colon 05/07/2024 Allergic rhinitis 07/31/2022 Liver hemangioma 03/06/2022 H. pylori infection 01/19/2021 Hypertension 11/09/2019 Overview (05/07/2024): Please see most recent note with practice physician/hypertension specialist, Dr. Burkett December 2020. Nephrology is aware of patient's discontinuation of Norvasc/blood pressure medication Fatty liver 05/04/2015 SRI (obstructive sleep apnea) 11/23/2014 Known medical problems 09/07/2014 Overview (05/07/2024): Sleep-related hypoventilation Hepatitis C antibody test positive 10/05/2013 Overview (05/07/2024): Hepatitis C viral load is undetectable on September 2013. The patient explains to me that he was treated for 6 months for hepatitis at [facility]. Anxiety 04/14/2013 Overview (05/07/2024): Patient has [...] continuous leave. 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 I explained to the patient that I typically do not complete long-term relief with thing such as anxiety and depression. He was encouraged to bring this form to his psychiatrist who will be seeing next week. I discussed the signs and symptoms that warrant emergent evaluation. I gave the patient the information for [facility] in [place] should he develop any crisis symptoms. He [...] Encounters Date Type Department Care Team Description 08/16/2024 11:30 AM EST Consult Endocrinology - [address] [phone] Pratik Dumont MD Low testosterone (Primary Dx); Memory changes 08/09/2024 3:30 PM EST Office Visit Adult Medicine [address] [phone] Melquiades Villasenor PA Dysuria (Primary Dx) 08/04/2024 Telephone Gastroenterology - [address] [phone] Chasity Roy MA 07/29/2024 Telephone Adult Medicine [address] [phone] Venancio Camilo MD Dry Mouth 07/28/2024 10:15 AM EST - 07/28/2024 11:59 PM EST Hospital Encounter [facility] Ultrasound [address] [place] [phone] RUQ pain Discharge Disposition: Home or Self Care 07/19/2024 4:00 PM EST Office Visit Adult [address] [phone] Melquiades Villasenor PA Routine general medical examination at a health care facility (Primary Dx); Anxiety; Memory difficulties; Urinary symptom or sign; Chronic low back pain, unspecified back pain laterality, unspecified whether sciatica present 07/13/2024 Telephone Gastroenterology - [address] [phone] Cherelle Muhammad MA 07/12/2024 Telephone Gastroenterology - [address] [place] [phone] Neeru Loyola MD 07/09/2024 2:10 PM EST Lab Draw Station - [address] [place] [phone] Heartburn; Weight loss, unintentional 07/09/2024 1:20 PM EST Office Visit Gastroenterology - [address] [place] [phone] Irma Pimentel PA Weight loss, unintentional (Primary Dx); Heartburn; RUQ pain 06/15/2024 8:00 AM EST Office Visit Adult [address] [phone] Melquiades Villasenor PA Urinary frequency (Primary Dx); Anxiety 06/15/2024 Telephone Adult [address] [phone] Venancio Camilo MD from Last 3 Months Immunizations Name Administration Dates Next Due Influenza Quadravalent, MDCK , 0.5ml, with preservative (Flucelvax) 6mo and older 05/07/2017 Influenza trivalent, 0.5mL, preservative free (Fluarix; FluLaval; Fluzone) ages 6mo and older (Afluria) 3 years and older 04/17/2015,04/15/2014 Tdap Tetanus diptheria acell ular pertussis (Boostrix; Adacel) 7yo and older 07/01/2023,04/14/2013 Surgical History Surgery Date Site/Laterality Comments OTHER SURGICAL HISTORY PROCEDURE: [place] EXCISION MULLERIAN DUCT CYST; COMMENT: testicular cyst [...] Father Hypertension Mother Floria Other: anxiety Mother Mariah Other: prediabetes Mother Mariah Breast cancer Sister [...] Pulse 67 08/16/2024 11:29 AM EST Temperature 36.5 ??C (97.7 ??F) 08/09/2024 3:16 PM ES T Respiratory Rate 14 08/09/2024 3:16 PM EST Oxygen Saturation 98% 08/09/2024 3:16 PM EST Inhaled Oxygen Concentration - - Weight 81.5 kg (179 lb 9.6 oz) 08/16/2024 11:29 AM EST Height 180.3 cm (5' 11 ) 08/09/2024 3:16 PM EST Body Mass Index 25.05 08/09/2024 3:16 PM EST Plan of Treatment Upcoming Encounters Date Type Department Care Team (Late st Contact Info) Description 08/20/2024 11:00 AM EST Office Visit Gastroenterology - 299 [facility] [address] [facility] [address] [facility] [address] [place] [phone] Irma Pimentel PA [address] [facility] [address] [facility] [address] [place] [address] 09/09/2024 11:00 AM EDT Telemedicine [facility] [address] [place] [phone] Patria Davila MD [address] [place] [phone] 10/14/2024 11:15 AM EDT Office Visit Endocrinology - [address] [phone] Pratik Dumont MD [address] [place] [phone] 11/09/2024 9:30 AM EDT Office Visit Adult Medicine [address] [phone] Melquiades Villasenor PA [address] [place], [place] Health Maintenance Due Date Last Done Comments Hepatitis A Vaccines (1 of 2 - Risk 2-dose series) 1994 Hepatitis B Vaccines (1 of 3 - 19+ 3-dose series) 1994 Pneumococcal Vaccine: Pediatrics (0 to 5 Years) and At-Risk Patients (6 to 64 Years) (1 of 2 - PCV) 1994 Social Influencers of Health Screening 07/25/2020 COVID-19 Vaccine (2023-2 5 season) 2024 Influenza Vaccine (#1) 2024 [...] 02/18/2026 Cholesterol Screening (Lipid Panel) 07/02/2028 07/02/2023 DTaP,Tdap,and [...] Procedure Name Priority Date/Time Associated Diagnosis Comments SANCHEZ URINE CULTURE TUBE Routine 08/09/2024 4:07 PM EST Dysuria URINALYSIS WITH REFLEX MICROSCOPIC AND CULTURE Routine 08/09/2024 4:07 PM EST Dysuria URINALYSIS WITH REFLEX MICROSCOPIC AND CULTURE Routine 08/09/2024 4:07 PM EST Dysuria CHLAMYDIA TRACHOMATIS AND NEISSERIA GONORRHOEAE PCR Routine 08/09/2024 4:07 PM EST Dysuria US ABDOMEN LIMITED Routine 07/28/2024 11 :16 [...] Routine 12/02/2023 HEPATITIS C SCREENING Routine 07/02/2023 HIV SCREENING Routine 07/02/2023 LIPID PANEL Routine 07/02/2023 DEPRESSION SCREENING Routine 07/01/2023 from Last 3 Months or Most Recently Relevant to Health Maintenance Results * (ABNORMAL) Urinalysis with reflex microscopic and culture (08/09/2024 4:07 PM EST) Only the most recent of3 resultswithin the time period is included. Specific [place] Urine 1.010 1.003 - 1.030 LAB URINALYSIS - AUTOMATED METHOD 08/09/2024 6:45 PM [facility] pH, Urine 6.0 5.0 - 8.0 pH LAB URINALYSIS - AUTOMATED METHOD 08/09/2024 6:45 PM [facility] Leukocytes, Urine Negative Negative LAB URINALYSIS - AUTOMATED METHOD 08/09/2024 6:45 PM [facility] Nitrite, Urine Negative Negative LAB URINALYSIS - AUTOMATED METHOD 08/09/2024 6:45 PM [facility] Protein, Urine Negative <=Trace mg/dL LAB URINALYSIS - AUTOMATED METHOD 08/09/2024 6:45 PM [facility] Glucose, Urine Negative Negative mg/dL LAB URINALYSIS - AUTOMATED METHOD 08/09/2024 6:45 PM [facility] Ketones, Urine 15(A) Negative mg/dL LAB URINALYSIS - AUTOMATED METHOD 08/09/2024 6:45 PM [facility] Urobilinogen, Urine 0.2 0.2 - 1.0 mg/dL LAB URINALYSIS - AUTOMATED METHOD 08/09/2024 6:45 PM [facility] Bilirubin, Urine Negative Negative LAB URINALYSIS - AUTOMATED METHOD 08/09/2024 6:45 PM EST [facility] Blood, Urine Negative Negative LAB URINALYSIS - AUTOMATED METHOD 08/09/2024 6:45 PM [facility] Urine Urine specimen obtained by clean catch procedure / Unknown Non-blood Collection / Unknown 08/09/2024 4:07 PM EST 08/09/2024 4:07 PM EST Melquiades WEEKS LAB URINE ORDERABLES Fin al Result Performing Organization Address [facility] Co de Phone Number [facility] [address] [place] [address], [place] [phone] * Sanchez urine culture tube (08/09/2024 4:07 PM EST) Only the most recent of3 resultswithin the time period is included. Pathologist [facility] Extra Tube Hold for add-ons. 08/09/2024 7:01 PM [facility] Comment:Auto resulted. Urine Urine specimen obtained by clean catch procedure / Unknown Non-blood Collection / Unknown 08/09/2024 4:07 PM EST 08/09/2024 4:07 PM EST Melquiades WEEKS LAB URINE ORDERABLES Fin al Result Performing Organization Address [facility] de Phone Number [facility] [address] [place] [address], [place] [phone] * Chlamydia trachomatis and Neisseria gonorrhoeae molecular study (08/09/2024 4:07 PM EST) Neisseria gonorrhoeae PCR Negative Negative LAB MOLECULAR DIAGNOSTICS METHOD 08/10/2024 10:53 AM EST [facility] Chlamydia trachomatis PCR Negative Negative LAB MOLECULAR DIAGNOSTICS METHOD 08/10/2024 10:53 AM [facility] Swab Urine specimen / Unknown Non-blood Collection / Unknown 08/09/2024 4:07 PM EST 08/09/2024 4:07 PM EST us Melquiades WEEKS LAB MICROBIOLOGY - GENER AL ORDERABLES Final Result MARISSA [facility] [address] [place] [address], [place] [phone] * [place] Abdomen Limited (07/28/2024 11:16 AM EST) Anatomical Region Laterality Modality Body Ultrasound 07/28/2024 3:58 PM EST Impressions 07/28/2024 4:00 PM EST Similar 14 mm hepatic hemangioma. -------- FINAL REPORT -------- Dictated By: Bharat Kaminski Dictated Date: 07/28/2024 15:58 ET Assigned Physician: Bharat Kaminski Reviewed and Electronically Signed By: Bharat Kaminski Signed Date: 07/28/2024 16:00 ET Workstation ID: [id number] Transcribed By: Self Edit Transcribed Date: 07/28/2024 [...] Signed Date: 07/28/2024 16:00 ET Workstation ID: [id number] Transcribed By: Self Edit Transcribed Date: 07/28/2024 15:58 ET us Irma WEEKS IMG US PROCEDURES Final Result * Prostate specific antigen screen (07/27/2024 8:39 AM EST) PSA 0.75 0.00 - 4.00 ng/mL LAB CHEMISTRY METHOD 07/27/2024 12:19 PM EST [facility] Blood Venous blood specimen / Unknown Venipuncture / Unknown 07/27/2024 8:39 AM EST 07/27/2024 8:39 AM EST Narrative [facility] - 07/27/2024 12:19 PM EST The Siemens Advia Centaur Chemiluminescent Immunoassay is used. Results obtained with different assay methods or kits cannot be used interchangeably. Results cannot be interpreted as absolute evidence of the presence or absence of malignant disease. us Melquiades WEEKS LAB BLOOD ORDERABLES Fin al Result [facility] [address] [place] [address], * (ABNORMAL) Testosterone free, bioavailable and total (07/27/2024 8:39 AM EST) Only the most recent of2 resultswithin the time period is included. Testosterone 175(L) 229 - 902 ng/dL LAB CHEMISTRY METHOD 07/27/2024 12:13 PM [facility] Testosterone, Free 5.2 4.6 - 22.4 ng/dL LAB CHEMISTRY METHOD 07/27/2024 12:13 PM [facility] Testosterone, Bioavailable 116 110 - 575 ng/dL LAB CHEMISTRY METHOD 07/27/2024 12:13 PM [facility] Sex Hormone Binding 13.0 See Comment nmol/L LAB CHEMISTRY METHOD 07/27/2024 12:13 PM [facility] Comment: FEMALES: ??pre-menopausal ?? 10.8 [...] g/dL LAB CHEMISTRY METHOD 07/27/2024 12:13 PM [facility] Blood Venous blood specimen / Unknown Venipuncture / Unknown 07/27/2024 8:39 AM EST 07/27/2024 8:39 AM EST us Melquiades WEEKS LAB BLOOD ORDERABLES Fin al Result [facility] [address] [place] [address], * Treponema pallidum antibody with reflex to RPR and particle agglutination (07/19/2024 5:06 PM EST) T. Pallidum Antibodies Negative Negative LAB CHEMISTRY METHOD 07/19/2024 8:00 PM EST [facility] Blood Venous blood specimen / Unknown Venipuncture / Unknown 07/19/2024 5:06 PM EST 07/19/2024 5:06 PM EST us Melquiades WEEKS LAB BLOOD ORDERABLES Fin al Result [facility] [address] [place] [address], [place] [phone] * Complete blood count (07/19/2024 5:06 PM EST) [facility] WBC 9.2 4.8 - 10.8 K/mcL LAB [...] LAB HEMETOLOGY METHOD 07/19/2024 6:54 PM EST [facility] NRBC 0.0 <1.0 % LAB HEMETOLOGY METHOD 07/19/2024 6:54 PM EST [facility] NRBC Absolute 0.00 <0.10 K/mcL LAB HEMETOLOGY METHOD 07/19/2024 6:54 PM EST [facility] Blood Venous blood specimen / Unknown Venipuncture / Unknown 07/19/2024 5:06 PM EST 07/19/2024 5:06 PM EST Melquiades WEEKS LAB BLOOD ORDERABLES Fin al Result Performing Organization Address City/[facility]/ZIP Co de Phone Number [facility] [address] [place] [address], [place] [phone] * Thyroid stimulating hormone (07/19/2024 5:06 PM EST) [facility] TSH 0.70 0.40 - 4.00 mcIU/mL LAB CHEMISTRY METHOD 07/19/2024 7:47 PM EST [facility] Blood Venous blood specimen / Unknown Venipuncture / Unknown 07/19/2024 5:06 PM EST 07/19/2024 5:06 PM EST Melquiades WEEKS LAB BLOOD ORDERABLES Fin al Result [facility] [address] [place] [address], [place] [phone] * Vitamin B1 (07/19/2024 5:06 PM EST) Pathologist [facility] Vitamin B1 Whole Blood 58 38 - 122 ug/L 07/23/2024 7:57 AM EST [facility] Comment: This test was developed and the performance characteristics determined by [facility]. It has not been cleared or approved by the FDA. The laboratory is regulated under CLIA as qualified to perform high-complexity testing. This test is used for patient testing purposes. It should not be regarded as investigational or for research. Test performed at [facility], [address] [place], [place] ??[address] ? [phone] Geraldine Kern MD, PhD - Stamp Presser Blood Venous blood specimen / Unknown Venipuncture / Unknown 07/19/2024 5:06 PM EST 07/19/2024 5:06 PM EST Melquiades WEEKS LAB BLOOD ORDERABLES Fin al Result Performing Organization Address City/[facility]/ZIP Co de Phone Number [facility] [address] [place] [address] * Vitamin B6 (07/19/2024 5:06 PM EST) Pathologist [facility] Vitamin B6 (Pyridoxine) Level 15 5 - 50 ug/L 07/23/2024 10:28 AM EST [facility] Comment: This test was developed and the performance characteristics determined by [facility]. It has not been cleared or approved by the FDA. The laboratory is regulated under CLIA as qualified to perform high-complexity testing. This test is used for patient testing purposes. It should not be regarded as investigational or for research. Test performed at [facility], [address], [place] ??[address] ? [phone] Geraldine Kern MD, PhD - Stamp Presser Blood Venous blood specimen / Unknown Venipuncture / Unknown 07/19/2024 5:06 PM EST 07/19/2024 5:06 PM EST Melquiades WEEKS LAB BLOOD ORDERABLES Fin al Result [facility] [address] [place] [address] * Hemoglobin A1c (07/19/2024 5:06 PM EST) Pathologist [facility] Hemoglobin A1C 5.3 <6.5 % LAB CHEMISTRY METHOD 07/19/2024 9:16 PM [facility] Mean Bld Glu Estim. 105 mg/dL LAB CHEMISTRY METHOD 07/19/2024 9:16 PM [facility] Blood Venous blood specimen / Unknown Venipuncture / Unknown 07/19/2024 5:06 PM EST 07/19/2024 5:06 PM EST us Melquiades WEEKS LAB BLOOD ORDERABLES Fin al Result [facility] [address] [place] [address], [place] [phone] * Basic metabolic panel (07/19/2024 5:06 PM [...] ORDERABLES Fin al Result Performing Organization Address [facility]/ZIP Co de Phone Number [facility] [address] [place] [address], [place] [phone] * Vitamin B12 and folate (07/09/2024 2:36 PM EST) Pathologist [facility] Vitamin B-12 401 250 - 900 pcg/mL LAB CHEMISTRY METHOD 07/09/2024 10:02 PM [facility] Folate 11.1 2.8 - 17.0 ng/ml LAB CHEMISTRY METHOD 07/09/2024 10:02 PM [facility] Blood Venous blood specimen / Unknown Venipuncture / Unknown 07/09/2024 2:36 PM EST 07/09/2024 9:35 PM EST Irma WEEKS LAB BLOOD ORDERABLES Final Resu lt [facility] [address] [place] [address], [place] [phone] * CBC auto differential (07/09/2024 2:36 PM EST) WBC 8.7 4.8 - 10.8 K/mcL LAB HEMETOLOGY METHOD 07/09/2024 4:05 PM EST [facility] RBC 5.30 4.50 - 5.50 M/mcL LAB HEMETOLOGY METHOD 07/09/2024 4:05 PM [facility] Hemoglobin 15.3 13.5 - 17.5 g/dL LAB HEMETOLOGY METHOD 07/09/2024 4:05 PM [facility] Hematocrit 46.4 42.0 - 54.0 % LAB HEMETOLOGY METHOD 07/09/2024 4:05 PM [facility] MCV 87.7 79.0 - 98.0 FL LAB HEMETOLOGY METHOD 07/09/2024 4:05 PM [facility] MCH 28.9 27.0 - 32.0 pcg LAB HEMETOLOGY METHOD 07/09/2024 4:05 PM [facility] MCHC 33.0 32.0 - 37.0 g/dL LAB HEMETOLOGY METHOD 07/09/2024 4:05 PM [facility] RDW 12.6 11.0 - 15.0 % LAB HEMETOLOGY METHOD 07/09/2024 4:05 PM [facility] Platelets 397 130 - 400 K/mcL LAB HEMETOLOGY METHOD 07/09/2024 4:05 PM [facility] MPV 9.4 7.0 - 11.0 FL LAB HEMETOLOGY METHOD 07/09/2024 4:05 PM [facility] NRBC 0.0 <1.0 % LAB HEMETOLOGY METHOD 07/09/2024 4:05 PM [facility] NRBC Absolute 0.00 <0.10 K/mcL LAB HEMETOLOGY METHOD 07/09/2024 4:05 PM [facility] Neutrophils Relative 67.1 % LAB HEMETOLOGY METHOD 07/09/2024 4:05 PM [facility] Lymphocytes Relative 26.4 % LAB HEMETOLOGY METHOD 07/09/2024 4:05 PM [facility] Monocytes Relative 5.5 % LAB HEMETOLOGY METHOD 07/09/2024 4:05 PM [facility] Eosinophils Relative 0.2 % LAB HEMETOLOGY METHOD 07/09/2024 4:05 PM [facility] Basophils Relative 0.6 % LAB HEMETOLOGY METHOD 07/09/2024 4:05 PM [facility] Immature Granulocytes Relative 0.2 % LAB HEMETOLOGY METHOD 07/09/2024 4:05 PM [facility] Neutrophils Absolute 5.83 1.50 - 7.00 K/mcL LAB HEMETOLOGY METHOD 07/09/2024 4:05 PM [facility] Lymphocytes Absolute 2.30 1.00 - 5.00 K/mcL LAB HEMETOLOGY METHOD 07/09/2024 4:05 PM [facility] Monocytes Absolute 0.48 0.20 - 1.00 K/mcL LAB HEMETOLOGY METHOD 07/09/2024 4:05 PM [facility] Eosinophils Absolute 0.02 0.00 - 0.50 K/mcL LAB HEMETOLOGY METHOD 07/09/2024 4:05 PM [facility] Basophils Absolute 0.05 0.00 - 0.20 K/mcL LAB HEMETOLOGY METHOD 07/09/2024 4:05 PM [facility] Immature Granulocytes Absolute 0.02 0.00 - 0.03 K/mcL LAB HEMETOLOGY METHOD 07/09/2024 4:05 PM [facility] Blood Venous blood specimen / Unknown Venipuncture / Unknown 07/09/2024 2:36 PM EST 07/09/2024 4:05 PM EST us Irma WEEKS LAB BLOOD ORDERABLES Final Resu lt [facility] [address] [place] [address], [place] [phone] * Helicobacter pylori breath test (07/09/2024 2:36 PM EST) [facility] H Pylori Breath Test Negative Negative LAB CHEMISTRY METHOD 07/10/2024 1:19 PM EST [facility] Breath Oral cavity structure / Unknown Non-blood Collection / Unknown 07/09/2024 2:36 PM EST 07/10/2024 11:25 AM EST Irma WEEKS LAB BODY FLUIDS AND STOOLS ORDE RABLES Final Result Performing Organization Address City/[facility]/ZIP Co de Phone Number [facility] [address] [place] [address], [place] [phone] * Vitamin D 1,25 dihydroxy (07/09/2024 2:36 PM EST) [facility] Vitamin D, 1, 25-Dihydroxy 77 20 - 79 pg/mL 07/12/2024 9:28 PM EST [facility] Comment: Vitamin D 1, 25 dihydroxy levels should be primarily used to assess Vitamin D status in patients with renal disease and hypercalcemia. Vitamin D 1,25-dihydroxy levels are generally less than 5 pg/mL in end stage renal disease patients. The preferred initial test for assessing Vitamin D status in the general population is Vitamin D 25-hydroxy (VITD). Test performed at [facility], [address] , [place], [place] ??[address] ? [phone] Geraldine Kern MD, PhD - Stamp Presser Blood Venous blood specimen / Unknown Venipuncture / Unknown 07/09/2024 2:36 PM EST 07/09/2024 3:37 PM EST us Irma WEEKS LAB BLOOD ORDERABLES Final Resu lt [facility] [address] [place] [address] * Comprehensive metabolic panel (07/09/2024 2:36 PM EST) Sodium 135 133 - 145 mmol/L LAB CHEMISTRY METHOD 07/09/2024 9:35 PM [facility] Potassium 4.4 3.5 - 5.5 mmol/L LAB CHEMISTRY METHOD 07/09/2024 9:35 PM [facility] Chloride 102 96 - 110 mmol/L LAB CHEMISTRY METHOD 07/09/2024 9:35 PM [facility] CO2 29 21 - 32 mmol/L LAB CHEMISTRY METHOD 07/09/2024 9:35 PM [facility] Anion Gap 4 3 - 11 LAB CHEMISTRY METHOD 07/09/2024 9:35 PM [facility] Glucose 95 70 - 100 mg/dL LAB CHEMISTRY METHOD 07/09/2024 9:35 PM [facility] BUN 10 5 - 25 mg/dL LAB CHEMISTRY METHOD 07/09/2024 9:35 PM [facility] Creatinine 1.09 0.70 - 1.30 mg/dL LAB CHEMISTRY METHOD 07/09/2024 9:35 PM [facility] eGFR 83 >=60 mL/min/1. 73m2 LAB CHEMISTRY METHOD 07/09/2024 9:35 PM [facility] Comment:Calculation based on the??Chronic Kidney Disease Epidemiology Collaboration (CKD-EPI) equation refit??without adjustment for race. BUN/Creatinine Ratio 9.2 LAB CHEMISTRY METHOD 07/09/2024 9:35 PM [facility] Calcium 9.1 8.5 - 10.5 mg/dL LAB CHEMISTRY METHOD 07/09/2024 9:35 PM [facility] AST (SGOT) 11 10 - 42 unit/L LAB CHEMISTRY METHOD 07/09/2024 9:35 PM [facility] ALT (SGPT) 21 10 - 60 unit/L LAB CHEMISTRY METHOD 07/09/2024 9:35 PM EST [facility] Alkaline Phosphatase 98 42 - 121 unit/L LAB CHEMISTRY METHOD 07/09/2024 9:35 PM EST [facility] Total Protein 7.7 6.0 - 8.0 g/dL LAB CHEMISTRY METHOD 07/09/2024 9:35 PM EST [facility] Albumin 4.1 3.2 - 5.0 g/dL LAB CHEMISTRY METHOD 07/09/2024 9:35 PM EST [facility] Total Bilirubin 0.7 0.0 - 1.4 mg/dL LAB CHEMISTRY METHOD 07/09/2024 9:35 PM EST [facility] Blood Venous blood specimen / Unknown Venipuncture / Unknown 07/09/2024 2:36 PM EST 07/09/2024 9:35 PM EST Irma WEEKS LAB BLOOD ORDERABLES Final Resu lt [facility] [address] [place] [address], * Urine Albumin Creatinine Ratio (12/02/2023) [facility] Urine Albumin Creatinine Ratio abstracted Historical Provider HEALTH MAINTENANCE Final Result * HIV Screening (07/02/2023) [facility] HIV Screening abstracted Historical Provider HEALTH MAINTENANCE Final Result * Hepatitis C Screening (07/02/2023) [facility] Hepatitis C Screening abstracted Historical Provider HEALTH MAINTENANCE Final Result * (ABNORMAL) Lipid panel (07/02/2023) [facility] LDL/HDL Ratio 5(A) 0 - 4 Triglycerides 179(A) 0 - 150 mg/dL Cholesterol 185 0 - 200 mg/dL HDL 37(A) >=40 mg/dL LDL Cholesterol 113(A) 0 - 100 mg/dL Blood Venous blood specimen / Unknown us Historical Provider LAB BLOOD ORDERABLES Key l Result * Depression Screening (07/01/2023) Depression Screening abstracted us Historical Provider HEALTH MAINTENANCE Final Result from Last 3 Months or Most Recently Relevant to Health Maintenance Insurance [facility] Care Teams Weld Inspector Relationship Specialty Start Date End Date Venancio Camilo MD [address] [place] [address] PCP - General Internal Medicine 12/09/14
--- OUTSIDE RECORDS SUMMARY | 2024-08-18 08:31 | XMS_ITS | Encounter Summary ---
Author Organization [facility] Address [address] [place] [address] Care Team Providers Care System Auditor Name Role Phone Venancio Camilo MD Primary Care Provider [phone] Reason for Referral * Imaging (Routine) - Closed Specialty Diagnoses / Procedures Referred By Contac t Referred To Contact Radiology Diagnoses RUQ pain Procedures US Abdomen Limited Irma Pimentel PA [address] [address] Phone: tel: fax: [address] [address] Phone: tel: Referral ID Status Reason Start Date Expiration Date Visits Re quested Visits Authorized [id number] Closed 07/09/2024 07/09/2025 1 1 Reason for Visit * Imaging (Routine) - Closed Specialty Diagnoses / Procedures Referred By Contac t Referred To Contact Radiology Diagnoses RUQ pain Procedures US Abdomen Limited Irma Pimentel PA [address] [address] Phone: tel: fax: [address] [address] Phone: tel: Referral ID Status Reason Start Date Expiration Date Visits Re quested Visits Authorized [id number] Closed 07/09/2024 07/09/2025 1 1 Encounter Details Date Type Department Care Team (Latest Contact Info) Description 07/28/2024 10:15 AM EST - 07/28/2024 11:59 PM EST Hospital Encounter [facility] Ultrasound [address] [place] [address] RUQ pain Discharge Disposition: Home [...] this encounter Medications at Time of Discharge blood pressure test kit-large kit USE ASA DIRECTED ONCE A DAY 07/14/2024 LORazepam (ATIVAN) 2 mg tablet TAKE 1 TABLET BY MOUTH 3 TIMES PER DAY NEEDED FOR ANXIETY 08/25/2020 losartan (COZAAR) 25 mg tablet Take 1 tablet (25 mg total) by mouth 1 (one) time each day. 07/06/2024 07/06/2025 QUEtiapine (SEROquel) 25 mg tablet Take 1 tablet (25 mg total) by mouth at bedtime. Vitamin D3 50 mcg (2,000 unit) capsuleIndicatio ns:Scrotal pain,Right lower quadrant pain TAKE 1 CAPSULE BY MOUTH EVERY DAY 90 capsule 06/28/2024 amLODIPine (NORVASC) 2.5 mg tablet 06/04/2021 08/09/2024 diclofenac (VOLTAREN) 1 % topical gel 02/04/2024 08/09/2024 omeprazole (PriLOSEC) [address] capsuleIndicatio ns:Heartburn Take 1 capsule (20 mg total) by mouth 1 (one) time each day. 30 each 11 07/12/2024 08/09/2024 psyllium (Metamucil, with sugar,) 3.4 gram packetIndication s:RUQ pain Take 1 packet by mouth 1 (one) time each day. Mix and drink with at least 8 ounces of water or juice. 30 packet 11 07/09/2024 08/09/2024 documented as of this encounter Discharge Disposition Disposition Code Departure Means Destination Home or Self Care documented in this encounter Progress Notes * MICKY Workman - 07/28/2024 10:30 AM EST U/S reveals hepatic hemangioma, unchanged since 2021 U/S. Otherwise unremarkable study. F/u as scheduled. * MICKY Workman - 07/28/2024 10:30 AM EST Marshallese speaking only. I am unsure what type [...] liver with ultrasound in 6months-1 year * MICKY Workman - 07/28/2024 10:30 AM EST Patient speaks telugu. Please relay the following information: I am [...] liver with ultrasound in 6months-1 year * MICKY Workman - 07/28/2024 10:30 AM EST I sent to [facility] for an [place] to call back. Thanks. documented in this encounter Plan of Treatment Upcoming Encounters Date Type Department Care Team (Late st Contact Info) Description 08/20/2024 11:00 AM EST Office Visit Gastroenterology - [address] [facility] [address] [place] [address] Irma Pimentel PA [address] [place] [address] 09/09/2024 11:00 AM EDT Telemedicine [facility] [address] [facility] [address] [place] [phone] Patria Davila MD [address] [place] [address] 10/14/2024 11:15 AM EDT Office Visit Endocrinology [address] [phone] Pratik Dumont MD 5 [place] [address] 11/09/2024 9:30 AM EDT Office Visit [facility] - [address] [phone] Melquiades Villasenor PA [address] [place] [address] documented as of this encounter Procedures Procedure [...] Signed Date: 07/28/2024 16:00 ET Workstation ID: [id number] Transcribed By: Self Edit Transcribed Date: 07/28/2024 [...] Signed Date: 07/28/2024 16:00 ET Workstation ID: [id number] Transcribed By: Self Edit Transcribed Date: 07/28/2024 15:58 ET us Irma WEEKS IMG US PROCEDURES Final Result documented in this encounter Visit Diagnoses Diagnosis RUQ pain Abdominal pain, right upper quadrant documented in this encounter Care Teams System Auditor Relationship Specialty Start Date End Date Venancio Camilo MD 4 [place] [address] PCP - General Internal Medicine 12/09/14 documented as of this encounter
--- OUTSIDE RECORDS SUMMARY | 2024-08-18 08:31 | XMS_ITS | Encounter Summary ---
Author Organization [facility] Address [address] [facility] 200 [place] [address] Phone Care Team Providers Care Packager Head Name Role Phone Venancio Camilo MD Primary Care Provider [phone] Encounter Details Date Type Department Care Team (Late st Contact Info) Description 11/02/2021 Documentation Only [facility] [address] [facility] [address] [place] [address] Jesus Bull MD [address] [place] [phone] Social History Tobacco Use Types Packs/Day Years [...] Visit [facility] [address] [address] Chasity Kaufman ARNP 355 [facility] [address] [place] [address] documented as of this encounter Visit Diagnoses Not on filedocumented in this encounter Care Teams Packager Head Relationship Specialty Start Date End Date Venancio Camilo MD [address] [place] [address] PCP - General 07/03/20 documented as of this encounter
--- OUTSIDE RECORDS SUMMARY | 2024-08-18 08:31 | XMS_ITS | Encounter Summary ---
Author Organization [facility] Address [address] [facility] [address] [place] [address] Phone Care Team Providers Care Sales Representative Publications Name Role Phone Venancio Camilo MD Primary Care Provider [phone] Encounter Details Date Type Department Care Team (Late st Contact Info) Description 10/26/2021 Documentation Only [facility] [address] [facility] [address] [place] [address] Jesus Bull MD [address] [place] [phone] Social History Tobacco Use Types Packs/Day Years [...] Visit [facility] [address] [address] Chasity Kaufman ARNP [address] [facility] 204 [place] [address] documented as of this encounter Visit Diagnoses Not on filedocumented in this encounter Care Teams Sales Representative Publications Relationship Specialty Start Date End Date Venancio Camilo MD [address] [place] [address] PCP - General 07/03/20 documented as of this encounter
--- OUTSIDE RECORDS SUMMARY | 2024-08-18 08:31 | XMS_ITS | Clinical Summary ---
Author Organization [facility] Address [address] [place] [address] Care Team Providers Care Manager Of Distribution Name Role Phone Diana Velázquez MD Primary Care Provider [phone] Social History Tobacco Use Types Packs/Day Years [...] age to complete this topic Care Teams Manager Of Distribution Relationship Specialty Start Date End Date Diana Velázquez MD [address] [place] [address] PCP - General 07/02/22
--- OUTSIDE RECORDS SUMMARY | 2024-08-18 08:32 | XMS_ITS | Encounter Summary ---
Author Organization [facility] Address [address] [facility] 200 [place] [address] Phone Care Team Providers Care Pneumatic Systems Operator Name Role Phone Venancio Camilo MD Primary Care Provider [phone] Encounter Details Date Type Department Care Team (Late st Contact Info) Description 08/14/2022 Documentation Only [facility] [address] [facility] [address] [place] [address] Daniella Darnell [place] Social History Tobacco Use Types Packs/Day Years [...] Visit [facility] [address] [address] Chasity Kaufman ARNP [address] [address] documented as of this encounter Visit Diagnoses Not on filedocumented in this encounter Care Teams Pneumatic Systems Operator Relationship Specialty Start Date End Date Venancio Camilo MD [address] [place] [address] PCP - General 07/03/20 documented as of this encounter
--- OUTSIDE RECORDS SUMMARY | 2024-08-18 08:32 | XMS_ITS | Clinical Summary ---
Author Organization [facility] Address [address] [address] Phone Care Team Providers Care Psychologist Research Assistant Name Role Phone Venancio Camilo MD Primary Care Provider [phone] Allergies Active Allergy Reactions Criticality Noted Date Comments Lisinopril Diarrhea,Nausea And Vomiting 020 Medications LORazepam (ATIVAN) 2 MG tablet TAKE 1 TABLET BY MOUTH 3 TIMES PER DAY NEEDED FOR ANXIETY 1 Active QUEtiapine (SEROquel) 25 MG tablet TAKE 1 3 TABLETS BY MOUTH AT BEDTIME. 1 Active losartan (Cozaar) 25 MG tabletIndicatio ns:Hypertension Take 1 tablet (25 mg total) by mouth 1 (one) time each day 30 tablet 11 5 07/06/19 26 Active Blood Pressure Monitoring (Omron 3 Series BP Monitor) deviceIndicatio ns:Hypertension 1 Device 1 (one) time each day 1 each 5 Active cholecalciferol (VITAMIN D-3 SUPER STRENGTH) 50 MCG (2000 UT) tablet Take 1 tablet by mouth 1 (one) time each day 3 07/26/19 25 Discontinu ed(Med List Maintenanc e) Active Problems Problem Noted Date Diagnosed Date [...] treated for 6 months for hepatitis at [facility]. Anxiety 04/14/2013 Overview (11/04/2022): Patient has a psychiatrist. Dr Mares? Nephrolithiasis 04/14/2012 Overview (08/14/2022): CT 04/01 2mm nonobstructing left stone Encounters Date Type Department Care Team Description 07/26/2024 11:45 AM EST [facility] Visit [facility] [address] [address] Chasity Kaufman ARNP Hypertension (Primary Dx) 07/06/2024 11:45 AM EST Office Visit [facility] [address] [address] Chasity Kaufman ARNP Hypertension (Primary Dx); Vitamin D deficiency, not otherwise specified; Type 2 diabetes mellitus with hyperglycemia (HCC) 07/05/2024 Office Communication [facility] [address] [address] María Clifton [place] 06/21/2024 11:45 AM EST Office Visit [facility] [address] [address] Chasity Kaufman ARNP Hypertension (Primary Dx) 06/21/2024 Refill [facility] [address] [address] Chasity Kaufman ARNP Hypertension 06/08/2024 3:45 PM EST Office Visit [facility] [address] [address] Chasity Kaufman ARNP Vitamin D deficiency, not [...] Office Visit [facility] [address] [address] Chasity Kaufman ARNP [address] [phone] Health Maintenance Due Date Last Done Comments [...] 9.3 8.7 - 10.7 mg/dL eGFR Non-Afr Belarusian 99 07/19/2024 us Historical Provider LAB BLOOD ORDERABLES Key l Result * Urine Protein / creatinine ratio (06/21/2024 12:51 PM EST) Creatinine, Ur 175.5 Not Estab. mg/dL [facility] Protein, Ur 11.2 Not Estab. mg/dL [facility] Urine Protein/Creatin ine Ratio 64 0 - 200 mg/g creat [facility] Urine (Urine, Clean Catch) 06/21/2024 12:51 PM EST 06/21/[address] [facility] LAB URINE ORDERABLES Final Result Performing Organization Address [facility] de Phone Number [facility] [employer] [facility] [address] [place] [address] * Urine Albumin / Creatinine Ratio (06/21/2024 12:51 PM EST) Urine Microalbumin 9.8 Not Estab. ug/mL [facility] Microalbumin/Crea tinine Ratio 6 0 - 29 mg/g creat [facility] Comment: ? Normal: ?0 - ??29 ? Moderately increased: 30 - 300 ? Severely increased: ? >300 Urine (Urine, Clean Catch) 06/21/2024 12:51 PM EST 06/21/2024 Chasity [facility] LAB URINE ORDERABLES Final Result Performing Organization Address [facility] de Phone Number Mil[employer] [facility] [address] [place] [address] * (ABNORMAL) Renal function panel (06/21/2024 12:51 PM EST) Glucose 142(H) 70 - 99 mg/dL [facility] BUN 13 6 - 24 mg/dL [facility] Creatinine 0.97 0.76 - 1.27 mg/dL [facility] eGFR CKD-EPI CR 2020 96 >59 mL/min/1.7 3 [facility] BUN/Creatinine Ratio 13 9 - 20 [facility] Sodium 139 134 - 144 mmol/L [facility] Potassium 4.1 3.5 - 5.2 mmol/L [facility] Chloride 100 96 - 106 mmol/L [facility] Bicarbonate (CO2) 22 20 - 29 mmol/L [facility] Calcium 9.8 8.7 - 10.2 mg/dL [facility] Albumin 4.6 4.1 - 5.1 g/dL [facility] Phosphorus 2.7(L) 2.8 - 4.1 mg/dL [facility] Blood (Blood, Venous) 06/21/2024 12:51 PM EST 06/21/[address] [facility] LAB BLOOD ORDERABLES Final Result [facility] [address] [place] [address] * Hemoglobin A1c (09/11/2021 3:57 PM EDT) [facility] Hemoglobin A1C 5.3 (4.0-5.6) % [facility] Comment: MONITORING: In known diabetic patients, hemoglobin A1c targets should be discussed with health care provider. DIAGNOSTIC USE: ??The [place] Diabetes Association (ADA) and the World Health [...] 1 Testing performed or reported by [facility], a Service of [facility], [address] [place] [address] Katlyn Holley MD, Natural Resource Specialist [facility]# [id number] 09/11/2021 3:57 PM EDT 09/11/2021 3:59 PM EDT us Jesus Bull MD LAB BLOOD ORDERABLES Final Re sult [facility] from Last 3 Months or Most Recently Relevant to Health Maintenance Insurance [facility] MEDICAID Care Teams Psychologist Research Assistant Relationship Specialty Start Date End Date Venancio Camilo MD [address] [place] [phone] PCP - General 07/03/20
--- OUTSIDE RECORDS SUMMARY | 2024-08-18 08:32 | XMS_ITS | Encounter Summary ---
Author Organization [facility] Address [address] [place] [address] Care Team Providers Care Renewals Specialist Name Role Phone Venancio Camilo MD Primary Care Provider [phone] Reason for Visit * Reason Onset Date Comments Dry Mouth 07/29/2024 Encounter Details Date Type Department Care Team ([facility] st Contact Info) Description 07/29/2024 Telephone Adult Medicine [facility] [address] [place] [address] Venancio Camilo MD [address] [place] [address] Dry Mouth Social History Tobacco Use Types [...] you call back and if he doesn't poultry picker to please call right back * [...] traveled recently to another state outside of [place], [place], [place], [place], [place], [place], [place]? no o If yes, did you quarantine [...] yes, gather 3rd libertarian insurance information Third Libertarian Information: not applicable PCP: Venancio Camilo MD Payor: [employer] PLAN / Plan: [employer] QHP / Product Type: *No Product type* / documented in this encounter Plan of Treatment Upcoming Encounters Date Type Department Care Team (Late st Contact Info) Description 08/20/2024 11:00 AM EST Office Visit Gastroenterology - [address] [place] [phone] Irma Pimentel PA [address] [place] [address] 09/09/2024 11:00 AM EDT Telemedicine [facility] [address] [facility] [address] [place] [phone] Patria Davila MD [address] [place] [address] 10/14/2024 11:15 AM EDT Office Visit Endocrinology - [address] [phone] Pratik Dumont MD [address] [place] [address] 11/09/2024 9:30 AM EDT Office Visit [facility] - [address] [phone] Melquiades Flanagan PA [address] [place], [place] documented as of this encounter Visit Diagnoses Not on filedocumented in this encounter Care Teams Renewals Specialist Relationship Specialty Start Date End Date Venancio Camilo MD [address] [place] [address] PCP - General Internal Medicine 12/09/14 documented as of this encounter
--- OUTSIDE RECORDS SUMMARY | 2024-08-18 08:32 | XMS_ITS | Encounter Summary ---
Author Organization [facility] Address [address] [place] [address] Phone Care Team Providers Care Broach Grinder Name Role Phone Venancio Camilo MD Primary Care Provider [phone] Encounter Details Date Type Department Care Team (Late Contact Info) Description 05/20/2022 Telephone [facility] [address] [place] [address] Jesus Bull MD [address] [place] [address], [address] [address] Social History Tobacco Use Types Packs/Day Years [...] about it. Please call him back at [phone] Thank you documented in this encounter Plan of Treatment Upcoming Encounters Date Type Department Care Team (Late st Contact Info) Description 10/25/2024 10:45 AM EDT Office Visit [facility] [address] [address] Chasity Kaufman ARNP [address] [address] documented as of this encounter Visit Diagnoses Not on filedocumented in this encounter Care Teams Broach Grinder Relationship Specialty Start Date End Date Venancio Camilo MD [address] [place] [address] PCP - General 07/03/20 documented as of this encounter
--- OUTSIDE RECORDS SUMMARY | 2024-08-18 08:32 | XMS_ITS | Encounter Summary ---
Author Organization [facility] Address [address] [facility] [address] [place] [address] Phone Care Team Providers Care Hot Blaster Name Role Phone Venancio Camilo MD Primary Care Provider Encounter Details Date Type Department Care Team (Late st Contact Info) Description 08/14/2022 Documentation Only [facility] [address] [facility] [address] [place] [address] Daniella Darnell [place] Social History Tobacco Use Types Packs/Day Years [...] Visit [facility] [address] [address] Chasity Kaufman ARNP [address] [address] documented as of this encounter Visit Diagnoses Not on filedocumented in this encounter Care Teams Hot Blaster Relationship Specialty Start Date End Date Venancio Camilo MD [address] [place] [address] PCP - General 07/03/20 documented as of this encounter
== END 2024-08-18 09:01 | disposition home or self-care (01) ==
LOC: HO.HUSH 08:12
PROVIDERS: PCP Internal Medicine; Visit Provider Nurse Practitioner Family
DX: N50.82 Scrotal pain (principal); E29.1 Testicular hypofunction; N50.819 Testicular pain, unspecified
CPT/HCPCS: 99214

== ENCOUNTER 2025-06-08 18:08 | Inpatient (IN) | payer OTHER, SELFPAY ==
--- OUTSIDE RECORDS SUMMARY | 2025-05-30 14:20 | XMS_ITS | Encounter Summary ---
Author Organization [facility] Address [address] [place] [address] Care Team Providers Care [employer] Name Role Phone Venancio Camilo MD Primary Care Provider [phone] Reason for Visit * Auth/Cert (Routine) Specialty Diagnoses / Procedures Referred By Anna stern Referred To Contact Diagnoses Suicide attempt (CMS/HCC V24, CMS/HCC V28) Depression Procedures [facility] IP/OBS CARE SUBSEQUENT MODERATE LEVEL PER DAY Salbador Davila DO [address] [place] [phone] Phone: tel: fax: [facility] [address] [place] [address] Referral ID Status Reason Start Date Expiration Date Visits Re quested Visits Authorized [id number] 1 1 Encounter Details Date Type Department Care Team (Latest Contact Info) Description 05/30/2025 2:20 PM EST - 06/08/2025 5:05 PM EST Hospital Encounter [facility] [address] [place] [address] Salbador Davila DO [address] [place] [phone] Mirella Boswell MD [address] [place] [phone] Severe episode of recurrent major depressive disorder, with psychotic features (CMS/HCC V24, CMS/HCC V28); Unspecified dementia, unspecified severity, without behavioral disturbance, psychotic disturbance, mood disturbance, and anxiety ([facility] V24, [facility] V28); Type 2 diabetes mellitus with hyperglycemia ([facility] V24, [facility] V28); Diabetes mellitus with circulatory complication ([facility] V24, [facility] V28) Discharge Disposition: Home or Self Care Social History Tobacco Use Types Packs/Day Years Used Date Smoking Tobacco: Former Cigarettes Smokeless Tobacco: Never Alcohol Use Standard Drinks/Week Comments No 0 (1 standard drink = 0.6 oz pur e alcohol) Housing Instability Answer Date Recorde d Are you worried that in the next 2 months you may not have stable housing? No 05/18/2025 Food Access & Nutrition Answer Date Rec orded Do you have access to a vari ety of food including fruits and vegetables? Yes 05/18/2025 Access to Healthcare Answer Date Record ed Within the last 3 months, ho w many times did you visit the emergency department for your medical care? 3 05/18/2025 Health Literacy Answer Date Recorded How often do you need to hav e someone help you when you read instructions, pamphlets, or other written material from your doctor or pharmacy? Never 05/18/2025 Caregiver: How often do you need to have someone help you when you read instructions, pamphlets, or other written material from your doctor or pharmacy? Not on file 05/18/2025 Financial Risk Answer Date Recorded How hard is it for you to pa y for the very basics like food, housing, medical care, and air conditioning / heating? Not very hard 05/18/2025 Transportation Answer Date Recorded Has the lack of transportati on kept you from meetings, work, or from getting things needed for daily living? No Has the lack of transportati on kept you from medical appointments or from getting medications? No 05/18/2025 Social Isolation Answer Date Recorded How often do you feel lonely or isolated from th ose around you? Always 05/18/2025 Food Risk Answer Date Recorded Within the past 12 months we worried whether our food would run out before we got money to buy more. Not asked 06/01/2025 Within the past 12 months th e food we bought just didn't last and we didn't have money to get more. Not asked 06/01/2025 Dependent Care Answer Date Recorded Do you need help finding or paying for care for your loved ones. For example, early childhood education worker or elderly care for an older adult? No 05/18/2025 Education Answer Date Recorded Do you think completing more education or training, like finishing a GED, going to college, or learning a trade, would be helpful for you? No 05/18/2025 Employment and Income Answer Date Recor ded During the last four weeks, have you been actively looking for work? No 05/18/2025 Living Situation Answer Date Recorded What is your living situation? Unrecognized valu e 05/18/2025 Interpersonal Safety Answer Date Record ed Physical Abuse Unrecognized value 05/30/2025 Verbal Abuse Unrecognized value 05/30/2025 Sex and Gender Information Value Date Recorded Sex Assigned at Male 07/15/2024 1:15 PM EST Legal Sex Male 5:08 PM EST Gender Identity Male 07/15/2024 1:15 PM EST Sexual Orientation Straight 07/15/2024 1 :15 PM EST documented as of this encounter Last Filed Vital Signs Vital Sign Reading Time Taken Comments Blood Pressure 123/99 06/08/2025 8:04 AM EST Pulse 97 06/08/2025 8:04 AM EST Temperature 36.4 C (97.5 F) 06/08/2025 8:04 AM EST Respiratory Rate 18 06/08/2025 8:04 AM EST Oxygen Saturation 100% 06/08/2025 8:04 AM EST Inhaled Oxygen Concentration - - Weight 54.2 kg (119 lb 6.4 oz) 06/06/2025 2:18 P M EST Height 180.3 cm (5' 11 ) 05/30/2025 3:35 PM EST Body Mass Index 16.65 05/30/2025 3:35 PM EST documented in this encounter Functional Status * Actual/Potential Lethality (Most Lethal Attempt) Question Answer Date of Assessment Author Actual Lethality/Medical Dam age Code (Most Lethal Attempt) 3 05/31/2025 7:45 PM EST Marnie Garcia RN Most Lethal Attempt Date [address] 05/31/2025 7:45 PM EST Marnie Garcia RN * Calculated C-SSRS Risk Score (Lifetime/Recent) Answer Date of Assessment Author High Risk 05/30/2025 3:00 PM EST Prasad Peña RN * [place] Suicide Severity Rating Scale (Screener/Recent Self-Report) Question Answer Date of Assessment Author 1. Wish to be (Past 1 Month) Yes 05/30/2025 3:00 PM Suzi Hernandez RN 2. Non-Specific Active Suicidal Thoughts (Past 1 Month) No 05/30/2025 3:00 PM Suzi Hernandez RN 3. Active Suicidal Ideation with any Methods (Not Plan) Without Intent to Act (Past 1 Month) Yes 05/30/2025 3:00 PM Suzi Hernandez RN 4. Active Suicidal Ideation with Some Intent to Act, Without Specific Plan (Past 1 Month) No 05/30/2025 3:00 PM Suzi Hernandez RN 5. Active Suicidal Ideation with Specific Plan and Intent (Past 1 Month) No 05/30/2025 3:00 PM Suzi Hernandez RN 6. Suicidal Behavior (Lifetime) Yes 05/30/2025 3:00 PM Suzi Hernandez RN 6. Suicidal Behavior (3 Months) Yes 05/30/2025 3:00 PM Suzi Hernandez RN documented as of this encounter Discharge Summaries * Reji Jones MD - 06/08/2025 4:41 PM EST Healthy * Reji Jones MD - 06/08/2025 4:41 PM EST As tolerated documented in this encounter Discharge Instructions * Discharge Instructions* Reji Jones MD - 06/08/2025 4:41 PM EST Discharge instructions Recommended outpatient psychiatric and primary care follow-up for continuity of care. Medication education was provided, emphasizing compliance, potential side effects, risks, benefits,and proper dosing. Follow up with recommended labs as discussed during this hospitalization and outpatient medical care as deemed necessary. Take all medications as prescribed, unless instructed otherwise by your outpatient treatment providers. Refrain from use of alcohol or any illicit drugs while on medication due to an associated risk of medication interaction and risk of accidental self injury including but not limited to . Do not drive or operate machinery or engage in activities that require alertness if feeling sleepy or confused on medications. In the event of a psychiatric emergency, contact 911 or visit the nearest emergency room immediately. Call a 24-hour suicide prevention hotline at 988 or the National Suicide Prevention Lifeline for immediate support. Alternatively, dial 211 to connect with local mental health resources. * Attachments The following attachments cannot be sent through Care Everywhere. * Suicide Safety Plan: General Info (Swazi) * Suicidal Thoughts (Swazi) * Depression: Treatment (Swazi) * Depression: Chronic Disease (Swazi) * Quetiapine (Swazi) documented in this encounter Medications at Time of Discharge amLODIPine (NORVASC) 2.5 mg tabletIndications :Deffer to PCP. Please discuss with PCP before taking it ( Home medication) Take 1 tablet (2.5 mg total) by mouth 1 (one) time each day. 02/06/2025 blood pressure test kit-large kit USE ASA DIRECTED ONCE A DAY 07/14/2024 calcium carbonate (TUMS) 500 mg (200 mg elemental calcium) chewable tablet Chew 2 tablets (1,000 mg total) 4 (four) times a day if needed for indigestion or heartburn. 05/30/2025 6 hydrocortisone-pr amoxine (PROCTOFOAM-HS) rectal foam Insert 1 applicator into the rectum 2 (two) times a day for 10 days. 05/30/2025 5 multivitamin tablet Take 1 tablet by mouth 1 (one) time each day. 30 each 06/09/2025 6 pantoprazole (PROTONIX) 40 mg EC tabletIndications :duodenal ulcer,maintenance of healing erosive esophagitis Take 1 tablet (40 mg total) by mouth 2 (two) times a day before meals. Do not crush, chew, or split. 60 each 06/09/2025 6 QUEtiapine (SEROquel) 25 mg tablet Take 3 tablets (75 mg total) by mouth at bedtime. 90 each 06/09/2025 6 documented as of this encounter Ordered Prescriptions Prescription Sig Dispense Quantity Refills Last Filled Start Date End Date multivitamin tablet Take 1 tablet by mouth 1 (one) time each day. 30 each 06/09/2025 QUEtiapine (SEROquel) 25 mg tablet Take 3 tablets (75 mg total) by mouth at bedtime. 90 each 06/09/2025 pantoprazole (PROTONIX) 40 mg EC tabletIndications: duodenal ulcer,maintenance of healing erosive esophagitis Take 1 tablet (40 mg total) by mouth 2 (two) times a day before meals. Do not crush, chew, or split. 60 each 06/09/2025 6 documented in this encounter Discharge Disposition Disposition Code Departure Means Destination Comment s Home or Self Care Car Home documented in this encounter Progress Notes * Layla Pulliam RN - 06/08/2025 5:33 PM EST ` Discharge Progress Note Patient was discharged to home. Patient left the unit ambulatory and was transported by family. Follow up care will be done by [facility], appointments given for 06/14/25. Patient's current mental status isstable and patient denies suicidal ideation and homicidal ideation. Discharge instructions and presc riptions were reviewed with patient who verbalized understanding. Patient declined Influenza immunization on this date. Copy of After Visit Summary reviewed and provided to patient. Patient verbalized and acknowledged understanding. Patient was given a list of resource telephone numbers and how to access help for crisis intervention. Medication administration will be managed by patient. All personal property was returned to the patient. Copy of AVS given to patient. Patient discharged from [facility] at 1705 accompanied by [facility]. Layla Pulliam RN 06/08/2025 5:33 PM EST * Layla Pulliam RN - 06/08/2025 3:59 PM EST Problem: Safety: Suicide Risk Goal: Will remain free from injury to self 06/08/2025 155 by Layla Morataya RN Outcome: Completed 06/08/2025 1558 by Layla Morataya RN Outcome: Adequate for Discharge Problem: Safety: Suicide Risk Goal: Will remain free from injury to self 06/08/2025 1559 by Layla Morataya RN Outcome: Completed 06/08/2025 1558 by Layla Morataya RN Outcome: Adequate for Discharge Problem: Self Concept: Suicide Risk Goal: Will verbalize positive feelings about self 06/08/2025 1559 by Layla Morataya RN Outcome: Completed 06/08/2025 1558 by Layla Morataya RN Outcome: Adequate for Discharge Goals: Identify possible barriers to meeting goals/advancing plan of care: Stability of the patient: Moderately Unstable - Medium risk of patient condition declining or worsening End of Shift Summary: * Layla Pulliam RN - 06/08/2025 3:58 PM EST Problem: Safety: Suicide Risk Goal: Will remain free from injury to self Outcome: Adequate for Discharge Problem: Safety: Suicide Risk Goal: Will remain free from injury to self Outcome: Adequate for Discharge Problem: Self Concept: Suicide Risk Goal: Will verbalize positive feelings about self Outcome: Adequate for Discharge Goals: Identify possible barriers to meeting goals/advancing plan of care: Stability of the patient: Moderately Unstable - Medium risk of patient condition declining or worsening End of Shift Summary: * RAMAN Bennett - 06/08/2025 3:45 PM EST Behavioral Health Group Note Group Date: 06/08/2025 Start Time: 1400 End Time: 1500 Facilitators: RAMAN Bennett Department: [facility] 8W Group Topic: Art Therapy Number of Participants: 9 Topics discussed: You Are a Falls: Decorate Your Falls Chest Summary: This directive builds self-esteem, internal validation, and recognition of intrinsic worth. It reframes self-value away from appearance and toward character, strengths, and inner qualities. Name: Rolan Esteban Date of : 1975 MR: [id number] Patients Problems: Patient Active Problem List Diagnosis Abdominal pain Allergic rhinitis Anxiety Epigastric pain Fatty liver H. pylori infection Hemorrhoids Hepatitis C antibody test positive Hypertension Liver hemangioma Nephrolithiasis SRI (obstructive sleep apnea) Rectal bleed Straining with stools Tubular adenoma of colon Known medical problems Irritable bowel syndrome with constipation Suicide attempt (CMS/HCC V24, CMS/HCC V28) Severe episode of recurrent major depressive disorder, with psychotic features (CMS/HCC V24, CMS/HCC V28) Severe malnutrition (CMS/HCC V24) OCD (obsessive compulsive disorder) Participation: Did not attend. Reason: Preparing for discharge * RAMAN Bennett - 06/08/2025 12:41 PM EST Behavioral Health Group Note Group Date: 06/08/2025 Start Time: 0900 End Time: 1000 Facilitators: RAMAN Bennett Department: [facility] 8W Group Topic: Art Therapy Number of Participants: 10 Topics discussed: I Am What I Choose to Be Summary: This directive allows the participants to reflect on their ability to shape their identityand future by exploring choices and aspirations through art. Name: Rolan Esteban Date of : 1975 MR: [id number] Patients Problems: Patient Active Problem List Diagnosis Abdominal pain Allergic rhinitis Anxiety Epigastric pain Fatty liver H. pylori infection Hemorrhoids Hepatitis C antibody test positive Hypertension Liver hemangioma Nephrolithiasis SRI (obstructive sleep apnea) Rectal bleed Straining with stools Tubular adenoma of colon Known medical problems Irritable bowel syndrome with constipation Suicide attempt (CMS/HCC V24, CMS/HCC V28) Severe episode of recurrent major depressive disorder, with psychotic features (CMS/HCC V24, CMS/HCC V28) Severe malnutrition (CMS/HCC V24) OCD (obsessive compulsive disorder) Participation: Did not attend. Reason: Refused * Buddy Chan - 06/08/2025 11:05 AM EST Behavioral Health Group Note Group Date: 06/08/2025 Start Time: 1100 End Time: 1130 Facilitators: Buddy Chan Department: [facility] 8W Group Topic: Mindful Meditation Number of Participants: 11 Topics discussed: Meditation Group Summary: Meditation Group Name: Rolan Esteban Date of : 1975 MR: [id number] Patients Problems: Patient Active Problem List Diagnosis Abdominal pain Allergic rhinitis Anxiety Epigastric pain Fatty liver H. pylori infection Hemorrhoids Hepatitis C antibody test positive Hypertension Liver hemangioma Nephrolithiasis SRI (obstructive sleep apnea) Rectal bleed Straining with stools Tubular adenoma of colon Known medical problems Irritable bowel syndrome with constipation Suicide attempt (CMS/HCC V24, CMS/HCC V28) Severe episode of recurrent major depressive disorder, with psychotic features (CMS/HCC V24, CMS/HCC V28) Severe malnutrition (CMS/HCC V24) OCD (obsessive compulsive disorder) Participation: Verbal Response to group: Verbalizes understanding of content * Buddy Chan - 06/08/2025 10:55 AM EST Behavioral Health Group Note Group Date: 06/08/2025 Start Time: 5 End Time: 1055 Facilitators: Buddy Chan Department: [facility] 8W Group Topic: Nutrition Number of Participants: 11 Topics discussed: Nutrition Group Summary: Nutrition Group Name: Rolan Esteban Date of : 1975 MR: [id number] Patients Problems: Patient Active Problem List Diagnosis Abdominal pain Allergic rhinitis Anxiety Epigastric pain Fatty liver H. pylori infection Hemorrhoids Hepatitis C antibody test positive Hypertension Liver hemangioma Nephrolithiasis SRI (obstructive sleep apnea) Rectal bleed Straining with stools Tubular adenoma of colon Known medical problems Irritable bowel syndrome with constipation Suicide attempt (CMS/HCC V24, CMS/HCC V28) Severe episode of recurrent major depressive disorder, with psychotic features (CMS/HCC V24, CMS/HCC V28) Severe malnutrition (CMS/HCC V24) OCD (obsessive compulsive disorder) Participation: Verbal Response to group: Verbalizes understanding of content * Lubna Cordoba LPC - 06/08/2025 10:15 AM EST PRIMARY THERAPIST DISCHARGE NOTE: Date of admission: 05/30/2025 Date of discharge: 06/08/2025 Admitting diagnosis: Hx of F42.9 OCD, F33.3 MDD; severe episode, with psychotic feat', recurrent, E43 Malnutrition; severe, T14.91XA SA Transportation mode: /Loyda will crop picker Discharge Location: Home: [address] [facility] [address] [place] [address] Course of treatment At the time of admission, patient was assessed by the attending psychiatrist. Patient was started on psychotropic medications. The medications were adjusted as deemed necessary. During patient's hospitalization, patient was cooperative with treatment. Patient participated in individual sessions. Patient attended unit groups and was compliant with medications. As treatment continued, patient's symptoms stabilized. Patient's aftercare plan includes: [facility] ([facility]) -[address] [place] [address] At the time of discharge, patient did not express thoughts or intent to harm self or others. Patient's protective factors include his family. Patient's affect is appropriate and mood stable. No thought form disturbance or perceptual disturbance noted. Patient refused smoking cessation referral. * Kiera Lara RN - 06/08/2025 6:09 AM EST Pt appeared to sleep throughout the night with no issues reported or observed. Safety maintained with 15 minute checks. * Kiera Lara RN - 06/07/2025 10:16 PM EST Problem: Safety: Suicide Risk Goal: Will remain free from injury to self Outcome: Progressing Problem: Safety: Suicide Risk Goal: Will remain free from injury to self Outcome: Progressing * RAMAN Bennett - 06/07/2025 3:16 PM EST Behavioral Health Group Note Group Date: 06/07/2025 Start Time: 1400 End Time: 1500 Facilitators: RAMAN Bennett Department: [facility] 8W Group Topic: Art Therapy Number of Participants: 10 Topics discussed: Capable [place] Summary: This directive helps with self-esteem, confidence-building, recovery work, executive functioning, trauma recovery, and empowerment themes. Name: Rolan Esteban Date of : 1975 MR: [id number] Patients Problems: Patient Active Problem List Diagnosis Abdominal pain Allergic rhinitis Anxiety Epigastric pain Fatty liver H. pylori infection Hemorrhoids Hepatitis C antibody test positive Hypertension Liver hemangioma Nephrolithiasis SRI (obstructive sleep apnea) Rectal bleed Straining with stools Tubular adenoma of colon Known medical problems Irritable bowel syndrome with constipation Suicide attempt (CMS/HCC V24, CMS/HCC V28) Severe episode of recurrent major depressive disorder, with psychotic features (CMS/HCC V24, CMS/HCC V28) Severe malnutrition (CMS/HCC V24) OCD (obsessive compulsive disorder) Participation: Did not attend. Reason: Refused * RAMAN Bennett - 06/07/2025 2:51 PM EST Behavioral Health Group Note Group Date: 06/07/2025 Start Time: 0900 End Time: 1000 Facilitators: RAMAN Bennett Department: [facility] 8W Group Topic: Art Therapy Number of Participants: 10 Topics discussed: Highlights of My Year Summary: This directive encourages self-reflection on personal values and accomplishments, highlighting what is important and how it shapes their sense of purpose Name: Rolan Esteban Date of : 1975 MR: [id number] Patients Problems: Patient Active Problem List Diagnosis Abdominal pain Allergic rhinitis Anxiety Epigastric pain Fatty liver H. pylori infection Hemorrhoids Hepatitis C antibody test positive Hypertension Liver hemangioma Nephrolithiasis SRI (obstructive sleep apnea) Rectal bleed Straining with stools Tubular adenoma of colon Known medical problems Irritable bowel syndrome with constipation Suicide attempt (CMS/HCC V24, CMS/HCC V28) Severe episode of recurrent major depressive disorder, with psychotic features (CMS/HCC V24, CMS/HCC V28) Severe malnutrition (CMS/HCC V24) OCD (obsessive compulsive disorder) Participation: Did not attend. Reason: Refused * Layla Pulliam RN - 06/07/2025 2:38 PM EST Problem: Self Concept: Suicide Risk Goal: Will verbalize positive feelings about self Outcome: Not Progressing Problem: Safety: Suicide Risk Goal: Will remain free from injury to self Outcome: Progressing Problem: Safety: Suicide Risk Goal: Will remain free from injury to self Outcome: Progressing Goals: Identify possible barriers to meeting goals/advancing plan of care: Stability of the patient: Moderately Unstable - Medium risk of patient condition declining or worsening End of Shift Summary: Patient visible in the milieu and presents with a calm affect, better eye contact. Appears comfortable but continues to endorse high anxiety and is using PRN Ativan and Seroquel with effect. Medication compliant with no ill effect. Patient is not reporting any anal or penis leakage. Patient attending to his ADLs and changed his bed linens. Patient remains safe on Q 15 minutes observation and is not reporting any SI/HI/AH/VH. * Lubna Cordoba LPC - 06/07/2025 12:57 PM EST Indv session Therapist met w/ pt for an Indv session. Pt observed in his room and engaged well. Pt observed active on the unit, taking walks and social with peers. Pt presents w/ a Improved mood and affect. Pt endorsed Anxiousness 10/10 and associated it to his discharge plan. His repeated question was around his accepting him back home. He stated she changes her decision each call he makes to her. He requested Therapist contact his . Therapist provided him an update on his 's contact from tx team. Therapist redirected him to a more calm discussion around aftercare plan. He stated having an interest in EMDR/ERP therapy-virtual or in-person. He stated in addition, wanting more inpatient care or residential care in the [facility]. Pt shown to be a historian and shared some similarmarital dynamics he and his twin have and stated his twin brother is local in [place]. Disc' medication therapy. He continues to be skeptical about his medications and was redirected to medication providers. Therapist encouraged open/honest communication and to ask all questions and concerns. He agreed. Pt denied any SI/HI/AH and/or plan or intent. Pt denied any harm to self or others. Aftercare plan Pt's /Loyda to crop picker patient time TBA. Pt to follow up with OP services [facility] and private therapist for online EMDR, DBT, Eating Disorders & Psychiatry services when appropriate. * Buddy Chan - 06/07/2025 11:02 AM EST Behavioral Health Group Note Group Date: 06/07/2025 Start Time: 1100 End Time: 1130 Facilitators: Buddy Chan Department: [facility] 8W Group Topic: Nutrition Number of Participants: 12 Topics discussed: Nutrition Group Summary: Nutrition Group Name: Rolan Esteban Date of : 1975 MR: [id number] Patients Problems: Patient Active Problem List Diagnosis Abdominal pain Allergic rhinitis Anxiety Epigastric pain Fatty liver H. pylori infection Hemorrhoids Hepatitis C antibody test positive Hypertension Liver hemangioma Nephrolithiasis SRI (obstructive sleep apnea) Rectal bleed Straining with stools Tubular adenoma of colon Known medical problems Irritable bowel syndrome with constipation Suicide attempt (CMS/HCC V24, CMS/HCC V28) Severe episode of recurrent major depressive disorder, with psychotic features (CMS/HCC V24, CMS/HCC V28) Severe malnutrition (CMS/HCC V24) OCD (obsessive compulsive disorder) Participation: Verbal Response to group: Verbalizes understanding of content * Amaris Brown NP - 06/07/2025 10:27 AM EST Images from the original note were not included. Author: Amaris Brown NP Filed: @CHICHIDATE@ Status: [facility] [address] [address] [facility] [id number] Date of admission: 05/30/2025 Principal Problem: Severe episode of recurrent major depressive disorder, with psychotic features (CMS/HCC V24, CMS/HCC V28) Psychiatry [facility] Progress Note Subjective: Patient seen for daily rounds and discussed with treatment team. Patient was up ambulating in and out of his room and in the hallway. He has a much calmer sense of affect. He brightens on approach. He makes good eye contact. Does not appear uncomfortable although verbalizes having strange electronic like shock sensations through his back and his legs. Patient was ambulating without any difficulty. While he continues to state that he does not believe he is any better it is noticed that he is significantly improved with regards to affect and energy level. While he continues to believe that he suffers from numerous GI illnesses that are yet to be understood he denied any pain. He denied any nausea or vomiting. He stated that he ate some of his breakfast although he limits what he eats by hisown choice. His vital signs remained stable. He openly acknowledges that despite his medical concerns he would never try to end his life and he is pleased that he will be going home with his . Hedenies any auditory or visual hallucinations. His medications have been adjusted during hospitalization and he has been compliant as well as denying any side effects from them. Patient has a difficult time verbalizing how the medications may be helping him as he does appear to want to convince the psychiatric treatment team that he is medically compromised. He remains fixated almost in a delusional fashion with regards to medical illnesses despite having numerous assessments and testing done while hospitalized showing no acute findings. While patient may suffer from occasional GI issues he does not appear to be disabled by them at the present time. He is pleased that his discharge plan is set for tomorrow and that he will be able to get back home and seek out his own outpatient services in the [facility] where he lives. Review of Systems Except as stated above all other systems are unremarkable Clinical Data Review Heart Rate: 87, Resp: 18, BP: 124/86 Temp: 36.9 ??C (98.4 ??F), SpO2: 100 % Height: 180.3 cm (71 ), Weight: 54.2 kg (119 lb 6.4 oz), BMI (Calculated): 16.7 No components found for: ECGQTC Data/Medical records reviewed/Labs/Imaging and Other Diagnostic Studies reviewed: No results found for this or any previous visit (from the past 48 hours). Psychiatric Specialty Examination: Mental Status Exam: General Appearance and Manner : In hospital attire, calm, cooperative, engaged, attentive Speech: Normal rate, rhythm, and volume Mood : Described as struggling with physical illness but mentally feeling better Affect : Brightens on approach Thought Process : No tangentiality or circumstantiality Thought Content : Denied paranoid ideation. No delusions were elicited. Suicidal Ideations/Homicidal Ideations/Violent Ideations : Denied any active suicidal ideation, intent, or plan. No homicidal or violent thoughts were reported Perceptual Disturbances : Denied any auditory, visual, or command hallucinations. Orientation : Alert and oriented to time, place, person, and situation Memory : Grossly intact Attention/Concentration : Able to participate in the interview without difficulty Judgment and Insight : Fair, reality based Musculoskeletal/AIMS : No abnormalities, abnormal movements, or catatonia were noted Problem List/Diagnoses: ( Active and Chronic) Patient Active Problem List Diagnosis Date Noted OCD (obsessive compulsive disorder) 06/02/2025 Severe malnutrition ([facility] V24) 06/01/2025 Severe episode of recurrent major depressive disorder, with psychotic features ([facility] V24, [facility] V28) 05/31/2025 Suicide attempt ([facility] V24, [facility] V28) 05/24/2025 Irritable bowel syndrome with constipation 08/20/2024 Abdominal pain 05/07/2024 Epigastric pain 05/07/2024 Hemorrhoids 05/07/2024 Rectal bleed 05/07/2024 Straining with stools 05/07/2024 Tubular adenoma of colon 05/07/2024 Allergic rhinitis 07/31/2022 Liver hemangioma 03/06/2022 H. pylori infection 01/19/2021 Hypertension 11/09/2019 Fatty liver 05/04/2015 SRI (obstructive sleep apnea) 11/23/2014 Known medical problems 09/07/2014 Hepatitis C antibody test positive 10/05/2013 Anxiety 04/14/2013 Nephrolithiasis 04/14/2012 Assessment /Treatment Plan: - Will continue current medication regimen as patient has visibly shown signs of significant improvement. Denies being suicidal or homicidal at present time. No longer exhibiting extreme anxiety thatinterferes with activities of daily living as it is clear that patient is managing these independently and without direction. Patient in agreement with tentative discharge date set for tomorrow planning on going home with his and continuing in outpatient services in [place] near home. - Continue Q:15 check for safety - Continue current inpatient stabilization - Patient continues to benefit from inpatient hospitalization for safety, stabilization and medication management. Medication Management: MEDSSCHEDULED[1] MEDSPRN[2] Psychotherapeutic interventions: The patient was encouraged to attend and participate schedule group sessions. Encouraged involvement in therapeutic activities. Psycho education/counseling done about presenting problems, diagnosis, and discussed rational for recommended medication along with discussion of risk, benefits and side effects of treatment vs non treatment. Patient agreed with plan and verbalized it. Labs/Radiology/Tests/Consultation Ordered: Reviewed labs as noted above. Note: This note was partly prepared by electronic dictation software and reasonable attempts were made to rectify errors. If you have any concerns regarding the error please contact this note teletypewriter operator for further clarification. Time spent on this encounter 25 minutes , with more than 50 % time spent in coordinating care and counseling. [1] clomiPRAMINE, 25 mg, oral, Nightly multivitamin, 1 each, oral, Daily pantoprazole, 40 mg, oral, BID AC QUEtiapine, 75 mg, oral, Nightly [2] PRN medications: acetaminophen, calcium carbonate, dibucaine, qaehrghcxzsppzv-phejsodu-pchqqzhuk-simethicone-lidocaine, hydrocortisone, lanolin gysrllg-vt-g.pet-ceres, LORazepam, melatonin, ondansetron (ZOFRAN-ODT) disintegrating tablet OR [DISCONTINUED] ondansetron, QUEtiapine * Guy Miller RN - 06/06/2025 9:32 PM EST PRN Melatonin 6 mg PO given for sleep, Seroquel 50 mg PO given for agitation- pending results. 0638: patient appears to slept all night with no issues. Patient remains safe on Q 15 minute checks. Problem: Safety: Suicide Risk Goal: Will remain free from injury to self Outcome: Progressing Problem: Safety: Suicide Risk Goal: Will remain free from injury to self Outcome: Progressing Problem: Self Concept: Suicide Risk Goal: Will verbalize positive feelings about self Outcome: Progressing * Celia Romanode, RD - 06/06/2025 4:47 PM EST Follow-Up Nutrition Assessment and Recommendations Patient: Rolan Esteban Sex: male : 1975 Clinical Summary: 50 y.o. male with PMH of tubular adenoma of the colon, nephrolithiasis, liver hemangioma, IBS, hep C, hemorrhoids, allergic rhinitis, depression who presented to the ED after OD attempt. States, I have OCD. Patient cut his own wrists and stab his neck, reports taking approximately 30 to 90 pills verapamil, meclizine, Motrin and drink a teaspoon of bleach. Current Diet Order: Dietary Orders (From admission, onward) Start Ordered 06/01/25 1445 Dietary nutrition supplements Two times daily (BID); 500 ATG Access; Standard Small Volume Continuous Comments: Mighty shake with lunch and dinner Question Answer Comment Frequency Two times daily (BID) Location [address] Supplements Standard Small Volume 06/01/25 1444 05/30/25 1432 Adult diet 500 AT[address] Access; General; Regular Diet effective now Question Answer Comment Location 500 [address] Diet Type (req) General General Diet Regular 05/30/25 1431 Nutrition Evaluation: patient seen for follow up nutrition assessment. He continues to receive regular diet with ONS Mighty shake BID. Patient reporting some improvement in po intake, now appears to be tolerating mid day meal. He continues to express concerns about bowel incontinents and leaking .Patient also noted cramping in abdomen after eating. TW discussed having small meals/snacks thoughtthe day so to not overload his stomach. Patient receptive to trying small snacks throughout the dayto improve intake Medical History[1] Surgical History[2] Allergies: Lisinopril Nutrition Focused Physical Exam: Nutrition-Focused Physical Findings Overall Appearance: reviewed, no change Per Nursing Flow Sheets: PO Intake: variable <25% most meals Skin: WDL Labs: Lab Results Component Value Date BUN 23 (H) 06/03/2025 CREATININE 0.80 06/03/2025 NA 140 06/03/2025 K 3.8 06/03/2025 CL 103 06/03/2025 CO2 30 06/03/2025 CALCIUM 8.6 06/03/2025 ALKPHOS 70 05/24/2025 PHOS 3.5 05/30/2025 MG 1.7 05/30/2025 EGFR 108 06/03/2025 Lab Results Component Value Date AST 18 05/24/2025 ALT 11 05/24/2025 Lab Results Component Value Date CHOL 185 07/02/2023 HDL 37 (A) 07/02/2023 TRIG 179 (A) 07/02/2023 Lab Results Component Value Date HGBA1C 5.1 05/29/2025 Medications: MEDSSCHEDULED[3]MEDSCONTINUOUS[4] Anthropometrics: Height: 1.803 m (71 ) Admit Weight: 51.8 kg (114 lb 3.2 oz) BMI: Body mass index is 16.65 kg/m??. Most Recent Weight:54.2 kg (119 lb 6.4 oz) Weight History: Wt Readings from Last 5 Encounters: 06/06/25 05/30/25 54.2 kg (119 lb 6.4 oz) 51.8 kg (114 lb 3.2 oz) 05/24/25 59.7 kg (131 lb 9.8 oz) 05/24/25 55.8 kg (123 lb) 05/24/25 56.2 kg (124 lb) 05/18/25 56.2 kg (124 lb) 36% weight loss x 1 year significant for time frame. Patient seen over past year by GI, endo, and nephrology r/t unintentional weight loss. DIAGNOSIS: Malnutrition Coding Code Type: Severe-Chronic (E43) Severe-Chronic Criteria: Severe Muscle Mass Depletion, Severe Body Fat Depletion, Weight Loss >20%/1yr Unintentional Weight Loss related to Physiologic causes as evidenced by 36% weight loss x 1 year multifaceted cause. Status: Other (Comment) (ongoing) Nutrition Goal: Consume >50% of most meals and ONS Goal Status: Progressing towards previous goal INTERVENTION/RECOMMENDATIONS: Continue regular diet as ordered Continue ONS Mighty shake BID as ordered MONITORING/EVALUATION: Monitor intake and Monitor appetite Celia Escobar RD, CD-N [1] Past Medical History: Diagnosis Date Abdominal pain DX:Abdominal pain Anxiety state DX:Anxiety state Depressive disorder DX:Depressive disorder Epigastric pain DX:Epigastric pain Esophageal reflux DX:Esophageal reflux Essential hypertension DX:Essential hypertension Hemorrhoids DX:Hemorrhoids History of Helicobacter pylori infection DX:History of Helicobacter pylori infection Irritable bowel syndrome with constipation 08/20/2024 Nephrolithiasis 04/14/2012 DX:Nephrolithiasis Rectal bleed DX:Rectal bleed Straining with stools DX:Straining with stools Tubular adenoma of colon DX:Tubular adenoma of colon Tubular adenoma of colon DX:Tubular adenoma of colon [2] Past Surgical History: Procedure Laterality Date COLONOSCOPY 02/14/2021 TAx1 recall 5 years ESOPHAGOGASTRODUODENOSCOPY 02/14/2021 negative gastric biopsy OTHER SURGICAL HISTORY PROCEDURE: NH EXCISION MULLERIAN DUCT CYST; COMMENT: testicular cyst removal [3] clomiPRAMINE, 25 mg, oral, Nightly multivitamin, 1 each, oral, Daily pantoprazole, 40 mg, oral, BID AC QUEtiapine, 75 mg, oral, Nightly [4] * RAMAN Bennett - 06/06/2025 3:56 PM EST Behavioral Health Group Note Group Date: 06/06/2025 Start Time: 1400 End Time: 1500 Facilitators: RAMAN Bennett Department: [facility] 8W Group Topic: Art Therapy Number of Participants: 11 Topics discussed: Embracing Imperfection: A Visual Acceptance Piece Summary: This directive supports self-compassion, emotional flexibility, and acceptance-based healing. Encourages discussion about how healing is nonlinear and how imperfections often hold wisdom. Name: Rolan Esteban Date of : 1975 MR: [id number] Patients Problems: Patient Active Problem List Diagnosis Abdominal pain Allergic rhinitis Anxiety Epigastric pain Fatty liver H. pylori infection Hemorrhoids Hepatitis C antibody test positive Hypertension Liver hemangioma Nephrolithiasis SRI (obstructive sleep apnea) Rectal bleed Straining with stools Tubular adenoma of colon Known medical problems Irritable bowel syndrome with constipation Suicide attempt (CMS/HCC V24, CMS/HCC V28) Severe episode of recurrent major depressive disorder, with psychotic features (CMS/HCC V24, CMS/HCC V28) Severe malnutrition (CMS/HCC V24) OCD (obsessive compulsive disorder) Participation: Did not attend. Reason: Refused * Lubna Cordoba LPC - 06/06/2025 2:44 PM EST Indv session Therapist met pt for an Indv session. Pt observed in his room and engaged. Pt reports an Improved mood and increased motivation. Pt reports his appetite has increased mid-day and can tolerate a lunchmeal & fluids. He endorsed Depressive symptoms during his morning awake time. Therapist provided morning coping skills to speed up metabolism i.e. sitting up for moments at the end of bed and sipp ing on water. Pt receptive. Pt endorsed nightmares last night and insomnia. Pt reports medication compliant and stated having fears with high doses of Seroquel. He stated having a belief with Seroquel 100mg titrate being similar or worse than Heroin/ Fentanyl withdrawal. Therapist redirected his concerns to MD. He stated overall its helpful and is up for the trial. Disc' aftercare plan. Pt stated he is not interested in ECT and is interested in EMDR/ERP when returned to [place]. He disc' hiswife's fears around this past incident and shown to be experiencing regret. Pt denied any SI/HI/AH and/or plan or intent. Pt denied any harm to self or others. Family Consultation Therapist received message on /Loyda's request to speak with tx team. In addition, pt requestedTherapist contact his . Loyda stated being satisfied that she was contacted by MD and has no further concern today. Aftercare plan will continue with follow up. * Salbador Davila DO - 06/06/2025 2:36 PM EST Psychiatry Progress Note LOS: 7 days Chief Complaint/Reason for Encounter: 50-year-old male admitted on a 15-day PEC after completing a significant suicide attempt. Prior to admission patient overdosed on 30-90 verapamil pills meclizine pills and Motrin. He attempted to follow this up by drinking a tablespoon of bleach and then he stabbed himself in the chest and in the neck. After being medically stabilized patient was transferred to [facility] for further mood stabilizationgiven continued safety risks. HPI: Chart reviewed and patient seen. The patient reported experiencing loud, cramp- like pains that radiated to the back and felt similar to gas. The patient expressed frustration with the lack of resolution and noted being tired. Additionally, the patient reported experiencing unsettling stomach sensations after eating and mentioned having unusual leakage of liquid, particularly around hemorrhoids. The patient also described having crazy dreams and difficulty sleeping. Despite these symptoms, thepatient did not have suicidal thoughts, thoughts of harming others, or auditory/visual hallucinations. Spoke to who plans to crop picker patient on Friday and bring him to hospital closer to their home in [place]. Review of Systems: Except as stated above all other systems are unremarkable Past, Family, Social History: No Change Psychiatric Speciality Examination: Visit Vitals BP 138/89 (BP Location: Left arm, Patient Position: Lying) Pulse 71 Temp 36.9 ??C (98.4 ??F) (Oral) Resp 18 1.803 m (71 ), 54.2 kg (119 lb 6.4 oz), Body mass index is 16.65 kg/m??. Encounter Date: 05/30/25 ECG 12 lead Result Value Ventricular Rate ECG 69 Atrial Rate 69 P-R Interval 142 QRS Duration 100 Q-T Interval 412 QTc 441 P Wave [place] 73 R [place] 75 T [place] 74 ECG Interpretation Normal sinus rhythm Baseline artifact Confirmed by Celine Lux ([id number]) on 06/04/2025 3:25:25 PM *Note: Due to a large number of results and/or encounters for the requested time period, some results have not been displayed. A complete set of results can be found in Results Review. Mental Status Examination & Relevant Physical Exam: General appearance and Manner: Appears stated age, emaciated, no acute distress Musculoskeletal: Moderate psychomotor retardation Speech: Slow rate, Normal rhythm, volume, tone, quantity Mood & Affect: Mood reported as depressed. Affect is severely dysphoric, appropriate, congruent, blunted range, non-reactive Thought Process: Linear, goal directed, logical, coherent, some somatic preoccupation Description of Associations: Intact Description of Abnormal or Psychotic Thoughts: Has multiple somatic delusions. denies perceptual disturbances. Suicidal Ideations/Homicidal Ideations/Violent Ideations: No active/passive SI/HI Orientation: Alert and oriented x 3 Attention/Concentration: Good Insight and Judgment: Fair Medical Decision Making: Problem List/Diagnosis: Principal Problem: Severe episode of recurrent major depressive disorder, with psychotic features ([facility] V24, [facility] V28) Active Problems: Suicide attempt ([facility] V24, [facility] V28) Severe malnutrition ([facility] V24) OCD (obsessive compulsive disorder) Data/Medical records reviewed/Labs/Imaging and Other Diagnostic Studies reviewed: No results found for this or any previous visit (from the past 48 hours). PRN Psychotropics Administered Last 24 Hours: Ativan, melatonin Assessment/Status: Patient tolerating current medication regiment with which they are adherent. Will continue with current psychopharmacologic regimen without change. We will continue to encourage patient to participate in unit activities. We will continue to monitor patient on safe and therapeutic milieu. Social work team to continue with safe discharge planning. Treatment Plan/Recommendations: Intervention/Psychotherapy: active participant in therapy sessions Continue current pharmacologic regimen Medications: Scheduled Meds:MEDSSCHEDULED[1] PRN Meds:.MEDSPRN[2] Lab/Radiology/Tests/Consultation: As already prescribed - No additional warranted at this time. Disclaimer: Speech recognition software was utilized to dictate portions of this document. Errors in header setup operator may be present. Please call / cortext me if any questions. [1] clomiPRAMINE, 25 mg, oral, Nightly multivitamin, 1 each, oral, Daily pantoprazole, 40 mg, oral, BID AC QUEtiapine, 75 mg, oral, Nightly [2] PRN medications: acetaminophen, calcium carbonate, dibucaine, hlvvnaccdiantcc-nwkfjpfk-cwkvzqpbi-simethicone-lidocaine, hydrocortisone, lanolin vbwlqmi-rf-p.pet-ceres, LORazepam, melatonin, ondansetron (ZOFRAN-ODT) disintegrating tablet OR [DISCONTINUED] ondansetron, QUEtiapine * RAMAN Bennett - 06/06/2025 12:06 PM EST Behavioral Health Group Note Group Date: 06/06/2025 Start Time: 0900 End Time: 1000 Facilitators: RAMAN Bennett Department: [facility] 8W Group Topic: Art Therapy Number of Participants: 12 Topics discussed: Courageous Lion Summary: This directive allows participants to explore and represent their inner courage by creating an image of a lion that embodies their personal strength and bravery. Name: Rolan Esteban Date of : 1975 MR: [id number] Patients Problems: Patient Active Problem List Diagnosis Abdominal pain Allergic rhinitis Anxiety Epigastric pain Fatty liver H. pylori infection Hemorrhoids Hepatitis C antibody test positive Hypertension Liver hemangioma Nephrolithiasis SRI (obstructive sleep apnea) Rectal bleed Straining with stools Tubular adenoma of colon Known medical problems Irritable bowel syndrome with constipation Suicide attempt ([facility]/HCC V24, CMS/HCC V28) Severe episode of recurrent major depressive disorder, with psychotic features (CMS/HCC V24, CMS/HCC V28) Severe malnutrition ([facility]/HCC V24) OCD (obsessive compulsive disorder) Participation: Did not attend. Reason: Refused * Brenda Leblanc RN - 06/06/2025 12:05 PM EST Problem: Safety: Suicide Risk Goal: Will remain free from injury to self Outcome: Progressing Problem: Safety: Suicide Risk Goal: Will remain free from injury to self Outcome: Progressing Problem: Self Concept: Suicide Risk Goal: Will verbalize positive feelings about self Outcome: Progressing Goals: get to a hospital in [place] to be closer to home Identify possible barriers to meeting goals/advancing plan of care: continues to perseverate on physical c/o related to anal and genital leakage, without evidence of such Stability of the patient: Moderately Stable - Low risk of patient condition declining or worsening End of Shift Summary: Pt appears depressed and endorses feeling depressed, denies SI/HI/AVH. Pt declining to eat breakfast due to feeling unwell. Pt c/o feeling anxious and requested and received PRN Seroquel 50mg and Ativan 2mg in the morning and afternoon with moderate effect. Pt ate 75% of lunch. Pt continues to perseverate over somatic complaints, anal leakage and now penile leakage which pt has been complaining about intermittently for years after chart review. Pt can't describe whatis leaking and can't offer evidence there is leaking. Noted pt socialized with male peers in dayroom appropriately and more visible in milieu. Affect also shows some range. Pt weighed using standing scale and he gained 5 lbs since admission. Med and mouth check compliant w/ negative findings. Q15min safety checks maintained per protocol. * Marnie Garcia RN - 06/05/2025 8:00 PM EST Problem: Safety: Suicide Risk Goal: Will remain free from injury to self Outcome: Progressing Problem: Safety: Suicide Risk Goal: Will remain free from injury to self Outcome: Progressing Problem: Self Concept: Suicide Risk Goal: Will verbalize positive feelings about self Outcome: Progressing Goals: Psychiatric stability, able to verbalize safe plan for self care prior to discharge Identify possible barriers to meeting goals/advancing plan of care: Poor insight into illness, physical health problems, poor coping Stability of the patient: Moderately Unstable - Medium risk of patient condition declining or worsening End of Shift Summary: Rolan's safety was maintained on 15 minute safety checks. Pt visible for medications, received lorazepam 1 mg for anxiety and melatonin 6 mg for sleep with good effect. Blunted affect, depressed mood. Isolative to room, went to bed with no problems, observed resting comfortably with eyes closed, respirations even and unlabored, no s/s distress. Care plan maintained, will continue to monitor and support. * Layla Pulliam RN - 06/05/2025 1:28 PM EST Problem: Self Concept: Suicide Risk Goal: Will verbalize positive feelings about self Outcome: Not Progressing Problem: Safety: Suicide Risk Goal: Will remain free from injury to self Outcome: Progressing Problem: Safety: Suicide Risk Goal: Will remain free from injury to self Outcome: Progressing Goals: Identify possible barriers to meeting goals/advancing plan of care: Stability of the patient: Moderately Unstable - Medium risk of patient condition declining or worsening End of Shift Summary: Patient visible in the milieu for meal trails and medications and is observed making phone calls throughout the shift. Compliant with scheduled medications and continues to utilize PRN Seroquel and Ativan for agitation and anxiety and Tums for heartburn with effect. Patient appeared to have had a better day with no complaints. Safety maintained on Q 15 minutes observation and denies SI/HI/AH/VH. * Mirella Boswell MD - 06/05/2025 12:42 PM EST Images from the original note were not included. Author: Mirella Boswell MD Filed: @ENCDATE@ Status: [facility] DUL DIG [address] [facility] [id number] 05/30/2025 Date of admission: 05/30/2025 Severe episode of recurrent major depressive disorder, with psychotic features (CMS/HCC V24, CMS/HCC V28) Psychiatry [facility] Progress Note Hospital Day: 7 LOS: 6 days Subjective: Patient seen for daily rounds and discussed with treatment team. 06/05: Patient was seen and evaluated this morning chart reviewed has been compliant with the nortriptyline and the Seroquel. Reports that Seroquel has been helping him with sleep although continues to be depressed and anxious continues to present with obsessive thoughts related to washing his hands multiple times when he is in the bathroom reports he is not able to go to the bathroom because it is dirty keeps holding his hands up while walking around in his room tends to frequently have intrusive thoughts about having infections by going into the bathroom. Continues to perseverate on past from his penis requesting to see the medical doctor multiple times. Patient unsure if the nortriptyline has been helping him with his mood and anxiet discussed discontinuing the nortriptyline and starting on clomipramine to help with OCD ,depression and anxiety. Also increased the Seroquel to 75 mg nightly to help with sleep, and somatic obsessions. 08/05: Patient was seen and evaluated this morning his affect appeared constricted continued to be preoccupied with somatic complaints about discharge in his penis reports that he is has some leakage because of hemorrhoids patient continues to perseverate on seeing the medical doctor reports his anxiety has been very high reports that Seroquel has been been helpful with sleep but is not sure if ithas been effective patient was informed that he was just started on nortriptyline to help him with his depression and anxiety and complaints related to tingling sensations in his feet. Denies suicidal thoughts intent or plan, denies auditory or visual hallucinations, reports his depression and anxiety are more related to his concerns with the discharge in his penis and hemorrhoids. Keeps perseverating on meeting with a medical doctor. Reassurance was provided medical was consulted will follow through the recommendations at this time will continue the Seroquel and nortriptyline. Review of Systems Complete ROS reviewed and negative except as noted in HPI. Clinical Data Review Heart Rate: 99, Resp: 18, BP: (!) 114/97 Temp: 36.7 ??C (98.1 ??F), SpO2: 98 % Height: 180.3 cm (71 ), Weight: 51.8 kg (114 lb 3.2 oz), BMI (Calculated): 15.9 No components found for: ECGQTC Data/Medical records reviewed/Labs/Imaging and Other Diagnostic Studies reviewed: Recent Results (from the past 48 hours) ECG 12 lead Collection Time: 06/03/25 5:19 PM Result Value Ref Range Ventricular Rate ECG 69 BPM Atrial Rate 69 BPM P-R Interval 142 ms QRS Duration 100 ms Q-T Interval 412 ms QTc 441 ms P Wave [place] 73 degrees R [place] 75 degrees T [place] 74 degrees ECG Interpretation Normal sinus rhythm Baseline artifact Confirmed by Celine Lux ([id number]) on 06/04/2025 3:25:25 PM Lab Results Component Value Date WBC 6.5 05/29/2025 RBC 4.00 (L) 05/29/2025 MCV 86.9 05/29/2025 MCH 30.4 05/29/2025 MCHC 34.9 05/29/2025 RDW 13.2 05/29/2025 MPV 7.9 05/29/2025 Lab Results Component Value Date BUN 23 (H) 06/03/2025 CREATININE 0.80 06/03/2025 NA 140 06/03/2025 K 3.8 06/03/2025 CL 103 06/03/2025 CO2 30 06/03/2025 CALCIUM 8.6 06/03/2025 ALBUMIN 4.4 05/24/2025 ALKPHOS 70 05/24/2025 AST 18 05/24/2025 ALT 11 05/24/2025 Lab Results Component Value Date CHOL 185 07/02/2023 HDL 37 (A) 07/02/2023 TRIG 179 (A) 07/02/2023 Lab Results Component Value Date HGBA1C 5.1 05/29/2025 Pain Management Panel More data may exist Latest Ref Rng & Units 05/24/2025 02/24/2025 Pain Management Panel Amphetamine Screen, Ur Negative Negative Negative Barbiturate Screen, Ur Negative Negative Negative Benzodiazepine Screen, Ur Negative Negative Negative Cocaine Screen, Ur Negative Negative Negative Fentanyl, Ur Negative Negative Negative Opiate Screen, Ur Negative Negative Negative Cannabinoid (THC) Screen, Ur Negative Negative Negative Psychiatric Specialty Examination: Mental Status Exam: General Appearance/Demeanor: unkempt, and has an average build. Patient is anxious and irritable Psychomotor Behavior: no psychomotor abnormality noticed Eye Contact appropriate Speech normal, clear Mood described anxious Affect: constricted Thought process Linear and goal-directed, no tangentiality not circumstantial Thought content: No paranoia reported, no delusions elicited Perception/ Hallucinations: No auditory or visual hallucinations Fund of Knowledge: Shows a typical level of knowledge for age and education Insight: Fair Judgement: Fair Oriented to Time, place and person Cognitive: Grossly Intact Suicide/homicide Suicide Risk assessment : Suicidality: Denies SI, no intent or plan Homicidality: Denies HI, no intent or plan Impulse control: Fair Problem List/Diagnoses: Problem List[1] Assessment and Plan - - Continue Q:15 check for safety - Continue prescribed medications - Discharge pending stabilization - Patient continues to benefit from inpatient hospitalization for safety, stabilization and medication management. Reassurance was provided ,medical was consulted, Patient unsure if the nortriptyline has been helping him with his mood and anxiety, discussed discontinuing the nortriptyline and starting on clomipramine to help with OCD ,depression and anxiety. Also increased the Seroquel to 75 mg nightly to help w ith sleep, and somatic obsessions. Medication Management: MEDSSCHEDULED[2] MEDSPRN[3] Psychotherapeutic interventions: The patient was encouraged to attend and participate schedule group sessions. Encouraged involvement in therapeutic activities. Psycho education/counseling done about presenting problems, diagnosis, and discussed rational for recommended medication along with discussion of risk, benefits and side effects of treatment vs non treatment. Patient agreed with plan and verbalized it. Labs/Radiology/Tests/Consultation Ordered: Reviewed labs as noted above. Note: This note was partly prepared by electronic dictation software and reasonable attempts were made to rectify errors. If you have any concerns regarding the error please contact this note teletypewriter operator for further clarification. Time spent on this encounter 25 minutes with more than 50 % time spent in coordinating care and counseling. [1] Patient Active Problem List Diagnosis Abdominal pain Allergic rhinitis Anxiety Epigastric pain Fatty liver H. pylori infection Hemorrhoids Hepatitis C antibody test positive Hypertension Liver hemangioma Nephrolithiasis SRI (obstructive sleep apnea) Rectal bleed Straining with stools Tubular adenoma of colon Known medical problems Irritable bowel syndrome with constipation Suicide attempt ([facility] V24, [facility] V28) Severe episode of recurrent major depressive disorder, with psychotic features (CMS/HCC V24, CMS/HCC V28) Severe malnutrition ([facility] V24) OCD (obsessive compulsive disorder) [2] clomiPRAMINE, 25 mg, oral, Nightly multivitamin, 1 each, oral, Daily pantoprazole, 40 mg, oral, BID AC QUEtiapine, 50 mg, oral, Nightly [3] PRN medications: acetaminophen, calcium carbonate, dibucaine, scftuwcphuegevc-ncbmzjef-hqbqscwow-simethicone-lidocaine, hydrocortisone, lanolin esrnnyl-pr-t.pet-ceres, LORazepam, melatonin, ondansetron (ZOFRAN-ODT) disintegrating tablet OR [DISCONTINUED] ondansetron, QUEtiapine * Buddy Chan - 06/05/2025 11:00 AM EST Behavioral Health Group Note Group Date: 06/05/2025 Start Time: 1100 End Time: 1130 Facilitators: Buddy Chan Department: [facility] 8W Group Topic: Nutrition Number of Participants: 10 Topics discussed: Nutrition Group Summary: Nutrition Group Name: Rolan Esteban Date of : 1975 MR: [id number] Patients Problems: Patient Active Problem List Diagnosis Abdominal pain Allergic rhinitis Anxiety Epigastric pain Fatty liver H. pylori infection Hemorrhoids Hepatitis C antibody test positive Hypertension Liver hemangioma Nephrolithiasis SRI (obstructive sleep apnea) Rectal bleed Straining with stools Tubular adenoma of colon Known medical problems Irritable bowel syndrome with constipation Suicide attempt (CMS/HCC V24, CMS/HCC V28) Severe episode of recurrent major depressive disorder, with psychotic features (CMS/HCC V24, CMS/HCC V28) Severe malnutrition (CMS/HCC V24) OCD (obsessive compulsive disorder) Participation: Verbal Response to group: Verbalizes understanding of content * Spring Connor - 06/04/2025 8:18 PM EST Behavioral Health Group Note Group Date: 06/04/2025 Start Time: 1949 End Time: 2014 Facilitators: Spring Connor Department: [facility] 8W Group Topic: IOS Wrap-Up Number of Participants: 9 Topics discussed: snack wrap up group; gratitude shared Summary: dbt skill ; gratitude is used to encourage positive thinking, by focusing on the positive encourages you to engage in something enjoyable or rewarding. It could be as simple as watching yourfavorite TV show, reading a book, or spending time with a loved one. This step is crucial because it shifts your focus from negative emotions or thoughts to positive ones, fostering a more balanced emotional state. [email or web address] Name: Rolan Esteban Date of : 1975 MR: [id number] Patients Problems: Patient Active Problem List Diagnosis Abdominal pain Allergic rhinitis Anxiety Epigastric pain Fatty liver H. pylori infection Hemorrhoids Hepatitis C antibody test positive Hypertension Liver hemangioma Nephrolithiasis SRI (obstructive sleep apnea) Rectal bleed Straining with stools Tubular adenoma of colon Known medical problems Irritable bowel syndrome with constipation Suicide attempt (CMS/HCC V24, CMS/HCC V28) Severe episode of recurrent major depressive disorder, with psychotic features (CMS/HCC V24, CMS/HCC V28) Severe malnutrition (CMS/HCC V24) OCD (obsessive compulsive disorder) Participation: Did not attend. Reason: Refused * Marnie Garcia RN - 06/04/2025 8:00 PM EST Problem: Safety: Suicide Risk Goal: Will remain free from injury to self Outcome: Progressing Problem: Safety: Suicide Risk Goal: Will remain free from injury to self Outcome: Progressing Problem: Self Concept: Suicide Risk Goal: Will verbalize positive feelings about self Outcome: Progressing Goals: Psychiatric stability, able to verbalize safe plan for self care after discharge Identify possible barriers to meeting goals/advancing plan of care: Poor insight into illness, physical health problems, poor medication/treatment compliance Stability of the patient: Moderately Unstable - Medium risk of patient condition declining or worsening End of Shift Summary: Rolan remained safe on 15 minute checks. Visible for snack and medications, pt requested and received prns of quetiapine 50 mg for anxiety, lorazepam 1 mg for anxiety and melatonin 6 mg for sleep. Cooperative, pleasant with depressed mood. Rolan was observed resting in bed with eyes closed, no s/s distress throughout the night. Up X 1. Care plan maintained, will continue to monitor and support. * Layla Pulliam RN - 06/04/2025 5:02 PM EST Problem: Self Concept: Suicide Risk Goal: Will verbalize positive feelings about self Outcome: Not Progressing Problem: Safety: Suicide Risk Goal: Will remain free from injury to self Outcome: Progressing Problem: Safety: Suicide Risk Goal: Will remain free from injury to self Outcome: Progressing Goals: Identify possible barriers to meeting goals/advancing plan of care: Stability of the patient: Moderately Unstable - Medium risk of patient condition declining or worsening End of Shift Summary: Patient visible pacing in the milieu with minimal interaction with peers. Reports sleeping well andendorses anxiety and depression rating 9/10. Medication compliant including Prn Ativan and Seroquelfor anxiety/agitation with effect. Patient continues to report anal leakage and agreed to used ointment to rectum with much encouragement. Patient educated on over wiping area. Appetite remains poor and is only drinking small amount of liquid. Patient continues to utilize Tums and Zofran for heartburn and nausea with effect. Safety maintained on Q 15 minutes observation and denies SI/HI/AH/VH. * Mirella Boswell MD - 06/04/2025 12:10 PM EST Images from the original note were not included. Author: Mirella Boswell MD Filed: @ENCDATE@ Status: [facility] DUL DIG [address] [facility] [id number] 05/30/2025 Date of admission: 05/30/2025 Severe episode of recurrent major depressive disorder, with psychotic features (CMS/HCC V24, CMS/HCC V28) Psychiatry [facility] [place] Progress Note Hospital Day: 6 LOS: 5 days Subjective: Patient seen for daily rounds and discussed with treatment team. 06/04: Patient was seen and evaluated this morning his affect appeared constricted continued to be preoccupied with somatic complaints about discharge in his penis reports that he is has some leakagebecause of hemorrhoids patient continues to perseverate on seeing the medical doctor reports his anxiety has been very high reports that Seroquel has been been helpful with sleep but is not sure if it has been effective patient was informed that he was just started on nortriptyline to help him withhis depression and anxiety and complaints related to tingling sensations in his feet. Denies suicidal thoughts intent or plan, denies auditory or visual hallucinations, reports his depression and anxiety are more related to his concerns with the discharge in his penis and hemorrhoids. Keeps perseverating on meeting with a medical doctor. Reassurance was provided medical was consulted will follow through the recommendations at this time will continue the Seroquel and nortriptyline. Review of Systems Complete ROS reviewed and negative except as noted in HPI. Clinical Data Review Heart Rate: 91, Resp: 18, BP: 115/84 Temp: 36.6 ??C (97.9 ??F), SpO2: 98 % Height: 180.3 cm (71 ), Weight: 51.8 kg (114 lb 3.2 oz), BMI (Calculated): 15.9 No components found for: ECGQTC Data/Medical records reviewed/Labs/Imaging and Other Diagnostic Studies reviewed: Recent Results (from the past 48 hours) Basic metabolic panel Collection Time: 06/03/25 6:38 AM Result Value Ref Range Sodium 140 135 - 145 mmol/L Potassium 3.8 3.5 - 5.1 mmol/L Chloride 103 98 - 107 mmol/L CO2 30 24 - 32 mmol/L Anion Gap 7 5 - 14 Glucose 88 70 - 199 mg/dL BUN 23 (H) 9 - 20 mg/dL Creatinine 0.80 0.70 - 1.30 mg/dL eGFR 108 >=60 mL/min/1.73m2 BUN/Creatinine Ratio 28.8 (H) 12.0 - 20.0 Calcium 8.6 8.4 - 10.2 mg/dL ECG 12 lead Collection Time: 06/03/25 5:19 PM Result Value Ref Range Ventricular Rate ECG 69 BPM Atrial Rate 69 BPM P-R Interval 142 ms QRS Duration 100 ms Q-T Interval 412 ms QTc 441 ms P Wave [place] 73 degrees R [place] 75 degrees T [place] 74 degrees ECG Interpretation Normal sinus rhythm Normal ECG When compared with ECG of 30-MAY-2025 10:38, No significant change was found Lab Results Component Value Date WBC 6.5 05/29/2025 RBC 4.00 (L) 05/29/2025 MCV 86.9 05/29/2025 MCH 30.4 05/29/2025 MCHC 34.9 05/29/2025 RDW 13.2 05/29/2025 MPV 7.9 05/29/2025 Lab Results Component Value Date BUN 23 (H) 06/03/2025 CREATININE 0.80 06/03/2025 NA 140 06/03/2025 K 3.8 06/03/2025 CL 103 06/03/2025 CO2 30 06/03/2025 CALCIUM 8.6 06/03/2025 ALBUMIN 4.4 05/24/2025 ALKPHOS 70 05/24/2025 AST 18 05/24/2025 ALT 11 05/24/2025 Lab Results Component Value Date CHOL 185 07/02/2023 HDL 37 (A) 07/02/2023 TRIG 179 (A) 07/02/2023 Lab Results Component Value Date HGBA1C 5.1 05/29/2025 Pain Management Panel More data may exist Latest Ref Rng & Units 05/24/2025 02/24/2025 Pain Management Panel Amphetamine Screen, Ur Negative Negative Negative Barbiturate Screen, Ur Negative Negative Negative Benzodiazepine Screen, Ur Negative Negative Negative Cocaine Screen, Ur Negative Negative Negative Fentanyl, Ur Negative Negative Negative Opiate Screen, Ur Negative Negative Negative Cannabinoid (THC) Screen, Ur Negative Negative Negative Psychiatric Specialty Examination: Mental Status Exam: General Appearance/Demeanor: unkempt, and has an average build. Patient is anxious and irritable Psychomotor Behavior: no psychomotor abnormality noticed Eye Contact appropriate Speech normal, clear Mood described anxious Affect: constricted Thought process Linear and goal-directed, no tangentiality not circumstantial Thought content: No paranoia reported, no delusions elicited Perception/ Hallucinations: No auditory or visual hallucinations Fund of Knowledge: Shows a typical level of knowledge for age and education Insight: Fair Judgement: Fair Oriented to Time, place and person Cognitive: Grossly Intact Suicide/homicide Suicide Risk assessment : Suicidality: Denies SI, no intent or plan Homicidality: Denies HI, no intent or plan Impulse control: Fair Problem List/Diagnoses: Problem List[1] Assessment and Plan - - Continue Q:15 check for safety - Continue prescribed medications - Discharge pending stabilization - Patient continues to benefit from inpatient hospitalization for safety, stabilization and medication management. Reassurance was provided ,medical was consulted, continue the Seroquel and nortriptyline for mood stabilization, adjunct for depression and nortriptyline for depression and anxiety. Medication Management: MEDSSCHEDULED[2] MEDSPRN[3] Psychotherapeutic interventions: The patient was encouraged to attend and participate schedule group sessions. Encouraged involvement in therapeutic activities. Psycho education/counseling done about presenting problems, diagnosis, and discussed rational for recommended medication along with discussion of risk, benefits and side effects of treatment vs non treatment. Patient agreed with plan and verbalized it. Labs/Radiology/Tests/Consultation Ordered: Reviewed labs as noted above. Note: This note was partly prepared by electronic dictation software and reasonable attempts were made to rectify errors. If you have any concerns regarding the error please contact this note teletypewriter operator for further clarification. Time spent on this encounter 25 minutes with more than 50 % time spent in coordinating care and counseling. [1] Patient Active Problem List Diagnosis Abdominal pain Allergic rhinitis Anxiety Epigastric pain Fatty liver H. pylori infection Hemorrhoids Hepatitis C antibody test positive Hypertension Liver hemangioma Nephrolithiasis SRI (obstructive sleep apnea) Rectal bleed Straining with stools Tubular adenoma of colon Known medical problems Irritable bowel syndrome with constipation Suicide attempt ([facility]/HCC V24, CMS/HCC V28) Severe episode of recurrent major depressive disorder, with psychotic features (CMS/HCC V24, CMS/HCC V28) Severe malnutrition ([facility]/HCC V24) OCD (obsessive compulsive disorder) [2] multivitamin, 1 each, oral, Daily nortriptyline, 25 mg, oral, Nightly pantoprazole, 40 mg, oral, BID AC QUEtiapine, 50 mg, oral, Nightly [3] PRN medications: acetaminophen, calcium carbonate, dibucaine, vttdiyexfwepnvq-yfwwtufr-snkbkvosa-simethicone-lidocaine, hydrocortisone, lanolin vblfuaw-li-v.pet-ceres, LORazepam, melatonin, ondansetron (ZOFRAN-ODT) disintegrating tablet OR [DISCONTINUED] ondansetron, QUEtiapine * Buddy Chan - 06/04/2025 10:31 AM EST Behavioral Health Group Note Group Date: 06/04/2025 Start Time: 1030 End Time: 1100 Facilitators: Buddy Chan Department: [facility] 8W Group Topic: Nutrition Number of Participants: 9 Topics discussed: Nutrition Group Summary: Nutrition Group Name: Rolan Esteban Date of : 1975 MR: [id number] Patients Problems: Patient Active Problem List Diagnosis Abdominal pain Allergic rhinitis Anxiety Epigastric pain Fatty liver H. pylori infection Hemorrhoids Hepatitis C antibody test positive Hypertension Liver hemangioma Nephrolithiasis SRI (obstructive sleep apnea) Rectal bleed Straining with stools Tubular adenoma of colon Known medical problems Irritable bowel syndrome with constipation Suicide attempt ([facility]/HCC V24, CMS/HCC V28) Severe episode of recurrent major depressive disorder, with psychotic features (CMS/HCC V24, CMS/HCC V28) Severe malnutrition ([facility] V24) OCD (obsessive compulsive disorder) Participation: Verbal Response to group: Verbalizes understanding of content * Guy Miller RN - 06/03/2025 9:11 PM EST PRN Melatonin 6 mg PO given for sleep, Tums 1000 mg PO for indigestion- pending results. He asked for a fruit cup and his mighty shake drink, but he was only able to eat the fruit cup. Patient requested PRN Ativan 1 mg PO at 2309 for anxiety- good results. 0637: Patient appears to have slept all night with no issues. Patient remains safe on Q 15 minute checks and self harm. Problem: Safety: Suicide Risk Goal: Will remain free from injury to self Outcome: Progressing Problem: Safety: Suicide Risk Goal: Will remain free from injury to self Outcome: Progressing Problem: Self Concept: Suicide Risk Goal: Will verbalize positive feelings about self Outcome: Progressing * Lubna Zazueta NP - 06/03/2025 4:48 PM EST Images from the original note were not included. HOSPITAL MEDICINE PROGRESS NOTE Patient's Name: Rolan Esteban : 1975 Date of Admission: 05/30/2025 2:20 PM Attending Physician: Lubna Zazueta NP Date of Service: 06/03/2025 Hospital Summary: Asked to assess patient due to complaints of chest pain Subjective: I have chest pain my body hurts it's like electric shocks that come from my feet to my chest Per patient chest pain for several day's, EKG done on 06/02 without acute findings. Per patient today pain is to his entire body and starts from his feet and it feels like electricity. He is alert and oriented, not diaphoretic. Objective: Vitals Vitals: 06/02/25 1704 06/03/25 0830 06/03/25 1606 06/03/25 1607 BP: 126/89 (!) 124/100 (!) 109/94 BP Location: Left arm Left arm Left arm Patient Position: Lying Sitting Standing Pulse: 62 75 109 Resp: 18 18 18 Temp: 36.4 ??C (97.5 ??F) 36.6 ??C (97.8 ??F) TempSrc: Oral Oral Oral SpO2: 98% 97% 98% Weight: Height: No intake or output data in the 24 hours ending 06/03/25 1648 Physical Exam Physical Exam Vitals and nursing note reviewed. Constitutional: General: He is not in acute distress. Appearance: He is not ill-appearing. Comments: Thin male in no acute distress, he is not diaphoretic HENT: Head: Normocephalic. Right Ear: External ear normal. Left Ear: External ear normal. Nose: Nose normal. Mouth/Throat: Mouth: Mucous membranes are dry. Eyes: General: Right eye: No discharge. Left eye: No discharge. Conjunctiva/sclera: Conjunctivae normal. Cardiovascular: Rate and Rhythm: Normal rate and regular rhythm. Heart sounds: Normal heart sounds. Pulmonary: Effort: Pulmonary effort is normal. Breath sounds: Normal breath sounds. No wheezing. Abdominal: Palpations: Abdomen is soft. Tenderness: There is no abdominal tenderness. Skin: General: Skin is warm. Comments: Not diaphoretic Neurological: Mental Status: He is alert and oriented to person, place, and time. Laboratory Data: CBC Lab Results Component Value Date WBC 6.5 05/29/2025 HGB 12.1 (L) 05/29/2025 HCT 34.7 (L) 05/29/2025 MCV 86.9 05/29/2025 PLT 232 05/29/2025 LYMPHOPCT 8.7 05/24/2025 MONOPCT 4.7 05/24/2025 EOSPCT 0.0 05/24/2025 Lab Results Component Value Date CRP 0.6 05/25/2025 ELECTROLYTES Lab Results Component Value Date NA 140 06/03/2025 K 3.8 06/03/2025 CL 103 06/03/2025 BUN 23 (H) 06/03/2025 CREATININE 0.80 06/03/2025 EGFR 108 06/03/2025 GLUCOSE 88 06/03/2025 CALCIUM 8.6 06/03/2025 Lab Results Component Value Date MG 1.7 05/30/2025 PHOS 3.5 05/30/2025 LFTs Lab Results Component Value Date PROT 7.3 05/24/2025 ALT 11 05/24/2025 AST 18 05/24/2025 ALKPHOS 70 05/24/2025 BILITOT 2.1 (H) 05/24/2025 ALBUMIN 4.4 05/24/2025 COAGULATION PANEL Lab Results Component Value Date PT 13.5 (H) 05/24/2025 INR 1.2 (H) 05/24/2025 CARDIAC No results found for: TROPONINIHS , BNP Lab Results Component Value Date CHOL 185 07/02/2023 TRIG 179 (A) 07/02/2023 HDL 37 (A) 07/02/2023 HGBA1C 5.1 05/29/2025 ABG No results found for: PHVEN , NFN1ZIW , PO2VEN , VBT6FFW , Z3MJRVNQ MISCELLANEOUS Lab Results Component Value Date LACTATE 1.0 05/25/2025 LACTATE 1.0 02/24/2025 Lab Results Component Value Date TSH 0.45 05/24/2025 FREET4 1.40 08/25/2024 URINALYSIS No results found for: COLORUA , CLARITYUA , SPECGRAVUA , PHUA , PROTUA , GLUCOSEUA , KETONESUA , BILIRUBINUA , BLOODUA , UROBILINOGUA , NITRITEUA Inpatient Medications: Scheduled: MEDSSCHEDULED[1] Continuous: MEDSCONTINUOUS[2] PRN: MEDSPRN[3] Assessment & Plan: Chest pain most likely not cardiac as he relates the pain coming from his feet to his chest. Also patient had multiple 12 leads EKG and no acute findings. Patient with multiple psychosomatic complaints. Will repeat 12 lead EKG, also BMP done this morning with normal results. Discussed with patient to stay hydrated. EKG reviewed no changes or acute findings Signature: Lubna Zazueta NP 06/03/2025 [1] multivitamin, 1 each, oral, Daily nortriptyline, 25 mg, oral, Nightly pantoprazole, 40 mg, oral, BID AC QUEtiapine, 50 mg, oral, Nightly [2] [3] PRN medications: acetaminophen, calcium carbonate, dibucaine, tepexdipdzzfffh-plejjnvw-agatgsmuq-simethicone-lidocaine, hydrocortisone, lanolin gkongyz-zx-w.pet-ceres, LORazepam, melatonin, ondansetron (ZOFRAN-ODT) disintegrating tablet OR [DISCONTINUED] ondansetron, QUEtiapine Cosigned by Alexandro Segura MD at 06/03/2025 6:18 PM EST * RAMAN Bennett - 06/03/2025 2:54 PM EST Behavioral Health Group Note Group Date: 06/03/2025 Start Time: 1400 End Time: 1500 Facilitators: RAMAN Bennett Department: [facility] 8W Group Topic: Art Therapy Number of Participants: 9 Topics discussed: Origami: Use origami to enhance the ability to be aware of what is happening in their moment and focus. Use origami to practice letting go of self-judgment or perfectionism. Summary: The participants will, in a creative way, improve fine motor skills and hand-eye coordination, increase brain stimulation and concentration, reduce stress levels, enhance creativity, and problem-solving skills. Name: Rolan Esteban Date of : 1975 MR: [id number] Patients Problems: Patient Active Problem List Diagnosis Abdominal pain Allergic rhinitis Anxiety Epigastric pain Fatty liver H. pylori infection Hemorrhoids Hepatitis C antibody test positive Hypertension Liver hemangioma Nephrolithiasis SRI (obstructive sleep apnea) Rectal bleed Straining with stools Tubular adenoma of colon Known medical problems Irritable bowel syndrome with constipation Suicide attempt (CMS/HCC V24, CMS/HCC V28) Severe episode of recurrent major depressive disorder, with psychotic features (CMS/HCC V24, CMS/HCC V28) Severe malnutrition (CMS/HCC V24) OCD (obsessive compulsive disorder) Participation: Did not attend. Reason: Refused * Leslee Boyd Regan - 06/03/2025 1:52 PM EST Psychiatry Progress Note LOS: 4 days Chief Complaint/Reason for Encounter: 50-year-old male admitted on a 15-day PEC after completing a significant suicide attempt. Prior to admission patient overdosed on - verapamil pills meclizine pills and Motrin. He attempted to follow this up by drinking a tablespoon of bleach and then he stabbed himself in the chest and in the neck. After being medically stabilized patient was transferred to [facility] for further mood stabilizationgiven continued safety risks. HPI: Chart reviewed and patient seen. Rolan reports sleeping poorly and eating okay. Patient is adherentand tolerates medications with no noticeable side effect. Denies SI/HI/AVH. Reports participating in unit activities. Reports new symptom of tingling and shock sensation from feet to shoulder which is scaring him. Upset and wants to be discharged home. Review of Systems: Except as stated above all other systems are unremarkable Past, Family, Social History: No Change Psychiatric Speciality Examination: Visit Vitals BP 126/89 (BP Location: Left arm, Patient Position: Lying) Pulse 62 Temp 36.4 ??C (97.5 ??F) (Oral) Resp 18 1.803 m (71 ), 51.8 kg (114 lb 3.2 oz), Body mass index is 15.93 kg/m??. Encounter Date: 05/24/25 ECG 12 lead Result Value Ventricular Rate ECG 52 Atrial Rate 52 P-R Interval 146 QRS Duration 96 Q-T Interval 444 QTc 412 P Wave [place] 78 R [place] 80 T [place] 76 ECG Interpretation Sinus bradycardia IcRBBB Borderline ECG Confirmed by ELMER CHAVEZ ([id number]) on 05/30/2025 5:04:57 PM *Note: Due to a large number of results and/or encounters for the requested time period, some results have not been displayed. A complete set of results can be found in Results Review. Mental Status Examination & Relevant Physical Exam: General appearance and Manner: Appears stated age in hospital gown with normal hygiene, emaciated, no acute distress Musculoskeletal: No significant abnormality noted Speech: Regular rate, normal rhythm, volume, tone, quantity. No disarticulation Mood & Affect: Mood reported as depressed and not good . Affect is severely dysphoric, appropriate, congruent, blunted range, and non-reactive Thought Process: Linear, goal directed, logical., coherent, some somatic preoccupation Description of Associations: Intact Description of Abnormal or Psychotic Thoughts: No delusions elicited. Denies perceptual disturbances Suicidal Ideations/Homicidal Ideations/Violent Ideations: No active/passive SI/HI Orientation: To place, person, and time Attention/Concentration: Good Insight and Judgment: Fair Medical Decision Making: Problem List/Diagnosis: Principal Problem: Severe episode of recurrent major depressive disorder, with psychotic features ([facility] V24, [facility] V28) Active Problems: Suicide attempt ([facility] V24, [facility] V28) Severe malnutrition ([facility] V24) OCD (obsessive compulsive disorder) Data/Medical records reviewed/Labs/Imaging and Other Diagnostic Studies reviewed: Recent Results (from the past 48 hours) Basic metabolic panel Collection Time: 06/03/25 6:38 AM Result Value Ref Range Sodium 140 135 - 145 mmol/L Potassium 3.8 3.5 - 5.1 mmol/L Chloride 103 98 - 107 mmol/L CO2 30 24 - 32 mmol/L Anion Gap 7 5 - 14 Glucose 88 70 - 199 mg/dL BUN 23 (H) 9 - 20 mg/dL Creatinine 0.80 0.70 - 1.30 mg/dL eGFR 108 >=60 mL/min/1.73m2 BUN/Creatinine Ratio 28.8 (H) 12.0 - 20.0 Calcium 8.6 8.4 - 10.2 mg/dL PRN Psychotropics Administered Last 24 Hours: Lorazepam 1mg Ondansetron Quetiapine 50mg Assessment/Status: Rolan is currently taking his medication regimen and tolerating medication with an increase in his Seroquel to 50 mg at bedtime yesterday. Hesitant in starting ECT and explored possibility of discharge to with bringing him closer to inpatient closer to home. Discussed possibility of switching his nortriptyline to clomipramine as clomipramine has improved potential in treating OCD. Will work on titrating Seroquel for targeting of OCD Plan: - Increase Seroquel to 75mg - Continue seeking options to bring him closer to home for treatment - Encourage patient to participate in unit activities - Monitor patient on safe and therapeutic milieu - Social work team to continue with safe discharge planning Treatment Plan/Recommendations: Intervention/Psychotherapy: active participant in therapy sessions Medications: Scheduled Meds:MEDSSCHEDULED[1] PRN Meds:.MEDSPRN[2] Lab/Radiology/Tests/Consultation: As already prescribed - No additional warranted at this time. Disclaimer: Speech recognition software was utilized to dictate portions of this document. Errors in header setup operator may be present. Please call / cortext me if any questions. [1] multivitamin, 1 each, oral, Daily nortriptyline, 25 mg, oral, Nightly pantoprazole, 40 mg, oral, BID AC QUEtiapine, 50 mg, oral, Nightly [2] PRN medications: acetaminophen, calcium carbonate, dibucaine, ekvgdqgdcwangru-pgvspblp-qlhzxjael-simethicone-lidocaine, hydrocortisone, lanolin wzrsmmm-bh-i.pet-ceres, LORazepam, melatonin, ondansetron (ZOFRAN-ODT) disintegrating tablet OR [DISCONTINUED] ondansetron, QUEtiapine Cosigned by Salbador Davila DO at 06/03/2025 2:30 PM EST Associated attestation - Salbador Davila DO - 06/03/2025 2:30 PM EST I saw the patient Rolan Esteban in conjunction with Star Spears, I performed an exam and provided medical decision making. The medical student's documentation was reviewed and verified, all information documented by the student has been reviewed with modifications made as appropriate. * Lubna Cordoba LPC - 06/03/2025 1:25 PM EST Indv session Therapist met w/ pt for an Indv session. Pt observed in the milieu, taking small walks to phones tocall his . Pt presents w/ an improved mood and somatic affect. Pt vocals improved, utilized eyecontact and stood on his feet for his session. Pt reports he slept last night. Pt observed at the medication window taken TUMS. Pt reports his appetite has been a lot better today after a long talk with his . He reports eaten more than half of his breakfast and had half of his lunch. Disc' his Spiritual Belief. He stated he and his were intercessors in their roman catholic in the past and said he has to get back to his life. He shared an encounter he had in his room last night. Eyes watered while he expressed his son's last words with him and the prayer he prayed with him. He then shared some more important things to him. Getting back to work, and grandson and living for his son & nephew. Disc' aftercare plan. He stated his and him are not interested in ECT and associatedit to a family member who had some of the sessions. Therapist discussed EMDR/ ERP OP level. He stated being open to hearing more about other treatments in [place]. Pt denied any SI/HI/AH and/or plan or intent while on the unit. Pt denied any harm to self or others. Pt will continue to be observed with his intake/output, Depressive level, and increasing motivation. Pt encouraged to get out of the bed and attend daily Groups while on the unit. Aftercare plan Pt will return to his home with his and follow up with OP services in [place], [place] * RAMAN Bennett - 06/03/2025 11:48 AM EST Behavioral Health Group Note Group Date: 06/03/2025 Start Time: 0900 End Time: 1000 Facilitators: RAMAN Bennett Department: [facility] 8W Group Topic: Art Therapy Number of Participants: 9 Topics discussed: Table Topics: A selection of conversation starter cards designed to spark meaningful dialogue, memories, and reflection. Each question invites patients to explore thoughts, feelings, and personal stories in a safe, supportive environment. Summary: Engaging with positive topics in this creative low-pressure format encourages confidence, self-awareness, self-expression, and connection. The goal is not to answer ???correctly,?? but to engage authentically - using curiosity, storytelling, and creativity to build emotional insight and social connection. Name: Rolan Esteban Date of : 1975 MR: [id number] Patients Problems: Patient Active Problem List Diagnosis Abdominal pain Allergic rhinitis Anxiety Epigastric pain Fatty liver H. pylori infection Hemorrhoids Hepatitis C antibody test positive Hypertension Liver hemangioma Nephrolithiasis SRI (obstructive sleep apnea) Rectal bleed Straining with stools Tubular adenoma of colon Known medical problems Irritable bowel syndrome with constipation Suicide attempt (CMS/HCC V24, [facility] V28) Severe episode of recurrent major depressive disorder, with psychotic features ([facility] V24, [facility] V28) Severe malnutrition ([facility] V24) OCD (obsessive compulsive disorder) Participation: Did not attend. Reason: Refused * Brenda Leblanc RN - 06/03/2025 11:29 AM EST Problem: Safety: Suicide Risk Goal: Will remain free from injury to self Outcome: Progressing Problem: Safety: Suicide Risk Goal: Will remain free from injury to self Outcome: Progressing Problem: Self Concept: Suicide Risk Goal: Will verbalize positive feelings about self Outcome: Progressing Goals: go to a hospital in [place] Identify possible barriers to meeting goals/advancing plan of care: poor appetite, somatic, guarded, OCD obsessions Stability of the patient: Moderately Stable - Low risk of patient condition declining or worsening End of Shift Summary: Pt awake start of shift, noted breakfast untouched, reports anal leakage, offered a pad for the leakage but he states he doesn't want it, states he just feels mucus collecting on his anus that is very bothersome. Also c/o hemorrhoids but declining to utilize the cream or suppos itory. Pt declined his AM med stating he wants to rest and will come to med room when he's ready. PT given his AM med at 11:33 along with PRN Seroquel 50mg and Ativan 1mg for anxiety and PRN Tylenol 650mg for left shoulder pain. Reports he feels like electricity is running from his feet up to his body, can't identify where in his body the feeling stops. notified. Pt called x1 and comes out of room to make needs known appropriately. C/o upset stomach requested PRN Tums which had little effect and then requested PRN Zofran, pt educated zofran is for nausea, advised pt to eat some lunch and drink his supplemental ensure, Pt claims he ate 75% of breakfast late in the day and doesn't want to eat lunch yet. Then pt stated he does feel nauseas. Given the Zofran with little effect. Later Pt c/o chest pain and states he can barely talk, Pt sounds the same as at baseline. BP elevated 124/100. HOT DIP TINNING SUPERVISOR notified and came to bedside to assess. EKG ordered and completed. Pt declined to eat dinner. Requested and received PRN Tylenol, Ativan, and Seroquel for pain and anxiety at 1747 with pending effect. Q15min safety checks maintained per protocol. * Guy Miller RN - 06/02/2025 9:55 PM EST PRN Ativan 1 mg PO given for anxiety, Melatonin 6 mg PO given for sleep promotion- pending results.Patient complained of his blanket smelling urine. Staff provided him with clean bedding. Minutes later he complained again of blanket smelling urine. RN explained to him that he his bedding was just changed and he's was receptive. Patient woke up 0356 requesting PRN Ativan 1 mg PO for anxiety and Seroquel 50 mg PO for agitation.He took the prns and went right back to sleep. 0646: Patient appears to have slept all night with no problems. Patient remains safe on Q 15 minutechecks and self harm precautions. Problem: Safety: Suicide Risk Goal: Will remain free from injury to self Outcome: Progressing Problem: Safety: Suicide Risk Goal: Will remain free from injury to self Outcome: Progressing Problem: Self Concept: Suicide Risk Goal: Will verbalize positive feelings about self Outcome: Progressing * RAMAN Bennett - 06/02/2025 3:26 PM EST Behavioral Health Group Note Group Date: 06/02/2025 Start Time: 1400 End Time: 1500 Facilitators: RAMAN Bennett Department: [facility] 8W Group Topic: Art Therapy Number of Participants: 8 Topics discussed: Open Studio: Free Expression Summary: This directive allows the participants to create a space for unstructured, spontaneous artistic expressions to explore emotions, thoughts, or ideas without any specific theme or directive. Name: Rolan Esteban Date of : 1975 MR: [id number] Patients Problems: Patient Active Problem List Diagnosis Abdominal pain Allergic rhinitis Anxiety Epigastric pain Fatty liver H. pylori infection Hemorrhoids Hepatitis C antibody test positive Hypertension Liver hemangioma Nephrolithiasis SRI (obstructive sleep apnea) Rectal bleed Straining with stools Tubular adenoma of colon Known medical problems Irritable bowel syndrome with constipation Suicide attempt ([facility] V24, [facility] V28) Severe episode of recurrent major depressive disorder, with psychotic features ([facility] V24, [facility] V28) Severe malnutrition ([facility] V24) OCD (obsessive compulsive disorder) Participation: Did not attend. Reason: Refused * Simba Castañeda RN - 06/02/2025 2:33 PM EST Goals: Nutrition, hygiene Stability of the patient: Moderately Unstable - Medium risk of patient condition declining or worsening End of Shift Summary: Patient isolative in room, reports 10/10 pain to left shoulder, bleeding frompenis and anal leakage. PRN tyelnol offered for pain, pt refused. Pt reports 10/10 anxiety and 10/10 depression. Pt denies SI/HI, denies harm to self and to others. Pt denies AH/VH but states he saw figures yesterday in his bathroom. Pt was given his breakfast, education and encouragement provided on his nutrition. Pt was resistant to eating his breakfast, he ate 1 piece of omalley and took a couple sips of his ginergale. Pt was encouraged to get his vitals done and go to nurse's station, pt refused due to anal leakage. Pt was asked to show nursing and to not flush toilet, hat was placed. Pt repeatedly asked for toilet paper even though he had a roll, trash bag noted to be filled with toilet paper. Pt reports he used it to wipe his bottom and did not want to clog up the toilet. No leakageor blood was found on toilet paper. This teletypewriter operator reassured pt that assistance would be provided with hygiene and ambulation if needed. Pt was then willing to walk to common area, no leakage noted. Pt tolerated walk well. Pt took his medications without issue, pt given ativan for anxiety with some effect. Pt was encouraged to shower, pt expressed concerns regarding his face stating he has staph infection on his face. Pt was reassured that his skin is intact. During lunch time, Pt asked to take a shower. Pt was encouraged to have his lunch first in dining area, pt returned to his room. Pt ate 1/2 half of his chicken sandwich. Pt stated he could not tolerate more food. Pt was set up for shower with commode placed in stall. Pt asked for assistance with shower reporting difficulty showering due to his left shoulder pain. Pt appeared anxious regarding stepping on bathroom floor and using towels presented to him, constantly questioning if they were clean. Reassurance provided that stall and towels/gown are clean. Pt showered, he was noted to be washinghis face excessively causing redness to his face.Pt required prompting to wash other areas of his body. Pt was also focused on his anal leakage, no leakage noted. Pt spent almost 40 min showering andwas noted to be drying himself excessively. Pt dressed in clean gown and returned to room. Pt later on asked for hand wipes, he was old that he could use hand soap in his bathroom. One bottle of soap and one wash cloth provided to patient. Limitations on towels and soap was placed due to observations of pt excessively cleaning himself. At dinner time, pt complained of upset stomach, pt given jed debby and returned to his room. Pt completed his mighty shake 4oz. After dinner, pt complained of midsternal chest pain and dizziness. BP 133/99, HR 92, SpO2 98% on RA. Medical HOT DIP TINNING SUPERVISOR made aware, EKG completed. Pt instructed to hydrate, gingerale and ice water pitcher provided to patient. Dr. Davila notified, PRN seroquel ordered and administered. Pt maintained on Q15min safety checks, planof care ongoing. * Lubna Cordoba LPC - 06/02/2025 1:29 PM EST Indv session Therapist met w/ pt for an Indv session. Pt observed in his room, lying down. Pt presents w/a Distressed mood and lethargic affect and stated Depression 10/10 experiencing helplessness, hopelessness,lack in appetite and apathy. Pt reports non-medication compliant. Pt reports he slept last night. Therapist observed pt's breakfast food tray with no eaten food items or fluids. Pt has a hx w/ Anorexia feat' and in relapse due to beliefs around his stomach & anal leaks. Pt shown to have a severe malnutrition deficit and refuses daily Ensure supplement as he states not liking chocolate flavor. Pt denied any SI/HI/AH and/or plan or intent while on the unit. Pt denied any harm to self or others. Pt will continue to be observed with his intake/output, Depressive level, and increasing motivation. Pt encouraged to get out of the bed and attend daily Groups while on the unit. Team consultation Therapist recommended pt keeps a hat on his toilet all times for observed collections. Pt was denied an admissions with [facility] stated not accepting lateral referrals and atmost would have considered if pt's medical dx was not a presenting concern. Tx team made suggestions around ECT with IOL, although, challenged with pt's HMO plan in the [facility]. Pending follow up on a safe aftercare plan. * Salbador Davila DO - 06/02/2025 12:54 PM EST Psychiatry Progress Note LOS: 3 days Chief Complaint/Reason for Encounter: 50-year-old male admitted on a 15-day PEC after completing a significant suicide attempt. Prior to admission patient overdosed on 30-90 verapamil pills meclizine pills and Motrin. He attempted to follow this up by drinking a tablespoon of bleach and then he stabbed himself in the chest and in the neck. After being medically stabilized patient was transferred to [facility] for further mood stabilizationgiven continued safety risks. HPI: Chart reviewed and patient seen. Patient reports sleeping poorly Reports eating poorly. Patient wasnonadherent with medications. Denies SI/HI/AVH. Reports participating in unit activities. Reports anumber of somatic complaints including diarrhea and purulent drainage from skin on face, although this teletypewriter operator did not note any abnormality. Nursing reports that patient was given hat for toilet but nothing was noted. Spoke to patient's Loyda. States that patient has a history of very severe OCD. He will get extremely perseverative about various somatic symptoms with that he has certain illnesses and go through extensive perseveration and rituals. In the past he has had extreme concerns about contamination and germs and would spend hours in the shower or washing his hands. She is very concerned about his suicidality and states that his attempts have been getting increasingly severe. She reports in the past that he almost due to a suicide attempt via starvation. She reports that he has a identicaltwin brother who also struggles with severe depression and was treated with ECT in the past but didnot have a good clinical response and had a lot of side effects including posttreatment fecal incontinence and confusion. She would very much like for the patient to be transferred closer to home so that she can be more of assistance of the treatment team. Review of Systems: Except as stated above all other systems are unremarkable Past, Family, Social History: No Change Psychiatric Speciality Examination: Visit Vitals BP (!) 135/100 (BP Location: Left arm, Patient Position: Standing) Pulse 75 Temp 36.7 ??C (98.1 ??F) (Oral) Resp 18 1.803 m (71 ), 51.8 kg (114 lb 3.2 oz), Body mass index is 15.93 kg/m??. Encounter Date: 05/24/25 ECG 12 lead Result Value Ventricular Rate ECG 52 Atrial Rate 52 P-R Interval 146 QRS Duration 96 Q-T Interval 444 QTc 412 P Wave [place] 78 R [place] 80 T [place] 76 ECG Interpretation Sinus bradycardia IcRBBB Borderline ECG Confirmed by ELMER CHAVEZ ([id number]) on 05/30/2025 5:04:57 PM *Note: Due to a large number of results and/or encounters for the requested time period, some results have not been displayed. A complete set of results can be found in Results Review. Mental Status Examination & Relevant Physical Exam: General appearance and Manner: Appears stated age, emaciated, no acute distress Musculoskeletal: Moderate psychomotor retardation Speech: Slow rate, Normal rhythm, volume, tone, quantity Mood & Affect: Mood reported as depressed. Affect is severely dysphoric, appropriate, congruent, blunted range, non-reactive Thought Process: Linear, goal directed, logical, coherent, some somatic preoccupation Description of Associations: Intact Description of Abnormal or Psychotic Thoughts: Has multiple somatic delusions. denies perceptual disturbances. Suicidal Ideations/Homicidal Ideations/Violent Ideations: No active/passive SI/HI Orientation: Alert and oriented x 3 Attention/Concentration: Good Insight and Judgment: Fair Medical Decision Making: Problem List/Diagnosis: Principal Problem: Depression Active Problems: Suicide attempt ([facility] V24, [facility] V28) Severe malnutrition ([facility] V24) OCD (obsessive compulsive disorder) Data/Medical records reviewed/Labs/Imaging and Other Diagnostic Studies reviewed: No results found for this or any previous visit (from the past 48 hours). PRN Psychotropics Administered Last 24 Hours: Ativan, melatonin Assessment/Status: Patient refused to take his psychotropics yesterday. Will continue to recommend current medication regiment with an increase of his Seroquel to 50 mg at bedtime. Potential to explore ECT. We will continue to encourage patient to participate in unit activities. We will continue to monitor patient onsafe and therapeutic milieu. Social work team to continue with safe discharge planning. Treatment Plan/Recommendations: Intervention/Psychotherapy: active participant in therapy sessions Increase Seroquel to 50mg PO QHS Medications: Scheduled Meds:MEDSSCHEDULED[1] PRN Meds:.MEDSPRN[2] Lab/Radiology/Tests/Consultation: As already prescribed - No additional warranted at this time. Disclaimer: Speech recognition software was utilized to dictate portions of this document. Errors in header setup operator may be present. Please call / cortext me if any questions. [1] multivitamin, 1 each, oral, Daily nortriptyline, 25 mg, oral, Nightly pantoprazole, 40 mg, oral, BID AC [START ON 06/03/2025] QUEtiapine, 50 mg, oral, Nightly [2] PRN medications: acetaminophen, calcium carbonate, dibucaine, wcbnyinxhtntsrc-woebgewk-bugeqcnwm-simethicone-lidocaine, hydrocortisone, lanolin kiwspru-yy-a.pet-ceres, LORazepam, melatonin, ondansetron (ZOFRAN-ODT) disintegrating tablet OR [DISCONTINUED] ondansetron * RAMAN Bennett - 06/02/2025 11:42 AM EST Behavioral Health Group Note Group Date: 06/02/2025 Start Time: 0900 End Time: 1000 Facilitators: RAMAN Bennett Department: [facility] 8W Group Topic: Art Therapy Number of Participants: 10 Topics discussed: Meditative Art is an art form of free drawing built from recurring patterns, shapes, and lines. Summary: This gentle, structured repetition supports stress reduction, mindfulness, and a deeper sense of calm. As participants focus on each carter, they naturally cultivate awareness of the present moment. Meditative art also enhances creativity, improves concentration, and invites personal exploration. Through this process, individuals can express themselves freely while creating soothing intentional visual patterns that reflect their inner experiences. Name: Rolan Esteban Date of : 1975 MR: [id number] Patients Problems: Patient Active Problem List Diagnosis Abdominal pain Allergic rhinitis Anxiety Epigastric pain Fatty liver H. pylori infection Hemorrhoids Hepatitis C antibody test positive Hypertension Liver hemangioma Nephrolithiasis SRI (obstructive sleep apnea) Rectal bleed Straining with stools Tubular adenoma of colon Known medical problems Irritable bowel syndrome with constipation Suicide attempt (CMS/HCC V24, CMS/HCC V28) Depression Severe malnutrition (CMS/HCC V24) Participation: Did not attend. Reason: Refused * Lubna Cordoba LPC - 06/02/2025 11:22 AM EST Behavioral Health Group Note Group Date: 06/02/2025 Start Time: 1000 End Time: 1100 Facilitators: Lubna Cordoba LPC Department: [facility] 8W Group Topic: Clinical Group Number of Participants: 10 Topics discussed: CBT-based group focus Summary: Therapist facilitated a discussion around three negative thoughts, self -talk, automated thoughts and explored the core beliefs. Therapist guided participants through a challenging exercise and with support. Participants were provided soft music, frame coloring sheet to write about three gifts to self as a commitment to a healthier thinking. Name: Rolan Esteban Date of : 1975 MR: [id number] Patients Problems: Patient Active Problem List Diagnosis Abdominal pain Allergic rhinitis Anxiety Epigastric pain Fatty liver H. pylori infection Hemorrhoids Hepatitis C antibody test positive Hypertension Liver hemangioma Nephrolithiasis SRI (obstructive sleep apnea) Rectal bleed Straining with stools Tubular adenoma of colon Known medical problems Irritable bowel syndrome with constipation Suicide attempt (CMS/HCC V24, CMS/HCC V28) Depression Severe malnutrition (CMS/HCC V24) Participation: Did not attend. Reason: Excused due to illness * Buddy Chan - 06/02/2025 11:06 AM EST Behavioral Health Group Note Group Date: 06/02/2025 Start Time: 1100 End Time: 1130 Facilitators: Buddy Chan Department: [facility] 8W Group Topic: Nutrition Number of Participants: 10 Topics discussed: Nutrition Group Summary: Nutrition Group Name: Rolan Esteban Date of : 1975 MR: [id number] Patients Problems: Patient Active Problem List Diagnosis Abdominal pain Allergic rhinitis Anxiety Epigastric pain Fatty liver H. pylori infection Hemorrhoids Hepatitis C antibody test positive Hypertension Liver hemangioma Nephrolithiasis SRI (obstructive sleep apnea) Rectal bleed Straining with stools Tubular adenoma of colon Known medical problems Irritable bowel syndrome with constipation Suicide attempt (CMS/HCC V24, CMS/HCC V28) Depression Severe malnutrition (CMS/HCC V24) Participation: Verbal Response to group: Verbalizes understanding of content * Caitlin Fuller RN - 06/02/2025 6:04 AM EST Patient appeared to have slept well throughout the night. No issues observed nor reported. Awake x 1 briefly, Seroquel 25 mg administered as per request at 0338. Patient is presently asleep in no distress. Maintained on Q 15 minute checks for safety without incident. * Caitlin Fuller RN - 06/02/2025 1:26 AM EST Problem: Safety: Suicide Risk Goal: Will remain free from injury to self Outcome: Progressing End of Shift Summary: Patient is isolative this evening, spent most of the evening in his room. Remains anxious and preoccupied with various complaints, reports occasional leakage from his genital area. Asked for additional rolls of toilet paper this evening. Refused scheduled medication at bedtime stated I need to speak with the Doctor tomorrow about all these changes . Requested medication for sleep, Melatonin 6 mgand Ativan 1 mg administered as ordered at 2052 with good effect. Patient is presently asleep in nodistress. Maintained on Q 15 minute checks for safety without incident. * Brenda Leblanc RN - 06/01/2025 5:27 PM EST Problem: Safety: Suicide Risk Goal: Will remain free from injury to self Outcome: Progressing Problem: Safety: Suicide Risk Goal: Will remain free from injury to self Outcome: Progressing Problem: Self Concept: Suicide Risk Goal: Will verbalize positive feelings about self Outcome: Progressing Goals: Get to a hospital in [place] Identify possible barriers to meeting goals/advancing plan of care: Poor nutrition, Stability of the patient: Moderately Unstable - Medium risk of patient condition declining or worsening End of Shift Summary: Pt on 1:1 start of shift for suicide risk. Pt with flat affect, low tone of voice, and psychomotor retardation. Pt reports HS Seroquel was effective for sleep. He denies HI/AVH.Pt came out of room to use the patient phone once. Pt denies SI and contracts for safety, taken off1:1 at 11:15 and q15min safety checks initiated. Pt declined to eat breakfast due to anal leakage after he eats. Discussed importance of good nutrition and pt eventually drank 75% of his ensure. Ptate about 15% of his tray for lunch and 75% of the ensure, but did not touch dinner. Pt declining to try PRN's for hemorrhoids. Requested and received PRN Ativan 1mg for anxiety at 0938 and 1534 withmoderate effect. Before dinner pt had c/o seeing things to the [facility] while getting vitals taken. Upon assessment pt states when in his bathroom he saw people and shadows behind him, when asked If it could be the [facility] during the safety checks he said it wasn't and he knows he is hallucinating and feels it could be from his medication. Dr. Davila notified and discontinued Prozac and started Nortriptyline 25mg HS, pt educated and he states he won't take any new medication until he can speak with the Tomorrow. * Salbador Davila, - 06/01/2025 4:11 PM EST Psychiatry Progress Note LOS: 2 days Chief Complaint/Reason for Encounter: 50-year-old male admitted on a 15-day PEC after completing a significant suicide attempt. Prior to admission patient overdosed on 30-90 verapamil pills meclizine pills and Motrin. He attempted to follow this up by drinking a tablespoon of bleach and then he stabbed himself in the chest and in the neck. After being medically stabilized patient was transferred to [facility] for further mood stabilizationgiven continued safety risks. HPI: Chart reviewed and patient seen. Patient reports sleeping poorly Reports eating poorly. Adherent with medication regimen and denies any adverse side effects. Denies SI/HI/AVH. Reports participating in unit activities. Reports a number of somatic complaints including diarrhea and purulent drainage from skin on face, although this teletypewriter operator did not note any abnormality. Review of Systems: Except as stated above all other systems are unremarkable Past, Family, Social History: No Change Psychiatric Speciality Examination: Visit Vitals BP 117/83 (BP Location: Left arm, Patient Position: Lying) Pulse 66 Temp 36.8 ??C (98.2 ??F) (Oral) Resp 17 1.803 m (71 ), 51.8 kg (114 lb 3.2 oz), Body mass index is 15.93 kg/m??. Encounter Date: 05/24/25 ECG 12 lead Result Value Ventricular Rate ECG 52 Atrial Rate 52 P-R Interval 146 QRS Duration 96 Q-T Interval 444 QTc 412 P Wave [place] 78 R [place] 80 T [place] 76 ECG Interpretation Sinus bradycardia IcRBBB Borderline ECG Confirmed by ELMER CHAVEZ ([id number]) on 05/30/2025 5:04:57 PM *Note: Due to a large number of results and/or encounters for the requested time period, some results have not been displayed. A complete set of results can be found in Results Review. Mental Status Examination & Relevant Physical Exam: General appearance and Manner: Appears stated age, emaciated, no acute distress Musculoskeletal: Moderate psychomotor retardation Speech: Slow rate, Normal rhythm, volume, tone, quantity Mood & Affect: Mood reported as depressed. Affect is severely dysphoric, appropriate, congruent, blunted range, non-reactive Thought Process: Linear, goal directed, logical, coherent, some somatic preoccupation Description of Associations: Intact Description of Abnormal or Psychotic Thoughts: No delusions elicited. Denies perceptual disturbances. Suicidal Ideations/Homicidal Ideations/Violent Ideations: No active/passive SI/HI Orientation: Alert and oriented x 3 Attention/Concentration: Good Insight and Judgment: Fair Medical Decision Making: Problem List/Diagnosis: Principal Problem: Depression Active Problems: Suicide attempt ([facility] V24, [facility] V28) Data/Medical records reviewed/Labs/Imaging and Other Diagnostic Studies reviewed: No results found for this or any previous visit (from the past 48 hours). PRN Psychotropics Administered Last 24 Hours: Ativan, melatonin Assessment/Status: Patient tolerating current medication regiment with which they are adherent. Will discontinue Prozac. Will initiate Nortriptyline at 25mg at bedtime to help with sleep, appetite, mood, anxiety, and constipation. We will continue to encourage patient to participate in unit activities. We will continue to monitor patient on safe and therapeutic milieu. Social work team to continue with safe discharge planning. Treatment Plan/Recommendations: Intervention/Psychotherapy: active participant in therapy sessions Discontinue Prozac Initiate Pamelor 25mg PO QHS Medications: Scheduled Meds:MEDSSCHEDULED[1] PRN Meds:.MEDSPRN[2] Lab/Radiology/Tests/Consultation: As already prescribed - No additional warranted at this time. Disclaimer: Speech recognition software was utilized to dictate portions of this document. Errors in header setup operator may be present. Please call / cortext me if any questions. [1] FLUoxetine, 10 mg, oral, Daily multivitamin, 1 each, oral, Daily pantoprazole, 40 mg, oral, BID AC QUEtiapine, 25 mg, oral, Nightly [2] PRN medications: acetaminophen, calcium carbonate, dibucaine, yetpofkzrohthaj-rsonbgiy-zqikflbof-simethicone-lidocaine, hydrocortisone, lanolin jwjicll-yh-i.pet-ceres, LORazepam, melatonin, ondansetron (ZOFRAN-ODT) disintegrating tablet OR [DISCONTINUED] ondansetron * RAMAN Bennett - 06/01/2025 3:04 PM EST Behavioral Health Group Note Group Date: 06/01/2025 Start Time: 1400 End Time: 1500 Facilitators: RAMAN Bennett Department: [facility] 8W Group Topic: Art Therapy Number of Participants: 9 Topics discussed: Dream Symbol Sketch Summary: This directive helps clients externalize unconscious material safely by focusing on one symbol rather than the whole dream. Useful for exploring themes of fear, desire, conflict, transition,or unresolved issues in a non-threatening way. Name: Rolan Esteban Date of : 1975 MR: [id number] Patients Problems: Patient Active Problem List Diagnosis Abdominal pain Allergic rhinitis Anxiety Epigastric pain Fatty liver H. pylori infection Hemorrhoids Hepatitis C antibody test positive Hypertension Liver hemangioma Nephrolithiasis SRI (obstructive sleep apnea) Rectal bleed Straining with stools Tubular adenoma of colon Known medical problems Irritable bowel syndrome with constipation Suicide attempt (CMS/HCC V24, CMS/HCC V28) Depression Participation: Did not attend. Reason: Refused * Lubna Cordoba LPC - 06/01/2025 12:05 PM EST Indv session Therapist met w/ pt for an Indv session. Pt observed in his room, resting. Pt utilized eye contact and conversant during session. Pt presents w/ a Depressive mood and lethargic affect. Pt food tray observed w/ small amount of food items eaten and fluids intake. Pt reports he slept last night. Pt reports medication compliant. Therapist utilized encouragement for his Spiritual belief in God. His vocals strengthened and began to rastafari God's name. Pt denied any SI/HI/AH and/or plan or intent. Pt denied any harm to self or others. Case Management Therapist made contact w/ [facility] note faxed. Admissions could not locate the fax sent on Friday. Also, will need to forward to program's director for an approval. Re faxed today. Admissions stated not received fax today and email sent in place. Email response from [facility] is they do not accept lateral referrals and the Director has concerns around pt's medical needs. * Lubna Cordoba LPC - 06/01/2025 11:53 AM EST Behavioral Health Group Note Group Date: 06/01/2025 Start Time: 1000 End Time: 1100 Facilitators: Lubna Cordoba LPC Department: [facility] 8W Group Topic: Clinical Group Number of Participants: 10 Topics discussed: Coping with Stress and Stressors Summary: Leadership Program Intern helped participant's recognize current stressors and understanding the physiological emotional restraint. Participant's identified with one current stressor and learned evidence-based coping strategies to improve emotional regulation, problem-solving techniques and healthier daily functioning. Name: Rolan Esteban Date of : 1975 MR: [id number] Patients Problems: Patient Active Problem List Diagnosis Abdominal pain Allergic rhinitis Anxiety Epigastric pain Fatty liver H. pylori infection Hemorrhoids Hepatitis C antibody test positive Hypertension Liver hemangioma Nephrolithiasis SRI (obstructive sleep apnea) Rectal bleed Straining with stools Tubular adenoma of colon Known medical problems Irritable bowel syndrome with constipation Suicide attempt ([facility] V24, [facility] V28) Depression Participation: Did not attend. Reason: Excused due to illness * RAMAN Bennett - 06/01/2025 11:42 AM EST Behavioral Health Group Note Group Date: 06/01/2025 Start Time: 0900 End Time: 1000 Facilitators: RAMAN Bennett Department: [facility] 8W Group Topic: Art Therapy Number of Participants: 10 Topics discussed: Looking Forward: My Exciting Future Summary: This directive helps participants focus on positive anticipation and excitement for the future, encouraging a sense of hope and navneet as they visualize what???s to come. Name: Rolan Esteban Date of : 1975 MR: [id number] Patients Problems: Patient Active Problem List Diagnosis Abdominal pain Allergic rhinitis Anxiety Epigastric pain Fatty liver H. pylori infection Hemorrhoids Hepatitis C antibody test positive Hypertension Liver hemangioma Nephrolithiasis SRI (obstructive sleep apnea) Rectal bleed Straining with stools Tubular adenoma of colon Known medical problems Irritable bowel syndrome with constipation Suicide attempt (CMS/HCC V24, CMS/HCC V28) Depression Participation: Did not attend. Reason: Refused * Buddy Chan - 06/01/2025 11:18 AM EST Behavioral Health Group Note Group Date: 06/01/2025 Start Time: 1100 End Time: 1130 Facilitators: Buddy Chan Department: [facility] 8W Group Topic: Nutrition Number of Participants: 10 Topics discussed: Nutrition Group Summary: Nutrition GRoup Name: Rolan Esteban Date of : 1975 MR: [id number] Patients Problems: Patient Active Problem List Diagnosis Abdominal pain Allergic rhinitis Anxiety Epigastric pain Fatty liver H. pylori infection Hemorrhoids Hepatitis C antibody test positive Hypertension Liver hemangioma Nephrolithiasis SRI (obstructive sleep apnea) Rectal bleed Straining with stools Tubular adenoma of colon Known medical problems Irritable bowel syndrome with constipation Suicide attempt (CMS/HCC V24, CMS/HCC V28) Depression Participation: Verbal Response to group: Verbalizes understanding of content * Lubna Zazueta NP - 06/01/2025 9:57 AM EST Images from the original note were not included. HOSPITAL MEDICINE PROGRESS NOTE Patient's Name: Rolan Esteban : 1975 Date of Admission: 05/30/2025 2:20 PM Attending Physician: Lubna Zazueta NP Date of Service: 06/01/2025 Hospital Summary: Follow up for suture removal Subjective: Asymptomatic Admitted due to suicidal attempt by cutting wrist and stabbing his neck. Objective: Vitals Vitals: 05/31/25 1108 05/31/25 1353 05/31/25 1710 06/01/25 0916 BP: 116/85 124/78 (!) 140/91 123/83 BP Location: Left arm Left arm Left arm Left arm Patient Position: Sitting Lying Sitting Sitting Pulse: 89 73 68 70 Resp: 17 17 Temp: 36.7 ??C (98 ??F) 36.7 ??C (98.1 ??F) 36.8 ??C (98.2 ??F) 36.7 ??C (98.1 ??F) TempSrc: Oral Oral Oral Oral SpO2: 99% 98% 98% 98% Weight: Height: No intake or output data in the 24 hours ending 06/01/25 0957 Physical Exam Physical Exam Vitals and nursing note reviewed. Exam conducted with a new client banking services clerk present. Constitutional: General: He is not in acute distress. Appearance: He is not ill-appearing. Comments: Thin cachectic appearance Skin: Comments: Sutures to bilateral wrist and left side of his neck. All areas healing/no signs of infection. All sutures removed/no need for sterile strips. Psychiatric: Mood and Affect: Mood is depressed. Affect is flat. Laboratory Data: CBC Lab Results Component Value Date WBC 6.5 05/29/2025 HGB 12.1 (L) 05/29/2025 HCT 34.7 (L) 05/29/2025 MCV 86.9 05/29/2025 PLT 232 05/29/2025 LYMPHOPCT 8.7 05/24/2025 MONOPCT 4.7 05/24/2025 EOSPCT 0.0 05/24/2025 Lab Results Component Value Date CRP 0.6 05/25/2025 ELECTROLYTES Lab Results Component Value Date NA 141 05/30/2025 K 3.8 05/30/2025 CL 103 05/30/2025 BUN 19 05/30/2025 CREATININE 0.80 05/30/2025 EGFR 108 05/30/2025 GLUCOSE 124 05/30/2025 CALCIUM 8.6 05/30/2025 Lab Results Component Value Date MG 1.7 05/30/2025 PHOS 3.5 05/30/2025 LFTs Lab Results Component Value Date PROT 7.3 05/24/2025 ALT 11 05/24/2025 AST 18 05/24/2025 ALKPHOS 70 05/24/2025 BILITOT 2.1 (H) 05/24/2025 ALBUMIN 4.4 05/24/2025 COAGULATION PANEL Lab Results Component Value Date PT 13.5 (H) 05/24/2025 INR 1.2 (H) 05/24/2025 CARDIAC No results found for: TROPONINIHS , BNP Lab Results Component Value Date CHOL 185 07/02/2023 TRIG 179 (A) 07/02/2023 HDL 37 (A) 07/02/2023 HGBA1C 5.1 05/29/2025 ABG No results found for: PHVEN , CXE9XOY , PO2VEN , DWX7RMO , U4CXYHIR MISCELLANEOUS Lab Results Component Value Date LACTATE 1.0 05/25/2025 LACTATE 1.0 02/24/2025 Lab Results Component Value Date TSH 0.45 05/24/2025 FREET4 1.40 08/25/2024 URINALYSIS No results found for: COLORUA , CLARITYUA , SPECGRAVUA , PHUA , PROTUA , GLUCOSEUA , KETONESUA , BILIRUBINUA , BLOODUA , UROBILINOGUA , NITRITEUA Inpatient Medications: Scheduled: MEDSSCHEDULED[1] Continuous: MEDSCONTINUOUS[2] PRN: MEDSPRN[3] Assessment & Plan: Follow up on self inflicted wounds/all sutures removed. Discussed with patient to avoid scratching area also there is no need for sterile strips. Signature: Lubna Zazueta NP 06/01/2025 [1] FLUoxetine, 10 mg, oral, Daily multivitamin, 1 each, oral, Daily pantoprazole, 40 mg, oral, BID AC QUEtiapine, 25 mg, oral, Nightly [2] [3] PRN medications: acetaminophen, calcium carbonate, dibucaine, jxxldcqhjzjacwc-xkwcxmzr-kpufpwydf-simethicone-lidocaine, hydrocortisone, lanolin sczkwzo-nq-a.pet-ceres, LORazepam, melatonin, ondansetron (ZOFRAN-ODT) disintegrating tablet OR [DISCONTINUED] ondansetron Cosigned by Leodan Martinez MD at 06/02/2025 6:00 AM EST * Spring Connor - 05/31/2025 8:53 PM EST Behavioral Health Group Note Group Date: 05/31/2025 Start Time: 2029 End Time: 2049 Facilitators: Spring Connor Department: [facility] 8W Group Topic: IOS Wrap-Up Number of Participants: 10 Topics discussed: wrap up snack group; gratitude Summary: gratitude is dbt skill used to encourage positive thinking Name: Rolan Esteban Date of : 1975 MR: [id number] Patients Problems: Patient Active Problem List Diagnosis Abdominal pain Allergic rhinitis Anxiety Epigastric pain Fatty liver H. pylori infection Hemorrhoids Hepatitis C antibody test positive Hypertension Liver hemangioma Nephrolithiasis SRI (obstructive sleep apnea) Rectal bleed Straining with stools Tubular adenoma of colon Known medical problems Irritable bowel syndrome with constipation Suicide attempt ([facility] V24, [facility] [facility] V[facility] Depression Participation: Did not attend. Reason: Refused * Marnie Garcia RN - 05/31/2025 7:45 PM EST Problem: Safety: Suicide Risk Goal: Will remain free from injury to self Outcome: Progressing Problem: Safety: Suicide Risk Goal: Will remain free from injury to self Outcome: Progressing Problem: Self Concept: Suicide Risk Goal: Will verbalize positive feelings about self Outcome: Not Progressing Goals: Psychiatric stability, able to verbalize safe plan for self care prior to discharge Identify possible barriers to meeting goals/advancing plan of care: Physical health problems, severity of illness, poor coping Stability of the patient: Moderately Unstable - Medium risk of patient condition declining or worsening End of Shift Summary: Pt was placed on 1:1 staff supervision at change of shift for risk of harm toself, day shift staff discovered underwear hanging from mirror in and were concerned pt may try to hang himself. Nursing supervisor pigment making Loren and provider Sha Chase APRN notified, orders received. Ptupset by having someone with him at all times and stated that he would not be compliant with medications or eat or drink to care for himself as a result. Pt eventually able to accept 1:1 and took night medications, fluids encouraged, pt observed taking sips of water. Observed resting comfortably with eyes closed throughout the night, no apparent problems. Care plan maintained will continue to monitor and support. * Roopa Chase NP - 05/31/2025 3:36 PM EST Admit Date: 05/30/2025 Progress Note SUBJECTIVE: I ate some chicken and broccoli and had some sips of Ensure but I do not like chocolate. Denies SOB, CHUNG, CP, dizziness. ROS: A complete 10 point review of symptoms are negative except as mentioned above. Vitals: Intake / Output: Visit Vitals BP 124/78 (BP Location: Left arm, Patient Position: Lying) Pulse 73 Temp 36.7 ??C (98.1 ??F) (Oral) Resp 17 Ht 1.803 m (71 ) Wt 51.8 kg (114 lb 3.2 oz) SpO2 98% BMI 15.93 kg/m?? Smoking Status Former BSA 1.66 m?? Last 24 hours: No intake or output data in the 24 hours ending 05/31/25 1536 Physical Exam: Constitutional: No acute discuss Cardiovascular: Rate and Rhythm: Normal rate. Pulmonary: Effort: CTA bilaterally Abdominal: General: Bowel sounds are normal. Musculoskeletal: LUE decreased ROM, unchanged from previous. No new findings exam. Full weight bearing. Ambulates independently Skin: Comments: Laceration bilateral wrists and left neck Psychiatric: Mood and Affect: Mood is anxious, perseverating. Judgment: Judgment is impulsive. Extremities: No edema Labs: CBC Lab Results Component Value Date WBC 6.5 05/29/2025 HGB 12.1 (L) 05/29/2025 HCT 34.7 (L) 05/29/2025 MCV 86.9 05/29/2025 PLT 232 05/29/2025 LYMPHOPCT 8.7 05/24/2025 MONOPCT 4.7 05/24/2025 EOSPCT 0.0 05/24/2025 Lab Results Component Value Date CRP 0.6 05/25/2025 ELECTROLYTES Lab Results Component Value Date NA 141 05/30/2025 K 3.8 05/30/2025 CL 103 05/30/2025 BUN 19 05/30/2025 CREATININE 0.80 05/30/2025 EGFR 108 05/30/2025 GLUCOSE 124 05/30/2025 CALCIUM 8.6 05/30/2025 Lab Results Component Value Date MG 1.7 05/30/2025 PHOS 3.5 05/30/2025 LFTs Lab Results Component Value Date PROT 7.3 05/24/2025 ALT 11 05/24/2025 AST 18 05/24/2025 ALKPHOS 70 05/24/2025 BILITOT 2.1 (H) 05/24/2025 ALBUMIN 4.4 05/24/2025 COAGULATION PANEL Lab Results Component Value Date PT 13.5 (H) 05/24/2025 INR 1.2 (H) 05/24/2025 CARDIAC No results found for: TROPONINIHS , BNP Lab Results Component Value Date CHOL 185 07/02/2023 TRIG 179 (A) 07/02/2023 HDL 37 (A) 07/02/2023 HGBA1C 5.1 05/29/2025 Lab Results Component Value Date TSH 0.45 05/24/2025 FREET4 1.40 08/25/2024 URINALYSIS No results found for: COLORUA , CLARITYUA , SPECGRAVUA , PHUA , PROTUA , GLUCOSEUA , KETONESUA , BILIRUBINUA , BLOODUA , UROBILINOGUA , NITRITEUA MICROBIOLOGY Culture, Blood Date Value Ref Range Status 02/24/2025 No growth at 5 days Final 02/24/2025 No growth at 5 days Final Lab data personally reviewed by me 05/31/2025 [Current Medications] [Current Medications] Current Facility-Administered Medications: acetaminophen (TYLENOL) tablet 650 mg, 650 mg, oral, q6h PRN, Roopa Chase NP calcium carbonate (TUMS) chewable tablet 1,000 mg, 1,000 mg, oral, 4x daily PRN, Roopa Chase NP, 1,000 mg at 05/31/25 1347 dibucaine (NUPERCAINAL) 1 % ointment, , Topical, TID PRN, Roopa Chase NP dqlzeqiauresakp-nmmepvsk-yfyltomgv-simethicone-lidocaine (MAGIC MOUTHWASH) suspension, 10 mL, Mouth/Throat, TID PRN, Roopa Chase NP FLUoxetine (PROzac) capsule 10 mg, 10 mg, oral, Daily, mAaris Brown NP, 10 mg at 05/31/25 1213 hydrocortisone (ANUSOL-HC) suppository 25 mg, 25 mg, rectal, BID PRN, Roopa Chase NP lanolin bhrpegc-oq-f.pet-ceres (EUCERIN;MINERIN) cream, , topical (top), BID PRN, Roopa Chase NP LORazepam (ATIVAN) tablet 1 mg, 1 mg, oral, q6h PRN, Amaris Brown NP, 1 mg at 05/31/25 1110 melatonin tablet 6 mg, 6 mg, oral, Nightly PRN, Roopa Chase NP multivitamin tablet 1 tablet, 1 each, oral, Daily, Roopa Chase NP, 1 tablet at 05/30/25 1633 ondansetron ODT (ZOFRAN-ODT) disintegrating tablet 4 mg, 4 mg, oral, q8h PRN, 4 mg at 05/31/25 1352OR [DISCONTINUED] ondansetron (PF) (ZOFRAN) injection 4 mg, 4 mg, intravenous, q8h PRN, Dontae Chase NP pantoprazole (PROTONIX) EC tablet 40 mg, 40 mg, oral, BID AC, Roopa Chase NP QUEtiapine (SEROquel) tablet 25 mg, 25 mg, oral, Nightly, Roopa Chase NP, 25 mg at 05/30/25 7978 ASSESSMENT/PLAN: 50 y.o. male with PMH of tubular adenoma of the colon, nephrolithiasis, liver hemangioma, IBS, hep C, hemorrhoids, allergic rhinitis, depression who presented to the ED after OD attempt. Exam unchanged from previous. No new findings. Patient previously seen in ED for LUE symptoms. P atient declined x-ray of the left shoulder for chronic shoulder injury. It was recommended patient followp as outpatient primary care for shoulder. Patient's Loyda updated. Patient's , is concerned he needs more psychiatric attention and intensive help after 3 suicide attempts, stating he has been hospitalized twice before for approximately 3 weeks which she feels was not enough time because he goes right back to starving himself and harming himself. He began starving himself 15 months ago when his son suddenly in a motorcycle accident. She is concerned he made up a symptom of anal leakage as a reason to starve himself stating he cannot eat because he leaks right after and she has asked for him to show her evidence of this over the last 15 months of which he has not beenable to produce any. 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 Cosigned by Leodan Martinez MD at 06/01/2025 4:05 AM EST * RAMAN Bennett - 05/31/2025 3:25 PM EST Behavioral Health Group Note Group Date: 05/31/2025 Start Time: 1400 End Time: 1500 Facilitators: RAMAN Bennett Department: [facility] 8W Group Topic: Art Therapy Number of Participants: 9 Topics discussed: Music and Emotion Summary: This activity helps with emotional awareness, regulation, self- expression, and stress relief by linking auditory and visual senses. Music can unlock emotions that are harder to verbalize, and drawing provides a safe outlet for processing. Name: Rolan Esteban Date of : 1975 MR: [id number] Patients Problems: Patient Active Problem List Diagnosis Abdominal pain Allergic rhinitis Anxiety Epigastric pain Fatty liver H. pylori infection Hemorrhoids Hepatitis C antibody test positive Hypertension Liver hemangioma Nephrolithiasis SRI (obstructive sleep apnea) Rectal bleed Straining with stools Tubular adenoma of colon Known medical problems Irritable bowel syndrome with constipation Suicide attempt ([facility] V24, [facility] V28) Depression Participation: Did not attend. Reason: Refused * Flor Bella RN - 05/31/2025 2:00 PM EST Patient called the unit and expressed concern about patient medical issues, she requested thatpatient be seen by medical provider, Sha Chase was notified. * Lubna Cordoba LPC - 05/31/2025 1:56 PM EST Admission Therapist Interview and Case Formulation Patient Name: Rolan Esteban Date of : 1975 Personal/Family History Personal/family history (please identify any family history of mental illness, suicide or substanceabuse): Pt identified his as his support. Is there a history of or childbirth? na If there are any children where do they live, with whom and who has custody? Pt reports 3, 24yo sonpassed away last yr, 2 daughter's living Siblings/Nature of relationship/Where do your siblings live: na Any DCF involvement? YES,NO: No Housing What is your living situation: LIVING SITUATION: House Who lives with you/Who do you live with?: in [place] Substance Abuse/Dependence/Use Describe your usage of drugs/alcohol over the past 12 months (if any): Pt reports a hx only of Polysubstance use. Longest period of sobriety (how achieved)?: 15yrs Do you want to stop using drugs/alcohol? YES,NO: No Trauma/Abuse/Crisis History What kinds of experience(s) have you had which involved crisis, trauma, violence, or crime? When did this happen and who committed these acts? Pt reports the news of his son's Did you speak about it with anyone? What was their response? na Do you have: DO YOU HAVE: Triggers and Arousal Have you been treated or helped after having these experience(s)? When and where? na Was this effective? na Treatment History What have you been treated for in the past and how was treatment helpful? Pt denied any hx w/ mental illness. What are your goal for this hospitalization? Medical request What do you need the most help with: Now and after discharge? Medical request What are your strengths (list a minimum of 2 strengths)? I don't want to Vocational Have you had any work experience(s)? Yes, unemployed What has been the longest time that you have stayed on one job? na Which job? na Educational/Social If child/adolescent, what school do you attend currently? What was the highest grade level completed? HS Diploma How were your grades in school? Good Do you have friends in school or elsewhere? yes Do you participate in special education or have any special needs? YES,NO: No What learning differences have been identified(if any)? na Are there any special accommodations? YES,NO: No Home schooled? YES,NO: No In school do you have problems with: na Legal Any pending legal charges? None reported Upcoming court dates? na On probation or parole? na If so, who is your probation/homicide squad commanding officer? na Formulation Pt is a 50yo male, w/three children and son last yr. Unemployed, livesin a house w/ his in [place], [place]. Pt admission to 8W is on a PEC secondary to an SA by overuse of pills & self harm by stabbing self (fresh visual cuts on both wrists). Pt endorsed he is happy the attempts were unsuccessful and shown to be experiencing regret & guilt. Pt made complaints around his overall life stressors increasingly being to hard since last year. Pt identified a belief in God and stated he hopes HE will help him. Pt presents w/ a MDD w/ catatonia and R/O ASD. Pt denied any Substance, Alcohol, Marijuana & Nicotine use. He reports a hx only. Pt has not had adequate follow up with an OP provider. Therapist by bedside w/ pt while he's encouraged to sip on fluids and rest. Pt engaged and has fixations on his medical concerns. Pt reports he lives w/ Ulcers, hemorrhoids & bowel leakage, his body shown to have malnutrition. Pt will continue to be observed by tx team for medical necessity. Pt contracted to safety. Pt agreed to reach out to all staff with any worsening, recurrent thoughts or feelings. Pt reports he has spoken to his while on t he unit. Pt denied any SI/HI/AH and/or plan or intent. Pt denied any harm to self or others. Lubna Cordoba LPC 05/31/2025 1:56 PM EST * Lubna Cordoba LPC - 05/31/2025 1:54 PM EST SUICIDE/SAFETY ASSESSMENT Current Suicidal thoughts/Ideations: {YES,NO: No IF YES: Explain frequency, duration, intensity, how intrusive are the thoughts, how much effort is needed to resist the thoughts, what are precipitants, patterns and triggers? Specific suicide plans: YES,NO: No Morbid Ruminations: {YES,NO: Yes Thoughts / urges/wishes to Self-injure (non-suicidal): YES,NO: No Homicidal Ideation(s): YES,NO: No Reason(s) for living: Self Future time perspective: I don't want what happened to happen again, I never had anything like this Based upon patient's direct responses and your assessment at this time, please rate the following: Depression / Dysphoria: SUICIDESAFETY: EXTREME Psychological Pain: {SUICIDESAFETY: EXTREME Sense of Worthlessness: SUICIDESAFETY: MODERATE Sense of Shame: SUICIDESAFETY: SEVERE Sense of Hopelessness: SUICIDESAFETY: MINIMAL Sense of Isolation: SUICIDESAFETY: N/A - PT DENIED Impulsivity: SUICIDESAFETY: MINIMAL Hostility: SUICIDESAFETY: N/A - PT DENIED Environmental Stress/External Pressure: SUICIDESAFETY: N/A - PT DENIED Anxiety / Agitation: SUICIDESAFETY: MODERATE Based on above: Suicide Precautions?: YES,NO: No 1:1 Constant Observation?: {YES,NO: No Treatment plan for suicidal thoughts / behavior/self-injury?: YES,NO: No Additional Comments: Pt denied any SI/HI/AH and/or plan or intent. Pt denied any harm to self or others while on the unit. Cosigned by Salbador Davila DO at 06/03/2025 2:34 PM EST * Lubna Cordoba LPC - 05/31/2025 1:09 PM EST Case Management Therapist consult w/ tx team [facility] today. Pending follow up for a hospital - hospital transport. * Simba Castañeda RN - 05/31/2025 12:51 PM EST Problem: Self Concept: Suicide Risk Goal: Will verbalize positive feelings about self Outcome: Not Progressing Problem: Safety: Suicide Risk Goal: Will remain free from injury to self Outcome: Progressing Problem: Safety: Suicide Risk Goal: Will remain free from injury to self Outcome: Progressing Pt is isolative, stays in bed. Pt will ambulate to phone in common area to make calls to his , pt ambulates independtly to bathroom. Pt refuses to eat his meals, states he cannot eat due to anal leakage and bleeding. Pt denies blood in stool, pt was offered depends and refuses. Pt refuses to shower as well. Pt complains of left shoulder pain, pt noted be laying on left shoulder. Pt offered tylenol, pt refused. Recommendations given to limit pressure to left shoulder, pt continues to lay on left shoulder. Pt was given PRN zofran and tums with no effect. Ice water pitcher placed at bedside,pt encouraged to hydrate. Medical HOT DIP TINNING SUPERVISOR notified. Hospital underwear noted placed flat above bathroom mirror, pt reports I left it there to change into later . Pt denies SI, pt remains free from injury. Large amount of toilet paper noted in brown paper bag in bathroom, no remnants of leakage noted. CSSR no risk indicated (low) Pt continues on Q5min safety checks. * Buddy Chan - 05/31/2025 12:31 PM EST Behavioral Health Group Note Group Date: 05/31/2025 Start Time: 1100 End Time: 1130 Facilitators: Buddy Chan Department: [facility] 8W Group Topic: Nutrition Number of Participants: 10 Topics discussed: Nutrition Group Summary: Nutrition Group Name: Rolan Esteban Date of : 1975 MR: [id number] Patients Problems: Patient Active Problem List Diagnosis Abdominal pain Allergic rhinitis Anxiety Epigastric pain Fatty liver H. pylori infection Hemorrhoids Hepatitis C antibody test positive Hypertension Liver hemangioma Nephrolithiasis SRI (obstructive sleep apnea) Rectal bleed Straining with stools Tubular adenoma of colon Known medical problems Irritable bowel syndrome with constipation Suicide attempt (CMS/HCC V24, CMS/HCC V28) Depression Participation: Verbal Response to group: Verbalizes understanding of content * RAMAN Bennett - 05/31/2025 12:01 PM EST Behavioral Health Group Note Group Date: 05/31/2025 Start Time: 0900 End Time: 1000 Facilitators: RAMAN Bennett Department: [facility] 8W Group Topic: Art Therapy Number of Participants: 10 Topics discussed: Dream Steps Staircase Summary: This directive allows the participants to visualize and map out the steps toward achievinga dream or goal by creating a staircase that represents the journey. Name: Rolan Esteban Date of : 1975 MR: [id number] Patients Problems: Patient Active Problem List Diagnosis Abdominal pain Allergic rhinitis Anxiety Epigastric pain Fatty liver H. pylori infection Hemorrhoids Hepatitis C antibody test positive Hypertension Liver hemangioma Nephrolithiasis SRI (obstructive sleep apnea) Rectal bleed Straining with stools Tubular adenoma of colon Known medical problems Irritable bowel syndrome with constipation Suicide attempt ([facility] V24, CMS/HCC V28) Depression Participation: Did not attend. Reason: Refused * Lubna Cordoba LPC - 05/31/2025 11:35 AM EST Behavioral Health Group Note Group Date: 05/31/2025 Start Time: 1000 End Time: 1100 Facilitators: Lubna Cordoba LPC Department: [facility] 8W Group Topic: Clinical Group Number of Participants: 11 Topics discussed: DBT Skills & Psycho education on Emotional, Hancock & Reasonable Mind Summary: Leadership Program Intern focused on improving participant's understanding of three DBT states of mind. Group participant's shared examples of when they reacted from emotional state and collaborated an identified strategy to support a shift to a Hancock Mind i.e. observation, breathing, grounding and/or nonjudgmental of self. Name: Rolan Esteban Date of : 1975 MR: [id number] Patients Problems: Patient Active Problem List Diagnosis Abdominal pain Allergic rhinitis Anxiety Epigastric pain Fatty liver H. pylori infection Hemorrhoids Hepatitis C antibody test positive Hypertension Liver hemangioma Nephrolithiasis SRI (obstructive sleep apnea) Rectal bleed Straining with stools Tubular adenoma of colon Known medical problems Irritable bowel syndrome with constipation Suicide attempt (CMS/[facility] V24, CMS/HCC V28) Depression Participation: Did not attend. Reason: Excused due to illness * Amaris Brown NP - 05/31/2025 10:50 AM EST Images from the original note were not included. INITIAL PSYCHIATRIC EVALUATION Author: Amaris Brown NP Filed: @ENCDATE@ Status: [facility] [address] [facility] [id number] SOURCES OF INFORMATION: Patient and epic documentation. CHIEF COMPLAINT / REASON FOR ENCOUNTER: Reason for Admission Reason for Admission: 50-year-old male admitted on a 15-day PEC after completing a significant suicide attempt. Prior to admission patient overdosed on 30-90 verapamil pills meclizine pills and Motrin. He attempted to follow this up by drinking a tablespoon of bleach and then he stabbed himself in the chest and in the neck. After being medically stabilized patient was transferred to [facility] for further mood stabilization given continued safety risks. HISTORY OF PRESENT ILLNESS: The history was compiled from evaluation, chart review, assessment within the [facility] Electronic Medical Record (EMR) system, emergency department evaluation, and crisis assessment. This is a 50-year-old male who was a medical transfer after making a significant suicide attempt. Prior to that admission patient has been struggling with depression that has led to a 100 pound weight loss in the course of a year, and inability to function at work, job loss and marital strain. Patient was feeling hopeless and helpless as when kicked him out and asked him to go stay at a residential. He overdosed with over 70 tablets of verapamil meclizine and ibuprofen. After this he drank a tablespoon of bleach and tried to stab himself in the chest and neck. After being medically stabilized patient was transferred to [place] for further concerns about safety risk and treatment of depression. On admission patient remains very difficult to engage. He believes that there is nothing psychiatrically wrong with him and that now he has more medical issues and he wants to be transferred back to medicine. GI team did assess patient's issues with regards to eating and swallowing. There were no acute findings and the recommendations were to continue follow-up as an outpatient. This has made thepatient unhappy and unwilling to comply with current treatment recommendations for mental illness. Patient has been educated that pain can be enhanced when being unsuccessful at treating depression. I have attempted to get patient to engage with treatment team has been very difficult to present time. Patient states that he was speaking to his and that he is no longer suicidal or depressed and that he wants to go to a hospital in [place]. At the present time patient is being somewhat uncooperative with history and treatment planning. PAST PSYCHIATRIC HISTORY: 1 year ago patient's son was killed in an automobile accident. From that time on he has been in treatment as an outpatient for depression. Past psychiatric medications trial: SUBSTANCE USE HISTORY: Patient denies any substance or alcohol abuse history. Principal Problem during this admission Depression PAST MEDICAL HISTORY: Diagnosis: Medical History[1] Medications: Prior to Admission medications Medication Sig Start Date End Date Taking? Authorizing Provider amLODIPine (NORVASC) 2.5 mg tablet Take 1 tablet (2.5 mg total) by mouth 1 (one) time each day. 02/06/25 Yes Historical Provider, blood pressure test kit-large kit USE ASA DIRECTED ONCE A DAY Patient not taking: Reported on 05/25/2025 07/14/24 Historical ProviderMD calcium carbonate (TUMS) 500 mg (200 mg elemental calcium) chewable tablet Chew 2 tablets (1,000 mgtotal) 4 (four) times a day if needed for indigestion or heartburn. 05/30/25 06/29/25 Misty Corral DO FLUoxetine (PROzac) 20 mg capsule Take 1 capsule (20 mg total) by mouth 1 (one) time each day. 05/28/25 06/27/25 Misty Corral DO hydrocortisone-pramoxine (PROCTOFOAM-HS) rectal foam Insert 1 applicator into the rectum 2 (two) times a day for 10 days. 05/30/25 06/09/25 Misty Corral DO LORazepam (ATIVAN) 2 mg tablet Take 1 tablet (2 mg total) by mouth 3 (three) times a day if needed.Psychiatrist fills [facility] Historical ProviderMD pantoprazole (PROTONIX) 40 mg EC tablet Take 1 tablet (40 mg total) by mouth 2 (two) times a day before meals. Do not crush, chew, or split. 05/30/25 06/29/25 Misty Corral DO QUEtiapine (SEROquel) 25 mg tablet Take 1 tablet (25 mg total) by mouth at bedtime. Psychiatrist fills meds Historical ProviderMD carboxymethylcellulose 1 % ophthalmic solution Administer 1 drop into both eyes 2 (two) times a day. Patient not taking: Reported on 05/25/2025 05/02/25 05/30/25 Jesus Head NP cholecalciferol (VITAMIN D-3) 50 mcg (2,000 unit) capsule TAKE 1 CAPSULE BY MOUTH EVERY DAY Patient not taking: Reported on 05/25/2025 09/16/24 05/30/25 Shane Clifton NP FLUoxetine (PROzac) 10 mg capsule Take 1 capsule (10 mg total) by mouth 1 (one) time each day. 05/30/25 Historical Provider, hydrocortisone (ANUSOL-HC) 2.5 % rectal cream Insert into the rectum 4 (four) times a day if neededfor hemorrhoids (rectal discomfort). Apply to affected areas Patient not taking: Reported on 05/25/2025 05/18/25 05/30/25 Shane Clifton NP hydrocortisone (ANUSOL-HC) 25 mg suppository Insert 1 suppository (25 mg total) into the rectum 1 (one) time each day for 5 doses. 05/28/25 05/30/25 Misty Corral DO ibuprofen (ADVIL,MOTRIN) 600 mg tablet TAKE 1 TABLET BY MOUTH EVERY 6 HOURS NEEDED FOR PAIN FOR UP TO 30 DAYS. Patient not taking: Reported on 05/25/2025 09/16/24 05/30/25 Shane Clifton NP losartan (COZAAR) 25 mg tablet Take 1 tablet (25 mg total) by mouth 1 (one) time each day. Renal and transplant fill meds Patient not taking: Reported on 05/25/2025 05/30/25 Historical Provider, meclizine (ANTIVERT) 25 mg tablet TAKE 1 TABLET BY MOUTH 3 TIMES A DAY IF NEEDED FOR DIZZINESS. Patient not taking: Reported on 05/25/2025 05/06/25 05/30/25 Venancio Camilo MD witch sara-glycerin (TUCKS) pads Apply 1 each topically if needed for hemorrhoids. Patient not taking: Reported on 05/25/2025 05/18/25 05/30/25 Shane Clifton NP Surgeries: Surgical History[2] Allergies: Current Allergies[3] FAMILY HISTORY: No known family history of mental illness SOCIAL AND PERSONAL HISTORY (Developmental, School, Work, Relationships, Legal Guardian/Conservator): Patient currently estranged from however during medical hospitalization record review suggest that patient and are reconciling and that would like patient to come home after hospitalization. Patient and have 1 daughter, their son was killed in a car accident approximately 1 yearago. From that time patient has been unable to maintain his current employment. There are financialconcerns within the family. Review of Systems -Complete ROS reviewed and negative except as noted in HPI. PSYCHIATRIC SPECIALITY EXAMINATION/MENTAL STATUS EXAMINATION Data: Heart Rate: 60, Resp: 18, BP: 125/80 Temp: 36.7 ??C (98.1 ??F), SpO2: 99 % Height: 180.3 cm (71 ), Weight: 51.8 kg (114 lb 3.2 oz), BMI (Calculated): 15.9 No components found for: ECGQTC Mental Status Examination: General Appearance/Demeanor: Hospital attire and self-neglect, and has a thin build. Patient is irritable , anxious, restless, and partially cooperative Psychomotor Behavior: no psychomotor abnormality noticed Eye Contact sometimes avoidant Speech monotonous Mood described depressed Affect: dysphoric Thought process Lutts, not tangential or circumstantial Thought content: No paranoia reported, no delusions elicited Perception/ Hallucinations: No auditory or visual hallucinations Fund of Knowledge: Shows a typical level of knowledge for age and education Insight: Poor Judgement: Poor Oriented to Time, place and person Cognitive: Grossly Intact Suicide/homicide Suicide Risk assessment : Suicidality: Denies SI, no intent or plan Homicidality: Denies HI, no intent or plan Impulse control: Poor Risk Factors Historical Risk Factors History of trauma or abuse and History of mood or psychotic disorder Current Risk Factors Severe anxiety, Hopelessness or feelings of being a burden, Impaired functioning , and Depression Protective Factors Strong reasons for living (e.g., family, pets, goals) Risk Level Determination: - Assign a risk level based on the results of the screening, risk assessment, chart or collateral review (if possible), and your clinical judgement Level of Risk: Moderate Plan and Interventions Monitoring Level: q 5- minute checks Safety Plan Development: Completed with patient Lethal Means Restriction: Completed Current Treatment Recommendations: Medication adjustments and Transfer to inpatient Psych MEDICAL DECISION MAKING Need for admission/evaluation: Suicidal Ideation , Suicidal attempt , dangerous to self and others,and Worsening of depression Data (Medical Records/Labs/Diagnostic Tests Reviewed): Reviewed ED provider note, admission H and P, ED Crisis Evaluation. Lab Results Component Value Date WBC 6.5 05/29/2025 RBC 4.00 (L) 05/29/2025 MCV 86.9 05/29/2025 MCH 30.4 05/29/2025 MCHC 34.9 05/29/2025 RDW 13.2 05/29/2025 MPV 7.9 05/29/2025 Lab Results Component Value Date BUN 19 05/30/2025 CREATININE 0.80 05/30/2025 NA 141 05/30/2025 K 3.8 05/30/2025 CL 103 05/30/2025 CO2 32 05/30/2025 CALCIUM 8.6 05/30/2025 ALBUMIN 4.4 05/24/2025 ALKPHOS 70 05/24/2025 AST 18 05/24/2025 ALT 11 05/24/2025 Lab Results Component Value Date CHOL 185 07/02/2023 HDL 37 (A) 07/02/2023 TRIG 179 (A) 07/02/2023 Lab Results Component Value Date HGBA1C 5.1 05/29/2025 Pain Management Panel More data may exist Latest Ref Rng & Units 05/24/2025 02/24/2025 Pain Management Panel Amphetamine Screen, Ur Negative Negative Negative Barbiturate Screen, Ur Negative Negative Negative Benzodiazepine Screen, Ur Negative Negative Negative Cocaine Screen, Ur Negative Negative Negative Fentanyl, Ur Negative Negative Negative Opiate Screen, Ur Negative Negative Negative Cannabinoid (THC) Screen, Ur Negative Negative Negative Problem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 1 tablet Given 06/06/2025 8:50 AM EST 1 tablet nortriptyline (PAMELOR) capsule 25 mg 25 mg, oral, Nightly, First dose on Fri06/01/25 at 2100 Given 06/04/2025 8:31 PM EST 25 mg Given 06/03/2025 8:02 PM EST 25 mg Given 06/02/2025 8:14 PM EST 25 mg ondansetron ODT (ZOFRAN-ODT) disintegrating tablet 4 mg 4 mg, oral, Every 8 hours PRN, vomiting, nausea, Starting on Fri05/30/25 at 1532 Given 06/03/2025 12:51 PM EST 4 m g Given 06/01/2025 12:19 PM EST 4 mg Given 05/31/2025 1:52 PM EST 4 mg pantoprazole (PROTONIX) EC tablet 40 mg 40 mg, oral, 2 times daily before meals, First dose (after last modification) on Fri05/30/25 at 2330, Do not crush, chew, or split. Given 05/30/2025 11:04 PM EST 40 mg pantoprazole (PROTONIX) EC tablet 40 mg 40 mg, oral, 2 times daily before meals, First dose (after last modification) on Fri05/31/25 at 1630, Do not crush, chew, or split., Indications: duodenal ulcer, maintenance of healing erosive esophagitisIndications:duodenal ulcer,maintenance of healing erosive esophagitis Given 06/07/2025 4:44 PM EST 40 mg Given 06/07/2025 6:31 AM EST 40 mg Given 06/06/2025 3:45 PM EST 40 mg QUEtiapine (SEROquel) tablet 25 mg 25 mg, oral, Nightly, First dose (after last modification) on Fri05/31/25 at 0000 Given 06/02/2025 3:38 AM EST 25 mg Given 06/01/2025 12:13 AM EST 25 mg Given 05/30/2025 11:04 PM EST 25 mg QUEtiapine (SEROquel) tablet 50 mg 50 mg, oral, Nightly, First dose (after last modification) on Fri06/03/25 at 0000 Given 06/03/2025 11:09 PM EST 50 mg QUEtiapine (SEROquel) tablet 50 mg 50 mg, oral, Every 6 hours PRN, agitation, Starting on [place]ba 06/02/25 at 1723 Given 06/08/2025 3:23 PM EST 50 mg Given 06/08/2025 8:28 AM EST 50 mg Given 06/07/2025 4:04 PM EST 50 mg QUEtiapine (SEROquel) tablet 75 mg 75 mg, oral, Nightly, First dose (after last modification) on 06/06/25 at 0000 Given 06/07/2025 10:11 PM EST 75 mg Given 06/07/2025 2:43 AM EST 75 mg Given 06/05/2025 11:05 PM EST 75 mg documented in this encounter Discontinued Medications Medication Sig Discontinue Reason Start Date End Da te LORazepam (ATIVAN) 2 mg tablet Take 1 tablet (2 mg total) by mouth 3 (three) times a day if needed. Psychiatrist fills meds Stop Taking at Discharge 06/08/2025 QUEtiapine (SEROquel) 25 mg tablet Take 1 tablet (25 mg total) by mouth at bedtime. Psychiatrist fills meds Stop Taking at Discharge 06/08/2025 FLUoxetine (PROzac) 20 mg capsule Take 1 capsule (20 mg total) by mouth 1 (one) time each day. Stop Taking at Discharge 05/28/2025 06/08/2025 pantoprazole (PROTONIX) 40 mg EC tablet Take 1 tablet (40 mg total) by mouth 2 (two) times a day before meals. Do not crush, chew, or split. Stop Taking at Discharge 05/30/2025 06/08/2025 documented as of this encounter Historical Medications * This list may reflect changes made after this encounter. amLODIPine (NORVASC) 2.5 mg tabletIndications :Deffer to PCP. Please discuss with PCP before taking it ( Home medication) Take 1 tablet (2.5 mg total) by mouth 1 (one) time each day. 02/06/2025 added in this encounter Active and Recently Administered Medications Times are shown in EST. Scheduled Medication Order 06/06/2025 06/07/2025 06/08/2025 clomiPRAMINE (ANAFRANIL) capsule 25 mg (CANCELED) 25 mg, oral, Nightly, First dose on Fri06/05/25 at 2100 2025 (Given - Provider: Caitlin Fuller RN) 2006 (Not Given - Provider: Kiera Lara, PRERNA - Reason: Patient/Resident/Agen t refused - education provided ) multivitamin tablet 1 tablet 1 tablet (1 each), oral, Daily, First dose on Fri05/30/25 at 1600 0850 (Given - Provider: Brenda Leblanc RN) 0856 (Given - Provider: Layla Pulliam RN) 0828 (Given - Provider: Layla Pulliam, PRERNA) pantoprazole (PROTONIX) EC tablet 40 mg 40 mg, oral, 2 times daily before meals, First dose (after last modification) on Fri05/31/25 at 1630, Do not crush, chew, or split., Indications: duodenal ulcer, maintenance of healing erosive esophagitis 0747 (Given - Provider: Brenda Leblanc RN)1545 (Given - Provider: Brenda Leblanc RN) 0631 (Given - Provider: Guy Miller RN)1644 (Given - Provider: Layla Pulliam RN) 0828 (Not Given - Provider: Layla Pulliam RN - Reason: Other - Comment: refused med)1553 (Not Given - Provider: Layla Pulliam RN - Reason: Other - Comment: pt refused med) QUEtiapine (SEROquel) tablet 75 mg 75 mg, oral, Nightly, First dose (after last modification) on Fri06/06/25 at 0000 0243 (Given - Provider: Caitlin Fuller RN - Comment: patient asleep)2211 (Given - Provider: Kiera Lara, RN) PRN Medication Order 06/06/2025 06/07/2025 06/08/2025 acetaminophen (TYLENOL) tablet 650 mg (CANCELED) 650 mg, oral, Every 6 hours PRN, mild pain, Starting on Fri05/30/25 at 1532 1811 (Given - Provider: Brenda Leblanc RN) calcium carbonate (TUMS) chewable tablet 1,000 mg (CANCELED) 1,000 mg, oral, 4 times daily PRN, indigestion, heartburn, Starting on Fri05/30/25 at 1531, Ordered as calcium carbonate. 500 mg calcium carbonate = 200 mg elemental calcium. 1213 (Given - Provider: Brenda Leblanc RN)1812 (Given - Provider: Brenda Leblanc RN) 1252 (Given - Provider: Layla Pulliam, RN) LORazepam (ATIVAN) tablet 1 mg (CANCELED) 1 mg, oral, Every 6 hours PRN, anxiety, Starting on Fri05/31/25 at 1049 0850 (Given - Provider: Brenda Leblanc RN)1512 (Given - Provider: Brenda Leblanc RN) 0856 (Given - Provider: Layla Pulliam, RN)1554 (Given - Provider: Layla Pulliam, PRERNA)2213 (Given - Provider: Kiera Lara, RN) 0828 (Given - Provider: Layla Pulliam, RN)1523 (Given - Provider: Layla Pulliam, RN) melatonin tablet 6 mg (CANCELED) 6 mg, oral, Nightly PRN, sleep, Starting on Fri05/30/25 at 1532 2027 (Given - Provider: Caitlin Fuller, PRERNA) 2010 (Given - Provider: Kiera Lara, RN) QUEtiapine (SEROquel) tablet 50 mg (CANCELED) 50 mg, oral, Every 6 hours PRN, agitation, Starting on [place]ba 06/02/25 at 1723 0850 (Given - Provider: Brenda Leblanc RN)1512 (Given - Provider: Brenda Leblanc RN)2027 (Given - Provider: Caitlin Fuller RN) 0856 (Given - Provider: Layla Pulliam, RN)1604 (Given - Provider: Layla Pulliam, RN) 0828 (Given - Provider: Layla Pulliam, RN)1523 (Given - Provider: Layla Pulliam, RN) documented in this encounter Orders Medications Ordered That Ernst ht Not Have Been Administered Count Last Ordered Date First Ordered Date LORazepam (ATIVAN) tablet 2 mg 1 05/31/2025 amLODIPine (NORVASC) tablet 2.5 mg 1 2024 [id number] nesium-simethi cone-lidocaine (MAGIC MOUTHWASH) suspension 1 05/30/2025 FLUoxetine (PROzac) capsule 20 mg 1 025 hydrocortisone (ANUSOL-HC) s uppository 25 mg 1 05/30/2025 lanolin lzfpadj-mj-i.pet-cer es (EUCERIN;MINERIN) cream 1 05/30/2025 ondansetron (PF) (ZOFRAN) injection 4 mg 1 05/30/2025 Consult Count Last Ordered Date First Orde red Date IP CONSULT TO NUTRITION SERVICES 1 05/31/20 25 Inpatient consult to Nutrition Services 1 1 07/31/2024 Admission Count Last Ordered Date First Orde red Date ADMIT TO IP PSYCH 1 05/30/2025 Discharge Count Last Ordered Date First Orde red Date DISCHARGE PATIENT 1 06/08/2025 documented in this encounter Additional Health Concerns Active Problems Noted Date Diagnosed Date Autogenerated Problem 05/26/2025 Assessment Noted Time PHQ-9 Depression Total Score: 27 025 1:00 PM EST documented as of this encounter Care Teams [employer] Relationship Specialty Start Date End Date Venancio Camilo MD [address] [place] [address] PCP - General Internal Medicine 12/09/14 documented as of this encounter
--- NOTE | ~2025-06-08 | CT_ITS ---
EXAMINATION: CT CHEST WITHOUT IV CONTRAST INDICATION: Weight loss COMPARISON: There are no prior studies available for comparison. TECHNIQUE: Helical CT scan of the chest was performed without intravenous contrast. Coronal and sagittal reformatted images were generated and reviewed. This CT exam was performed with one or more of the following dose reduction techniques: automated exposure control, adjustment of the mA and/or kV according to patient size, use of iterative reconstruction technique. DLP: 217 mGy-cm CHEST: THYROID: The thyroid is unremarkable. LUNGS: The lungs are clear. There are no airspace opacities or suspicious pulmonary nodules. MEDIASTINUM: There is no mediastinal lymphadenopathy. DAVID: Evaluation of the hilar regions is limited by lack of intravenous contrast material. CARDIOVASCULATURE: The heart is normal in size. There is no pericardial effusion. The thoracic aorta is normal in caliber. DEGREE OF CORONARY CALCIFICATION: none PLEURA: There is no pleural effusion. No pneumothorax. MAIN AIRWAYS: The mainstem bronchi and proximal branches are patent. AXILLA: There is no axillary lymphadenopathy. BONES AND SOFT TISSUES: Unremarkable UPPER ABDOMEN: The visualized portions of the liver, spleen, and adrenals have an unremarkable unenhanced appearance. There is a large amount of debris in the stomach. CT/CT chest wo IV con IMPRESSION: 1. Unremarkable unenhanced CT of the chest. 2. Large amount of debris in the stomach. Correlation with the timing of the patient's last meal is recommended. Electronically signed by: Andres White MD 06/13/2025 08:11 AM SHIMON
[2025-06-08 18:11] VITALS: BP 146/90; PULSE 82; RESP 16; TEMP 36.6; O2SAT 99; BMI 16.6
--- NOTE | 2025-06-08 18:11 | ED.PSYCH ---
HPI - Psych General Chief Complaint: Psychiatric Symptoms Stated Complaint: Suicidal Time Seen by Provider: 06/08/25 18:31 Source: patient, RN notes reviewed and old records reviewed Mode of arrival: ambulatory Limitations: no limitations History of Present Illness ED Provider: Moy WILLS Narrative: 50-year-old male presents for evaluation of suicidal ideation. Patient was apparently admitted to [facility] for the last 2 and half weeks after a recent suicide attempt The patient reports that he took pills and cut his wrist and neck 2-1/2 weeks ago He is still feeling suicidal. He reports that this is stemming from the loss of his son 14 months The patient is requesting to be admitted to the 5th floor for continued psychiatric care He reports that he has been compliant with all of his medications Related Data Home Medications ?Medication ?Instructions ?Recorded ?Confirmed lorazepam 2 mg tablet 2 mg PO TID PRN Anxiety 04/26/21 06/08/25 quetiapine 25 mg tablet 25 - 75 mg PO BEDTIME 10/30/22 06/08/25 cholecalciferol (vitamin D3) 50 50 mcg PO DAILY 03/12/23 06/08/25 mcg (2,000 unit) tablet (Vitamin D3) losartan 25 mg tablet 25 mg PO DAILY 08/18/24 06/08/25 Allergies Allergy/AdvReac Type Severity Reaction Status Date / Time prednisone AdvReac Anxiety Uncoded 06/08/25 18:12 Review of Systems Constitutional: Constitutional: Denies body ache(s), Denies chills, Denies fever(s) and Denies frequent falls ENT: Denies vertigo Cardiovascular: Cardiovascular: Denies chest pain Respiratory: Respiratory: Denies cough Gastrointestinal: Gastrointestinal: Denies abdominal pain Integumentary/Breasts: Skin/Breast: Denies rash Neurologic: Denies vertigo and Denies frequent falls Psychiatric: Psychiatric: Reports anxiety, Denies homicidal ideation and Reports suicidal ideation [facility] Past Medical History Medical History Hypertension GERD (gastroesophageal reflux disease) Anxiety Spermatocele Surgical History History of surgery History of colonoscopy Hx of esophagogastroduodenoscopy History of testicular surgery Social History Social History (Reviewed 06/21/24 @ 15:11 by DEDRA Santamaria Household Members: Spouse Housing: Apartment Do you presently have visiting nurse or other home services: No Patient Tobacco Use Status: Former Tobacco user Smoked in Last 30 Days: No e-Cigarette/Vaping Use: Former Use Patient Interested in Nicotine Replacement: No (n/a) Patient Given Instructions on How to Stop Smoking: No Second Hand Smoke Exposure: No Currently Displaying Signs/Symptoms of Drug Intoxication Withdrawal: No Have you been hit, kicked, punched, or otherwise hurt by someone within the past year? If so, by whom?: No Do you feel safe in your current relationship?: Yes Is there a partner from a previous relationship who is making you feel unsafe now?: No Are you made to feel afraid or neglected: No Advance Directives: No Advance Directives Information Provided: Yes Do you have thoughts of harming others: None Do you have a plan to hurt others: No Plan Recently lost weight without trying: Yes How much weight loss: 34pounds or more Eating poorly because of decreased appetite: Yes Nutrition screen score: 7 Nutrition Risks: Difficulty swallowing Poor oral hygiene: No service: No Sexual orientation: Straight/Heterosexual Physical Exam Vital Signs: Vital Signs: Last Vital Signs Temp 98.6 F 06/10/25 08:00 Pulse 75 06/10/25 08:00 Resp 16 06/10/25 08:00 BP 117/74 06/10/25 08:00 Pulse Ox 99 06/10/25 08:00 O2 Del Method Room Air 06/10/25 08:00 BMI result Body Mass Index 16.6 Const: General: healthy appearing, comfortable, no acute distress, alert and awake Nutritional Appearance: well nourished Orientation/consciousness: patient oriented x3 HEENT: Head: Yes normocephalic and Yes atraumatic Eyes: Eyelids: Yes eyelids normal Conjunctivae: conjunctivae normal Sclerae: sclerae normal Corneas: corneas normal Pupils: Equal, round and reactive pupils present EOM: EOMs intact bilaterally Neck: Neck: Yes full ROM Resp: Effort & Inspection: normal respiratory effort, able to speak in complete sentences and not labored Cardio: Rate: regular rate Rhythm: regular rhythm GI: Inspection: No distended Palpation (GI): Soft to palpation, not firm, nontender, no guarding and not rigid Skin: General skin exam: elasticity normal Neuro: General: patient oriented x3 Cranial nerves: Yes CN's II-XII intact bilaterally, Yes Equal, round and reactive pupils present and Yes Bilaterally intact EOM present Cognition (Neuro): normal cognition Course Course Course Narrative: This is a rapid medical exam performed by Jean Claude Ocampo NP: Additional HPI, ROS, PE not included below will be deferred to primary provider. Patient is a 50y/o M discharged from [facility] in [place] today presenting with complaint of suicidal ideation. Complains of abdominal pain and internal hemorrhoids which have been bleeding. Recent suicide attempt 2 weeks ago. Patient's family pulled RN and I aside and stated that patient is OCD, and severe health anxiety, believes he has cancer, and feels he needs these issues addressed as well. Plan: BH pod, 1:1 observation, med clearance then CARE team evaluation Reevaluation(s) Reevaluation #1: The patient was seen by the care team and will be made a bed search for inpatient psychiatric care due to continued SI. He is placed on a section 12 Time: 23:05 Reevaluation #2: Time: 05:18 Date: 06/09/25 Provider: Donal Rivera MD Patient in physician observation for psychiatric evaluation.? No acute events reported overnight. No current complaints. VS stable.? Patient is in bed search status. CARE team evaluation determined that the patient meets inpatient level of care, the patient is on a section 12. Will continue to monitor. Time: 14:11 Date: 06/09/25 Provider: Donal Rivera MD Physician observation ended at 14:11. Patient to be admitted as inpatient to psychiatry. Medications Administered Generic Name Dose Route Start Last Admin Trade Name Freq PRN Reason Stop Dose Admin Al Hydroxide/Mg Hydroxide 30 ml 06/09/25 15:28 06/10/25 12:45 Magnesium Hydrox/Alum Hydrox 30 Ml Oral.Susp PO 30 ml Q6H PRN Administration Heartburn/Nausea Hydroxyzine HCl 25 mg 06/09/25 15:28 06/09/25 16:49 Hydroxyzine Hcl 25 Mg Tablet PO 25 mg Q6H PRN Administration mild anxiety Lorazepam 2 mg 06/09/25 05:22 06/10/25 08:52 Lorazepam 1 Mg Tablet PO 2 mg TID PRN Administration Anxiety Losartan Potassium 25 mg 06/09/25 09:00 06/10/25 09:01 Losartan Potassium 25 Mg Tablet PO Not Given DAILY JAIMEE Protocol Olanzapine 5 mg 06/09/25 15:28 06/10/25 12:45 Olanzapine 5 Mg Tablet PO 5 mg Q4H PRN Administration agitation Quetiapine Fumarate 100 mg 06/09/25 21:00 06/09/25 20:53 Quetiapine Fumarate 100 Mg Tablet PO 100 mg BEDTIME JAIMEE Administration Vitamin D 50 mcg 06/09/25 09:00 06/10/25 08:44 Cholecalciferol (Vitamin D3) 25 Mcg Tablet PO 50 mcg DAILY JAIMEE Administration Discontinued Medications Generic Name Dose Route Start Last Admin Trade Name Freq PRN Reason Stop Dose Admin Lorazepam 2 mg 06/08/25 22:12 06/08/25 22:28 Lorazepam 1 Mg Tablet PO 06/08/25 22:13 2 mg ONCE ONE Administration Quetiapine Fumarate 75 mg 06/08/25 22:12 06/08/25 22:28 Quetiapine Fumarate 25 Mg Tablet PO 06/08/25 22:13 75 mg ONCE ONE Administration Medical Decision Making Medical Decision Making MDM Narrative: 50-year-old male presents for evaluation of suicidal ideation. He reports a recent suicide attempts about 2-1/2 weeks ago and was admitted to [facility] for psychiatric care. He is complaining of continued suicidal thoughts. Plan for medical clearance and care team consult Differential Diagnosis Differential Diagnoses: The differential diagnosis associated with the presentation includes Depression Suicidal ideation Substance abuse PTSD Lab Data 06/08/25 20:36 06/08/25 20:36 Labs: Lab Results 06/08/25 06/08/25 Range/Units 20:24 20:36 WBC 8.7 (4.8-10.8) X10*3/uL RBC 4.58 L (4.60-5.80) X10*6/uL Hgb 13.8 L (14.0-18.0) g/dl Hct 40.5 L (42.0-52.0) % MCV 88.4 (80.0-98.0) fL MCH 30.1 (27.0-33.0) pg MCHC 34.1 (31.0-36.0) g/dl RDW 12.8 (11.0-16.0) % Plt Count 406 H (160-400) X10*3/uL MPV 8.9 L (9.4-12.4) fL Immature Gran % (Auto) 0.1 (0.0-0.4) % Neut % (Auto) 52.7 (45-73) % Lymph % (Auto) 40.7 H (20-40) % [place] % (Auto) 4.8 (2-11) % Eos % (Auto) 1.0 (0-4) % Baso % (Auto) 0.7 (0-2) % Lymph # (Auto) 3.5 (1.2-4.9) X10*3/uL [place] # (Auto) 0.4 (0.1-1.2) X10*3/uL Eos # (Auto) 0.1 (0.0-0.4) X10*3/uL Baso # (Auto) 0.1 (0.0-0.2) X10*3/uL Abs Immat Gran (auto) 0.01 (0.00-0.03) X10*3/uL Absolute Neuts (auto) 4.6 (2.0-8.3) x10*3/uL Absolute Nucleated RBC 0.000 (0.0-0.012) X10*3/uL Nucleated RBC % (auto) 0.0 (0.0-0.2) /100WBC Sodium 142 (135-145) mmol/L Potassium 4.0 (3.3-5.1) mmol/L Chloride 103 (96-108) mmol/L Carbon Dioxide 30 H (22-29) mmol/L Anion Gap 13 (12-20) BUN 17 H (9-16) mg/dL Creatinine 0.83 (0.5-1.4) mg/dL Estim Creat Clear Calc 81.4 Estimated GFR > 60 Random Glucose 88 (60-115) mg/dL Calcium 9.3 (8.4-10.2) mg/dL Total Bilirubin 0.5 (0.0-1.0) mg/dL AST 18 (5-37) U/L ALT 13 (0-40) U/L Alkaline Phosphatase 55 (39-117) U/L Total Protein 7.4 (6.5-8.0) g/dL Albumin 4.6 (3.5-5.0) g/dL Urine Color Yellow Urine Appearance Cloudy Urine pH 6.5 (5.0-9.0) Ur Specific Snyder 1.025 (1.005-1.025) Urine Protein Negative (Neg-Trace) mg/dL Urine Glucose (UA) Negative (Negative) mg/dL Urine Ketones Trace (Negative) mg/dL Urine Blood Negative (Negative) Urine Nitrite Negative (Negative) Ur Leukocyte Esterase Negative (Negative) Urine Opiates Screen Not Detected (Not Detect) Ur Buprenorphine Scrn Not Detected (Not Detect) ng/mL Ur Oxycodone Screen Not Detected (Not Detect) ng/mL Urine Methadone Screen Not Detected (Not Detect) ng/mL Urine Fentanyl Screen Not Detected (Not Detect) Ur Barbiturates Screen Not Detected (Not Detect) Ur Phencyclidine Scrn Not Detected (Not Detect) Ur Amphetamines Screen Not Detected (Not Detect) U Benzodiazepines Scrn Not Detected (Not Detect) Urine Cocaine Screen Not Detected (Not Detect) U Marijuana (THC) Screen Not Detected (Not Detect) Ethyl Alcohol < 10 mg/dL COVID-19 (RAMIRO) Negative (Negative) COVID-19 Clin Com See Note Discharge Plan Discharge Clinical Impression: Depressive disorder Anxiety disorder Qualifiers: Anxiety disorder type: unspecified anxiety disorder Qualified Code(s): F41.9 - Anxiety disorder, unspecified Patient Disposition: Admitted As Inpatient Interventions: Admission Worksheet (ED) Last Done: 06/09/25 14:11 Discharge Date/Time: 06/09/25 15:16
[2025-06-08 20:41] LABS: MANUAL DIFF FLAG NO
[2025-06-08 20:43] LABS: Appearance Urine Cloudy; Glucose Urine UA Negative (Negative); PH 6.5 (5.0-9.0); Specific Gravity - Urine 1.025 (1.005-1.025)
[2025-06-08 20:45] LABS: Hematocrit 40.5 % (42.0-52.0); Hemoglobin 13.8 g/dl (14.0-18.0); Imm Gran Abs Auto 0.01 X10*3/uL (0.00-0.03); Imm Gran Pct Auto 0.1 % (0.0-0.4); Lymphocytes Absolute Auto 3.5 X10*3/uL (1.2-4.9); Mean Corpuscular HGB Conc 34.1 g/dl (31.0-36.0); Mean Corpuscular Hemoglobin 30.1 pg (27.0-33.0); Mean Corpuscular Volume 88.4 fL (80.0-98.0); NRBC Abs Auto 0.000 X10*3/uL (0.0-0.012); NRBC Pct Auto 0.0 /100WBC (0.0-0.2); Platelet Count 406 X10*3/uL (160-400); Red Blood Count 4.58 X10*6/uL (4.60-5.80); White Blood Count 8.7 X10*3/uL (4.8-10.8)
[2025-06-08 20:55] LABS: COVID-19 Test Negative (Negative)
[2025-06-08 20:57] LABS: Cannabinoid Screen Urine Not Detected (Not Detect)
[2025-06-08 21:02] LABS: Alanine Aminotransferase 13 U/L (0-40); Albumin Level 4.6 g/dL (3.5-5.0); Alkaline Phosphatase 55 U/L (39-117); Anion Gap 13 (12-20); Aspartate Amino Transferase 18 U/L (5-37); Blood Urea Nitrogen 17 mg/dL (9-16); Calcium 9.3 mg/dL (8.4-10.2); Carbon Dioxide 30 mmol/L (22-29); Chloride 103 mmol/L (96-108); Creatinine Clr Calc Pharmacy 81.4; Estimated Glomerular Filt Rate > 60; Potassium 4.0 mmol/L (3.3-5.1); Sodium 142 mmol/L (135-145); Total Protein 7.4 g/dL (6.5-8.0)
--- OUTSIDE RECORDS SUMMARY | 2025-06-08 21:11 | XMS_ITS | Encounter Summary ---
Author Organization [employer] Address [address] [place] [address] Care Team Providers Care Urogynaecologist Name Role Phone Venancio Camilo MD Primary Care Provider [phone] Encounter Details Date Type Department Care Team ([facility] st Contact Info) Description 05/23/2025 Results Follow-Up Adult Medicine [facility] [address], [place] [phone] Shane Clifton [employer] [address], [place] Social History Tobacco Use Types Packs/Day [...] got money to buy more. Not asked 05/26/2025 Within the past 12 months th e food we bought just didn't last and we didn't have money to get more. Not asked 05/26/2025 Dependent Care Answer Date Recorded Do you need help finding or paying for care for your loved ones. For example, child specialist or elderly care for an older adult? [...] your living situation? Unrecognized valu e 05/18/2025 Sex and Gender Information Value Date Recorded Sex Assigned at Male 07/15/2024 1:15 PM EST Legal Sex Male 5:08 PM EST Gender Identity Male 07/15/2024 1:15 PM EST Sexual Orientation Straight 07/15/2024 1: 15 PM EST documented as of this encounter Functional Status * Question Answer Date of Assessment Author 1. Wish to be (Past 1 Month) Yes 025 8:00 AM Anca Cuellar RN 2. Non-Specific Active Suici linda Thoughts (Past 1 Month) Yes 05/26/2025 8:00 AM Jesi Cuellar RN 3. Active Suicidal Ideation with any Methods (Not Plan) Without Intent to Act (Past 1 Month) Yes 05/26/2025 8:00 AM Anca Cuellar R N 4. Active Suicidal Ideation with Some Intent to Act, Without Specific Plan (Past 1 Month) Yes 05/26/2025 8:00 AM Anca Cuellar R N 5. Active Suicidal Ideation with Specific Plan and Intent (Past 1 Month) Yes 05/26/2025 8:00 AM Anca Cuellar R N * Calculated C-SSRS Risk Score (Lifetime/Recent) Answer Date of Assessment Author High Risk 05/26/2025 8:00 AM Edgardo Cuellar RN * [place] Suicide Severity Rating Scale (Screener/Recent Self-Report) Question Answer Date of Assessment Author 6. Suicidal Behavior (Lifetime) Yes 8:00 AM Anca Cuellar RN 6. Suicidal Behavior (3 Months) Yes 8:00 AM Anca Cuellar RN documented as of this encounter Progress Notes * Raji Jerome MA - 05/24/2025 1:45 PM EST Patient states he cannot get into my chart to check his results and would like to know if camilo could call him regarding results. * Radha Castro - 05/23/2025 3:24 PM EST Patient is calling due to receiving a message to check his MyChart, patient stated he rather have acall instead of a message due to not knowing his password to [employer], patient was offered [employer] technical support number and stated he is to tired and doesn't want to get up and that his phone don't have enough charge. documented in this encounter Plan of Treatment Upcoming Encounters Date Type Department Care Team (Late st Contact Info) Description 10/10/2025 3:00 PM EDT Clinical Support G[facility]ology - [place] [address] [place] [address] documented as of this encounter Visit Diagnoses Not on filedocumented in this encounter Additional Health Concerns Assessment Noted Time PHQ-9 Depression Total Score: 24 025 4:03 PM EST documented as of this encounter Care Teams Urogynaecologist Relationship Specialty Start Date End Date Venancio Camilo MD [address] [place] [address] PCP - General Internal Medicine 12/09/14 documented as of this encounter
--- OUTSIDE RECORDS SUMMARY | 2025-06-08 21:11 | XMS_ITS | Data Portability ---
Author Organization [facility], [address] Address [address] [place] [address] Assessment No assessment recorded. Plan of Treatment [...] Send Out Template NON DOT completed [facility] 01/21/2024 16:15:15 Imaging Results None recorded. Procedure [...] Diagnosis SNOMED-CT Code Diagnosis ICD10 Code Diagnosis IMO Codes Diagnosis Note [id number] [facility] [id number] [facility] [address] [place] [address] 01/21/2024 16:00:27 01/21/2024 16:30:43 History and physical examination, occupation [id number] Z02.1 Health Concerns Section Related Observation LastModified by Organization Detai ls LastModified Time None Recorded Concern Status LastModified by Organization Details LastModified Time None Recorded Advance Directives Directive None Recorded Payers Insurance Date Sequence Insurance Name Policy Number Policy Russo Covered Member ID Russo Member ID Guarantor Name 01/21/2024 OC-ESCREEN Es[employer] OTHER OTHER An elle Esteban
--- OUTSIDE RECORDS SUMMARY | 2025-06-08 21:11 | XMS_ITS | Clinical Summary ---
Author Organization [employer] Address [address] [facility] [address] [place] [address] Care Team Providers Care Creel Selector Name Role Phone Unavailable Primary Care Provider [...] FOBT 1975 Lipid Panel 1975 Sigmoidoscopy 1975 Disability Screening 1975 Alcohol/Substance Use Screening 1987 Tobacco Screening 1987 Family Planning (PISQ) 1990 Hepatitis B Vaccines (1 of 3 - 19+ 3-dose series) 1994 COVID-19 Vaccine ( - 2024-2 6 season) 2025 Influenza Vaccine (#1) 2025 7, 04/17/2015, 04/15/2014 Pneumococcal Vaccine: 50+ Years (1 of 1 - PCV) 2025 Zoster Vaccines (1 of 2) 2025 DTaP/Tdap/Td Vaccines (3 - T d or Tdap) 07/01/2033 07/01/2023, 04/14/2013 RSV Patients and Patients Aged 60 years or older (1 - [...] age to complete this topic Meningococcal B Vaccine Aged Out No l onger eligible based on patient's age to complete [...]
--- OUTSIDE RECORDS SUMMARY | 2025-06-08 21:11 | XMS_ITS | Encounter Summary ---
Author Organization [facility] Address [address] [place] [address] Care Team Providers Care Manager Nursing Home Name Role Phone Pcp, Nani Primary Care Provider Diana Castro MD Primary Care Provider [phone] Encounter Details Date Type Department Care Team (Late st Contact Info) Description 03/19/2018 Scanned Document [facility] U[facility] [place] [address] [facility] [address] [place] [address] Prashant Naylor MD [address] [facility] [address] [place] [address] Social History Tobacco Use Types Packs/Day Years Used Date Smoking Tobacco: Never Assessed Sex and Gender Information Value Date Recorded Sex Assigned at Not on file Legal Sex Male 1:07 PM EDT Gender Identity Not on file Sexual Orientation Not on file documented as of this encounter Plan of Treatment Not on file documented as of this encounter Visit Diagnoses Not on filedocumented in this encounter Care Teams Manager Nursing Home Relationship Specialty Start Date End Date Pcp, No PCP - General General Medicine 03/17/18 07/01/22 Diana Velázquez MD [address] [place] [address] PCP - General 07/02/22 documented as of this encounter
--- OUTSIDE RECORDS SUMMARY | 2025-06-08 21:12 | XMS_ITS ---
[facility] Organization Unknown Results Test Name/Text Value Interpretation Date Range Source Glucose Bld-mCnc 124.0 mg/dL 05/30/2025 70 - 199 [facility] Phosphate SerPl-mCnc 3.5 mg/dL 05/30/2025 2.5 - 4. 5 [facility] Magnesium SerPl-mCnc 1.7 mg/dL 05/30/2025 1.7 - 2. 8 [facility] Glucose SerPl-mCnc 104.0 mg/dL 05/30/2025 70 - 199 [facility] eGFRcr SerPlBld CKD-EPI 2020 108.0 mL/min/1.73m 2 05/30/2025 - [facility] Sodium SerPl-sCnc 141.0 mmol/L 05/30/2025 135 - 14 5 [facility] Calcium SerPl-mCnc 8.6 mg/dL 05/30/2025 8.4 - 10.2 [facility] Chloride SerPl-sCnc 103.0 mmol/L 05/30/2025 98 - 1 07 [facility] BUN SerPl-mCnc 19.0 mg/dL 05/30/2025 9 - 20 [facility] Creat SerPl-mCnc 0.8 mg/dL 05/30/2025 0.7 - 1.3 CT _[facility] Potassium SerPl-sCnc 3.8 mmol/L 05/30/2025 3.5 - 5 .1 [facility] Anion Gap SerPl Calc-sCnc 6.0 05/30/2025 5 - 14 [facility] BUN/Creat SerPl 23.8 Above high normal 05/30/2025 12 - 20 [facility] CO2 SerPl-sCnc 32.0 mmol/L 05/30/2025 24 - 32 CT [facility] Potassium SerPl-sCnc 3.9 mmol/L 05/29/2025 3.5 - 5 .1 [facility] eGFRcr SerPlBld CKD-EPI 2020 108.0 mL/min/1.73m 2 05/29/2025 - [facility] Sodium SerPl-sCnc 141.0 mmol/L 05/29/2025 135 - 14 5 [facility] Calcium SerPl-mCnc 8.5 mg/dL 05/29/2025 8.4 - 10.2 [facility] BUN/Creat SerPl 28.8 Above high normal 05/29/2025 12 - 20 [facility] Glucose SerPl-mCnc 98.0 mg/dL 05/29/2025 70 - 199 [facility] Anion Gap SerPl Calc-sCnc 5.0 05/29/2025 5 - 14 [facility] Chloride SerPl-sCnc 104.0 mmol/L 05/29/2025 98 - 1 07 [facility] CO2 SerPl-sCnc 32.0 mmol/L 05/29/2025 24 - 32 CT [facility] Creat SerPl-mCnc 0.8 mg/dL 05/29/2025 0.7 - 1.3 CT _[facility] BUN SerPl-mCnc 23.0 mg/dL Above high normal 05/29/2025 9 - 2 0 [facility] Magnesium SerPl-mCnc 1.7 mg/dL 05/29/2025 1.7 - 2. 8 [facility] Phosphate SerPl-mCnc 3.2 mg/dL 05/29/2025 2.5 - 4. 5 [facility] WBC # Bld Auto 6.5 K/mcL 05/29/2025 4 - 10.5 [facility] MCV RBC Auto 86.9 FL 05/29/2025 78 - 100 [facility] Platelet # Bld Auto 232.0 K/mcL 05/29/2025 150 - 4 50 [facility] MCH RBC Qn Auto 30.4 pcg 05/29/2025 25 - 33 [facility]_ [facility] Erythrocyte DistWidth Bld Auto 13.2 % 05/29/2025 12.1 - 17.7 [facility] PMV Bld Auto 7.9 FL 05/29/2025 7.4 - 11.4 [facility] Hgb Bld-mCnc 12.1 g/dL Below low normal 05/29/2025 13.5 - 18 [facility] RBC # Bld Auto 4.0 M/mcL Below low normal 05/29/2025 4.7 - 6 [facility] MCHC RBC Auto-EntMCnc 34.9 g/dL 05/29/2025 32 - 36 [facility] Hct VFr Bld Auto 34.7 % Below low normal 05/29/2025 40 - 54 [facility] Erythrocyte DistWidth Bld Auto 13.0 % 05/28/2025 12.1 - 17.7 [facility] MCH RBC Qn Auto 30.1 pcg 05/28/2025 25 - 33 [facility]_ [facility] Platelet # Bld Auto 229.0 K/mcL 05/28/2025 150 - 4 50 [facility] MCHC RBC Auto-EntMCnc 34.5 g/dL 05/28/2025 32 - 36 [facility] WBC # Bld Auto 7.5 K/mcL 05/28/2025 4 - 10.5 [facility]_T [facility] Hgb Bld-mCnc 12.0 g/dL Below low normal 05/28/2025 13.5 - 18 [facility] Hct VFr Bld Auto 34.8 % Below low normal 05/28/2025 40 - 54 [facility] RBC # Bld Auto 4.0 M/mcL Below low normal 05/28/2025 4.7 - 6 [facility] MCV RBC Auto 87.1 FL 05/28/2025 78 - 100 [facility] PMV Bld Auto 8.0 FL 05/28/2025 7.4 - 11.4 [facility] Magnesium SerPl-mCnc 1.7 mg/dL 05/28/2025 1.7 - 2. 8 [facility] Phosphate SerPl-mCnc 3.9 mg/dL 05/28/2025 2.5 - 4. 5 [facility] BUN SerPl-mCnc 22.0 mg/dL Above high normal 05/28/2025 9 - 2 0 [facility] Potassium SerPl-sCnc 3.9 mmol/L 05/28/2025 3.5 - 5 .1 [facility] Sodium SerPl-sCnc 139.0 mmol/L 05/28/2025 135 - 14 5 [facility] Creat SerPl-mCnc 0.9 mg/dL 05/28/2025 0.7 - 1.3 CT _[facility] Calcium SerPl-mCnc 8.8 mg/dL 05/28/2025 8.4 - 10.2 [facility] CO2 SerPl-sCnc 29.0 mmol/L 05/28/2025 24 - 32 CT [facility] Chloride SerPl-sCnc 104.0 mmol/L 05/28/2025 98 - 1 07 [facility] Glucose SerPl-mCnc 90.0 mg/dL 05/28/2025 70 - 199 [facility] BUN/Creat SerPl 24.4 Above high normal 05/28/2025 12 - 20 [facility] eGFRcr SerPlBld CKD-EPI 2020 104.0 mL/min/1.73m 2 05/28/2025 - [facility] Anion Gap SerPl Calc-sCnc 6.0 05/28/2025 5 - 14 [facility] PMV Bld Auto 8.2 FL 05/27/2025 7.4 - 11.4 [facility] Hgb Bld-mCnc 14.0 g/dL 05/27/2025 13.5 - 18 [facility] WBC # Bld Auto 7.6 K/mcL 05/27/2025 4 - 10.5 [facility] MCH RBC Qn Auto 29.7 pcg 05/27/2025 25 - 33 [facility]_ [facility] RBC # Bld Auto 4.72 M/mcL 05/27/2025 4.7 - 6 [facility]_ [facility] MCV RBC Auto 89.3 FL 05/27/2025 78 - 100 [facility] Platelet # Bld Auto 269.0 K/mcL 05/27/2025 150 - 4 50 [facility] Erythrocyte DistWidth Bld Auto 13.3 % 05/27/2025 12.1 - 17.7 [facility] Hct VFr Bld Auto 42.1 % 05/27/2025 40 - 54 CT [facility] MCHC RBC Auto-EntMCnc 33.3 g/dL 05/27/2025 32 - 36 [facility] Phosphate SerPl-mCnc 4.1 mg/dL 05/27/2025 2.5 - 4. 5 [facility] eGFRcr SerPlBld CKD-EPI 2020 92.0 mL/min/1.73m 2 05/27/2025 - [facility] CO2 SerPl-sCnc 28.0 mmol/L 05/27/2025 24 - 32 CT [facility] Potassium SerPl-sCnc 3.8 mmol/L 05/27/2025 3.5 - 5 .1 [facility] Anion Gap SerPl Calc-sCnc 11.0 05/27/2025 5 - 14 [facility] Calcium SerPl-mCnc 9.4 mg/dL 05/27/2025 8.4 - 10.2 [facility] BUN SerPl-mCnc 17.0 mg/dL 05/27/2025 9 - 20 [facility]_ [facility] Chloride SerPl-sCnc 102.0 mmol/L 05/27/2025 98 - 1 07 [facility] Glucose SerPl-mCnc 81.0 mg/dL 05/27/2025 70 - 199 [facility] Sodium SerPl-sCnc 141.0 mmol/L 05/27/2025 135 - 14 5 [facility] BUN/Creat SerPl 17.0 05/27/2025 12 - 20 [facility] Creat SerPl-mCnc 1.0 mg/dL 05/27/2025 0.7 - 1.3 CT _[facility] Magnesium SerPl-mCnc 1.8 mg/dL 05/27/2025 1.7 - 2. 8 [facility] Procalcitonin SerPl-mCnc <0.05 ng/mL 05/26/2025 - [facility] Creat SerPl-mCnc 1.2 mg/dL 05/26/2025 0.7 - 1.3 CT _[facility] CO2 SerPl-sCnc 28.0 mmol/L 05/26/2025 24 - 32 CT _[facility] Chloride SerPl-sCnc 104.0 mmol/L 05/26/2025 98 - 1 07 [facility] Potassium SerPl-sCnc 3.7 mmol/L 05/26/2025 3.5 - 5 .1 [facility] Glucose SerPl-mCnc 85.0 mg/dL 05/26/2025 70 - 199 [facility] BUN SerPl-mCnc 16.0 mg/dL 05/26/2025 9 - 20 [facility]_ [facility] BUN/Creat SerPl 13.3 05/26/2025 12 - 20 [facility]_ [facility] Anion Gap SerPl Calc-sCnc 8.0 05/26/2025 5 - 14 [facility] eGFRcr SerPlBld CKD-EPI 2020 74.0 mL/min/1.73m 2 05/26/2025 - [facility] Sodium SerPl-sCnc 140.0 mmol/L 05/26/2025 135 - 14 5 [facility] Calcium SerPl-mCnc 8.6 mg/dL 05/26/2025 8.4 - 10.2 [facility] Phosphate SerPl-mCnc 4.1 mg/dL 05/26/2025 2.5 - 4. 5 [facility] Magnesium SerPl-mCnc 1.8 mg/dL 05/26/2025 1.7 - 2. 8 [facility] MCV RBC Auto 89.4 FL 05/26/2025 78 - 100 [facility] MCH RBC Qn Auto 29.6 pcg 05/26/2025 25 - 33 [facility]_ [facility] MCHC RBC Auto-EntMCnc 33.0 g/dL 05/26/2025 32 - 36 [facility] WBC # Bld Auto 8.2 K/mcL 05/26/2025 4 - 10.5 [facility] Erythrocyte DistWidth Bld Auto 13.3 % 05/26/2025 12.1 - 17.7 [facility] Platelet # Bld Auto 235.0 K/mcL 05/26/2025 150 - 4 50 [facility] Hgb Bld-mCnc 12.6 g/dL Below low normal 05/26/2025 13.5 - 18 [facility] RBC # Bld Auto 4.28 M/mcL Below low normal 05/26/2025 4.7 - 6 [facility] PMV Bld Auto 7.9 FL 05/26/2025 7.4 - 11.4 [facility] Hct VFr Bld Auto 38.3 % Below low normal 05/26/2025 40 - 54 [facility] Chloride SerPl-sCnc 104.0 mmol/L 05/25/2025 98 - 1 07 [facility] eGFRcr SerPlBld CKD-EPI 2020 82.0 mL/min/1.73m 2 05/25/2025 - [facility] CO2 SerPl-sCnc 27.0 mmol/L 05/25/2025 24 - 32 CT _[facility] BUN/Creat SerPl 14.5 05/25/2025 12 - 20 [facility]_ [facility] Creat SerPl-mCnc 1.1 mg/dL 05/25/2025 0.7 - 1.3 CT _[facility] Glucose SerPl-mCnc 89.0 mg/dL 05/25/2025 70 - 199 [facility] Anion Gap SerPl Calc-sCnc 8.0 05/25/2025 5 - 14 [facility] Sodium SerPl-sCnc 139.0 mmol/L 05/25/2025 135 - 14 5 [facility] BUN SerPl-mCnc 16.0 mg/dL 05/25/2025 9 - 20 [facility]_ [facility] Calcium SerPl-mCnc 8.4 mg/dL 05/25/2025 8.4 - 10.2 [facility] Potassium SerPl-sCnc 3.6 mmol/L 05/25/2025 3.5 - 5 .1 [facility] CRP SerPl-mCnc 0.6 mg/dL 05/25/2025 - [facility] Phosphate SerPl-mCnc 3.6 mg/dL 05/25/2025 2.5 - 4. 5 [facility] Magnesium SerPl-mCnc 1.7 mg/dL 05/25/2025 1.7 - 2. 8 [facility] Hct VFr Bld Auto 38.1 % Below low normal 05/25/2025 40 - 54 [facility] MCHC RBC Auto-EntMCnc 33.4 g/dL 05/25/2025 32 - 36 [facility] MCV RBC Auto 88.9 FL 05/25/2025 78 - 100 [facility] PMV Bld Auto 7.8 FL 05/25/2025 7.4 - 11.4 [facility] RBC # Bld Auto 4.28 M/mcL Below low normal 05/25/2025 4.7 - 6 [facility] Hgb Bld-mCnc 12.7 g/dL Below low normal 05/25/2025 13.5 - 18 [facility] Erythrocyte DistWidth Bld Auto 13.0 % 05/25/2025 12.1 - 17.7 [facility] MCH RBC Qn Auto 29.7 pcg 05/25/2025 25 - 33 [facility] WBC # Bld Auto 8.3 K/mcL 05/25/2025 4 - 10.5 [facility] Platelet # Bld Auto 229.0 K/mcL 05/25/2025 150 - 4 50 [facility] Lactate Bld-sCnc 1.0 mmol/L 05/25/2025 0.5 - 2.2 C T_[facility] Bld gp Ab Scn SerPl Ql 05/30/2025 [facility] PT Bld 13.5 sec Above high normal 05/30/2025 10.5 - 13.3 [facility] INR PPP 1.2 Above high normal 05/30/2025 0.8 - 1.1 C T[facility] aPTT PPP 32.1 sec 05/30/2025 25 - 37 [facility] N Glucose Bld-mCnc 93.0 mg/dL 05/25/2025 70 - 199 C T[facility] Allergies Allergen Reaction Severity Comment Documented Date Source Statu s LISINOPRIL NAUSEA AND VOMITING 10/08/2019 [facility] active Problems Problem Status Onset Date Problem Type Date of Resolution Source Hypertension active 2019-11-09 ProblemAct [facility] Rectal bleed active 2024-05-07 Problem[address] [facility] Hepatitis C antibody test positive active 2013-10-05 ProblemAct [facility] Irritable bowel syndrome with constipation active 2024-08-20 ProblemAct [facility] Upper GI bleed active EncounterDiagnosisAct [facility] Epigastric pain active 2024-05-[address] [facility] Hemorrhoids active 2024-05-07 ProblemAct [facility] Suicide attempt active 2025-05-[address] [facility] H. pylori infection active 2021-01-19 ProblemAct [facility] Liver hemangioma active 2022-03-06 ProblemAct C T_[facility] SRI (obstructive sleep apnea) active 2014-11-23 ProblemAct [facility] Abdominal pain active 2024-05-[address] [facility] Allergic rhinitis active 2022-07-31 ProblemAct [facility] Tubular adenoma of colon active 2024-05-07 ProblemAct [facility] Straining with stools active 2024-05-07 ProblemAct [facility] Anxiety active 2013-04-14 ProblemAct [facility] Fatty liver active 2015-05-04 ProblemAct [facility] Known medical problems active 2014-09-07 ProblemAct [facility] Nephrolithiasis active 2012-04-[address] [facility] Immunizations Vaccine Date Source Lot Number Status Tdap Tetanus diptheria acell ular pertussis (Boostrix; Adacel) 7yo and older 05/24/2025 [facility] [id number] completed Tdap Tetanus diptheria acell ular pertussis (Boostrix; Adacel) 7yo and older 07/01/2023 [facility] [id number] completed Influenza Quadravalent, MDCK , 0.5ml, with preservative (Flucelvax) 6mo and older 05/07/2017 [facility]_VONFRLILL[facility] [id number] completed Influenza trivalent, 0.5mL, preservative free (Fluarix; FluLaval; Fluzone) ages 6mo and older (Afluria) 3 years and older 04/17/2015 [facility] [id number] completed Influenza trivalent, 0.5mL, preservative free (Fluarix; FluLaval; Fluzone) ages 6mo and older (Afluria) 3 years and older 04/15/2014 [facility]_JHON[facility] [id number] completed Tdap Tetanus diptheria acell ular pertussis (Boostrix; Adacel) 7yo and older 04/14/2013 [facility] [id number] completed Encounters Encounter Type Encounter Reason Primary Diagnosis Location Date Ambulatory [facility] Inpatient transfer Gastrointestinal hemorrhage, unspecified [facility] 05/24/2025 Care Team Organization Name Specialty Phone Email Start Date End Da te [facility], 05/30/2025 [facility] 05/25/2025 [facility] 05/25/2025 [facility] 04/30/2022 02/09/2024
--- OUTSIDE RECORDS SUMMARY | 2025-06-08 21:12 | XMS_ITS | Encounter Summary ---
Author Organization [facility] Address [address] [place] [address] Phone Care Team Providers Care Junior Graphic Designer Name Role Phone Venancio Camilo MD Primary Care Provider [phone] Encounter Details Date Type Department Care Team (Late st Contact Info) Description 08/15/2022 Telephone [facility] [address] [place] [address] Daniella Darnell MA Social History Tobacco [...] with you. Please call him back at [phone] Thank you documented in this encounter Plan of Treatment Not on file documented as of this encounter Visit Diagnoses Not on filedocumented in this encounter Care Teams Junior Graphic Designer Relationship Specialty Start Date End Date Venancio Camilo MD [address] [place] [id number] PCP - General 07/03/20 documented as of this encounter
--- OUTSIDE RECORDS SUMMARY | 2025-06-08 21:12 | XMS_ITS | Clinical Summary ---
Author Organization [facility] Address [address] [address] Phone Care Team Providers Care Internal Medicine Physician Assistant Name Role Phone Venancio Camilo MD Primary Care Provider [phone] Allergies Active Allergy Reactions Criticality Noted Date Comments Lisinopril Diarrhea,Nausea And Vomiting 020 Medications LORazepam (ATIVAN) 2 MG tablet TAKE 1 TABLET BY MOUTH 3 TIMES PER DAY NEEDED FOR ANXIETY 07/28/2020 Active QUEtiapine (SEROquel) 25 MG tablet TAKE 1 3 TABLETS BY MOUTH AT BEDTIME. 07/23/2020 Active losartan (Cozaar) 25 MG tabletIndicatio ns:Hypertension Take 1 tablet (25 mg total) by mouth 1 (one) time each day 30 tablet 11 07/06/2024 Active Blood Pressure Monitoring (Omron 3 Series BP Monitor) deviceIndicatio ns:Hypertension 1 Device 1 (one) time each day 1 each 07/14/2024 Active Active Problems Problem Noted Date Diagnosed Date [...] pylori infection 023 Rectal hemorrhage 11/04/2022 Tubular adenomatous polyp of colon 11/04/2022 Allergic rhinitis 07/31/2022 Hemangioma [...] treated for 6 months for hepatitis at [facility]. Anxiety 04/14/2013 Overview (11/04/2022): Patient has a psychiatrist. Dr Mares? Nephrolithiasis 04/14/2012 Overview (08/14/2022): CT 04/01 2mm nonobstructing left stone Family History Medical History Relation Comments Diabetes [...] 09/11/2021 3:25 PM EDT Plan of Treatment Health Maintenance Due Date Last Done Comments Hepatitis B Vaccine (1 of 3 - 19+ 3-dose series) 1994 Pneumococcal Vaccine: 50+ Ye ars (1 of 2 - PCV) 1994 Colorectal Cancer Screening: Annual FOBT 2024 Colorectal Cancer Screening: Colonoscopy 2024 Colorectal Cancer Screening: Sigmoidoscopy 2024 Diabetes: Ophthalmology Exam 07/06/2024 Diabetes: Pedal Pulse Checked 07/06/2024 Diabetes: Sensory Foot Exam 07/06/2024 Diabetes: Visual Foot Exam 07/06/2024 Diabetes: Hemoglobin A1C 10/17/2024 12/ 025, 07/19/2024, 07/19/2024, Additional history exists Influenza Vaccine (#1) 2025 7, 04/17/2015, 04/15/2014 Procedures Procedure Name Priority Date/Time Associated Diagnosis Comments HEMOGLOBIN A1C Routine 09/11/2021 3:57 PM EDT from Last 3 Months or Most Recently Relevant to Health Maintenance Results * Hemoglobin A1c (09/11/2021 3:57 PM EDT) Hemoglobin A1C 5.3 (4.0-5.6) % [facility] Comment: MONITORING: In known diabetic patients, hemoglobin A1c targets should be discussed with health care provider. DIAGNOSTIC USE: The [place] Diabetes Association (ADA) and the World Health [...] 1 Testing performed or reported by [facility], a Service of [facility], [address] [place] [address] Katlyn Holley MD, Medical Services Manager [facility]# [id number] 09/11/2021 3:57 PM EDT 09/11/2021 3:59 PM EDT Jesus Bull MD LAB BLOOD ORDERABLES Final Re sult [facility] from Last 3 Months or Most Recently Relevant to Health Maintenance Insurance [facility] Medicaid Care Teams Internal Medicine Physician Assistant Relationship Specialty Start Date End Date Venancio Camilo MD [address] [place] [address] [id number] PCP - General 07/03/20
--- OUTSIDE RECORDS SUMMARY | 2025-06-08 21:12 | XMS_ITS | Clinical Summary ---
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 05/30/20 25 2025 Active hydrocortisone -pramoxine (PROCTOFOAM-HS ) rectal foam Insert 1 applicator into the rectum 2 (two) times a day for 10 days. 05/30/20 25 2024 Active amLODIPine (NORVASC) 2.5 mg tabletIndicati ons:Deffer to PCP. Please discuss with PCP before taking it ( Home medication) Take 1 tablet (2.5 mg total) by mouth 1 (one) time each day. 02/07/20 25 Active pantoprazole (PROTONIX) 40 mg EC tabletIndicati ons:duodenal ulcer,maintena nce of healing erosive esophagitis Take 1 tablet (40 mg total) by mouth 2 (two) times a day before meals. Do not crush, chew, or split. 60 each 06/09/20 25 2025 Active QUEtiapine (SEROquel) 25 mg tablet Take 3 tablets (75 mg total) by mouth at bedtime. 90 each 06/09/20 25 2025 Active multivitamin tablet Take 1 tablet by mouth 1 (one) time each day. 30 each 06/09/20 25 2025 Active LORazepam (ATIVAN) 2 mg tablet Take 1 tablet (2 mg total) by mouth 3 (three) times a day if needed. Psychiatrist fills meds 2024 Discontinued(S top Taking at Discharge) QUEtiapine (SEROquel) 25 mg tablet Take 1 tablet (25 mg total) by mouth at bedtime. Psychiatrist fills meds 2024 Discontinued(S top Taking at Discharge) losartan (COZAAR) 25 mg tablet Take 1 tablet (25 mg total) by mouth 1 (one) time each day. Renal and transplant fill meds 2024 Discontinued(S top Taking at Discharge) ibuprofen (ADVIL,MOTRIN) 600 mg tablet TAKE 1 TABLET BY MOUTH EVERY 6 HOURS NEEDED FOR PAIN FOR UP TO 30 DAYS. 60 tablet 1 09/17/19 25 2024 Discontinued(S top Taking at Discharge) cholecalcifero l (VITAMIN D-3) 50 mcg (2,000 unit) capsuleIndicat ions:Scrotal pain,Right lower quadrant pain TAKE 1 CAPSULE BY MOUTH EVERY DAY 90 capsule 09/17/19 25 2024 Discontinued(S top Taking at Discharge) hydrocortisone 2.5 % creamIndicatio ns:Dermatitis Apply topically 2 (two) times a day if needed for irritation or rash. 30 g 2 05/02/20 25 2024 Discontinued carboxymethylc ellulose 1 % ophthalmic solutionIndica tions:Dry eyes, bilateral Administer 1 drop into both eyes 2 (two) times a day. 15 mL 05/02/20 25 2024 Discontinued(S top Taking at Discharge) meclizine (ANTIVERT) 25 mg tablet TAKE 1 TABLET BY MOUTH 3 TIMES A DAY IF NEEDED FOR DIZZINESS. 30 tablet 05/06/20 25 2024 Discontinued(S top Taking at Discharge) hydrocortisone (ANUSOL-HC) 2.5 % rectal cream Insert into the rectum 4 (four) times a day if needed for hemorrhoids (rectal discomfort). Apply to affected areas 30 g 05/18/20 25 2024 Discontinued(S top Taking at Discharge) witch sara-glycerin (TUCKS) pads Apply 1 each topically if needed for hemorrhoids. 40 each 12 05/18/20 25 2024 Discontinued(S top Taking at Discharge) FLUoxetine (PROzac) 10 mg capsule Take 1 capsule (10 mg total) by mouth 1 (one) time each day. 2024 Discontinued(S top Taking at Discharge) FLUoxetine (PROzac) 20 mg capsule Take 1 capsule (20 mg total) by mouth 1 (one) time each day. 05/28/20 25 2024 Discontinued(S top Taking at Discharge) hydrocortisone (ANUSOL-HC) 25 mg suppository Insert 1 suppository (25 mg total) into the rectum 1 (one) time each day for 5 doses. 05/28/20 25 2024 Discontinued(S top Taking at Discharge) pantoprazole (PROTONIX) 40 mg EC tablet Take 1 tablet (40 mg total) by mouth 2 (two) times a day before meals. Do not crush, chew, or split. 05/30/20 25 2024 Discontinued(S top Taking at Discharge) Active Problems Problem Noted Date Diagnosed Date OCD (obsessive compulsive disorder) 06/02/2025 Severe malnutrition 06/01/2025 Severe episode of recurrent major depressive disorder, with psychotic features 05/31/2025 Suicide attempt 05/24/2025 Assessment & Plan (05/29/2025 11:48 AM EST): S/p suicide attempt Anxiety and depression Left upper extremity weakness Patient presents after ingesting 30-90 pills of 25mg Verapamil, 30 meclizine 25mg and 5 motrin 600s, then drank a teaspoon of bleach, attempted to cut wrists and then stabbed himself in the neck with a BBQ fork. Vital stable on presentation. EKG without significant new changes. Chest x-ray unremarkable. CT of the neck with question small focus of active hemorrhage within the subcutaneous soft tissue along the anterior left neck. MRI of the neck pending to rule out any brachial plexus injuries. Patient refused to be started on any antidepressants until psychiatry sees him in the morning. - Trauma surgery following, recommendations appreciated - MRI neck unremarkable. XR esophagram negative - Close hemodynamic monitoring - Telemetry - Psychiatry consultation. Recommending inpatient psych admission. Awaiting bed at psych facility - Continue one-to-one observation - Continue Seroquel home - Started on Prozac but patient refusing - Home Ativan PRN Dysphagia Significant weight loss over the past year. Also notes dysphagia ongoing for several months Grief and depression likely cause of weight loss. Difficulty swallowing likely a combination of esophagitis and cervical osteophytes noted on swallow evaluation - Swallow evaluation ordered. MBS done and showing osteophyte growth that could be contributing to discomfort with swallowing - XR esophagram negative for perforation - EGD showing esophagitis and duodenal ulcer - Discussed with GI. Follow up outpateint for biopsy results and possible manometry testing - Diet as tolerated Hypertension On losartan 25 mg daily and amlodipine 2.5 mg daily at home, however states he hasn't picked them up. - Will hold antihypertensive medications given suicide attempt for closer hemodynamic monitoring Hemorrhoids Patient complaining of long standing pain, bleeding after bowel movements. - Continue hydrocortisone suppositories Assessment & Plan (05/28/2025 12:08 PM EST): S/p suicide attempt Anxiety and depression Left upper extremity weakness Patient presents after ingesting 30-90 pills of 25mg Verapamil, 30 meclizine 25mg and 5 motrin 600s, then drank a teaspoon of bleach, attempted to cut wrists and then stabbed himself in the neck with a BBQ fork. Vital stable on presentation. EKG without significant new changes. Chest x-ray unremarkable. CT of the neck with question small focus of active hemorrhage within the subcutaneous soft tissue along the anterior left neck. MRI of the neck pending to rule out any brachial plexus injuries. Patient refused to be started on any antidepressants until psychiatry sees him in the morning. - Trauma surgery following, recommendations appreciated - MRI neck unremarkable. XR esophagram negative - Close hemodynamic monitoring - Telemetry - Psychiatry consultation. Recommending inpatient psych admission. Awaiting bed at psych facility - Continue one-to-one observation - Continue Seroquel home - Started on Lexapro - Home Ativan PRN Dysphagia Significant weight loss over the past year. Also notes dysphagia ongoing for several months Grief and depression likely cause of weight loss. Difficulty swallowing likely a combination of esophagitis and cervical osteophytes noted on swallow evaluation - Swallow evaluation ordered. MBS done and showing osteophyte growth that could be contributing to discomfort with swallowing - XR esophagram negative for perforation - EGD showing esophagitis and duodenal ulcer - Discussed with GI. Follow up outpateint for biopsy results and possible manometry testing - Diet as tolerated Hypertension On losartan 25 mg daily and amlodipine 2.5 mg daily at home, however states he hasn't picked them up. - Will hold antihypertensive medications given suicide attempt for closer hemodynamic monitoring Hemorrhoids Patient complaining of long standing pain, bleeding after bowel movements. - Continue hydrocortisone suppositories Assessment & Plan (05/27/2025 1:02 PM EST): S/p suicide attempt Anxiety and depression Left upper extremity weakness Patient presents after ingesting 30-90 pills of 25mg Verapamil, 30 meclizine 25mg and 5 motrin 600s, then drank a teaspoon of bleach, attempted to cut wrists and then stabbed himself in the neck with a BBQ fork. Vital stable on presentation. EKG without significant new changes. Chest x-ray unremarkable. CT of the neck with question small focus of active hemorrhage within the subcutaneous soft tissue along the anterior left neck. MRI of the neck pending to rule out any brachial plexus injuries. Patient refused to be started on any antidepressants until psychiatry sees him in the morning. - Trauma surgery following, recommendations appreciated - MRI neck unremarkable. XR esophagram negative - Close hemodynamic monitoring - Telemetry - Psychiatry consultation. Recommending inpatient psych admission. Awaiting bed at psych facility - Continue one-to-one observation - Continue Seroquel home - Started on Lexapro - Home Ativan PRN Dysphagia Significant weight loss over the past year. Also notes dysphagia ongoing for several months Grief and depression likely cause of weight loss but cannot rule out underlying malignancy given dysphagia - Swallow evaluation ordered. Will plan for MBS inpatient vs. Outpatient - XR esophagram negative for perforation - EGD showing esophagitis and duodenal ulcer - Discussed with GI. Follow up outpateint for biopsy results and possible manometry testing - Diet as tolerated Hypertension On losartan 25 mg daily and amlodipine 2.5 mg daily at home, however states he hasn't picked them up. - Will hold antihypertensive medications given suicide attempt for closer hemodynamic monitoring Hemorrhoids Patient complaining of long standing pain, bleeding after bowel movements. - Continue hydrocortisone suppositories Assessment & Plan (05/26/2025 3:50 PM EST): S/p suicide attempt Anxiety and depression Left upper extremity weakness Patient presents after ingesting 30-90 pills of 25mg Verapamil, 30 meclizine 25mg and 5 motrin 600s, then drank a teaspoon of bleach, attempted to cut wrists and then stabbed himself in the neck with a BBQ fork. Vital stable on presentation. EKG without significant new changes. Chest x-ray unremarkable. CT of the neck with question small focus of active hemorrhage within the subcutaneous soft tissue along the anterior left neck. MRI of the neck pending to rule out any brachial plexus injuries. Patient refused to be started on any antidepressants until psychiatry sees him in the morning. - Trauma surgery following, recommendations appreciated - MRI neck unremarkable. XR esophagram negative - Close hemodynamic monitoring - Telemetry - Psychiatry consultation. Recommending inpatient psych admission once medically cleared - Continue one-to-one observation - Continue Seroquel home - Started on Lexapro - Home Ativan PRN Dysphagia Significant weight loss over the past year. Also notes dysphagia ongoing for several months Grief and depression likely cause of weight loss but cannot rule out underlying malignancy given dysphagia - Swallow evaluation ordered - XR esophagram negative for perforation - Discussed with GI. Plan for EGD tomorrow. NPO at midnight Hypertension On losartan 25 mg daily and amlodipine 2.5 mg daily at home, however states he hasn't picked them up. - Will hold antihypertensive medications given suicide attempt for closer hemodynamic monitoring Hemorrhoids Patient complaining of long standing pain, bleeding after bowel movements. - Will trial hydrocortisone suppositories Leukocytosis Patient with a slightly elevated white count to 16 with a left shift. Sinuses tender on exam and patient has been experiencing headaches. Leukocytosis is likely reactive - WBC count back to normal Assessment & Plan (05/25/2025 3:19 PM EST): S/p suicide attempt Anxiety and depression Left upper extremity weakness Patient presents after ingesting 30-90 pills of 25mg Verapamil, 30 meclizine 25mg and 5 motrin 600s, then drank a teaspoon of bleach, attempted to cut wrists and then stabbed himself in the neck with a BBQ fork. Vital stable on presentation. EKG without significant new changes. Chest x-ray unremarkable. CT of the neck with question small focus of active hemorrhage within the subcutaneous soft tissue along the anterior left neck. MRI of the neck pending to rule out any brachial plexus injuries. Patient refused to be started on any antidepressants until psychiatry sees him in the morning. - Trauma surgery following, recommendations appreciated - MRI neck unremarkable. XR esophagram negative - Close hemodynamic monitoring - Telemetry - Psychiatry consultation. Awaiting recommendations for inpatient vs. Outpatient treatment - One-to-one observation - Continue Seroquel home - Started on Lexapro - Home Ativan PRN Dysphagia Significant weight loss over the past year. Also notes dysphagia ongoing for several months Grief and depression likely cause of weight loss but cannot rule out underlying malignancy given dysphagia - Swallow evaluation ordered - XR esophagram negative for perforation - Appreciate GI recs for EGD Hypertension On losartan 25 mg daily and amlodipine 2.5 mg daily at home, however states he hasn't picked them up. - Will hold antihypertensive medications given suicide attempt for closer hemodynamic monitoring Hemorrhoids Patient complaining of long standing pain, bleeding after bowel movements. - Will trial hydrocortisone suppositories Leukocytosis Patient with a slightly elevated white count to 16 with a left shift. Sinuses tender on exam and patient has been experiencing headaches. Leukocytosis is likely reactive - WBC count back to normal Irritable bowel syndrome with constipation 08/20 Assessment & Plan (08/20/2024 4:41 PM EST): Suspect abdominal pain related to IBS-C Symptomatically improving Recommend fiber supplementation daily. Assessment & Plan (08/20/2024 11:50 AM EST): Assessment & Plan (08/20/2024 11:50 AM EST): Symptoms improving, suspect IBS-C related. Start fiber supplementation daily Abdominal pain 05/07/2024 Assessment & Plan (09/08/2024 9:07 PM EDT): Patient has been complaining about right upper quadrant pain for some time now. He is here status post ER visit for the same issue. Patient reports tenderness to the right upper quadrant with palpation. He is also fixated on small superficial lumps to abdomen. I we will order a CT scan of the abdomen and pelvic to further evaluate. Depending on results I will develop further intervention. Orders: CT Abdomen Pelvis w Contrast; Future Epigastric pain 05/07/2024 Hemorrhoids 05/07/2024 Rectal bleed 05/07/2024 Straining with stools 05/07/2024 Tubular adenoma of colon 05/07/2024 Allergic rhinitis 07/31/2022 Liver hemangioma 03/06/2022 Assessment & Plan (09/08/2024 9:07 PM EDT): See above treatment plan. Orders: CT Abdomen Pelvis w Contrast; Future H. pylori infection 01/19/2021 Hypertension 11/09/2019 Overview (05/07/2024): Please see most recent note with specialty person/hypertension specialist, Dr. Burkett December 2020. Nephrology is aware of patient's discontinuation of Norvasc/blood pressure medication Fatty liver 05/04/2015 Assessment & Plan (09/08/2024 9:07 PM EDT): Patient has history of fatty liver. He complained of right upper quadrant abdominal pain. CT scan ordered to further evaluate. No yellowing of the skin or sclera. Orders: CT Abdomen Pelvis w Contrast; Future SRI (obstructive sleep apnea) 11/23/2014 Known medical problems 09/07/2014 Overview (05/07/2024): Sleep-related hypoventilation Hepatitis C antibody test positive 10/05/2013 Overview (05/07/2024): Hepatitis C viral load is undetectable on September 2013. The patient explains to me that he was treated for 6 months for hepatitis at [facility]. Assessment & Plan (09/08/2024 9:07 PM EDT): See above treatment plan. Orders: CT Abdomen Pelvis w Contrast; Future Anxiety 04/14/2013 Overview (05/07/2024): Patient has a psychiatrist. Dr Mares? Assessment & Plan (08/20/2024 4:41 PM EST): Suspect anxiety is major contributor to ongoing symptoms. Patient and seem to agree. Defer to PCP for possible therapeutic treatment or referral to counseling. His weight loss, per , has improved and he is now gaining weight. Continue to monitor weight with PCP. Follow up with endocrinology as directed. Assessment & Plan (07/20/2024 8:28 AM EST): [...] continuous leave. 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 I explained to the patient that I typically do not complete long-term relief with thing such as anxiety and depression. He was encouraged to bring this form to his psychiatrist who will be seeing next week. I discussed the signs and symptoms that warrant emergent evaluation. I gave the patient the information for [facility] in [place] should he develop any crisis symptoms. He should continue to follow closely with a psychiatrist. No SI or HI. I will need to review the forms, but I was clear with the pt I would not be doing any extended time off. I will consider completing 1-2 weeks so the pt may see his psychiatrist. Nephrolithiasis 04/14/2012 Overview (05/07/2024): CT 10/10 2mm nonobstructing left stone Encounters Date Type Department Care Team Description 05/31/2025 Plan of Care Documentation [facility] [address] [place] [address] 05/30/2025 2:20 PM EST - 06/08/2025 5:05 PM EST Hospital Encounter [facility] [address] [place] [address] Salbador Davila DO Paramatmuni, Sheeima, MD Severe episode of recurrent major depressive disorder, with psychotic features ([facility] V24, [facility] V28); Unspecified dementia, unspecified severity, without behavioral disturbance, psychotic disturbance, mood disturbance, and anxiety ([facility] V24, [facility] V28); Type 2 diabetes mellitus with hyperglycemia ([facility] V24, [facility] V28); Diabetes mellitus with circulatory complication ([facility] V24, [facility] V28) Discharge Disposition: Home or Self Care 05/27/2025 10:03 AM EST Anesthesia Event [facility] [address] [place] [address] Marilyn Coley MD 05/24/2025 9:41 PM EST - 05/30/2025 2:19 PM EST Hospital Encounter [facility] [address] [place] [address] Nesha Franco DO Ojide, Lotachukwu Rosemary, MD Ali, Syed, MD Nallamothu, Bhavana, DO Upper GI bleed Discharge Disposition: Psychiatric Hospital 05/24/2025 3:25 PM EST - 05/24/2025 9:21 PM EST Emergency [facility] [address] [place] [id number] Perico Hartman MD Killelea, Alison G, MD Reid, Oswald George, MD Suicide attempt ([facility] V24, [facility] V28) (Primary Dx); Ingestion of substance, intentional self-harm, initial encounter ([facility] V24, [facility] V28); Open wound of neck, initial encounter Discharge Disposition: Short Term Hospital 05/23/2025 Results Follow-Up Adult [address] [phone] Shane Clifton, ALICE 05/20/2025 Telephone Adult [address] [phone] Venancio Camilo MD 05/18/2025 4:40 PM EST Lab Draw Station [address] Rash; Incontinence of feces, unspecified fecal incontinence type; Encounter for screening for malignant neoplasm of prostate; Hematuria, unspecified type 05/18/2025 4:00 PM EST Office Visit [address] [phone] Shane Clifton NP Rash (Primary Dx); Incontinence of feces, unspecified fecal incontinence type; Hematuria, unspecified type; Encounter for screening for malignant neoplasm of prostate 05/02/2025 6:00 PM EST Office Visit Walk-In Clinic - [address] [address] Jesus Head NP Dermatitis (Primary Dx); Dry eyes, bilateral 04/18/[address] [phone] Venancio Camilo MD from Last 3 Months Immunizations Immunization Administration Dates Next Due Influenza Quadravalent, MDCK , 0.5ml, with preservative (Flucelvax) 6mo and older 05/07/2017 Influenza trivalent, 0.5mL, preservative free (Fluarix; FluLaval; Fluzone) ages 6mo and older (Afluria) 3 years and older 04/17/2015,04/15/2014 Tdap Tetanus diptheria acell ular pertussis (Boostrix; Adacel) 7yo and older 05/24/2025,07/01/2023,04/14/2013 Surgical History Surgery Date Site/Laterality Comments OTHER SURGICAL HISTORY PROCEDURE: ME EXCISION MULLERIAN DUCT CYST; COMMENT: testicular cyst [...] ial hypertension Epigastric pain DX:Epigastric pa in Irritable bowel syndrome wit h constipation 08/20/2024 Family History Medical History Relation Name Comments [...] care for your loved ones. For example, hearing healthcare practitioner or elderly care for an older adult? [...] Orientation Straight 07/15/2024 1: 15 PM EST Last Filed Vital Signs Vital Sign Reading [...] Mass Index 16.65 05/30/2025 3:35 PM EST Plan of Treatment Upcoming Encounters Date Type Department Care Team (Late st Contact Info) Description 10/10/2025 3:00 PM EDT Clinical Support Gastroenterology - [facility] [address] [place] [address] Health Maintenance Due Date Last Done Comments Pneumococcal Vaccine: 50+ Years (1 of 2 - PCV) 1994 COVID-19 Vaccine (1 - 2024- season) 2025 Zoster Vaccines (1 of 2) 2025 Diabetes: Blood Sugar Control Test (HGBA1C) 11/27/2025 05/29/2025, 07/19/2024, 07/03/2023, Additional history exists Colorectal Cancer Screening: Colonoscopy 02/14/2026 02/14/2021 Diabetes: Annual Urine Albumin-Creatinine Ratio (uACR) 05/18/2026 05/18/2025, 06/21/2024, 12/02/2023 Social Influencers of Health Screening 06/01/2026 06/01/2025 Diabetes: Annual GFR (Glomerular Filtration Rate) 06/03/2026 06/03/2025, 05/30/2025, 05/29/2025, Additional history exists Hypertension/CHF/CAD Annual BMP Blood Test 06/03/2026 06/03/2025, 05/30/2025, 05/29/2025, Additional history exists Cholesterol Screening (Lipid Panel) 07/02/2028 07/02/2023 DTaP,Tdap,and Td Vaccines (4 - Td or Tdap) 05/24/2035 05/24/2025, 07/01/2023, 04/14/2013 RSV Immunization Adult Patients (1 - 1-dose 75+ series) 2050 Influenza Vaccine Discontinued 05/07/2017, , 04/15/2014 HIV Screening Completed 07/02/2023 Hepatitis C Screening Completed 07/02/2023 Depression Screening Completed 05/31/2025, 07/01/19 24 Diabetes: Annual Foot Exam Discontinued Diabetes: Annual Retina Eye Exam Discontinued HIB Vaccines Aged Out No longer eligi ble based on patient's age to complete this topic HPV Vaccines Aged Out No longer eligi ble based on patient's age to complete this topic Hepatitis A Vaccines Discontinued Hepatitis B Vaccines Discontinued IPV Vaccines Aged Out No longer eligi [...] on patient's age to complete this topic Goals Goal Patient Goal Type Associated Problems Recent Progress Patient-Stated? Author Autogenerat ed Goal Care Plan Autogenerated Problem No Antonia Rob RN Procedures Procedure Name Priority Date/Time Associated Diagnosis Comments ECG 12-LEAD Routine 06/03/2025 5:19 PM EST BASIC METABOLIC PANEL Routine 06/03/2025 6:38 AM EST POCT GLUCOSE BLOOD Routine 05/30/2025 11 :43 AM EST ECG 12-LEAD STAT 05/30/2025 10:38 AM EST BASIC METABOLIC PANEL Timed 05/30/2025 6:13 AM EST MAGNESIUM Timed 05/30/2025 6:13 AM EST PHOSPHORUS Timed 05/30/2025 6:13 AM EST HEMOGLOBIN A1C Add-On 05/29/2025 6:45 AM EST COMPLETE BLOOD COUNT Timed 05/29/2025 6:45 AM EST BASIC METABOLIC PANEL Timed 05/29/2025 6:45 AM EST MAGNESIUM Timed 05/29/2025 6:45 AM EST PHOSPHORUS Timed 05/29/2025 6:45 AM EST COMPLETE BLOOD COUNT Timed 05/28/2025 6:29 AM EST BASIC METABOLIC PANEL Timed 05/28/2025 6:29 AM EST MAGNESIUM Timed 05/28/2025 6:29 AM EST PHOSPHORUS Timed 05/28/2025 6:29 AM EST ECG 12-LEAD Routine 05/28/2025 12:01 AM EST COMMUNITY RELATIONS COORDINATOR VIDEOFLUOROSCOPIC SWALLOW STUDY WITH BARIUM Routine 05/27/2025 4:14 PM EST XR BARIUM SWALLOW WITH VIDEO AND SPEECH Routine 05/27/2025 4:10 PM EST EGD Routine 05/27/2025 10:24 AM EST TISSUE EXAM Routine 05/27/2025 10:12 AM EST Upper GI bleed COMPLETE BLOOD COUNT Timed 05/27/2025 5:40 AM EST BASIC METABOLIC PANEL Timed 05/27/2025 5:40 AM EST MAGNESIUM Timed 05/27/2025 5:40 AM EST PHOSPHORUS Timed 05/27/2025 5:40 AM EST COMPLETE BLOOD COUNT Timed 05/26/2025 5:42 AM EST BASIC METABOLIC PANEL Timed 05/26/2025 5:42 AM EST MAGNESIUM Timed 05/26/2025 5:42 AM EST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 [facility] Hemoglobin 14.4 13.5 - 17.5 g/dL LAB HEMETOLOGY METHOD 05/24/2025 4:43 PM [facility] Hematocrit 42.3 42.0 - 54.0 % LAB HEMETOLOGY METHOD 05/24/2025 4:43 PM [facility] MCV 87.0 79.0 - 98.0 FL LAB HEMETOLOGY METHOD 05/24/2025 4:43 PM [facility] MCH 29.6 27.0 - 32.0 pcg LAB HEMETOLOGY METHOD 05/24/2025 4:43 PM [facility] MCHC 34.0 32.0 - 37.0 g/dL LAB HEMETOLOGY METHOD 05/24/2025 4:43 PM [facility] RDW 12.5 11.0 - 15.0 % LAB HEMETOLOGY METHOD 05/24/2025 4:43 PM [facility] Platelets 255 130 - 400 K/mcL LAB HEMETOLOGY METHOD 05/24/2025 4:43 PM [facility] MPV 9.8 7.0 - 11.0 FL LAB HEMETOLOGY METHOD 05/24/2025 4:43 PM [facility] NRBC 0.0 <1.0 % LAB HEMETOLOGY METHOD 05/24/2025 4:43 PM [facility] NRBC Absolute 0.00 <0.10 K/mcL LAB HEMETOLOGY METHOD 05/24/2025 4:43 PM [facility] Neutrophils Relative 86.0 % LAB HEMETOLOGY METHOD 05/24/2025 4:43 PM [facility] Lymphocytes Relative 8.7 % LAB HEMETOLOGY METHOD 05/24/2025 4:43 PM [facility] Monocytes Relative 4.7 % LAB HEMETOLOGY METHOD 05/24/2025 4:43 PM EST [facility] Eosinophils Relative 0.0 % LAB HEMETOLOGY METHOD 05/24/2025 4:43 PM [facility] Basophils Relative 0.2 % LAB HEMETOLOGY METHOD 05/24/2025 4:43 PM [facility] Immature Granulocytes Relative 0.4 % LAB HEMETOLOGY METHOD 05/24/2025 4:43 PM [facility] Neutrophils Absolute 13.86(H) 1.50 - 7.00 K/mcL LAB HEMETOLOGY METHOD 05/24/2025 4:43 PM [facility] Lymphocytes Absolute 1.40 1.00 - 5.00 K/mcL LAB HEMETOLOGY METHOD 05/24/2025 4:43 PM [facility] Monocytes Absolute 0.76 0.20 - 1.00 K/mcL LAB HEMETOLOGY METHOD 05/24/2025 4:43 PM [facility] Eosinophils Absolute 0.00 0.00 - 0.50 K/mcL LAB HEMETOLOGY METHOD 05/24/2025 4:43 PM [facility] Basophils Absolute 0.04 0.00 - 0.20 K/mcL LAB HEMETOLOGY METHOD 05/24/2025 4:43 PM [facility] Immature Granulocytes Absolute 0.07(H) 0.00 - 0.03 K/mcL LAB HEMETOLOGY METHOD 05/24/2025 4:43 PM [facility] Blood Venous blood specimen / Unknown Venipuncture / Unknown 05/24/2025 4:14 PM EST 05/24/2025 4:33 PM EST us Joselyn Mina MD LAB BLOOD ORDERABLES Final Result [facility] [address] [place] [address], * Drug abuse screen, serum (05/24/2025 4:14 PM EST) [facility] Amphetamine, Serum, Qualitative Negative 05/27/2025 11:19 AM EST [facility] Barbiturate, Serum, Qualitative Negative 05/27/2025 11:19 AM EST [facility] Benzodiazepine, Serum, Qualitative Positive 05/27/2025 11:19 AM EST [facility] Cocaine, Serum, Qualitative Negative 05/27/2025 11:19 AM EST [facility] Methadone, Serum, Qualitative Negative 05/27/2025 11:19 AM EST [facility] Opiate, Serum, Qualitative Negative 05/27/2025 11:19 AM EST [facility] Phencyclidine, Serum, Qualitative Negative 05/27/2025 11:19 AM EST [facility] Propoxyphene, Serum, Qualitative Negative 05/27/2025 11:19 AM EST [facility] THC, Serum, Qualitative Negative 05/27/2025 11:19 AM EST [facility] Alcohol (Ethanol) Level Negative 05/27/2025 11:19 AM EST [facility] Comment: Screen Decision Limits Drug Analyzed Screen Units ------ ----- Amphetamine 500 ng/mL Barbiturate 150 ng/mL Benzodiazepines 100 ng/mL Cocaine 150 ng/mL Ethanol 10 mg/dL Toxic Blood Ethanol >300 mg/dL Methadone 150 ng/mL Opiates 150 ng/mL Phencyclidine 12 ng/mL Propoxyphene 150 ng/mL THC (Cannabis) 50 ng/mL A positive immunoassay result on a serum drug screen is considered presumptive evidence for the presence of the drug or its metabolite. Since some immunoassay tests detect only inactive metabolites and others are sensitive to very low drug levels, positive results may not correlate with the patient's physiological state. For confirmation of positive immunoassay results by an alternate method or for consultation, please contact the laboratory. If applicable, any drug confirmation testing reported here was developed and the performance characteristics determined by [facility]. This confirmation testing has not been cleared or approved by the FDA. The laboratory is regulated under CLIA as qualified to perform high-complexity testing. This test is used for patient testing purposes. It should not be regarded as investigational or for research. Test performed at [facility], [address] , [place] [address] Geraldine Kern MD, PhD - Lawnmower Mechanic Blood Venous blood specimen / Unknown Venipuncture / Unknown 05/24/2025 4:14 PM EST 05/24/2025 4:33 PM EST us Joselyn Mina MD LAB BLOOD ORDERABLES Final Result [facility] [place] [address] [place] [address] * Thyroid stimulating hormone (05/24/2025 4:14 PM EST) TSH 0.45 0.40 - 4.00 mcIU/mL 05/24/2025 5:06 PM EST [facility] Blood Venous blood specimen / Unknown Venipuncture / Unknown 05/24/2025 4:14 PM EST 05/24/2025 4:33 PM EST us Joselyn Mina MD LAB BLOOD ORDERABLES Final Result Performing Organization Address [facility]/ZIP Co de Phone Number [facility] [address] [place] [address], [place] [phone] * Ethanol (05/24/2025 4:14 PM EST) Ethanol Level <3 0 - 10 mg/dL 05/24/2025 5:07 PM EST [facility] Blood Venous blood specimen / Unknown Venipuncture / Unknown 05/24/2025 4:14 PM EST 05/24/2025 4:33 PM EST us Joselyn Mina MD LAB BLOOD ORDERABLES Final Result Performing Organization Address City/[facility]/ZIP Co de Phone Number [facility] [address] [place] [address], [place] [phone] * (ABNORMAL) Acetaminophen level (05/24/2025 4:14 PM EST) Acetaminophen Level <2.0(L) 10.0 - 30.0 mcg/mL 05/24/2025 5:03 PM EST [facility] Blood Venous blood specimen / Unknown Venipuncture / Unknown 05/24/2025 4:14 PM EST 05/24/2025 4:33 PM EST us Joselyn Mina MD LAB BLOOD ORDERABLES Final Result [facility] [address] [place] [address], [place] [phone] * Salicylate level (05/24/2025 4:14 PM EST) Salicylate Level <3.0 2.0 - 29.0 mg/dL 05/24/2025 5:07 PM EST [facility] Blood Venous blood specimen / Unknown Venipuncture / Unknown 05/24/2025 4:14 PM EST 05/24/2025 4:33 PM EST us Joselyn Mina MD LAB BLOOD ORDERABLES Final Result Performing Organization Address City/[facility]/ZIP Co de Phone Number [facility] [address] [place] [address], [place] [phone] * (ABNORMAL) Comprehensive metabolic panel (05/24/2025 4:14 PM EST) Sodium 143 133 - 145 mmol/L 05/24/2025 5:03 PM EST [facility] Potassium 4.2 3.5 - 5.5 mmol/L 05/24/2025 5:03 PM EST [facility] Chloride 103 96 - 110 mmol/L 05/24/2025 5:03 PM EST [facility] CO2 28 21 - 32 mmol/L 05/24/2025 5:03 PM EST [facility] Anion Gap 12(H) 3 - 11 05/24/2025 5:03 PM [facility] Glucose 85 70 - 100 mg/dL 05/24/2025 5:03 PM [facility] BUN 18 5 - 25 mg/dL 05/24/2025 5:03 PM [facility] Creatinine 1.11 0.70 - 1.30 mg/dL 05/24/2025 5:03 PM [facility] eGFR 81 >=60 mL/min/1. 73m2 05/24/2025 5:03 PM [facility] Comment:Calculation based on the Chronic Kidney Disease Epidemiology Collaboration (CKD-EPI) equation refit without adjustment for race. BUN/Creatinine Ratio 16.2 05/24/2025 5:03 PM [facility] Calcium 9.9 8.5 - 10.5 mg/dL 05/24/2025 5:03 PM [facility] AST (SGOT) 18 10 - 42 unit/L 05/24/2025 5:03 PM [facility] ALT (SGPT) 11 10 - 60 unit/L 05/24/2025 5:03 PM [facility] Alkaline Phosphatase 70 42 - 121 unit/L 05/24/2025 5:03 PM [facility] Total Protein 7.3 6.0 - 8.0 g/dL 05/24/2025 5:03 PM [facility] Albumin 4.4 3.2 - 5.0 g/dL 05/24/2025 5:03 PM [facility] Total Bilirubin 2.1(H) 0.0 - 1.4 mg/dL 05/24/2025 5:03 PM [facility] Blood Venous blood specimen / Unknown Venipuncture / Unknown 05/24/2025 4:14 PM EST 05/24/2025 4:33 PM EST Joselyn Mina MD LAB BLOOD ORDERABLES Final Result [facility] [address] [place] [address], [place] [phone] * ME CRITICAL CARE 30-74 MINUTES (05/24/2025 3:17 PM EST) Narrative Joselyn Mina MD - 05/24/2025 3:17 PM EST Joselyn Mina MD 05/25/2025 7:17 AM Critical Care Performed by: Joselyn Mina MD Authorized by: Adam Molina MD Critical care provider statement: Critical care time (minutes): 31 Total face to face critical care time (minutes): 15 Critical care time was exclusive of: Separately billable procedures and treating other patients Critical care was necessary to treat or prevent imminent or life-threatening deterioration of the following conditions: Trauma Critical care was time spent personally by me on the following activities: Evaluation of patient's response to treatment, examination of patient, interpretation of cardiac output measurements, obtaining history from patient or surrogate, pulse oximetry, re-evaluation of patient's condition, ordering and review of radiographic studies, ordering and review of laboratory studies and ordering and performing treatments and interventions Face to face critical care was time spent personally by me on the following activities: Examination of patient, pulse oximetry, review of old charts and obtaining history from patient or surrogate I assumed direction of critical care for this patient from another provider in my specialty: no Adam Molina MD IN CLINIC/BEDSIDE ORDERABL ES Final Result * Prostate specific antigen screen (05/18/2025 4:46 PM EST) PSA 0.53 0.00 - 4.00 ng/mL 05/18/2025 7:21 PM EST [facility] Blood Venous blood specimen / Unknown Venipuncture / Unknown 05/18/2025 4:46 PM EST 05/18/2025 4:46 PM EST Narrative [facility] - 05/18/2025 7:21 PM EST The Siemens Atellica IM Chemiluminescent Immunoassay is used. Results obtained with different assay methods or kits cannot be used interchangeably. Results cannot be interpreted as absolute evidence of the presence or absence of malignant disease. us Shane Clifton NP LAB BLOOD ORDERABLES Final R esult [facility] [address] [place] [address], [place] [phone] * (ABNORMAL) Urinalysis with reflex microscopic and culture (05/18/2025 4:46 PM EST) Specific [place] Urine 1.024 1.003 - 1.030 LAB URINALYSIS - AUTOMATED METHOD 05/18/2025 6:41 PM EST [facility] pH, Urine 5.5 5.0 - 8.0 pH LAB URINALYSIS - AUTOMATED METHOD 05/18/2025 6:41 PM [facility] Leukocytes, Urine Negative Negative LAB URINALYSIS - AUTOMATED METHOD 05/18/2025 6:41 PM [facility] Nitrite, Urine Negative Negative LAB URINALYSIS - AUTOMATED METHOD 05/18/2025 6:41 PM [facility] Protein, Urine Negative <=Trace mg/dL LAB URINALYSIS - AUTOMATED METHOD 05/18/2025 6:41 PM [facility] Glucose, Urine Negative Negative mg/dL LAB URINALYSIS - AUTOMATED METHOD 05/18/2025 6:41 PM [facility] Ketones, Urine Trace(A) Negative mg/dL LAB URINALYSIS - AUTOMATED METHOD 05/18/2025 6:41 PM [facility] Urobilinogen, Urine 1.0 0.2 - 1.0 mg/dL LAB URINALYSIS - AUTOMATED METHOD 05/18/2025 6:41 PM [facility] Bilirubin, Urine Negative Negative LAB URINALYSIS - AUTOMATED METHOD 05/18/2025 6:41 PM EST [facility] Blood, Urine Negative Negative LAB URINALYSIS - AUTOMATED METHOD 05/18/2025 6:41 PM [facility] Urine Urine specimen obtained by clean catch procedure / Unknown Non-blood Collection / Unknown 05/18/2025 4:46 PM EST 05/18/2025 4:46 PM EST Shane Clifton WATER MANGLE TENDER LAB URINE ORDERABLES Final R esult [facility] [address] [place] [address], [place] [phone] * Sanchez urine culture tube (05/18/2025 4:46 PM EST) Extra Tube Hold for add-ons. 05/18/2025 7:02 PM EST [facility] Comment:Auto resulted. Urine Urine specimen obtained by clean catch procedure / Unknown Non-blood Collection / Unknown 05/18/2025 4:46 PM EST 05/18/2025 4:46 PM EST Shane Clifton WATER MANGLE TENDER LAB URINE ORDERABLES Final R esult Performing Organization Address City/[facility]/ZIP Co de Phone Number [facility] [address] [place] [address], [place] [phone] * Microalbumin creatinine urine ratio (05/18/2025 4:46 PM EST) Creatinine, Urine 218.0 mg/dL 05/18/2025 7:23 PM [facility] Microalb, Ur 10.0 0.0 - 29.0 mg/L 05/18/2025 7:23 PM [facility] Microalb/Creat Ratio 5 <30 mg/g creat 05/18/2025 7:23 PM [facility] Urine Urine specimen obtained by clean catch procedure / Unknown Non-blood Collection / Unknown 05/18/2025 4:46 PM EST 05/18/2025 4:46 PM EST Result [facility] Shane Clifton WATER MANGLE TENDER LAB URINE ORDERABLES Final R esult [facility] ([facility] [address] [place] [address], * HIV Screening (07/02/2023) [facility] HIV Screening abstracted Historical Provider HEALTH MAINTENANCE Final Result * Hepatitis C Screening (07/02/2023) [facility] Hepatitis C Screening abstracted Historical Provider HEALTH MAINTENANCE Final Result * (ABNORMAL) Lipid panel (07/02/2023) [facility] LDL/HDL Ratio 5(A) 0 - 4 Triglycerides 179(A) 0 - 150 mg/dL Cholesterol 185 0 - 200 mg/dL HDL 37(A) >=40 mg/dL LDL Cholesterol 113(A) 0 - 100 mg/dL Blood Venous blood specimen / Unknown Result [facility] Historical Provider LAB BLOOD ORDERABLES Key l Result * Depression Screening (07/01/2023) [facility] Depression Screening abstracted Result [facility] Historical Provider HEALTH MAINTENANCE Final Result * External Colonoscopy Report (02/14/2021 12:00 AM EDT) Anatomical Region Laterality Modality Endoscopy Historical Provider GI~PROCEDURE ORDERABLES E dited Result - Final from Last 3 Months or Most Recently Relevant to Health Maintenance Additional Health Concerns Active Problems Noted Date Diagnosed Date Autogenerated Problem 05/26/2025 Insurance [facility] PL[facility] Advance Directives * Full Code - Default (Latest Code Status on File) Date Activated Date Inactivated Comments 05/30/2025 2:31 PM 06/08/2025 7:51 PM This is ord er is used when code status has not been discussed with the patient, or code status is otherwise unknown/unconfirmed To update the patient's code status, place a code status order. Do not modify or discontinue any currently active code status orders. * Full Code - Default Date Activated Date Inactivated Comments 05/24/2025 11:54 PM 05/30/2025 2:20 PM This is ord er is used when code status has not been discussed with the patient, or code status is otherwise unknown/unconfirmed To update the patient's code status, place a code status order. Do not modify or discontinue any currently active code status orders. Care Teams Aluminum Molding Machine Operator Relationship Specialty Start Date End Date Venancio Camilo MD [address] [place] [address] PCP - General Internal Medicine 12/09/14
--- OUTSIDE RECORDS SUMMARY | 2025-06-08 21:12 | XMS_ITS | Clinical Summary ---
Author Organization [facility] Address [address] [place] [address] Care Team Providers Care Front Services Agent Name Role Phone Dinaa Velázquez MD Primary Care Provider [phone] Social History Tobacco Use Types Packs/Day Years [...] (1 of 3 - 19+ 3-dose series) 03/23 COVID-19 Vaccine (1 - 2024- season) 2025 Pneumococcal Vaccines 50+ (1 of 1 - PCV) 2025 Zoster (Shingles) Vaccine (1 of 2) 2025 RSV Vaccine 50 years and old er and Patients (1 - 1-dose 75+ series) 2050 Care Teams Front Services Agent Relationship Specialty Start Date End Date Diana Velázquez MD [address] [place] [address] PCP - General 07/02/22
--- OUTSIDE RECORDS SUMMARY | 2025-06-08 21:12 | XMS_ITS | Encounter Summary ---
Author Organization [facility] Address [address] [place] [address] Phone Care Team Providers Care Software Configuration Specialist Name Role Phone Venancio Camilo MD Primary Care Provider [phone] Encounter Details Date Type Department Care Team (Late st Contact Info) Description 08/14/2022 Documentation Only [facility] [address] [facility] [address] [place] [phone] Daniella Darnell [place] Social History Tobacco Use Types Packs/Day Years [...] on file documented as of this encounter Functional Status documented as of this encounter Plan of Treatment Not on file documented as of this encounter Visit Diagnoses Not on filedocumented in this encounter Care Teams Software Configuration Specialist Relationship Specialty Start Date End Date Venancio Camilo MD [address] [place] [id number] PCP - General 07/03/20 documented as of this encounter
--- OUTSIDE RECORDS SUMMARY | 2025-06-08 21:12 | XMS_ITS | Encounter Summary ---
Author Organization [facility] Address [address] [facility] [address] [place] [address] Care Team Providers Care House Furnishings Supervisor Name Role Phone Unavailable Primary Care Provider Unavailabl e Encounter Details Date Type Department Care Team (Latest Contact Info) Description 03/21/2021 Abstract [facility] CONVERSIONS Dental, Provider, DDS Social History [...]
--- OUTSIDE RECORDS SUMMARY | 2025-06-08 21:12 | XMS_ITS | Encounter Summary ---
Author Organization [facility] Address [address] [place] [address] Phone Care Team Providers Care Sales Planning Analyst Name Role Phone Venancio Camilo MD Primary Care Provider [phone] Encounter Details Date Type Department Care Team (Late st Contact Info) Description 08/14/2022 Documentation Only [facility] [address] [facility] [address] [place] [phone] Daniella Darnell [place] Social History Tobacco Use Types Packs/Day Years [...] filedocumented in this encounter Care Teams Sales Planning Analyst Relationship Specialty Start Date End Date Venancio Camlio MD [address] [place] [id number] PCP - General 07/03/20 documented as of this encounter
--- OUTSIDE RECORDS SUMMARY | 2025-06-08 21:12 | XMS_ITS | Encounter Summary ---
Author Organization [facility] Address [address] [place] [address] Phone Care Team Providers Care Digital Ad Trafficker Name Role Phone Venancio Camilo MD Primary Care Provider [phone] Encounter Details Date Type Department Care Team (Late st Contact Info) Description 05/20/2022 Telephone [facility] [address] [place] [address] Jesus Bull MD [address] [place] [address], [address] [phone] Social History Tobacco Use Types Packs/Day Years [...] about it. Please call him back at [phone] Thank you documented in this encounter Plan of Treatment Not on file documented as of this encounter Visit Diagnoses Not on filedocumented in this encounter Care Teams Digital Ad Trafficker Relationship Specialty Start Date End Date Venancio Camilo MD [address] [place] [id number] PCP - General 07/03/20 documented as of this encounter
--- OUTSIDE RECORDS SUMMARY | 2025-06-08 21:12 | XMS_ITS | Encounter Summary ---
Author Organization [facility] Address [address] [place] [address] Phone Care Team Providers Care Welder Fitter Name Role Phone Venancio Camilo MD Primary Care Provider Encounter Details Date Type Department Care Team (Late st Contact Info) Description 10/26/2021 Documentation Only [facility] [address] [place] [phone] Jesus Bull MD [address] [place] [address], [address] [phone] Social History Tobacco Use Types Packs/Day Years [...] on filedocumented in this encounter Care Teams Welder Fitter Relationship Specialty Start Date End Date Venancio Camilo MD [address] [place] [id number] PCP - General 07/03/20 documented as of this encounter
--- OUTSIDE RECORDS SUMMARY | 2025-06-08 21:12 | XMS_ITS | Encounter Summary ---
Author Organization [facility] Address [address] [place] [address] Phone Care Team Providers Care Biztalk Developer Name Role Phone Venancio Camilo MD Primary Care Provider [phone] Encounter Details Date Type Department Care Team (Late st Contact Info) Description 11/02/2021 Documentation Only [facility] [address] [place] [id number] Jesus Bull MD [address] [place] [address], [address] [id number] Social History Tobacco Use Types Packs/Day Years [...] on filedocumented in this encounter Care Teams Biztalk Developer Relationship Specialty Start Date End Date Venancio Camilo MD [address] [place] [id number] PCP - General 07/03/20 documented as of this encounter
[2025-06-09 05:00] VITALS: BP 163/101; PULSE 56; RESP 17; TEMP 36.6; O2SAT 100
--- NOTE | 2025-06-09 07:35 | PC.NURSE ---
Assumed care of patient at 0645, patient appears to be in no apparent distress this am, resting in bed, offering no complaints to this RN. Continue plan of care for IPLOC
--- NOTE | 2025-06-09 08:06 | ECG_ITS ---
Test Reason : QRS Blood Pressure : */* mmHG Vent. Rate : 79 BPM Atrial Rate : 79 BPM P-R Int : 144 ms QRS Dur : 82 ms QT Int : 420 ms P-R-T Axes : 75 79 76 degrees QTcB Int : 481 ms Normal sinus rhythm Nonspecific ST and T wave abnormality Prolonged QT Abnormal ECG When compared with ECG of 12-May-2018 08:27, Vent. rate has increased by 27 bpm Right bundle branch block is no longer Present Referred By: Mynor Winter Electronically Signed By: Giacomo Horvath
[2025-06-09 08:13] VITALS: BP 144/96; PULSE 97; RESP 14; TEMP 37.2; O2SAT 100
[2025-06-09 13:36] VITALS: BP 146/91; PULSE 75; RESP 18; TEMP 36.4; O2SAT 100
[2025-06-09 15:18] LABS: Appearance Urine Turbid; Glucose Urine UA Negative (Negative); PH 7.0 (5.0-9.0); Specific Gravity - Urine 1.015 (1.005-1.025)
[2025-06-09 15:33] VITALS: BMI 16.5
[2025-06-09 15:34] VITALS: BP 154/88; PULSE 73; RESP 16; TEMP 36.7; O2SAT 99
--- NOTE | 2025-06-09 17:23 | PC.ADMIT ---
This [facility] for this 50 y.o. male. Hx prior psych hospitalizations, most recently 2.5 wk stay at [facility] after reported SA by OD and cutting wrists and neck with discharge yesterday. Referred by [facility] Care Team with Dx: Prolonged Grief D/O, Anxiety D/O Unspecified, MDD Unspecified. Self presented to [facility] ED reporting SI. Reported upon admission that he barely cut his wrists and neck prior to admission to [facility], superficial scarring noted bilateral wrists, left side of neck under kelsey. Skin check done upon admission with 2 staff present. Arrived on unit at 1520 on [address] and placed on 15 min safety checks. Signed CV after meeting with provider, Maryse Mancini. Medical issues: HTN, GERD, Spermatocele. Pt somatically focused with reports of multiple medical concerns that he would like addressed during this hospitalization; pt will speak to provider about concerns. Reports he may have contacted STD from dirty toilets in ED and states he was tested for this in ED and waiting for results. Denies substance issues: Tox screen negative, etoh <10. Stressors: loss of 25 y.o. son 14 months ago from motorcycle accident, loss of job 11 months ago, 88 lb wt loss since of son. Currently denies SI/HI/AH/VH. Rates depression #6, anxiety #9 on scale 1-10(10 worse). Reports poor sleep and appetite. Declined flu vaccine. Presents with anxious mood and affect.
[2025-06-09 20:00] VITALS: BP 132/84; PULSE 108; RESP 18; TEMP 36.7; O2SAT 100
[2025-06-09] MEDS: Magnesium Hydrox/Alum Hydrox 30 ML ORAL.SUSP PO (20:53)
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
[2025-06-10 00:59] LABS: CT PCR Urine NOT DETECTED (Not Detect.); NG PCR Urine NOT DETECTED (Not Detect.)
[2025-06-10 08:00] VITALS: BP 117/74; PULSE 75; RESP 16; TEMP 37; O2SAT 99
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
[2025-06-10] MEDS: Magnesium Hydrox/Alum Hydrox 30 ML ORAL.SUSP PO ×2 (08:52→12:45)
--- NOTE | 2025-06-10 12:38 | MHC.CLN ---
CONSULT REPORTED 88# WEIGHT LOSS X 14 MONTHS. REVIEW OF WEIGHT HX CONFIRMS SIGNIFICANT WEIGHT LOSS. 09/16/22=97.1 KG. CURRENT JUGKKU=812#, 54.55 KG. VISITED WITH PATIENT ON UNIT. ATTRIBUTES WEIGHT LOSS TO OF SON. QUALIFIES MODERATELY MALNOURISHED IN THE CONTEXT OF SOCIAL/BEHAVIORAL CIRCUMSTANCES. SHOWS MILD TO MODERATE DEPLETION OF BODY FAT AND MUSCLE MASS. WEIGHT CONFIRMED ON STANDING SCALE. ATE VERY WELL AT LUNCH TODAY. PREFERS VANILLA ENSURE. WILLING TO TRY MAGIC CUP. ENSURE TID PROVIDES 1050 KCALS, 60 G PROTEIN. MAGIC CUP BID PROVIDES 580 KCALS, 18 G PROTEIN. PLEASE CONSULT RD IF POOR PO OR CHANGE TO SUPPLEMENT PREFERENCES.
--- NOTE | 2025-06-10 13:39 | MHC.CLN ---
F/U PREFERS VANILLA ENSURE. CHANGING SUPPLEMENT TO ENSURE MAX TID PER [facility]OR PREFERENCE. SUPPLEMENT PROVIDES 450 KCALS, 90 G PROTEIN.
--- NOTE | 2025-06-10 14:14 | HO.PSYCHPN ---
Subjective Subjective Date of Service: 06/10/25 Reason For Visit: crisis Subjective Notes: Conditional Voluntary Interim History: Laying in bed. keeping to self. Patient reports feeling alright but worried about my health ; pt stated, I keep thinking about my health and having to take care of my family . He reports passive suicidal ideation with no plan or intent. denies HI/VH/AH. Patient reports he was recently on an inpatient unit in [place] for [address] [facility] in [place], [place] d/t not feeling good enough yet . Patient encouraged to attend groups and not stay in bed. Discussed starting on Abilify; risks/benefits reviewed, pt agreed to trial. Start: Abilify 10mg PO bedtime. Medication Compliance: Yes Side effects from medications: No Attending Groups: No Mental Status Exam Mental Status Exam Narrative: Pt is alert and oriented; behavior is cooperative and calm; dressed in casual attire; mood is described as depressed and anxious ; eye contact appropriate; Speech is normal rate, volume and not pressured; thought process is organized; Thought content is on tx; somantically focused. denies HI/VH/AH. Passive SI with no plan/intent. Diagnostics Vital Signs (24Hr): Vital Signs - 24 hr 06/09/25 15:34 06/09/25 20:00 06/10/25 08:00 Temperature 98.1 F 98.1 F 98.6 F Pulse Rate 73 108 H 75 Respiratory Rate 16 18 16 Blood Pressure 154/88 H 132/84 117/74 Pulse Oximetry 99 100 99 Oxygen Delivery Method Room Air Room Air Room Air BMI result Body Mass Index 16.5 Labs 06/08/25 20:36 06/08/25 20:36 Labs: Laboratory Results - last 48 hr 06/08/25 06/08/25 06/09/25 20:24 20:36 15:11 WBC 8.7 RBC 4.58 L Hgb 13.8 L Hct 40.5 L MCV 88.4 MCH 30.1 MCHC 34.1 RDW 12.8 Plt Count 406 H MPV 8.9 L Immature Gran % (Auto) 0.1 Neut % (Auto) 52.7 Lymph % (Auto) 40.7 H [place] % (Auto) 4.8 Eos % (Auto) 1.0 Baso % (Auto) 0.7 Lymph # (Auto) 3.5 [place] # (Auto) 0.4 Eos # (Auto) 0.1 Baso # (Auto) 0.1 Abs Immat Gran (auto) 0.01 Absolute Neuts (auto) 4.6 Absolute Nucleated RBC 0.000 Nucleated RBC % (auto) 0.0 Sodium 142 Potassium 4.0 Chloride 103 Carbon Dioxide 30 H Anion Gap 13 BUN 17 H Creatinine 0.83 Estim Creat Clear Calc 81.4 Estimated GFR > 60 Random Glucose 88 Calcium 9.3 Total Bilirubin 0.5 AST 18 ALT 13 Alkaline Phosphatase 55 Total Protein 7.4 Albumin 4.6 Urine Color Yellow Yellow Urine Appearance Cloudy Turbid Urine pH 6.5 7.0 Ur Specific [place] 1.025 1.015 Urine Protein Negative Negative Urine Glucose (UA) Negative Negative Urine Ketones Trace Negative Urine Blood Negative Negative Urine Nitrite Negative Negative Ur Leukocyte Esterase Negative Negative Ur N gonorrhoeae DNA (PCR) NOT DETECTED Urine Opiates Screen Not Detected Ur Buprenorphine Scrn Not Detected Ur Oxycodone Screen Not Detected Urine Methadone Screen Not Detected Urine Fentanyl Screen Not Detected Ur Barbiturates Screen Not Detected Ur Phencyclidine Scrn Not Detected Ur Amphetamines Screen Not Detected U Benzodiazepines Scrn Not Detected Urine Cocaine Screen Not Detected U Marijuana (THC) Screen Not Detected Ethyl Alcohol < 10 Ur Chlamydia DNA (PCR) NOT DETECTED COVID-19 (RAMIRO) Negative COVID-19 Clin Com See Note Medications Medications Current Medications Acetaminophen (Acetaminophen 325 Mg Tablet) 650 mg PO Q6H PRN PRN Reason: Headache/Pain, Scale 1-10 Al Hydroxide/Mg Hydroxide (Magnesium Hydrox/Alum Hydrox 30 Ml Oral.Susp) 30 ml PO Q6H PRN PRN Reason: Heartburn/Nausea Last Admin: 06/10/25 12:45 Dose: 30 ml Amlodipine Besylate (Amlodipine Besylate 5 Mg Tablet) 5 mg PO DAILY JAIMEE; Protocol Hydrocortisone (Hydrocortisone 2.5 % Rectal Cr 30 Gm Tube) 1 appl CA BEDTIME JAIMEE Hydroxyzine HCl (Hydroxyzine Hcl 25 Mg Tablet) 25 mg PO Q6H PRN PRN Reason: mild anxiety Last Admin: 06/09/25 16:49 Dose: 25 mg Lorazepam (Lorazepam 1 Mg Tablet) 2 mg PO TID PRN PRN Reason: Anxiety Last Admin: 06/10/25 08:52 Dose: 2 mg Magnesium Hydroxide (Milk Of Magnesia 30 Ml Oral.Susp) 30 ml PO DAILY PRN PRN Reason: Constipation Mupirocin (Mupirocin 2 % Oint 22 Gm Tube) 1 appl TOPICAL BID JAIMEE; Protocol Nicotine Polacrilex (Nicotine Polacrilex 2 Mg Gum) 4 mg BUCCAL Q2H PRN PRN Reason: Nicotine Cravings Olanzapine (Olanzapine 5 Mg Tablet) 5 mg PO Q4H PRN PRN Reason: agitation Last Admin: 06/10/25 12:45 Dose: 5 mg Omeprazole (Omeprazole 20 Mg Capsule.Dr) 20 mg PO DAILY@0630 [facility] Psyllium Hydrophilic Mucilloid (Psyllium Seed 3.7 Gm Packet) 3.7 gm PO DAILY JAIMEE Quetiapine Fumarate (Quetiapine Fumarate 100 Mg Tablet) 100 mg PO BEDTIME JAIMEE Last Admin: 06/09/25 20:53 Dose: 100 mg Trazodone HCl (Trazodone Hcl 50 Mg Tablet) 50 mg PO BEDTIME MRX1 PRN PRN Reason: Insomnia Vitamin D (Cholecalciferol (Vitamin D3) 25 Mcg Tablet) 50 mcg PO DAILY JAIMEE Last Admin: 06/10/25 08:44 Dose: 50 mcg Allergies Allergies Allergy/AdvReac Type Severity Reaction Status Date / Time prednisone AdvReac Anxiety Uncoded 06/08/25 18:12 Assessment & Plan Assessment & Plan (1) MDD (major depressive disorder), recurrent, severe, with psychosis: Status: Acute Code(s): F33.3 - Major depressive disorder, recurrent, severe with psychotic symptoms (2) OCD (obsessive compulsive disorder): Status: Acute Code(s): F42.9 - Obsessive-compulsive disorder, unspecified Plan Patient is a 50 year old, , Icelandic speaking, male with hx of HTN, GERD, spermatocele, Depression, anxiety, and OCD, who was BIBA from [facility], where he was medically admitted after a suicide attempt and then transferred to their psych unit. Patient reports dissatisfaction with care at [facility] and reports he requested a transfer to [facility] for continued care. Patient is not previously known to the CARE Team. He reports ongoing symptoms of grief, depression and anxiety and states he has not been able to manage his life or symptoms since the of his 25 year old son 14 months ago from a motorcycle accident. patient also reports medical symptoms of burning sensations in his face; electrical shocks radiating from his leg up to his chest; bad odor coming from his mouth which he believes is associated with oral cancer and bowel issues after the overdose attempt where he cannot hold his bowels. Patient has been medically cleared and referred to the CARE Team for an evaluation of safety and appropriate treatment recommendations. Formulation/clinical reasoning: Continue presented with severe depression and anxiety, OCD onxojzue-gfrypawm-awtdrem his hands, appeared to be delusional and paranoid. History of depression, anxiety, OCD. Transfer from [facility] after suicide attempt. Patient would benefit for continuing in acute care setting for safety, medication management, and coping skills. We will refer patient back to outpatient psychiatric services for aftercare. Plan: Patient on 15 minute checks for safety. Admitted to M3. CV. Work with treatment team to do collateral. Diagnostic tests and discharge planning. 06/09: Ensure t.i.d. with meals: Lost 80 lb since lots of his son. Increase Seroquel from (25-75mg) at bedtime to 100 mg for insomnia/psychosis/mood Vitamin-D 50 mcg daily in the morning Ativan 2 mg t.i.d. PRNs for severe anxiety as home medications. Losartan 25 mg daily in the morning Please further assess if patient was taking Prozac for depression/OCD. Not able to assess with patient at this time as he appeared to be paranoid about this Indian provider . 06/10: Laying in bed. keeping to self. Patient reports feeling alright but worried about my health ; pt stated, I keep thinking about my health and having to take care of my family . He reports passive suicidal ideation with no plan or intent. denies HI/VH/AH. Patient reports he was recently on an inpatient unit in [place] for [address] [facility] in [place], [place] d/t not feeling good enough yet . Patient encouraged to attend groups and not stay in bed. Discussed starting on Abilify; risks/benefits reviewed, pt agreed to trial. Start: Abilify 10mg PO bedtime. Decreased Seoquel to 25mg PO BID PRN. DC hydroxyzine. Patient educated on: diagnosis, medication risk/benefits and therapeutic strategies Reason for continued inpatient stay Substantial Risk for: med/psych decompensation Time Spent With Patient Time: Total time managing care of this patient today _20___ minutes.
[2025-06-10 19:45] VITALS: BP 121/77; PULSE 76; RESP 16; TEMP 36.5; O2SAT 97
[2025-06-11 09:56] VITALS: BP 128/79
[2025-06-11] MEDS: Magnesium Hydrox/Alum Hydrox 30 ML ORAL.SUSP PO (12:54)
--- NOTE | 2025-06-11 14:16 | HO.PSYCHPN ---
Subjective Subjective Date of Service: 06/11/25 Reason For Visit: crisis Subjective Notes: Conditional Voluntary Interim History: Laying in bed. keeping to self. patient reports he did not sleep well last night d/t room mate snoring. denies any side effects from starting Abilify. Patient reports he will try to attend groups today. denies SI/HI/VH/AH. Continue tx plan. Medication Compliance: Intermittent Side effects from medications: No Mental Status Exam Mental Status Exam Narrative: Pt is alert and oriented; behavior is cooperative and calm; dressed in casual attire; mood is described as depressed and anxious ; eye contact appropriate; Speech is normal rate, volume and not pressured; thought process is organized; Thought content is on tx; denies SI/HI/VH/AH. Diagnostics Vital Signs (24Hr): Vital Signs - 24 hr 06/10/25 19:45 06/11/25 09:56 Temperature 97.7 F Pulse Rate 76 Respiratory Rate 16 Blood Pressure 121/77 128/79 Pulse Oximetry 97 Oxygen Delivery Method Room Air BMI result Body Mass Index 16.5 Labs 06/08/25 20:36 06/08/25 20:36 Labs: Laboratory Results - last 48 hr 06/09/25 15:11 Urine Color Yellow Urine Appearance Turbid Urine pH 7.0 Ur Specific [place] 1.015 Urine Protein Negative Urine Glucose (UA) Negative Urine Ketones Negative Urine Blood Negative Urine Nitrite Negative Ur Leukocyte Esterase Negative Ur N gonorrhoeae DNA (PCR) NOT DETECTED Ur Chlamydia DNA (PCR) NOT DETECTED Medications Medications Current Medications Acetaminophen (Acetaminophen 325 Mg Tablet) 650 mg PO Q6H PRN PRN Reason: Headache/Pain, Scale 1-10 Al Hydroxide/Mg Hydroxide (Magnesium Hydrox/Alum Hydrox 30 Ml Oral.Susp) 30 ml PO Q6H PRN PRN Reason: Heartburn/Nausea Last Admin: 06/11/25 12:54 Dose: 30 ml Amlodipine Besylate (Amlodipine Besylate 5 Mg Tablet) 5 mg PO DAILY JAIMEE; Protocol Last Admin: 06/11/25 09:56 Dose: 5 mg Aripiprazole (Aripiprazole 10 Mg Tablet) 10 mg PO BEDTIME JAIMEE Last Admin: 06/10/25 21:27 Dose: 10 mg Hydrocortisone (Hydrocortisone 2.5 % Rectal Cr 30 Gm Tube) 1 appl NM BEDTIME JAIMEE Last Admin: 06/10/25 22:00 Dose: Not Given Lorazepam (Lorazepam 1 Mg Tablet) 2 mg PO TID PRN PRN Reason: Anxiety Last Admin: 06/11/25 10:01 Dose: 2 mg Magnesium Hydroxide (Milk Of Magnesia 30 Ml Oral.Susp) 30 ml PO DAILY PRN PRN Reason: Constipation Multi-Ingred Cream/Lotion/Oil/Oint (Mineral Oil/Petrolatum,White 113 Gm Jar) 1 appl TOPICAL QID PRN; Protocol PRN Reason: Dry Skin Last Admin: 06/11/25 13:53 Dose: 1 appl Mupirocin (Mupirocin 2 % Oint 22 Gm Tube) 1 appl TOPICAL BID JAIMEE; Protocol Last Admin: 06/11/25 10:10 Dose: Not Given Nicotine Polacrilex (Nicotine Polacrilex 2 Mg Gum) 4 mg BUCCAL Q2H PRN PRN Reason: Nicotine Cravings Olanzapine (Olanzapine 5 Mg Tablet) 5 mg PO Q4H PRN PRN Reason: agitation Last Admin: 06/11/25 02:17 Dose: 5 mg Omeprazole (Omeprazole 20 Mg Capsule.Dr) 20 mg PO DAILY@0630 [facility] Last Admin: 06/11/25 07:39 Dose: 20 mg Psyllium Hydrophilic Mucilloid (Psyllium Seed 3.7 Gm Packet) 3.7 gm PO DAILY [facility] Last Admin: 06/11/25 09:59 Dose: Not Given Quetiapine Fumarate (Quetiapine Fumarate 25 Mg Tablet) 25 mg PO BID PRN PRN Reason: Anxiety Last Admin: 06/11/25 11:07 Dose: 25 mg Trazodone HCl (Trazodone Hcl 50 Mg Tablet) 50 mg PO BEDTIME MRX1 PRN PRN Reason: Insomnia Last Admin: 06/10/25 23:45 Dose: 50 mg Vitamin D (Cholecalciferol (Vitamin D3) 25 Mcg Tablet) 50 mcg PO DAILY [facility] Last Admin: 06/11/25 09:55 Dose: 50 mcg Allergies Allergies Allergy/AdvReac Type Severity Reaction Status Date / Time prednisone AdvReac Anxiety Uncoded 06/08/25 18:12 Assessment & Plan Assessment & Plan (1) MDD (major depressive disorder), recurrent, severe, with psychosis: Status: Acute Code(s): F33.3 - Major depressive disorder, recurrent, severe with psychotic symptoms (2) OCD (obsessive compulsive disorder): Status: Acute Code(s): F42.9 - Obsessive-compulsive disorder, unspecified Plan Patient is a 50 year old, , Armenian speaking, male with hx of HTN, GERD, spermatocele, Depression, anxiety, and OCD, who was BIBA from [facility], where he was medically admitted after a suicide attempt and then transferred to their psych unit. Patient reports dissatisfaction with care at [facility] and reports he requested a transfer to [facility] for continued care. Patient is not previously known to the CARE Team. He reports ongoing symptoms of grief, depression and anxiety and states he has not been able to manage his life or symptoms since the of his 25 year old son 14 months ago from a motorcycle accident. patient also reports medical symptoms of burning sensations in his face; electrical shocks radiating from his leg up to his chest; bad odor coming from his mouth which he believes is associated with oral cancer and bowel issues after the overdose attempt where he cannot hold his bowels. Patient has been medically cleared and referred to the CARE Team for an evaluation of safety and appropriate treatment recommendations. Formulation/clinical reasoning: Continue presented with severe depression and anxiety, OCD idpstcol-jqihaxku-lloxqyv his hands, appeared to be delusional and paranoid. History of depression, anxiety, OCD. Transfer from [facility] after suicide attempt. Patient would benefit for continuing in acute care setting for safety, medication management, and coping skills. We will refer patient back to outpatient psychiatric services for aftercare. Plan: Patient on 15 minute checks for safety. Admitted to M3. CV. Work with treatment team to do collateral. Diagnostic tests and discharge planning. 06/09: Ensure t.i.d. with meals: Lost 80 lb since lots of his son. Increase Seroquel from (25-75mg) at bedtime to 100 mg for insomnia/psychosis/mood Vitamin-D 50 mcg daily in the morning Ativan 2 mg t.i.d. PRNs for severe anxiety as home medications. Losartan 25 mg daily in the morning Please further assess if patient was taking Prozac for depression/OCD. Not able to assess with patient at this time as he appeared to be paranoid about this [place] provider . 06/10: Laying in bed. keeping to self. Patient reports feeling alright but worried about my health ; pt stated, I keep thinking about my health and having to take care of my family . He reports passive suicidal ideation with no plan or intent. denies HI/VH/AH. Patient reports he was recently on an inpatient unit in [place] for 2 weeks then went to [facility] in [place], [place] d/t not feeling good enough yet . Patient encouraged to attend groups and not stay in bed. Discussed starting on Abilify; risks/benefits reviewed, pt agreed to trial. Start: Abilify 10mg PO bedtime. Decreased Seoquel to 25mg PO BID PRN. DC hydroxyzine. 06/11: Laying in bed. keeping to self. patient reports he did not sleep well last night d/t room mate snoring. denies any side effects from starting Abilify. Patient reports he will try to attend groups today. denies SI/HI/VH/AH. Patient requesting to have Seroquel increased and DC Zyprexa. Seroquel increased to 50mg PO BID PRN. DC Zyprexa. Continue tx plan. Patient educated on: diagnosis and medication risk/benefits Reason for continued inpatient stay Substantial Risk for: med/psych decompensation Time Spent With Patient Time: Total time managing care of this patient today _20___ minutes.
[2025-06-11 19:41] VITALS: BP 136/90; PULSE 107; RESP 16; TEMP 37; O2SAT 100
[2025-06-12 08:00] VITALS: BP 125/64; PULSE 96; RESP 14; TEMP 36.4; O2SAT 97
[2025-06-12 08:45] VITALS: BP 125/64
[2025-06-12] MEDS: Magnesium Hydrox/Alum Hydrox 30 ML ORAL.SUSP PO ×2 (09:04→22:14)
--- NOTE | 2025-06-12 12:20 | HO.PSYCHPN ---
Subjective Subjective Date of Service: 06/12/25 Reason For Visit: crisis Subjective Notes: Conditional Voluntary Interim History: Laying in bed. keeping to self. Patient reports feeling depressed ; when asked why he declined Abilify last night, pt stated, I didn't like it but did not go into further detail. Patient encouraged to be medication compliant and educated regarding importance of medication compliance. denies SI/HI/VH/AH. Continue tx plan. Medication Compliance: Yes Side effects from medications: No Attending Groups: No Mental Status Exam Mental Status Exam Narrative: Pt is alert and oriented; behavior is cooperative and calm; dressed in casual attire; mood is described as depressed ; eye contact appropriate; Speech is normal rate, volume and not pressured; thought process is organized; Thought content is on tx;somatically focused. denies SI/HI/VH/AH. Diagnostics Vital Signs (24Hr): Vital Signs - 24 hr 06/11/25 19:41 06/12/25 08:00 06/12/25 08:45 Temperature 98.6 F 97.5 F Pulse Rate 107 H 96 Respiratory Rate 16 14 Blood Pressure 136/90 H 125/64 125/64 Pulse Oximetry 100 97 Oxygen Delivery Method Room Air Room Air BMI result Body Mass Index 16.5 Labs 06/08/25 20:36 06/08/25 20:36 Labs: Laboratory Results - last 48 hr 06/12/25 11:24 Estimat Average Glucose 105 Hemoglobin A1c % 5.3 Medications Medications Current Medications Acetaminophen (Acetaminophen 325 Mg Tablet) 650 mg PO Q6H PRN PRN Reason: Headache/Pain, Scale 1-10 Al Hydroxide/Mg Hydroxide (Magnesium Hydrox/Alum Hydrox 30 Ml Oral.Susp) 30 ml PO Q6H PRN PRN Reason: Heartburn/Nausea Last Admin: 06/12/25 09:04 Dose: 30 ml Amlodipine Besylate (Amlodipine Besylate 5 Mg Tablet) 5 mg PO DAILY JAIMEE; Protocol Last Admin: 06/12/25 08:45 Dose: 5 mg Aripiprazole (Aripiprazole 10 Mg Tablet) 10 mg PO BEDTIME JAIMEE Last Admin: 06/11/25 20:07 Dose: Not Given Hydrocortisone (Hydrocortisone 2.5 % Rectal Cr 30 Gm Tube) 1 appl AK BEDTIME JAIMEE Last Admin: 06/11/25 20:07 Dose: Not Given Lorazepam (Lorazepam 1 Mg Tablet) 2 mg PO TID PRN PRN Reason: Anxiety Last Admin: 06/12/25 09:00 Dose: 2 mg Magnesium Hydroxide (Milk Of Magnesia 30 Ml Oral.Susp) 30 ml PO DAILY PRN PRN Reason: Constipation Multi-Ingred Cream/Lotion/Oil/Oint (Mineral Oil/Petrolatum,White 113 Gm Jar) 1 appl TOPICAL QID PRN; Protocol PRN Reason: Dry Skin Last Admin: 06/11/25 18:24 Dose: 1 appl Mupirocin (Mupirocin 2 % Oint 22 Gm Tube) 1 appl TOPICAL BID JAIMEE; Protocol Last Admin: 06/12/25 09:05 Dose: 1 appl Nicotine Polacrilex (Nicotine Polacrilex 2 Mg Gum) 4 mg BUCCAL Q2H PRN PRN Reason: Nicotine Cravings Omeprazole (Omeprazole 20 Mg Capsule.Dr) 20 mg PO DAILY@0630 [facility] Last Admin: 06/12/25 06:11 Dose: Not Given Psyllium Hydrophilic Mucilloid (Psyllium Seed 3.7 Gm Packet) 3.7 gm PO DAILY [facility] Last Admin: 06/12/25 08:45 Dose: Not Given Quetiapine Fumarate (Quetiapine Fumarate 50 Mg Tablet) 50 mg PO BID PRN PRN Reason: Anxiety Last Admin: 06/12/25 09:13 Dose: 50 mg Trazodone HCl (Trazodone Hcl 50 Mg Tablet) 50 mg PO BEDTIME MRX1 PRN PRN Reason: Insomnia Last Admin: 06/11/25 20:02 Dose: 50 mg Vitamin D (Cholecalciferol (Vitamin D3) 25 Mcg Tablet) 50 mcg PO DAILY [facility] Last Admin: 06/12/25 08:45 Dose: 50 mcg Allergies Allergies Allergy/AdvReac Type Severity Reaction Status Date / Time prednisone AdvReac Anxiety Uncoded 06/08/25 18:12 Assessment & Plan Assessment & Plan (1) MDD (major depressive disorder), recurrent, severe, with psychosis: Status: Acute Code(s): F33.3 - Major depressive disorder, recurrent, severe with psychotic symptoms (2) OCD (obsessive compulsive disorder): Status: Acute Code(s): F42.9 - Obsessive-compulsive disorder, unspecified Plan Patient is a 50 year old, , Monegasque speaking, male with hx of HTN, GERD, spermatocele, Depression, anxiety, and OCD, who was BIBA from [facility], where he was medically admitted after a suicide attempt and then transferred to their psych unit. Patient reports dissatisfaction with care at [facility] and reports he requested a transfer to [facility] for continued care. Patient is not previously known to the CARE Team. He reports ongoing symptoms of grief, depression and anxiety and states he has not been able to manage his life or symptoms since the of his 25 year old son 14 months ago from a motorcycle accident. patient also reports medical symptoms of burning sensations in his face; electrical shocks radiating from his leg up to his chest; bad odor coming from his mouth which he believes is associated with oral cancer and bowel issues after the overdose attempt where he cannot hold his bowels. Patient has been medically cleared and referred to the CARE Team for an evaluation of safety and appropriate treatment recommendations. Formulation/clinical reasoning: Continue presented with severe depression and anxiety, OCD [id number] his hands, appeared to be delusional and paranoid. History of depression, anxiety, OCD. Transfer from [facility] after suicide attempt. Patient would benefit for continuing in acute care setting for safety, medication management, and coping skills. We will refer patient back to outpatient psychiatric services for aftercare. Plan: Patient on 15 minute checks for safety. Admitted to [facility]. CV. Work with treatment team to do collateral. Diagnostic tests and discharge planning. 06/09: Ensure t.i.d. with meals: Lost 80 lb since lots of his son. Increase Seroquel from (25-75mg) at bedtime to 100 mg for insomnia/psychosis/mood Vitamin-D 50 mcg daily in the morning Ativan 2 mg t.i.d. PRNs for severe anxiety as home medications. Losartan 25 mg daily in the morning Please further assess if patient was taking Prozac for depression/OCD. Not able to assess with patient at this time as he appeared to be paranoid about this [place] provider . 06/10: Laying in bed. keeping to self. Patient reports feeling alright but worried about my health ; pt stated, I keep thinking about my health and having to take care of my family . He reports passive suicidal ideation with no plan or intent. denies HI/VH/AH. Patient reports he was recently on an inpatient unit in [place] for 2 weeks then went to [facility] in [place] d/t not feeling good enough yet . Patient encouraged to attend groups and not stay in bed. Discussed starting on Abilify; risks/benefits reviewed, pt agreed to trial. Start: Abilify 10mg PO bedtime. Decreased Seoquel to 25mg PO BID PRN. DC hydroxyzine. 06/11: Laying in bed. keeping to self. patient reports he did not sleep well last night d/t room mate snoring. denies any side effects from starting Abilify. Patient reports he will try to attend groups today. denies SI/HI/VH/AH. Patient requesting to have Seroquel increased and DC Zyprexa. Seroquel increased to 50mg PO BID PRN. DC Zyprexa. Continue tx plan. 06/12: Laying in bed. keeping to self. Patient reports feeling depressed ; when asked why he declined Abilify last night, pt stated, I didn't like it but did not go into further detail. Patient encouraged to be medication compliant and educated regarding importance of medication compliance. denies SI/HI/VH/AH. Continue tx plan. Patient educated on: diagnosis and medication risk/benefits Reason for continued inpatient stay Substantial Risk for: med/psych decompensation Time Spent With Patient Time: Total time managing care of this patient today _20___ minutes.
[2025-06-12 14:43] LABS: Appearance Urine Clear; Glucose Urine UA Negative (Negative); PH 6.0 (5.0-9.0); Specific Gravity - Urine 1.025 (1.005-1.025)
[2025-06-12 15:27] LABS: Prealbumin 31.0 mg/dL (20-40)
[2025-06-12 15:34] LABS: Alanine Aminotransferase 32 U/L (0-40); Albumin Level 4.4 g/dL (3.5-5.0); Alkaline Phosphatase 61 U/L (39-117); Anion Gap 12 (12-20); Aspartate Amino Transferase 22 U/L (5-37); Blood Urea Nitrogen 21 mg/dL (9-16); Calcium 9.0 mg/dL (8.4-10.2); Carbon Dioxide 29 mmol/L (22-29); Chloride 107 mmol/L (96-108); Cholesterol 156 mg/dL (<200); Creatinine Clr Calc Pharmacy 82.5; Estimated Glomerular Filt Rate > 60; HDL Cholesterol 53 mg/dL (>40); Potassium 4.1 mmol/L (3.3-5.1); Sodium 144 mmol/L (135-145); Total Protein 7.1 g/dL (6.5-8.0); Triglycerides 207 mg/dL (<150)
[2025-06-12 20:00] VITALS: BP 127/71; PULSE 110; RESP 16; TEMP 36.6; O2SAT 98
[2025-06-13 08:00] VITALS: BP 101/55; PULSE 93; RESP 16; TEMP 37.2; O2SAT 97
[2025-06-13 08:41] VITALS: BP 101/55
--- NOTE | 2025-06-13 12:21 | P.PNPSI_ITS ---
Subjective Subjective Date of Service: 06/13/25 Reason For Visit: crisis Subjective Notes: Conditional Voluntary Interim History: T/W and social studies teacher, met with pt in unit office. patient came to meeting with list of medications, which he states he would like try . When asked where he received the names of these medications,pt stated, his peers are also taking these and say they work . Patient was informed he is currently prescribed 2 of the 4 medications listed on the paper. Patient reports feeling depressed due to his health ; patient was informed hospitalist who had assessed pt, recommended follow up with his PCP regarding his medical concerns. Patient stated, he feels he needs to stay inpatient for weeks . T/W and social studies teacher educated patient this is crisis stabilization. Patient encouraged to attend groups; patient stated, I just got here ; patient was reminded he has been on the unit for 4 days. Per OT, patient has not attended groups since admission. He denies SI/HI/VH/AH. Continue tx plan. Medication Compliance: Yes Side effects from medications: No Attending Groups: No Mental Status Exam Mental Status Exam Narrative: Pt is alert and oriented; behavior is cooperative and calm; dressed in casual attire; mood is described as depressed ; eye contact appropriate; Speech is normal rate, volume and not pressured; thought process is organized; Thought content is on tx;somatically focused. denies SI/HI/VH/AH. Diagnostics Vital Signs (24Hr): Vital Signs - 24 hr 06/12/25 20:00 06/13/25 08:00 06/13/25 08:41 Temperature 97.8 F 99.0 F Pulse Rate 110 H 93 Respiratory Rate 16 16 Blood Pressure 127/71 101/55 L 101/55 L Pulse Oximetry 98 97 Oxygen Delivery Method Room Air Room Air BMI result Body Mass Index 16.5 Labs 06/08/25 20:36 06/12/25 15:06 Labs: Laboratory Results - last 48 hr 06/12/25 06/12/25 06/12/25 11:24 14:32 15:06 Sodium 144 Potassium 4.1 Chloride 107 Carbon Dioxide 29 Anion Gap 12 BUN 21 H Creatinine 0.81 Estim Creat Clear Calc 82.5 Estimated GFR > 60 Random Glucose 92 Estimat Average Glucose 105 Hemoglobin A1c % 5.3 Calcium 9.0 Total Bilirubin 0.3 AST 22 ALT 32 Alkaline Phosphatase 61 Total Protein 7.1 Albumin 4.4 Prealbumin 31.0 Triglycerides 207 H Cholesterol 156 LDL Cholesterol, Calc 62 HDL Cholesterol 53 25-OH Vitamin D Total 37.9 TSH 0.45 Urine Color Yellow Urine Appearance Clear Urine pH 6.0 Ur Specific [place] 1.025 Urine Protein Trace Urine Glucose (UA) Negative Urine Ketones Trace Urine Blood Negative Urine Nitrite Negative Ur Leukocyte Esterase Negative Imaging Radiology Impressions: ITS Impressions Chest CT 06/10/25 18:56 IMPRESSION: 1. Unremarkable unenhanced CT of the chest. 2. Large amount of debris in the stomach. Correlation with the timing of the patient's last meal is recommended. Electronically signed by: Andres White MD 06/13/2025 08:11 AM [facility] Medications Medications Current Medications Acetaminophen (Acetaminophen 325 Mg Tablet) 650 mg PO Q6H PRN PRN Reason: Headache/Pain, Scale 1-10 Last Admin: 06/12/25 17:34 Dose: 650 mg Al Hydroxide/Mg Hydroxide (Magnesium Hydrox/Alum Hydrox 30 Ml Oral.Susp) 30 ml PO Q6H PRN PRN Reason: Heartburn/Nausea Last Admin: 06/12/25 22:14 Dose: 30 ml Amlodipine Besylate (Amlodipine Besylate 5 Mg Tablet) 5 mg PO DAILY JAIMEE; Protocol Last Admin: 06/13/25 08:41 Dose: 5 mg Aripiprazole (Aripiprazole 10 Mg Tablet) 10 mg PO BEDTIME JAIMEE Last Admin: 06/12/25 13:37 Dose: 10 mg Chlorhexidine Gluconate (Chlorhexidine Gluc Oral Rinse 15 Ml Mouthwash) 15 ml BUCCAL BEDTIME JAIMEE Last Admin: 06/12/25 22:10 Dose: Not Given Hydrocortisone (Hydrocortisone 2.5 % Rectal Cr 30 Gm Tube) 1 appl OR BEDTIME JAIMEE Last Admin: 06/12/25 22:09 Dose: Not Given Lorazepam (Lorazepam 1 Mg Tablet) 2 mg PO TID PRN PRN Reason: Anxiety Last Admin: 06/13/25 08:45 Dose: 2 mg Magnesium Hydroxide (Milk Of Magnesia 30 Ml Oral.Susp) 30 ml PO DAILY PRN PRN Reason: Constipation Multi-Ingred Cream/Lotion/Oil/Oint (Mineral Oil/Petrolatum,White 113 Gm Jar) 1 appl TOPICAL QID PRN; Protocol PRN Reason: Dry Skin Last Admin: 06/13/25 11:42 Dose: 1 appl Multivitamins/Vitamin C (Multivitamin Tablet) 1 tab PO DAILY [facility] Last Admin: 06/13/25 08:41 Dose: 1 tab Mupirocin (Mupirocin 2 % Oint 22 Gm Tube) 1 appl TOPICAL BID [facility]; Protocol Last Admin: 06/12/25 22:10 Dose: Not Given Nicotine Polacrilex (Nicotine Polacrilex 2 Mg Gum) 4 mg BUCCAL Q2H PRN PRN Reason: Nicotine Cravings Omeprazole (Omeprazole 20 Mg Capsule.Dr) 20 mg PO DAILY@0630 [facility] Last Admin: 06/13/25 06:59 Dose: 20 mg Psyllium Hydrophilic Mucilloid (Psyllium Seed 3.7 Gm Packet) 3.7 gm PO DAILY [facility] Last Admin: 06/13/25 08:42 Dose: Not Given Quetiapine Fumarate (Quetiapine Fumarate 50 Mg Tablet) 50 mg PO BID PRN PRN Reason: Anxiety Last Admin: 06/13/25 12:07 Dose: 50 mg Trazodone HCl (Trazodone Hcl 50 Mg Tablet) 50 mg PO BEDTIME MRX1 PRN PRN Reason: Insomnia Last Admin: 06/12/25 19:57 Dose: 50 mg Allergies Allergies Allergy/AdvReac Type Severity Reaction Status Date / Time prednisone AdvReac Anxiety Uncoded 06/08/25 18:12 Assessment & Plan Assessment & Plan (1) MDD (major depressive disorder), recurrent, severe, with psychosis: Status: Acute Code(s): F33.3 - Major depressive disorder, recurrent, severe with psychotic symptoms (2) OCD (obsessive compulsive disorder): Status: Acute Code(s): F42.9 - Obsessive-compulsive disorder, unspecified Plan Patient is a 50 year old, , Somali speaking, male with hx of HTN, GERD, spermatocele, Depression, anxiety, and OCD, who was BIBA from [facility], where he was medically admitted after a suicide attempt and then transferred to their psych unit. Patient reports dissatisfaction with care at [facility] and reports he requested a transfer to [facility] for continued care. Patient is not previously known to the CARE Team. He reports ongoing symptoms of grief, depression and anxiety and states he has not been able to manage his life or symptoms since the of his 25 year old son 14 months ago from a motorcycle accident. patient also reports medical symptoms of burning sensations in his face; electrical shocks radiating from his leg up to his chest; bad odor coming from his mouth which he believes is associated with oral cancer and bowel issues after the overdose attempt where he cannot hold his bowels. Patient has been medically cleared and referred to the CARE Team for an evaluation of safety and appropriate treatment recommendations. Formulation/clinical reasoning: Continue presented with severe depression and anxiety, OCD [id number] his hands, appeared to be delusional and paranoid. History of depression, anxiety, OCD. Transfer from [facility] after suicide attempt. Patient would benefit for continuing in acute care setting for safety, medication management, and coping skills. We will refer patient back to outpatient psychiatric services for aftercare. Plan: Patient on 15 minute checks for safety. Admitted to . CV. Work with treatment team to do collateral. Diagnostic tests and discharge planning. 06/09: Ensure t.i.d. with meals: Lost 80 lb since lots of his son. Increase Seroquel from (25-75mg) at bedtime to 100 mg for insomnia/psychosis/mood Vitamin-D 50 mcg daily in the morning Ativan 2 mg t.i.d. PRNs for severe anxiety as home medications. Losartan 25 mg daily in the morning Please further assess if patient was taking Prozac for depression/OCD. Not able to assess with patient at this time as he appeared to be paranoid about this Mong[place] provider . 06/10: Laying in bed. keeping to self. Patient reports feeling alright but worried about my health ; pt stated, I keep thinking about my health and having to take care of my family . He reports passive suicidal ideation with no plan or intent. denies HI/VH/AH. Patient reports he was recently on an inpatient unit in [place] for 2 weeks then went to [facility] in [place], [place] d/t not feeling good enough yet . Patient encouraged to attend groups and not stay in bed. Discussed starting on Abilify; risks/benefits reviewed, pt agreed to trial. Start: Abilify 10mg PO bedtime. Decreased Seoquel to 25mg PO BID PRN. DC hydroxyzine. 06/11: Laying in bed. keeping to self. patient reports he did not sleep well last night d/t room mate snoring. denies any side effects from starting Abilify. Patient reports he will try to attend groups today. denies SI/HI/VH/AH. Patient requesting to have Seroquel increased and DC Zyprexa. Seroquel increased to 50mg PO BID PRN. DC Zyprexa. Continue tx plan. 06/12: Laying in bed. keeping to self. Patient reports feeling depressed ; when asked why he declined Abilify last night, pt stated, I didn't like it but did not go into further detail. Patient encouraged to be medication compliant and educated regarding importance of medication compliance. denies SI/HI/VH/AH. Continue tx plan. 06/13: T/W and social studies teacher, met with pt in unit office. patient came to meeting with list of medications, which he states he would like try . When asked where he received the names of these medications,pt stated, his peers are also taking these and say they work . Patient was informed he is currently prescribed 2 of the 4 medications listed on the paper. Patient reports feeling depressed due to his health ; patient was informed hospitalist who had assessed pt, recommended follow up with his PCP regarding his medical concerns. Patient stated, he feels he needs to stay inpatient for weeks . T/W and social studies teacher educated patient this is crisis stabilization. Patient encouraged to attend groups; patient stated, I just got here ; patient was reminded he has been on the unit for 4 days. Per OT, patient has not attended groups since admission. He denies SI/HI/VH/AH. Continue tx plan. Patient educated on: diagnosis, medication risk/benefits and therapeutic strategies Reason for continued inpatient stay Substantial Risk for: med/psych decompensation Time Spent With Patient Time: Total time managing care of this patient today _20___ minutes.
[2025-06-13] MEDS: Magnesium Hydrox/Alum Hydrox 30 ML ORAL.SUSP PO (17:49)
[2025-06-13 20:00] VITALS: BP 139/82; PULSE 95; RESP 16; TEMP 36.7; O2SAT 99
[2025-06-14 08:00] VITALS: BP 120/74; PULSE 86; RESP 16; TEMP 37; O2SAT 98
[2025-06-14 08:30] VITALS: BP 120/74
--- NOTE | 2025-06-14 13:57 | P.PNPSI_ITS ---
Subjective Subjective Date of Service: 06/14/25 Reason For Visit: crisis Subjective Notes: Conditional Voluntary Interim History: T/W and sr. social media & mobile manager, met with pt in unit office. Patient continues to report feeling anxious and depressed. Patient reports he went to 1 group yesterday but, will try to go to more groups today. Continue somatically focused despite being seen by hospitalist regarding his concerns. Patient perseverative regarding staying on the inpatient unit for 2 weeks . When asked why 2 weeks, patient could not provide more information other than stating to stabilize . Patient was educated it would benefit him to increase the amount of times he is seeing his outpatient therapist for intensive therapy for assistance with coping skills. Patient denies SI/HI/VH/AH. Continue tx plan. Medication Compliance: Yes Side effects from medications: No Attending Groups: Intermittent Mental Status Exam Mental Status Exam Narrative: Pt is alert and oriented; behavior is cooperative and calm; dressed in casual attire; mood is described as depressed ; eye contact appropriate; Speech is normal rate, volume and not pressured; thought process is organized; Thought content is on tx;somatically focused. denies SI/HI/VH/AH. Diagnostics Vital Signs (24Hr): Vital Signs - 24 hr 06/13/25 20:00 06/14/25 08:00 06/14/25 08:30 Temperature 98.1 F 98.6 F Pulse Rate 95 86 Respiratory Rate 16 16 Blood Pressure 139/82 120/74 120/74 Pulse Oximetry 99 98 Oxygen Delivery Method Room Air Room Air BMI result Body Mass Index 16.5 Labs 06/08/25 20:36 06/12/25 15:06 Labs: Laboratory Results - last 48 hr 06/12/25 06/12/25 14:32 15:06 Sodium 144 Potassium 4.1 Chloride 107 Carbon Dioxide 29 Anion Gap 12 BUN 21 H Creatinine 0.81 Estim Creat Clear Calc 82.5 Estimated GFR > 60 Random Glucose 92 Calcium 9.0 Total Bilirubin 0.3 AST 22 ALT 32 Alkaline Phosphatase 61 Total Protein 7.1 Albumin 4.4 Prealbumin 31.0 Triglycerides 207 H Cholesterol 156 LDL Cholesterol, Calc 62 HDL Cholesterol 53 25-OH Vitamin D Total 37.9 TSH 0.45 Urine Color Yellow Urine Appearance Clear Urine pH 6.0 Ur Specific Anderson 1.025 Urine Protein Trace Urine Glucose (UA) Negative Urine Ketones Trace Urine Blood Negative Urine Nitrite Negative Ur Leukocyte Esterase Negative Imaging Radiology Impressions: ITS Impressions Chest CT 06/10/25 18:56 IMPRESSION: 1. Unremarkable unenhanced CT of the chest. 2. Large amount of debris in the stomach. Correlation with the timing of the patient's last meal is recommended. Electronically signed by: Andres White MD 06/13/2025 08:11 AM [facility] Medications Medications Current Medications Acetaminophen (Acetaminophen 325 Mg Tablet) 650 mg PO Q6H PRN PRN Reason: Headache/Pain, Scale 1-10 Last Admin: 06/14/25 10:04 Dose: 650 mg Al Hydroxide/Mg Hydroxide (Magnesium Hydrox/Alum Hydrox 30 Ml Oral.Susp) 30 ml PO Q6H PRN PRN Reason: Heartburn/Nausea Last Admin: 06/13/25 17:49 Dose: 30 ml Amlodipine Besylate (Amlodipine Besylate 5 Mg Tablet) 5 mg PO DAILY JAIMEE; Protocol Last Admin: 06/14/25 08:30 Dose: 5 mg Aripiprazole (Aripiprazole 10 Mg Tablet) 10 mg PO BEDTIME JAIMEE Last Admin: 06/13/25 21:12 Dose: 10 mg Chlorhexidine Gluconate (Chlorhexidine Gluc Oral Rinse 15 Ml Mouthwash) 15 ml BUCCAL BEDTIME JAIMEE Last Admin: 06/13/25 22:13 Dose: Not Given Docusate Sodium (Docusate Sodium 100 Mg Capsule) 100 mg PO BEDTIME JAIMEE Last Admin: 06/13/25 22:13 Dose: Not Given Hydrocortisone (Hydrocortisone 2.5 % Rectal Cr 30 Gm Tube) 1 appl MO BEDTIME JAIMEE Last Admin: 06/13/25 22:13 Dose: Not Given Lorazepam (Lorazepam 1 Mg Tablet) 2 mg PO TID PRN PRN Reason: Anxiety Last Admin: 06/14/25 13:50 Dose: 2 mg Magnesium Hydroxide (Milk Of Magnesia 30 Ml Oral.Susp) 30 ml PO DAILY PRN PRN Reason: Constipation Multi-Ingred Cream/Lotion/Oil/Oint (Mineral Oil/Petrolatum,White 113 Gm Jar) 1 appl TOPICAL QID PRN; Protocol PRN Reason: Dry Skin Last Admin: 06/13/25 20:02 Dose: 1 appl Multivitamins/Vitamin C (Multivitamin Tablet) 1 tab PO DAILY JAIMEE Last Admin: 06/14/25 08:30 Dose: 1 tab Mupirocin (Mupirocin 2 % Oint 22 Gm Tube) 1 appl TOPICAL BID [facility]; Protocol Last Admin: 06/14/25 08:50 Dose: Not Given Nicotine Polacrilex (Nicotine Polacrilex 2 Mg Gum) 4 mg BUCCAL Q2H PRN PRN Reason: Nicotine Cravings Omeprazole (Omeprazole 20 Mg Capsule.) 20 mg PO DAILY@0630 [facility] Last Admin: 06/14/25 08:30 Dose: 20 mg Psyllium Hydrophilic Mucilloid (Psyllium Seed 3.7 Gm Packet) 3.7 gm PO DAILY [facility] Last Admin: 06/14/25 08:50 Dose: Not Given Quetiapine Fumarate (Quetiapine Fumarate 50 Mg Tablet) 50 mg PO BID PRN PRN Reason: Anxiety Last Admin: 06/14/25 08:35 Dose: 50 mg Trazodone HCl (Trazodone Hcl 50 Mg Tablet) 50 mg PO BEDTIME MRX1 PRN PRN Reason: Insomnia Last Admin: 06/14/25 01:45 Dose: 50 mg Allergies Allergies Allergy/AdvReac Type Severity Reaction Status Date / Time prednisone AdvReac Anxiety Uncoded 06/08/25 18:12 Assessment & Plan Assessment & Plan (1) MDD (major depressive disorder), recurrent, severe, with psychosis: Status: Acute Code(s): F33.3 - Major depressive disorder, recurrent, severe with psychotic symptoms (2) OCD (obsessive compulsive disorder): Status: Acute Code(s): F42.9 - Obsessive-compulsive disorder, unspecified Plan Patient is a 50 year old, , Liberian speaking, male with hx of HTN, GERD, spermatocele, Depression, anxiety, and OCD, who was BIBA from , where he was medically admitted after a suicide attempt and then transferred to their psych unit. Patient reports dissatisfaction with care at [facility] and reports he requested a transfer to [facility] for continued care. Patient is not previously known to the CARE Team. He reports ongoing symptoms of grief, depression and anxiety and states he has not been able to manage his life or symptoms since the of his 25 year old son 14 months ago from a motorcycle accident. patient also reports medical symptoms of burning sensations in his face; electrical shocks radiating from his leg up to his chest; bad odor coming from his mouth which he believes is associated with oral cancer and bowel issues after the overdose attempt where he cannot hold his bowels. Patient has been medically cleared and referred to the CARE Team for an evaluation of safety and appropriate treatment recommendations. Formulation/clinical reasoning: Continue presented with severe depression and anxiety, OCD [id number]-[id number] his hands, appeared to be delusional and paranoid. History of depression, anxiety, OCD. Transfer from [facility] after suicide attempt. Patient would benefit for continuing in acute care setting for safety, medication management, and coping skills. We will refer patient back to outpatient psychiatric services for aftercare. Plan: Patient on 15 minute checks for safety. Admitted to . CV. Work with treatment team to do collateral. Diagnostic tests and discharge planning. 06/09: Ensure t.i.d. with meals: Lost 80 lb since lots of his son. Increase Seroquel from (25-75mg) at bedtime to 100 mg for insomnia/psychosis/mood Vitamin-D 50 mcg daily in the morning Ativan 2 mg t.i.d. PRNs for severe anxiety as home medications. Losartan 25 mg daily in the morning Please further assess if patient was taking Prozac for depression/OCD. Not able to assess with patient at this time as he appeared to be paranoid about this [place] provider . 06/10: Laying in bed. keeping to self. Patient reports feeling alright but worried about my health ; pt stated, I keep thinking about my health and having to take care of my family . He reports passive suicidal ideation with no plan or intent. denies HI/VH/AH. Patient reports he was recently on an inpatient unit in [place] for 2 weeks then went to [facility] in [place], [place] d/t not feeling good enough yet . Patient encouraged to attend groups and not stay in bed. Discussed starting on Abilify; risks/benefits reviewed, pt agreed to trial. Start: Abilify 10mg PO bedtime. Decreased Seoquel to 25mg PO BID PRN. DC hydroxyzine. 06/11: Laying in bed. keeping to self. patient reports he did not sleep well last night d/t room mate snoring. denies any side effects from starting Abilify. Patient reports he will try to attend groups today. denies SI/HI/VH/AH. Patient requesting to have Seroquel increased and DC Zyprexa. Seroquel increased to 50mg PO BID PRN. DC Zyprexa. Continue tx plan. 06/12: Laying in bed. keeping to self. Patient reports feeling depressed ; when asked why he declined Abilify last night, pt stated, I didn't like it but did not go into further detail. Patient encouraged to be medication compliant and educated regarding importance of medication compliance. denies SI/HI/VH/AH. Continue tx plan. 06/13: T/W and sr. social media & mobile manager, met with pt in unit office. patient came to meeting with list of medications, which he states he would like try . When asked where he received the names of these medications,pt stated, his peers are also taking these and say they work . Patient was informed he is currently prescribed 2 of the 4 medications listed on the paper. Patient reports feeling depressed due to his health ; patient was informed hospitalist who had assessed pt, recommended follow up with his PCP regarding his medical concerns. Patient stated, he feels he needs to stay inpatient for weeks . T/W and sr. social media & mobile manager educated patient this is crisis stabilization. Patient encouraged to attend groups; patient stated, I just got here ; patient was reminded he has been on the unit for 4 days. Per OT, patient has not attended groups since admission. He denies SI/HI/VH/AH. Continue tx plan. 06/14: T/W and sr. social media & mobile manager, met with pt in unit office. Patient continues to report feeling anxious and depressed. Patient reports he went to 1 group yesterday but, will try to go to more groups today. Continue somatically focused despite being seen by hospitalist regarding his concerns. Patient perseverative regarding staying on the inpatient unit for 2 weeks . When asked why 2 weeks, patient could not provide more information other than stating to stabilize . Patient was educated it would benefit him to increase the amount of times he is seeing his outpatient therapist for intensive therapy for assistance with coping skills. Patient denies SI/HI/VH/AH. Continue tx plan. Patient educated on: diagnosis, medication risk/benefits and therapeutic strategies Reason for continued inpatient stay Substantial Risk for: med/psych decompensation Time Spent With Patient Time: Total time managing care of this patient today _20___ minutes.
[2025-06-14] MEDS: Magnesium Hydrox/Alum Hydrox 30 ML ORAL.SUSP PO (18:50)
[2025-06-14 21:15] VITALS: BP 130/77; PULSE 83; RESP 16; TEMP 36.7; O2SAT 99
[2025-06-15 08:00] VITALS: BP 123/76; PULSE 76; RESP 16; TEMP 36.6; O2SAT 99
[2025-06-15] MEDS: Lidocaine 4 % Patch ADH..PATCH 2 PATCH TRANSDERMA (08:29)
[2025-06-15] MEDS: Magnesium Hydrox/Alum Hydrox 30 ML ORAL.SUSP PO (08:39)
--- NOTE | 2025-06-15 10:54 | HO.PSYCHPN ---
Subjective Subjective Date of Service: 06/15/25 Reason For Visit: crisis Subjective Notes: Conditional Voluntary Interim History: Active on unit. Social with peers. Patient continues to report feeling anxious and depressed; per nursing, pt slept 8+ hours last night. Patient reports he went to 2 groups yesterday but, will try to go to more groups today. Patient continues perseverative regarding staying on the inpatient unit for 2 weeks ; patient was reminded that the plan is for him to discharge home this week. He denies SI/HI/VH/AH. Continue tx plan. Medication Compliance: Yes Side effects from medications: No Attending Groups: Intermittent Mental Status Exam Mental Status Exam Narrative: Pt is alert and oriented; behavior is cooperative and calm; dressed in casual attire; mood is described as depressed ; eye contact appropriate; Speech is normal rate, volume and not pressured; thought process is organized; Thought content is on tx;somatically focused. denies SI/HI/VH/AH. Diagnostics Vital Signs (24Hr): Vital Signs - 24 hr 06/14/25 21:15 06/15/25 08:00 Temperature 98.1 F 97.9 F Pulse Rate 83 76 Respiratory Rate 16 16 Blood Pressure 130/77 123/76 Pulse Oximetry 99 99 Oxygen Delivery Method Room Air Room Air BMI result Body Mass Index 16.5 Labs 06/08/25 20:36 06/12/25 15:06 Imaging Radiology Impressions: ITS Impressions Chest CT 06/10/25 18:56 IMPRESSION: 1. Unremarkable unenhanced CT of the chest. 2. Large amount of debris in the stomach. Correlation with the timing of the patient's last meal is recommended. Electronically signed by: Andres White MD 06/13/2025 08:11 AM [facility] Medications Medications Current Medications Acetaminophen (Acetaminophen 325 Mg Tablet) 650 mg PO Q6H PRN PRN Reason: Headache/Pain, Scale 1-10 Last Admin: 06/14/25 10:04 Dose: 650 mg Al Hydroxide/Mg Hydroxide (Magnesium Hydrox/Alum Hydrox 30 Ml Oral.Susp) 30 ml PO Q6H PRN PRN Reason: Heartburn/Nausea Last Admin: 06/15/25 08:39 Dose: 30 ml Amlodipine Besylate (Amlodipine Besylate 5 Mg Tablet) 5 mg PO DAILY JAMIEE; Protocol Last Admin: 06/15/25 08:28 Dose: Not Given Aripiprazole (Aripiprazole 10 Mg Tablet) 10 mg PO BEDTIME JAIMEE Last Admin: 06/14/25 20:34 Dose: 10 mg Calcium Carbonate (Calcium Carbonate 750 Mg Tab.Chew) 750 mg PO Q4H PRN PRN Reason: Heartburn Last Admin: 06/14/25 18:09 Dose: 750 mg Chlorhexidine Gluconate (Chlorhexidine Gluc Oral Rinse 15 Ml Mouthwash) 15 ml BUCCAL BEDTIME JAIMEE Last Admin: 06/14/25 20:50 Dose: Not Given Docusate Sodium (Docusate Sodium 100 Mg Capsule) 100 mg PO BEDTIME JAIMEE Last Admin: 06/14/25 20:42 Dose: Not Given Hydrocortisone (Hydrocortisone 2.5 % Rectal Cr 30 Gm Tube) 1 appl ID BEDTIME JAIMEE Last Admin: 06/14/25 20:50 Dose: Not Given Lidocaine (Lidocaine 4 % Patch Adh..Patch) 2 patch TRANSDERMA DAILY ON LICENSE OF [facility]; Protocol Last Admin: 06/15/25 08:29 Dose: 2 patch Lorazepam (Lorazepam 1 Mg Tablet) 2 mg PO TID PRN PRN Reason: Anxiety Last Admin: 06/15/25 08:37 Dose: 2 mg Magnesium Hydroxide (Milk Of Magnesia 30 Ml Oral.Susp) 30 ml PO DAILY PRN PRN Reason: Constipation Multi-Ingred Cream/Lotion/Oil/Oint (Mineral Oil/Petrolatum,White 113 Gm Jar) 1 appl TOPICAL QID PRN; Protocol PRN Reason: Dry Skin Last Admin: 06/14/25 20:36 Dose: 1 appl Multivitamins/Vitamin C (Multivitamin Tablet) 1 tab PO DAILY JAIMEE Last Admin: 06/15/25 08:28 Dose: 1 tab Mupirocin (Mupirocin 2 % Oint 22 Gm Tube) 1 appl TOPICAL BID JAIMEE; Protocol Last Admin: 06/15/25 08:31 Dose: Not Given Nicotine Polacrilex (Nicotine Polacrilex 2 Mg Gum) 4 mg BUCCAL Q2H PRN PRN Reason: Nicotine Cravings Omeprazole (Omeprazole 20 Mg Capsule.Dr) 20 mg PO DAILY@0630 JAIMEE Last Admin: 06/15/25 06:58 Dose: 20 mg Psyllium Hydrophilic Mucilloid (Psyllium Seed 3.7 Gm Packet) 3.7 gm PO DAILY JAIMEE Last Admin: 06/15/25 08:31 Dose: Not Given Quetiapine Fumarate (Quetiapine Fumarate 50 Mg Tablet) 50 mg PO BID PRN PRN Reason: Anxiety Last Admin: 06/15/25 10:32 Dose: 50 mg Trazodone HCl (Trazodone Hcl 50 Mg Tablet) 50 mg PO BEDTIME MRX1 PRN PRN Reason: Insomnia Last Admin: 06/14/25 20:40 Dose: 50 mg Allergies Allergies Allergy/AdvReac Type Severity Reaction Status Date / Time prednisone AdvReac Anxiety Uncoded 06/08/25 18:12 Assessment & Plan Assessment & Plan (1) MDD (major depressive disorder), recurrent, severe, with psychosis: Status: Acute Code(s): F33.3 - Major depressive disorder, recurrent, severe with psychotic symptoms (2) OCD (obsessive compulsive disorder): Status: Acute Code(s): F42.9 - Obsessive-compulsive disorder, unspecified Plan Patient is a 50 year old, , Bahamian speaking, male with hx of HTN, GERD, spermatocele, Depression, anxiety, and OCD, who was BIBA from [facility], where he was medically admitted after a suicide attempt and then transferred to their psych unit. Patient reports dissatisfaction with care at [facility] and reports he requested a transfer to [facility] for continued care. Patient is not previously known to the CARE Team. He reports ongoing symptoms of grief, depression and anxiety and states he has not been able to manage his life or symptoms since the of his 25 year old son 14 months ago from a motorcycle accident. patient also reports medical symptoms of burning sensations in his face; electrical shocks radiating from his leg up to his chest; bad odor coming from his mouth which he believes is associated with oral cancer and bowel issues after the overdose attempt where he cannot hold his bowels. Patient has been medically cleared and referred to the CARE Team for an evaluation of safety and appropriate treatment recommendations. Formulation/clinical reasoning: Continue presented with severe depression and anxiety, OCD zhoxjtua-ikksvovl-xvpitds his hands, appeared to be delusional and paranoid. History of depression, anxiety, OCD. Transfer from [facility] after suicide attempt. Patient would benefit for continuing in acute care setting for safety, medication management, and coping skills. We will refer patient back to outpatient psychiatric services for aftercare. Plan: Patient on 15 minute checks for safety. Admitted to . CV. Work with treatment team to do collateral. Diagnostic tests and discharge planning. 06/09: Ensure t.i.d. with meals: Lost 80 lb since lots of his son. Increase Seroquel from (25-75mg) at bedtime to 100 mg for insomnia/psychosis/mood Vitamin-D 50 mcg daily in the morning Ativan 2 mg t.i.d. PRNs for severe anxiety as home medications. Losartan 25 mg daily in the morning Please further assess if patient was taking Prozac for depression/OCD. Not able to assess with patient at this time as he appeared to be paranoid about this [place] provider . 06/10: Laying in bed. keeping to self. Patient reports feeling alright but worried about my health ; pt stated, I keep thinking about my health and having to take care of my family . He reports passive suicidal ideation with no plan or intent. denies HI/VH/AH. Patient reports he was recently on an inpatient unit in [place] for 2 weeks then went to [facility] in [place], [place] d/t not feeling good enough yet . Patient encouraged to attend groups and not stay in bed. Discussed starting on Abilify; risks/benefits reviewed, pt agreed to trial. Start: Abilify 10mg PO bedtime. Decreased Seoquel to 25mg PO BID PRN. DC hydroxyzine. 06/11: Laying in bed. keeping to self. patient reports he did not sleep well last night d/t room mate snoring. denies any side effects from starting Abilify. Patient reports he will try to attend groups today. denies SI/HI/VH/AH. Patient requesting to have Seroquel increased and DC Zyprexa. Seroquel increased to 50mg PO BID PRN. DC Zyprexa. Continue tx plan. 06/12: Laying in bed. keeping to self. Patient reports feeling depressed ; when asked why he declined Abilify last night, pt stated, I didn't like it but did not go into further detail. Patient encouraged to be medication compliant and educated regarding importance of medication compliance. denies SI/HI/VH/AH. Continue tx plan. 06/13: T/W and manager social responsibility, met with pt in unit office. patient came to meeting with list of medications, which he states he would like try . When asked where he received the names of these medications,pt stated, his peers are also taking these and say they work . Patient was informed he is currently prescribed 2 of the 4 medications listed on the paper. Patient reports feeling depressed due to his health ; patient was informed hospitalist who had assessed pt, recommended follow up with his PCP regarding his medical concerns. Patient stated, he feels he needs to stay inpatient for weeks . T/W and manager social responsibility educated patient this is crisis stabilization. Patient encouraged to attend groups; patient stated, I just got here ; patient was reminded he has been on the unit for 4 days. Per OT, patient has not attended groups since admission. He denies SI/HI/VH/AH. Continue tx plan. 06/14: T/W and manager social responsibility, met with pt in unit office. Patient continues to report feeling anxious and depressed. Patient reports he went to 1 group yesterday but, will try to go to more groups today. Continue somatically focused despite being seen by hospitalist regarding his concerns. Patient perseverative regarding staying on the inpatient unit for 2 weeks . When asked why 2 weeks, patient could not provide more information other than stating to stabilize . Patient was educated it would benefit him to increase the amount of times he is seeing his outpatient therapist for intensive therapy for assistance with coping skills. Patient denies SI/HI/VH/AH. Continue tx plan. 06/15: Active on unit. Social with peers. Patient continues to report feeling anxious and depressed; per nursing, pt slept 8+ hours last night. Patient reports he went to 2 groups yesterday but, will try to go to more groups today. Patient continues perseverative regarding staying on the inpatient unit for 2 weeks ; patient was reminded that the plan is for him to discharge home this week. He denies SI/HI/VH/AH. Continue tx plan. Patient educated on: diagnosis, medication risk/benefits and therapeutic strategies Reason for continued inpatient stay Substantial Risk for: med/psych decompensation Time Spent With Patient Time: Total time managing care of this patient today _20___ minutes.
[2025-06-15 20:28] VITALS: BP 142/82; PULSE 102; RESP 113; TEMP 37.6; O2SAT 93
[2025-06-15] MEDS: Chlorhexidine Gluc Oral Rinse 15 ML MOUTHWASH BUCCAL (20:34)
[2025-06-15 22:07] VITALS: TEMP 36.6
[2025-06-16 07:00] VITALS: BMI 18.0
[2025-06-16 08:00] VITALS: BP 132/72; PULSE 79; RESP 16; TEMP 36.9; O2SAT 98
--- NOTE | 2025-06-16 09:11 | P.PNPSI_ITS ---
Subjective Subjective Date of Service: 06/16/25 Reason For Visit: crisis Subjective Notes: [place] Warning and Conditional Voluntary Interim History: Patient was seen and discussed in rounds today. Records and plans were reviewed. He refused his morning Norvasc, stating that it gives him ankle swelling. I did not see much swelling. Continues to be very somatically preoccupied. He also states that he S seen red blood after voiding. He is also refusing Colace, wanting to weigh more!. Continues to have excessive hand washing. Hospitalist consult for the postvoiding blood was requested. No other changes were made today Review of Systems Review of Systems Post voiding blood Yes all other systems are reviewed and are negative Mental Status Exam Mental Status Exam Narrative: In today's visit he is alert, oriented and pleasant. Normal speech. Moderate eye contact. Affect is appropriate. Moderate anxiety present. No acute signs of psychosis. Very somatically preoccupied with possible somatic delusions. States to have post voiding red blood. I asked him to come until his nurse before he goes to the bathroom so we can observe this given the high degree of somatic preoccupation that he has. No SI. Continues to have a lot of hand washing and is requesting alcohol swabs etc.. Diagnostics Vital Signs (24Hr): Vital Signs - 24 hr 06/15/25 20:28 06/15/25 22:07 Temperature 99.7 F 97.8 F Pulse Rate 102 H Respiratory Rate 113 H Blood Pressure 142/82 H Pulse Oximetry 93 Oxygen Delivery Method Room Air BMI result Body Mass Index 16.5 Labs 06/08/25 20:36 06/12/25 15:06 Imaging Radiology Impressions: ITS Impressions Chest CT 06/10/25 18:56 IMPRESSION: 1. Unremarkable unenhanced CT of the chest. 2. Large amount of debris in the stomach. Correlation with the timing of the patient's last meal is recommended. Electronically signed by: Andres White MD 06/13/2025 08:11 AM SHIMON Medications Medications Current Medications Acetaminophen (Acetaminophen 325 Mg Tablet) 650 mg PO Q6H PRN PRN Reason: Headache/Pain, Scale 1-10 Last Admin: 06/15/25 20:41 Dose: 650 mg Al Hydroxide/Mg Hydroxide (Magnesium Hydrox/Alum Hydrox 30 Ml Oral.Susp) 30 ml PO Q6H PRN PRN Reason: Heartburn/Nausea Last Admin: 06/15/25 08:39 Dose: 30 ml Amlodipine Besylate (Amlodipine Besylate 5 Mg Tablet) 5 mg PO DAILY [facility]; Protocol Last Admin: 06/16/25 08:46 Dose: Not Given Aripiprazole (Aripiprazole 10 Mg Tablet) 10 mg PO BEDTIME JAIMEE Last Admin: 06/15/25 20:35 Dose: 10 mg Calcium Carbonate (Calcium Carbonate 750 Mg Tab.Chew) 750 mg PO Q4H PRN PRN Reason: Heartburn Last Admin: 06/15/25 18:30 Dose: 750 mg Chlorhexidine Gluconate (Chlorhexidine Gluc Oral Rinse 15 Ml Mouthwash) 15 ml BUCCAL BEDTIME JAIMEE Last Admin: 06/15/25 20:34 Dose: 15 ml Docusate Sodium (Docusate Sodium 100 Mg Capsule) 100 mg PO BEDTIME JAIMEE Last Admin: 06/15/25 20:35 Dose: Not Given Hydrocortisone (Hydrocortisone 2.5 % Rectal Cr 30 Gm Tube) 1 appl AL BEDTIME [facility] Last Admin: 06/15/25 21:43 Dose: Not Given Lidocaine (Lidocaine 4 % Patch Adh..Patch) 2 patch TRANSDERMA DAILY [facility]; Protocol Last Admin: 06/15/25 08:29 Dose: 2 patch Lorazepam (Lorazepam 1 Mg Tablet) 2 mg PO TID PRN PRN Reason: Anxiety Last Admin: 06/15/25 20:35 Dose: 2 mg Magnesium Hydroxide (Milk Of Magnesia 30 Ml Oral.Susp) 30 ml PO DAILY PRN PRN Reason: Constipation Multi-Ingred Cream/Lotion/Oil/Oint (Mineral Oil/Petrolatum,White 113 Gm Jar) 1 appl TOPICAL QID PRN; Protocol PRN Reason: Dry Skin Last Admin: 06/15/25 20:42 Dose: 1 appl Multivitamins/Vitamin C (Multivitamin Tablet) 1 tab PO DAILY JAIMEE Last Admin: 06/16/25 08:43 Dose: 1 tab Mupirocin (Mupirocin 2 % Oint 22 Gm Tube) 1 appl TOPICAL BID [facility]; Protocol Last Admin: 06/16/25 08:43 Dose: Not Given Nicotine Polacrilex (Nicotine Polacrilex 2 Mg Gum) 4 mg BUCCAL Q2H PRN PRN Reason: Nicotine Cravings Omeprazole (Omeprazole 20 Mg Capsule.Dr) 20 mg PO DAILY@0630 [facility] Last Admin: 06/16/25 06:57 Dose: 20 mg Psyllium Hydrophilic Mucilloid (Psyllium Seed 3.7 Gm Packet) 3.7 gm PO DAILY [facility] Last Admin: 06/16/25 08:44 Dose: Not Given Quetiapine Fumarate (Quetiapine Fumarate 50 Mg Tablet) 50 mg PO BID PRN PRN Reason: Anxiety Last Admin: 06/15/25 20:36 Dose: 50 mg Trazodone HCl (Trazodone Hcl 50 Mg Tablet) 50 mg PO BEDTIME MRX1 PRN PRN Reason: Insomnia Last Admin: 06/16/25 00:58 Dose: 50 mg Allergies Allergies Allergy/AdvReac Type Severity Reaction Status Date / Time prednisone AdvReac Anxiety Uncoded 06/08/25 18:12 Assessment & Plan Assessment & Plan (1) MDD (major depressive disorder), recurrent, severe, with psychosis: Status: Acute Code(s): F33.3 - Major depressive disorder, recurrent, severe with psychotic symptoms (2) OCD (obsessive compulsive disorder): Status: Acute Code(s): F42.9 - Obsessive-compulsive disorder, unspecified Plan Patient is a 50 year old, , Yoruba speaking, male with hx of HTN, GERD, spermatocele, Depression, anxiety, and OCD, who was BIBA from [facility], where he was medically admitted after a suicide attempt and then transferred to their psych unit. Patient reports dissatisfaction with care at [facility] and reports he requested a transfer to [facility] [place]. Patient is not previously known to the CARE Team. He reports ongoing symptoms of grief, depression and anxiety and states he has not been able to manage his life or symptoms since the of his 25 year old son 14 months ago from a motorcycle accident. patient also reports medical symptoms of burning sensations in his face; electrical shocks radiating from his leg up to his chest; bad odor coming from his mouth which he believes is associated with oral cancer and bowel issues after the overdose attempt where he cannot hold his bowels. Patient has been medically cleared and referred to the CARE Team for an evaluation of safety and appropriate treatment recommendations. Formulation/clinical reasoning: Continue presented with severe depression and anxiety, OCD [id number] his hands, appeared to be delusional and paranoid. History of depression, anxiety, OCD. Transfer from [facility] after suicide attempt. Patient would benefit for continuing in acute care setting for safety, medication management, and coping skills. We will refer patient back to outpatient psychiatric services for aftercare. Plan: Patient on 15 minute checks for safety. Admitted to [facility]. CV. Work with treatment team to do collateral. Diagnostic tests and discharge planning. 06/09: Ensure t.i.d. with meals: Lost 80 lb since lots of his son. Increase Seroquel from (25-75mg) at bedtime to 100 mg for insomnia/psychosis/mood Vitamin-D 50 mcg daily in the morning Ativan 2 mg t.i.d. PRNs for severe anxiety as home medications. Losartan 25 mg daily in the morning Please further assess if patient was taking Prozac for depression/OCD. Not able to assess with patient at this time as he appeared to be paranoid about this [place] provider . 06/10: Laying in bed. keeping to self. Patient reports feeling alright but worried about my health ; pt stated, I keep thinking about my health and having to take care of my family . He reports passive suicidal ideation with no plan or intent. denies HI/VH/AH. Patient reports he was recently on an inpatient unit [place] [facility] [place] then went to [facility] in [place], [place] d/t not feeling good enough yet . Patient encouraged to attend groups and not stay in bed. Discussed starting on Abilify; risks/benefits reviewed, pt agreed to trial. Start: Abilify 10mg PO bedtime. Decreased Seoquel to 25mg PO BID PRN. DC hydroxyzine. 06/11: Laying in bed. keeping to self. patient reports he did not sleep well last night d/t room mate snoring. denies any side effects from starting Abilify. Patient reports he will try to attend groups today. denies SI/HI/VH/AH. Patient requesting to have Seroquel increased and DC Zyprexa. Seroquel increased to 50mg PO BID PRN. DC Zyprexa. Continue tx plan. 06/12: Laying in bed. keeping to self. Patient reports feeling depressed ; when asked why he declined Abilify last night, pt stated, I didn't like it but did not go into further detail. Patient encouraged to be medication compliant and educated regarding importance of medication compliance. denies SI/HI/VH/AH. Continue tx plan. 06/13: T/W and medical social consultant, met with pt in unit office. patient came to meeting with list of medications, which he states he would like try . When asked where he received the names of these medications,pt stated, his peers are also taking these and say they work . Patient was informed he is currently prescribed 2 of the 4 medications listed on the paper. Patient reports feeling depressed due to his health ; patient was informed hospitalist who had assessed pt, recommended follow up with his PCP regarding his medical concerns. Patient stated, he feels he needs to stay inpatient for weeks . T/W and medical social consultant educated patient this is crisis stabilization. Patient encouraged to attend groups; patient stated, I just got here ; patient was reminded he has been on the unit for 4 days. Per OT, patient has not attended groups since admission. He denies SI/HI/VH/AH. Continue tx plan. 06/14: T/W and medical social consultant, met with pt in unit office. Patient continues to report feeling anxious and depressed. Patient reports he went to 1 group yesterday but, will try to go to more groups today. Continue somatically focused despite being seen by hospitalist regarding his concerns. Patient perseverative regarding staying on the inpatient unit for 2 weeks . When asked why 2 weeks, patient could not provide more information other than stating to stabilize . Patient was educated it would benefit him to increase the amount of times he is seeing his outpatient therapist for intensive therapy for assistance with coping skills. Patient denies SI/HI/VH/AH. Continue tx plan. 06/15: Active on unit. Social with peers. Patient continues to report feeling anxious and depressed; per nursing, pt slept 8+ hours last night. Patient reports he went to 2 groups yesterday but, will try to go to more groups today. Patient continues perseverative regarding staying on the inpatient unit for 2 weeks ; patient was reminded that the plan is for him to discharge home this week. He denies SI/HI/VH/AH. Continue tx plan. 06/16: Continue current regimen and plans. Reason for continued inpatient stay Substantial Risk for: med/psych decompensation Time Spent With Patient Time: Total time managing care of this patient today ____ minutes.
[2025-06-16] MEDS: Lidocaine 4 % Patch ADH..PATCH 2 PATCH TRANSDERMA (09:16)
[2025-06-16] MEDS: Magnesium Hydrox/Alum Hydrox 30 ML ORAL.SUSP PO ×2 (09:20→17:36)
[2025-06-16 19:40] VITALS: BP 138/74; PULSE 96; RESP 16; TEMP 36.9; O2SAT 98
[2025-06-16] MEDS: Chlorhexidine Gluc Oral Rinse 15 ML MOUTHWASH BUCCAL (20:24)
[2025-06-17 08:00] VITALS: BP 128/74; PULSE 77; RESP 16; TEMP 36.7; O2SAT 99
[2025-06-17] MEDS: Magnesium Hydrox/Alum Hydrox 30 ML ORAL.SUSP PO (08:41)
--- NOTE | 2025-06-17 11:16 | P.DS_ITS ---
DS: Providers Provider Date of admission: 06/09/25 13:49 Date of discharge: 06/17/25 Primary care physician: Venancio Camilo MD Attending physician on admission: Maryse Mancini Attending physician on discharge: Adele Leger DS: Diagnosis Discharge Diagnosis (1) MDD (major depressive disorder), recurrent, severe, with psychosis: Status: Resolved (2) OCD (obsessive compulsive disorder): Status: Acute DS: Medications Discharge Medications Home Medications: Previous Rx's ?Medication ?Instructions ?Recorded amlodipine 5 mg tablet 5 mg PO DAILY High blood pre ssure 06/17/25 30 days #30 tabs aripiprazole 10 mg tablet 10 mg PO BEDTIME Mood 30 da ys #30 06/17/25 tabs lidocaine 4 % topical patch 2 patch transdermal DAILY pain 7 06/17/25 (Lidocaine Pain Relief) days #14 ea lorazepam 2 mg tablet (Ativan) 2 mg PO TID PRN Severe anxiety 14 06/17/25 days #42 tabs multivitamin (Daily-Rebeca tablet) 1 tab PO DAILY supple ment 30 days 06/17/25 #30 tabs omeprazole 20 mg capsule,delayed 20 mg PO DAILY@0630 G ERD 30 days 06/17/25 release #30 caps quetiapine 25 mg tablet 50 mg (2 x 25 mg) PO BID PRN 06/17/25 severe agitation 14 days #56 tabs trazodone 50 mg tablet 50 mg PO BEDTIME PRN Insomni a 14 06/17/25 days #14 tabs Mental Status Exam Mental Status Exam Narrative: Patient presents well-groomed, casually dressed. Affect is anxious, congruent mood. Speech is clear and coherent. Thought process is linear and logical. Thought content is appropriate and relevant. Patient denies suicidal or homicidal ideation intent or plan but reports suicidal thought which is situational as he does not want to be discharged. No overt psychotic symptoms elicited. Insight is fair. Judgment is fair. Data Data Completed and Pending Completed studies during hospitalization [Text1]: 06/12/25 06/12/25 06/12/25 11:24 14:32 15:06 Sodium 144 Potassium 4.1 Chloride 107 Carbon Dioxide 29 Anion Gap 12 BUN 21 H Creatinine 0.81 Estim Creat Clear Calc 82.5 Estimated GFR > 60 Random Glucose 92 Estimat Average Glucose 105 Hemoglobin A1c % 5.3 Calcium 9.0 Total Bilirubin 0.3 AST 22 ALT 32 Alkaline Phosphatase 61 Total Protein 7.1 Albumin 4.4 Prealbumin 31.0 Triglycerides 207 H Cholesterol 156 LDL Cholesterol, Calc 62 HDL Cholesterol 53 25-OH Vitamin D Total 37.9 TSH 0.45 Total Testosterone Pending Fr Testosterone Dialys Pending Urine Color Yellow Urine Appearance Clear Urine pH 6.0 Ur Specific [place] 1.025 Urine Protein Trace Urine Glucose (UA) Negative Urine Ketones Trace Urine Blood Negative Urine Nitrite Negative Ur Leukocyte Esterase Negative Imaging Diagnostic Imaging Impressions Chest CT 06/10/25 18:56 IMPRESSION: 1. Unremarkable unenhanced CT of the chest. 2. Large amount of debris in the stomach. Correlation with the timing of the patient's last meal is recommended. Electronically signed by: Andres White MD 06/13/2025 08:11 AM [facility] DS: Summary Hospital Course Hospital Course: HPI: Patient is a 50 year old, , Bermudian speaking, male with hx of HTN, GERD, spermatocele, Depression, anxiety, and OCD, who was BIBA from [facility], where he was medically admitted after a suicide attempt and then transferred to their psych unit. Patient reports dissatisfaction with care at [facility] and reports he requested a transfer to [facility] for continued care. Patient is not previously known to the CARE Team. He reports ongoing symptoms of grief, depression and anxiety and states he has not been able to manage his life or symptoms since the of his 25 year old son 14 months ago from a motorcycle accident. patient also reports medical symptoms of burning sensations in his face; electrical shocks radiating from his leg up to his chest; bad odor coming from his mouth which he believes is associated with oral cancer and bowel issues after the overdose attempt where he cannot hold his bowels. Patient has been medically cleared and referred to the CARE Team for an evaluation of safety and appropriate treatment recommendations. Formulation/clinical reasoning: Continue presented with severe depression and anxiety, OCD [id number] his hands, appeared to be delusional and paranoid. History of depression, anxiety, OCD. Transfer from [facility] after suicide attempt. Patient would benefit for continuing in acute care setting for safety, medication management, and coping skills. We will refer patient back to outpatient psychiatric services for aftercare. Hospital course: 06/09: Ensure t.i.d. with meals: Lost 80 lb since lots of his son. Increase Seroquel from (25-75mg) at bedtime to 100 mg for insomnia/psychosis/mood Vitamin-D 50 mcg daily in the morning Ativan 2 mg t.i.d. PRNs for severe anxiety as home medications. Losartan 25 mg daily in the morning Please further assess if patient was taking Prozac for depression/OCD. Not able to assess with patient at this time as he appeared to be paranoid about this [place] provider . 06/10: Laying in bed. keeping to self. Patient reports feeling alright but worried about my health ; pt stated, I keep thinking about my health and having to take care of my family . He reports passive suicidal ideation with no plan or intent. denies HI/VH/AH. Patient reports he was recently on an inpatient unit in [place] for 2 weeks then went to [facility] in [place], [place] d/t not feeling good enough yet . Patient encouraged to attend groups and not stay in bed. Discussed starting on Abilify; risks/benefits reviewed, pt agreed to trial. Start: Abilify 10mg PO bedtime. Decreased Seoquel to 25mg PO BID PRN. DC hydroxyzine. 06/11: Laying in bed. keeping to self. patient reports he did not sleep well last night d/t room mate snoring. denies any side effects from starting Abilify. Patient reports he will try to attend groups today. denies SI/HI/VH/AH. Patient requesting to have Seroquel increased and DC Zyprexa. Seroquel increased to 50mg PO BID PRN. DC Zyprexa. Continue tx plan. 06/12: Laying in bed. keeping to self. Patient reports feeling depressed ; when asked why he declined Abilify last night, pt stated, I didn't like it but did not go into further detail. Patient encouraged to be medication compliant and educated regarding importance of medication compliance. denies SI/HI/VH/AH. Continue tx plan. 06/13: T/W and certified social workers in health care, met with pt in unit office. patient came to meeting with list of medications, which he states he would like try . When asked where he received the names of these medications,pt stated, his peers are also taking these and say they work . Patient was informed he is currently prescribed 2 of the 4 medications listed on the paper. Patient reports feeling depressed due to his health ; patient was informed hospitalist who had assessed pt, recommended follow up with his PCP regarding his medical concerns. Patient stated, he feels he needs to stay inpatient for weeks . T/W and certified social workers in health care educated patient this is crisis stabilization. Patient encouraged to attend groups; patient stated, I just got here ; patient was reminded he has been on the unit for 4 days. Per OT, patient has not attended groups since admission. He denies SI/HI/VH/AH. Continue tx plan. 06/14: T/W and certified social workers in health care, met with pt in unit office. Patient continues to report feeling anxious and depressed. Patient reports he went to 1 group yesterday but, will try to go to more groups today. Continue somatically focused despite being seen by hospitalist regarding his concerns. Patient perseverative regarding staying on the inpatient unit for 2 weeks . When asked why 2 weeks, patient could not provide more information other than stating to stabilize . Patient was educated it would benefit him to increase the amount of times he is seeing his outpatient therapist for intensive therapy for assistance with coping skills. Patient denies SI/HI/VH/AH. Continue tx plan. 06/15: Active on unit. Social with peers. Patient continues to report feeling anxious and depressed; per nursing, pt slept 8+ hours last night. Patient reports he went to 2 groups yesterday but, will try to go to more groups today. Patient continues perseverative regarding staying on the inpatient unit for 2 weeks ; patient was reminded that the plan is for him to discharge home this week. He denies SI/HI/VH/AH. Continue tx plan. 06/16: He refused his morning Norvasc, stating that it gives him ankle swelling. I did not see much swelling. Continues to be very somatically preoccupied. He also states that he S seen red blood after voiding. He is also refusing Colace, wanting to weigh more!. Continues to have excessive hand washing. Hospitalist consult for the post voiding blood was requested. No other changes were made today Continue current regimen and plans. 06/17/25: Patient was seen prior to discharge. Per nursing, patient denies SI/SIB/HI/AVH but report SI to this provider saying he does not feel he is ready for discharge. Patient asks if he could stay for another day or two. Remind patient that staying for another day or two would not change anything as he is stable enough to go home. This is an acute care setting and that he does not meet criteria for this level of care anymore. Patient needs to FLU with OP psychiatric to continue manage his anixety symptoms. Prior to discharge, he does not displace any unsafe behavior. More anxious d/t worrying about to be discharged. Some somatic complaint at at baseline. He called his who could pick him up early this morning. Meds sent to preferred pharmacy. Time spent discussing smoking cessation with patient: 3 to 10 minutes Status at Discharge Cognitive/behavioral status at discharge: CONDITION ON DISCHARGE: CURRENT STATUS IT RELATES TO ADMISSION CRITERIA: Stable, improved. Improvements in depression, anxiety, and suicidal ideation. Improvements in sleep, energy, and appetite. and no hallucination or paranoia/delusional thought but anxious at baseline. Functional status at discharge: independent ambulation Overall status at discharge: patient is back to baseline Time Spent with Patient Time attestation: Total time managing care of this patient today ____ minutes. Time spent: Greater than 30 minutes Discharge Plan Discharge Anticipated Discharge Date/Time: 06/17/25 12:00 Patient Disposition: Home, Self-Care Discharge Diagnosis: MDD, Anxiety, and OCD Referrals: Therapy & Psychiatry [Other] - 1 Week Referral Note: *You can present to the clinic above, Friday through Friday during the hours of 10am and 12pm, in order to obtain outpatient mental health providers. Therapy & Psychiatry [Other] - 1 Week Referral Note: *You can present to the clinic above, Friday through Friday during the hours of 8am and 8pm, in order to obtain outpatient mental health providers. Venancio Camilo MD [Primary Care Provider, Medical] - 06/30/25 10:30 am Referral Note: 06-14-25 Your primary care provider has been notified of your discharge and will be reaching out with the date and time of your follow up appt. Update Your follow up appt has been scheduled for 06-30-24 @ 10:30am Discharge Medications: New amlodipine 5 mg Tablet 5 mg PO DAILY 30 Days Qty: 30 0RF Protocol: Hold for SBP< HOLD for SBP < : 90 aripiprazole 10 mg Tablet 10 mg PO BEDTIME 30 Days Qty: 30 0RF omeprazole 20 mg Capsule,Delayed Release(Dr/Ec) 20 mg PO DAILY@0630 30 Days Qty: 30 0RF lidocaine [Lidocaine Pain Relief] 4 % Adhesive Patch,Medicated 2 patch transdermal DAILY 7 Days Qty: 14 0RF Protocol: Apply to: Apply to: lower back multivitamin [Daily-Rebeca] Tablet 1 tab PO DAILY 30 Days Qty: 30 0RF trazodone 50 mg Tablet 50 mg PO BEDTIME PRN (Reason: Insomnia) 14 Days Qty: 14 0RF lorazepam [Ativan] 2 mg tablet 2 mg PO TID PRN (Reason: Severe anxiety ) 14 Days Qty: 42 0RF Changed quetiapine 25 mg tablet 50 mg PO BID PRN (Reason: severe agitation) 14 Days Qty: 56 0RF Discontinued lorazepam 2 mg tablet 2 mg PO TID PRN (Reason: Anxiety) losartan 25 mg tablet 25 mg PO DAILY cholecalciferol (vitamin D3) [Vitamin D3] 50 mcg (2,000 unit) tablet 50 mcg PO DAILY No Action hydrocortisone [Preparation H Hydrocortisone] 1 % cream 1 appl topical TID PRN (Reason: hemorrhoids) Qty: 28.35 0RF Discharge Orders: Discharge Order (Routine); Ordered 06/17/25 Ordered By: Adele Leger Diet: Regular diet Activity on Discharge: No Restrictions Stand Alone Forms: Patient Portal Discharge page, Community Support Print Language: Bermudian Care Plan Goals: Maintain mood and safe behaviors Take medications as prescribed Continue to pursue sobriety Practice coping skills Continue with outpatient providers and reach out to them as needed Health Concerns: Mood stability and behaviors Sobriety Plan of Treatment: Follow up with your PCP, psychiatric provider and other outpatient providers regarding above concerns Take medications as prescribed Assessment: Assessment: Risk assessment at time of discharge: Patient was interviewed prior to discharge and found to be fully oriented and without any SI or HI. Patient has improved insight and judgment and wants to continue treatment. Patient is not in imminent risk of harm to self or others and has a safety plan that includes presenting to the closest ER or calling 911 if feeling unsafe. Patient has been observed closely by nursing and unit staff throughout admission; patient has not engaged in any behaviors that suggest dangerousness to self or others and has demonstrated appropriate behaviors and impulse control. However, due to the fact that patient does not want to leave/ to be discharged, patient says he is suicidal which is situational. Patient was explained that patient needs to go back home in community, FLU with OP as this is an acute care setting only, patient does not meet criteria for inpatient level of care Discharge Date/Time: 06/17/25 12:39
[2025-06-18 16:08] LABS: Testosterone, Free 32.1 pg/mL (35.0-155.0)
== END 2025-06-17 12:39 | disposition home or self-care (01) | DRG 751 ==
LOC: HO.ED 06-09 14:23 → HO.PADLT16 06-09 14:49
PROVIDERS: Emergency Medicine Emergency Medical Services; Nurse Practitioner Family; Registered Nurse Emergency; Admitting Provider Registered Nurse; Emergency Provider Student in an Organized Health Care Education/Training Program; PCP Internal Medicine; Responsible Provider Registered Nurse; Visit Provider Psychiatry & Neurology Psychiatry
DX: F33.3 Major depressive disorder, recurrent, severe with psychotic symptoms (principal); R62.7 Adult failure to thrive; E29.1 Testicular hypofunction; F41.9 Anxiety disorder, unspecified; K21.9 Gastro-esophageal reflux disease without esophagitis; Z68.1 Body mass index [BMI] 19.9 or less, adult; Z63.4 Disappearance and death of family member; F42.9 Obsessive-compulsive disorder, unspecified; I10 Essential (primary) hypertension; Z20.822 Contact with and (suspected) exposure to COVID-19; Z91.51 Personal history of suicidal behavior; Z87.891 Personal history of nicotine dependence; Z79.899 Other long term (current) drug therapy
CPT/HCPCS: 36415; 71250; 80053; 80061; 80307; 81003; 82306; 83036; 84134; 84402; 84403; 84443; 85025; 87491; 87591; 87635; 93005; 99285; S9485

== ENCOUNTER → 2025-06-09 08:06 | Outpatient (BNV) | payer OTHER, SELFPAY | PROVIDERS: Emergency Provider Student in an Organized Health Care Education/Training Program; PCP Internal Medicine; Visit Provider Internal Medicine Cardiovascular Disease | DX: R94.31 Abnormal electrocardiogram [ECG] [EKG] (principal); Z13.6 Encounter for screening for cardiovascular disorders | CPT/HCPCS: 93010 ==

== ENCOUNTER 2025-06-09 13:49 | Outpatient (BNV) | payer OTHER, SELFPAY | END 2025-06-10 18:56 | PROVIDERS: Admitting Provider Registered Nurse; Emergency Provider Student in an Organized Health Care Education/Training Program; PCP Internal Medicine; Responsible Provider Registered Nurse; Visit Provider Radiology Diagnostic Radiology | DX: J44.9 Chronic obstructive pulmonary disease, unspecified (principal) | CPT/HCPCS: 71250 ==

== ENCOUNTER → 2025-06-09 13:49 | Outpatient (BNV) | payer OTHER, SELFPAY | PROVIDERS: Admitting Provider Registered Nurse; Emergency Provider Student in an Organized Health Care Education/Training Program; PCP Internal Medicine; Visit Provider Nurse Practitioner Psychiatric/Mental Health | DX: F33.3 Major depressive disorder, recurrent, severe with psychotic symptoms (principal); F42.9 Obsessive-compulsive disorder, unspecified | CPT/HCPCS: 90792; 99232 ==

== ENCOUNTER → 2025-06-09 13:49 | Outpatient (BNV) | payer OTHER, SELFPAY | PROVIDERS: Admitting Provider Registered Nurse; Emergency Provider Student in an Organized Health Care Education/Training Program; PCP Internal Medicine; Visit Provider Nurse Practitioner Family | DX: E29.1 Testicular hypofunction (principal) | CPT/HCPCS: 99221 ==

== ENCOUNTER 2025-06-17 14:13 | Emergency (ER) | payer OTHER, SELFPAY ==
--- NOTE | ~2025-06-17 | XR_ITS ---
EXAMINATION: XR CHEST 2 VIEWS HISTORY: confusion COMPARISON: There are no prior studies available for comparison. FINDINGS: PA and lateral views of the chest are submitted. The lungs are hyperinflated, consistent with COPD. The lungs are clear. There is no pleural effusion, pneumothorax, or pulmonary vascular congestion. The heart is normal in size. There is degenerative disc disease of the spine. XR/XR chest 2V IMPRESSION: COPD. The lungs are clear. Electronically signed by: Andres White MD 06/17/2025 03:02 PM [facility]
--- NOTE | ~2025-06-17 | CT_ITS ---
EXAMINATION: CT HEAD WITHOUT CONTRAST CLINICAL INFORMATION: Confusion 4 weeks. COMPARISON: None available. TECHNIQUE: Contiguous axial imaging was performed from the skull base to vertex without intravenous administration of contrast. This CT examination was performed using dose optimization techniques as appropriate, variously including the following: *Automated exposure control *Adjustment of mA and/or kV according to patient size (this includes techniques or standardized protocols for targeted exams where dose is matched to indication/reason for exam; i.e. extremities or head) *Use of iterative reconstruction technique DLP: 730 mGy/cm. FINDINGS: No acute intra-axial, extra-axial bleed, masses or midline shift. There is no acute infarction in evolution. There is no edema. The lateral ventricles are symmetrical in size and configuration without enlargement. The downs to white matter differentiation is maintained normal. Bone windows reveal no calvarial abnormality. There is no scalp soft tissue abnormality. Bilateral paranasal sinuses and mastoid air cells are well-aerated. CT/CT head/brain wo IV con IMPRESSION: No acute intracranial process seen. Electronically signed by: Kashmir Valdes MD 06/17/2025 03:32 PM [facility]
--- NOTE | 2025-06-17 14:16 | ECG_ITS ---
Test Reason : ELECTRIC SHOCK Blood Pressure : */* mmHG Vent. Rate : 104 BPM Atrial Rate : 104 BPM P-R Int : 132 ms QRS Dur : 104 ms QT Int : 380 ms P-R-T Axes : 88 82 58 degrees QTcB Int : 499 ms Sinus tachycardia Incomplete right bundle branch block Junctional ST depression, probably normal Borderline ECG When compared with ECG of 09-Jun-2025 08:48, Incomplete right bundle branch block is now Present Referred By: Alissa Jones Electronically Signed By: ELIZABETH MCCABE MD
[2025-06-17 14:34] VITALS: BP 135/84; PULSE 93; RESP 18; TEMP 37.4; O2SAT 98; BMI 17.7
--- NOTE | 2025-06-17 14:34 | ED_ITS ---
HPI - General Adult General Chief complaint: General Medical Stated complaint: Bruises On Hands, Electric Shocks Form Feet To Shanita Time Seen by Provider: 06/17/25 20:49 Source: patient Mode of arrival: ambulatory Limitations: no limitations History of Present Illness ED Provider: Dr. Spears HPI narrative: 50-year-old male history of COPD presented to the hospital today for multitude of symptoms. Complain of electrical shock coming from his chest to his legs. Also complaining of fluid coming out from his anus, patient is also complaining of chest pain. The patient stated that he feels fatigued. He did not follow up with his primary care doctor for any of these issues. Does have a primary care doctor out the patient. Related Data Previous Rx's ?Medication ?Instructions ?Recorded amlodipine 5 mg tablet 5 mg PO DAILY High blood pre ssure 06/17/25 30 days #30 tabs aripiprazole 10 mg tablet 10 mg PO BEDTIME Mood 30 da ys #30 06/17/25 tabs hydrocortisone 1 % topical cream 1 appl topical TID MO N hemorrhoids 06/17/25 (Preparation H Hydrocortisone) #28.35 grams lidocaine 4 % topical patch 2 patch transdermal DAILY pain 7 06/17/25 (Lidocaine Pain Relief) days #14 ea lorazepam 2 mg tablet (Ativan) 2 mg PO TID PRN Severe anxiety 14 06/17/25 days #42 tabs multivitamin (Daily-Rebeca tablet) 1 tab PO DAILY supple ment 30 days 06/17/25 #30 tabs omeprazole 20 mg capsule,delayed 20 mg PO DAILY@0630 G ERD 30 days 06/17/25 release #30 caps quetiapine 25 mg tablet 50 mg (2 x 25 mg) PO BID PRN 06/17/25 severe agitation 14 days #56 tabs trazodone 50 mg tablet 50 mg PO BEDTIME PRN Insomni a 14 06/17/25 days #14 tabs Allergies Allergy/AdvReac Type Severity Reaction Status Date / Time prednisone AdvReac Anxiety Uncoded 06/17/25 14:39 Review of Systems 2 Review of Systems: Pertinent review of systems as mentioned in HPI. All other system otherwise negative. [facility] Past Medical History [facility] Narrative: Medical history as mentioned in HPI Medical History Hypertension GERD (gastroesophageal reflux disease) Anxiety Spermatocele Surgical History History of surgery History of colonoscopy Hx of esophagogastroduodenoscopy History of testicular surgery Social History Social History Household Members: Spouse Housing: Apartment Do you presently have visiting nurse or other home services: No Patient Tobacco Use Status: Former Tobacco user e-Cigarette/Vaping Use: Former Use Second Hand Smoke Exposure: No Advance Directives: No Advance Directives Information Provided: Yes Do you have a plan to hurt others: No Plan service: No Sexual orientation: Straight/Heterosexual Physical Exam ED Exam Exam: General: Pleasant, no distress, interacting appropriately Head: Normacephalic, atraumatic ENT: oral mucosa moist, neck supple, no tracheal deviation Cardiovascular: regular rate, regular rhythm, no murmurs, rubbing, gallops Respiratory: Slight diminished lung sounds consistent with COPD Gastrointestinal: Soft, non distended : No signs of thrombosed hemorrhoids on exam. Good rectal tone on exam. Extremities: No limb pain or swelling, no calf tenderness Neurological: Awake and alert, no facial droop noted, no neurological deficit on exam Skin: Warm and dry Psychiatric: Appropriate mood and thoughts Vital Signs: Vital Signs - 24 hr 06/17/25 14:34 06/17/25 17:59 06/17/25 22:35 Temperature 99.4 F 98.3 F 98.9 F Pulse Rate 93 88 85 Respiratory Rate 18 18 18 Blood Pressure 135/84 128/82 159/87 H Pulse Oximetry 98 99 98 Oxygen Delivery Method Room Air Room Air Room Air BMI result Body Mass Index 17.7 Course Course Course Narrative: This is a Rapid Medical Exam performed in triage by Alissa Jones PA-C. Full HPI, ROS and PE to be performed by primary ED provider. 50 yo M presenting to the ED c/o electric pain to LUE, LLE & chest x2 weeks - intermittent. Also reports hemorrhoid that leaking odorous liquid. Family also reports confusion on the way here - ongoing x few weeks but worsening today PE: ambulating w/slow gait, NAD, nontoxic appearing Plan: Labs, UA, CXR, head CT, SARs Medical Decision Making Medical Decision Making MDM Narrative: 50-year-old male presented hospital today for a multitude of symptoms. Patient has had cardiac workup performed. CT head performed. UA performed. He is complaining of some dysuria. UA did not show any signs of UTI. EKG did not show any signs of STEMI. Troponins negative chest x-ray is negative. Patient's CT head did not show any signs of intracranial bleed Or abnormality. We will plan to discharge the patient does time. Discussed with the patient that he would need to follow up with his primary care doctor further for his complaints. However he does not have any life-threatening injuries or condition at this time. Patient will be discharged. Differential Diagnosis Differential Diagnoses: The differential diagnosis associated with the presentation includes Body aches, chest pain, dysuria Lab Data MDM Lab Attestation statement: I reviewed the patient's lab results. 06/17/25 15:37 06/17/25 15:37 Labs: Lab Results 06/17/25 06/17/25 Range/Units 15:37 18:51 WBC 6.8 (4.8-10.8) X10*3/uL RBC 4.12 L (4.60-5.80) X10*6/uL Hgb 12.3 L (14.0-18.0) g/dl Hct 37.7 L (42.0-52.0) % MCV 91.5 (80.0-98.0) fL MCH 29.9 (27.0-33.0) pg MCHC 32.6 (31.0-36.0) g/dl RDW 13.6 (11.0-16.0) % Plt Count 322 (160-400) X10*3/uL MPV 8.4 L (9.4-12.4) fL Immature Gran % (Auto) 0.1 (0.0-0.4) % Neut % (Auto) 63.8 (45-73) % Lymph % (Auto) 29.5 (20-40) % [place] % (Auto) 5.2 (2-11) % Eos % (Auto) 0.7 (0-4) % Baso % (Auto) 0.7 (0-2) % Lymph # (Auto) 2.0 (1.2-4.9) X10*3/uL [place] # (Auto) 0.4 (0.1-1.2) X10*3/uL Eos # (Auto) 0.1 (0.0-0.4) X10*3/uL Baso # (Auto) 0.1 (0.0-0.2) X10*3/uL Abs Immat Gran (auto) 0.01 (0.00-0.03) X10*3/uL Absolute Neuts (auto) 4.3 (2.0-8.3) x10*3/uL Absolute Nucleated RBC 0.000 (0.0-0.012) X10*3/uL Nucleated RBC % (auto) 0.0 (0.0-0.2) /100WBC Sodium 141 (135-145) mmol/L Potassium 4.0 (3.3-5.1) mmol/L Chloride 106 (96-108) mmol/L Carbon Dioxide 29 (22-29) mmol/L Anion Gap 10 L (12-20) BUN 16 (9-16) mg/dL Creatinine 0.64 (0.5-1.4) mg/dL Estim Creat Clear Calc 112.3 Estimated GFR > 60 Random Glucose 96 (60-115) mg/dL Calcium 8.8 (8.4-10.2) mg/dL Magnesium 2.1 (1.6-2.6) mg/dL Total Bilirubin 0.4 (0.0-1.0) mg/dL Direct Bilirubin 0.2 (0.0-0.5) mg/dL AST 25 (5-37) U/L ALT 28 (0-40) U/L Alkaline Phosphatase 55 (39-117) U/L Ammonia 23 (13-55) umol/L Troponin I High Sens < 2.7 (<3.5-35.0) ng/L Total Protein 6.5 (6.5-8.0) g/dL Albumin 4.0 (3.5-5.0) g/dL Urine Color Yellow Urine Appearance Cloudy Urine pH 7.5 (5.0-9.0) Ur Specific [place] 1.020 (1.005-1.025) Urine Protein Negative (Neg-Trace) mg/dL Urine Glucose (UA) Negative (Negative) mg/dL Urine Ketones Negative (Negative) mg/dL Urine Blood Negative (Negative) Urine Nitrite Negative (Negative) Ur Leukocyte Esterase Negative (Negative) Urine Opiates Screen Not Detected (Not Detect) Ur Buprenorphine Scrn Not Detected (Not Detect) ng/mL Ur Oxycodone Screen Not Detected (Not Detect) ng/mL Urine Methadone Screen Not Detected (Not Detect) ng/mL Urine Fentanyl Screen Not Detected (Not Detect) Ur Barbiturates Screen Not Detected (Not Detect) Ur Phencyclidine Scrn Not Detected (Not Detect) Ur Amphetamines Screen Not Detected (Not Detect) U Benzodiazepines Scrn Not Detected (Not Detect) Urine Cocaine Screen Not Detected (Not Detect) U Marijuana (THC) Screen Not Detected (Not Detect) Independent Interpretation I performed an independent interpretation of an: EKG and CT Scan Radiology Impression Discussion of test interpretation with radiology: I have reviewed the radiologist's reading. Discharge Plan Discharge Clinical Impression: Body aches, Dysuria Patient Disposition: Home, Self-Care Instructions: Sitz Bath (DC) Additional Instructions: Call to follow up with your primary care doctor. I do not think you have a heart attack, No signs of urinary tract infection, your Kidney function looks well. Prescriptions: New hydrocortisone [Preparation H Hydrocortisone] 1 % cream 1 appl topical TID PRN (Reason: hemorrhoids) Qty: 28.35 0RF No Action amlodipine 5 mg Tablet 5 mg PO DAILY 30 Days Qty: 30 0RF Protocol: Hold for SBP< HOLD for SBP < : 90 aripiprazole 10 mg Tablet 10 mg PO BEDTIME 30 Days Qty: 30 0RF omeprazole 20 mg Capsule,Delayed Release(Dr/Ec) 20 mg PO DAILY@0630 30 Days Qty: 30 0RF lidocaine [Lidocaine Pain Relief] 4 % Adhesive Patch,Medicated 2 patch transdermal DAILY 7 Days Qty: 14 0RF Protocol: Apply to: Apply to: lower back multivitamin [Daily-Rebeca] Tablet 1 tab PO DAILY 30 Days Qty: 30 0RF trazodone 50 mg Tablet 50 mg PO BEDTIME PRN (Reason: Insomnia) 14 Days Qty: 14 0RF quetiapine 25 mg tablet 50 mg PO BID PRN (Reason: severe agitation) 14 Days Qty: 56 0RF lorazepam [Ativan] 2 mg tablet 2 mg PO TID PRN (Reason: Severe anxiety ) 14 Days Qty: 42 0RF Referrals: [facility] [Provider Group, Internal Medicine] Print Language: South African
[2025-06-17 15:43] LABS: MANUAL DIFF FLAG NO
[2025-06-17 15:46] LABS: Hematocrit 37.7 % (42.0-52.0); Hemoglobin 12.3 g/dl (14.0-18.0); Imm Gran Abs Auto 0.01 X10*3/uL (0.00-0.03); Imm Gran Pct Auto 0.1 % (0.0-0.4); Lymphocytes Absolute Auto 2.0 X10*3/uL (1.2-4.9); Mean Corpuscular HGB Conc 32.6 g/dl (31.0-36.0); Mean Corpuscular Hemoglobin 29.9 pg (27.0-33.0); Mean Corpuscular Volume 91.5 fL (80.0-98.0); NRBC Abs Auto 0.000 X10*3/uL (0.0-0.012); NRBC Pct Auto 0.0 /100WBC (0.0-0.2); Platelet Count 322 X10*3/uL (160-400); Red Blood Count 4.12 X10*6/uL (4.60-5.80); White Blood Count 6.8 X10*3/uL (4.8-10.8)
[2025-06-17 15:55] LABS: Ammonia 23 umol/L (13-55)
[2025-06-17 16:05] LABS: Alanine Aminotransferase 28 U/L (0-40); Albumin Level 4.0 g/dL (3.5-5.0); Alkaline Phosphatase 55 U/L (39-117); Anion Gap 10 (12-20); Aspartate Amino Transferase 25 U/L (5-37); Blood Urea Nitrogen 16 mg/dL (9-16); Calcium 8.8 mg/dL (8.4-10.2); Carbon Dioxide 29 mmol/L (22-29); Chloride 106 mmol/L (96-108); Creatinine Clr Calc Pharmacy 112.3; Estimated Glomerular Filt Rate > 60; Magnesium 2.1 mg/dL (1.6-2.6); Potassium 4.0 mmol/L (3.3-5.1); Sodium 141 mmol/L (135-145); Total Protein 6.5 g/dL (6.5-8.0)
[2025-06-17 16:23] LABS: Troponin-I High Sensitivity < 2.7 ng/L (<3.5-35.0)
--- NOTE | 2025-06-17 17:57 | PC.NURSE ---
Patient states he is feeling dizzy, asking for test results, states he wants to give a urine sample because he is throwing up blood. this rn and Alissa WEEKS to recheck VS
[2025-06-17 17:59] VITALS: BP 128/82; PULSE 88; RESP 18; TEMP 36.8; O2SAT 99
[2025-06-17 19:16] LABS: Appearance Urine Cloudy; Glucose Urine UA Negative (Negative); PH 7.5 (5.0-9.0); Specific Gravity - Urine 1.020 (1.005-1.025)
[2025-06-17 19:27] LABS: Cannabinoid Screen Urine Not Detected (Not Detect)
--- OUTSIDE RECORDS SUMMARY | 2025-06-17 19:41 | XMS_ITS | Encounter Summary ---
Author Organization [employer] Address [address] [place] [address] Care Team Providers Care Public Address Technician Name Role Phone Venancio Vizcarra MD Primary Care Provider [phone] Reason for Visit * Reason Onset Date Comments Hospital Follow-up 06/14/2025 Encounter Details Date Type Department Care Team ([facility] st Contact Info) Description 06/14/2025 Telephone Adult Medicine [facility] [place] [address] [place] [address] Venancio Vizcarra MD [address] [place] [address] Social History Tobacco Use Types Packs/Day Years [...] care for your loved ones. For example, children's counselor or elderly care for an older adult? [...] as of this encounter Progress Notes * Lara Ruiz RN - 06/14/2025 10:26 AM EST Pt boooked for 06/[address] vizcarra * Sara Marinelli - 06/14/2025 8:39 AM EST Hospital/ER follow up appointment needed Hospital patient was treated at: [facility] Was this only an ER visit or was the patient admitted to the hospital? Admitted to the hospital/kept overnight Date of visit if ER visit only: If patient was admitted what was the date of discharge? 06/17/25 Reason/diagnosis for visit or stay: depression, anxiety disorder When was the patient told to follow up? 7-10 days Was visit or stay related to an injury? If yes, what was the date of injury (DOI)? No If yes, was the injury due to: Not 3rd democrat related documented in this encounter Plan of Treatment Upcoming Encounters Date Type Department Care Team (Late st Contact Info) Description 06/30/2025 10:30 AM EST Office Visit Adult Medicine [address] [address] Venancio Vizcarra MD [address] [place] [address] 10/10/2025 3:00 PM EDT Clinical Support [facility] - [place] [address] [facility] [address] [place] [phone] documented as of this encounter Goals Goal Patient Goal Type Associated Problems Recent Progress Patient-Stated? Author Autogenerat ed Goal Care Plan Autogenerated Problem No Antonia Rob RN documented as of this encounter Visit Diagnoses Not on filedocumented in this encounter Additional Health Concerns Active Problems Noted Date Diagnosed Date Autogenerated Problem 05/26/2025 Assessment Noted Time PHQ-9 Depression Total Score: 27 025 1:00 PM EST documented as of this encounter Care Teams Public Address Technician Relationship Specialty Start Date End Date Venancio Vizcarra MD [address] [place] [address] PCP - General Internal Medicine 12/09/14 documented as of this encounter
--- OUTSIDE RECORDS SUMMARY | 2025-06-17 19:41 | XMS_ITS | Encounter Summary ---
Author Organization [employer] Address [address] [place] [address] Care Team Providers Care Payroll Tax Analyst Name Role Phone Venancio Camilo MD Primary Care Provider [phone] Encounter Details Date Type Department Care Team (Late st Contact Info) Description 05/23/2025 Results Follow-Up Adult Medicine [facility] [place] [address] [place], [place] [phone] Shane Clifton [employer] [address] [place], [place] Social History Tobacco Use Types Packs/Day [...] for your loved ones. For example, child and family counselor or elderly care for an older [...] due to not knowing his password to MyChart, patient was offered MyChart technical support number and stated he is to tired and doesn't want to get up and that his phone don't have enough charge. documented in this encounter Plan of Treatment Upcoming Encounters Date Type Department Care Team (Late st Contact Info) Description 06/30/2025 10:30 AM EST Office Visit Adult Medicine [facility] [place] [address] [place] [address] Venancio Camilo MD [address] [place] [address] 10/10/2025 3:00 PM EDT Clinical Support G[facility]enterology - [place] [address] [place] [address] documented as of this encounter Visit Diagnoses Not on filedocumented in this encounter Additional Health Concerns Assessment Noted Time PHQ-9 Depression Total Score: 24 025 4:03 PM EST documented as of this encounter Care Teams Payroll Tax Analyst Relationship Specialty Start Date End Date Venancio Camilo MD [address] [place] [address] PCP - General Internal Medicine 12/09/14 documented as of this encounter
--- OUTSIDE RECORDS SUMMARY | 2025-06-17 19:41 | XMS_ITS | Encounter Summary ---
Author Organization [facility] Address [address] [place] [address] Phone Care Team Providers Care Activity Director Name Role Phone Venancio Camilo MD Primary Care Provider [phone] Encounter Details Date Type Department Care Team (Late st Contact Info) Description 08/15/2022 Telephone [facility] [address] [place] [address] Daniella Darnell [place] Social History Tobacco [...] with you. Please call him back at [phone] Thank you documented in this encounter Plan of Treatment Not on file documented as of this encounter Visit Diagnoses Not on filedocumented in this encounter Care Teams Activity Director Relationship Specialty Start Date End Date Venancio Camilo MD [address] [place] [address] PCP - General 07/03/20 documented as of this encounter
--- OUTSIDE RECORDS SUMMARY | 2025-06-17 19:41 | XMS_ITS | Data Portability ---
Author Organization [facility] [facility], [address] Address [address] [place] [address] Assessment No assessment recorded. Plan of Treatment [...] ICD10 Code Diagnosis IMO Codes Diagnosis Note [id number] [facility] [id number] [facility] [address] [place] [address] 01/21/2024 16:00:27 01/21/2024 16:30:43 History and physical examination, occupation [id number] Z02.1 Health Concerns Section Related Observation LastModified by Organization Detai ls LastModified Time None Recorded Concern Status LastModified by Organization Details LastModified Time None Recorded Advance Directives Directive None Recorded Payers Insurance Date Sequence Insurance Name Policy Number Policy Russo Covered Member ID Russo Member ID Guarantor Name 01/21/2024 [employer]CREEN [employer] OTHER OTHER An elle Esteban
--- OUTSIDE RECORDS SUMMARY | 2025-06-17 19:41 | XMS_ITS | Clinical Summary ---
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 05/30/20 25 026 Active amLODIPine (NORVASC) 2.5 mg tabletIndicatio ns:Deffer to PCP. Please discuss with PCP before taking it ( Home medication) Take 1 tablet (2.5 mg total) by mouth 1 (one) time each day. 02/07/20 25 Active pantoprazole (PROTONIX) 40 mg EC tabletIndicatio ns:duodenal ulcer,maintenan ce of healing erosive esophagitis Take 1 tablet (40 mg total) by mouth 2 (two) times a day before meals. Do not crush, chew, or split. 60 each 06/09/20 25 026 Active QUEtiapine (SEROquel) 25 mg tablet Take 3 tablets (75 mg total) by mouth at bedtime. 90 each 06/09/20 25 026 Active multivitamin tablet Take 1 tablet by mouth 1 (one) time each day. 30 each 06/09/20 25 026 Active LORazepam (ATIVAN) 2 mg tablet Take 1 tablet (2 mg total) by mouth 3 (three) times a day if needed. Psychiatrist fills meds Discontinu ed(Stop Taking at Discharge) QUEtiapine (SEROquel) 25 mg tablet Take 1 tablet (25 mg total) by mouth at bedtime. Psychiatrist fills meds Discontinu ed(Stop Taking at Discharge) losartan (COZAAR) 25 mg tablet Take 1 tablet (25 mg total) by mouth 1 (one) time each day. Renal and transplant fill meds Discontinu ed(Stop Taking at Discharge) ibuprofen (ADVIL,MOTRIN) 600 mg tablet TAKE 1 TABLET BY MOUTH EVERY 6 HOURS NEEDED FOR PAIN FOR UP TO 30 DAYS. 60 tablet 1 09/17/19 25 Discontinu ed(Stop Taking at Discharge) cholecalciferol (VITAMIN D-3) 50 mcg (2,000 unit) capsuleIndicati ons:Scrotal pain,Right lower quadrant pain TAKE 1 CAPSULE BY MOUTH EVERY DAY 90 capsule 09/17/19 25 Discontinu ed(Stop Taking at Discharge) carboxymethylce llulose 1 % ophthalmic solutionIndicat ions:Dry eyes, bilateral Administer 1 drop into both eyes 2 (two) times a day. 15 mL 05/02/20 25 Discontinu ed(Stop Taking at Discharge) meclizine (ANTIVERT) 25 mg tablet TAKE 1 TABLET BY MOUTH 3 TIMES A DAY IF NEEDED FOR DIZZINESS. 30 tablet 05/06/20 25 Discontinu ed(Stop Taking at Discharge) hydrocortisone (ANUSOL-HC) 2.5 % rectal cream Insert into the rectum 4 (four) times a day if needed for hemorrhoids (rectal discomfort). Apply to affected areas 30 g 05/18/20 25 Discontinu ed(Stop Taking at Discharge) witch sara-glycerin (TUCKS) pads Apply 1 each topically if needed for hemorrhoids. 40 each 12 05/18/20 25 Discontinu ed(Stop Taking at Discharge) FLUoxetine (PROzac) 10 mg capsule Take 1 capsule (10 mg total) by mouth 1 (one) time each day. 12/08/2 025 Discontinu ed(Stop Taking at Discharge) FLUoxetine (PROzac) 20 mg capsule Take 1 capsule (20 mg total) by mouth 1 (one) time each day. 05/28/20 025 Discontinu ed(Stop Taking at Discharge) hydrocortisone (ANUSOL-HC) 25 mg suppository Insert 1 suppository (25 mg total) into the rectum 1 (one) time each day for 5 doses. 05/28/20 25 025 Discontinu ed(Stop Taking at Discharge) pantoprazole (PROTONIX) 40 mg EC tablet Take 1 tablet (40 mg total) by mouth 2 (two) times a day before meals. Do not crush, chew, or split. 05/30/20 Discontinu ed(Stop Taking at Discharge) hydrocortisone- pramoxine (PROCTOFOAM-HS) rectal foam Insert 1 applicator into the rectum 2 (two) times a day for 10 days. 05/30/20 Active Problems Problem Noted Date Diagnosed Date [...] - Swallow evaluation ordered. Will plan for [facility] inpatient vs. Outpatient - XR esophagram negative [...] (05/07/2024): Please see most recent note with crystalizer/hypertension specialist, Dr. Burkett December 2020. Nephrology is [...] treated for 6 months for hepatitis at [facility]. Assessment & Plan (09/08/2024 9:07 PM EDT): [...] continuous leave. 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 I explained to the patient that I typically do not complete long-term relief with thing such as anxiety and depression. He was encouraged to bring this form to his psychiatrist who will be seeing next week. I discussed the signs and symptoms that warrant emergent evaluation. I gave the patient the information for [facility] in [place] should he develop any crisis symptoms. He [...] Encounters Date Type Department Care Team Description 06/14/2025 Telephone Adult Medicine [address] [address] Venancio Camilo MD 05/31/2025 Plan of Care Documentation [facility] [address] [place] [address] 05/30/2025 2:20 PM EST - 06/08/2025 5:05 PM EST Hospital Encounter [facility] [address] [place] [address] Salbador Davila DO Paramatmuni, Sheeima, MD Severe episode of recurrent major depressive disorder, with psychotic features ([facility] V24, [facility] V28); Unspecified dementia, unspecified severity, without behavioral disturbance, psychotic disturbance, mood disturbance, and anxiety ([facility] V24, [facility] V28); Type 2 diabetes mellitus with hyperglycemia ([facility] V24, [facility] V28); Diabetes mellitus with circulatory complication ([facility] V24, [facility] V28) Discharge Disposition: Home or Self Care 05/27/2025 10:03 AM EST Anesthesia Event [facility] Endoscopy [address] [place] [address] Marilyn Coley MD 05/24/2025 9:41 PM EST - 05/30/2025 2:19 PM EST Hospital Encounter [facility] Obs [address] [place] [address] Nesha Franco DO Ojide, Lotachukwu Rosemary, MD Ali, Syed, MD Nallamothu, Bhavana, DO Upper GI bleed Discharge Disposition: Psychiatric Hospital 05/24/2025 3:25 PM EST - 05/24/2025 9:21 PM EST Emergency [facility] Emergency [address] [place] [address] Perico Hartman MD Killelea, Alison G, MD Reid, Oswald George, MD Suicide attempt ([facility] V24, [facility] V28) (Primary Dx); Ingestion of substance, intentional self-harm, initial encounter ([facility] V24, [facility] V28); Open wound of neck, initial encounter Discharge Disposition: Short Term Hospital 05/23/2025 Results Follow-Up [address] [phone] Shane Clifton NP 05/20/[address] [phone] Venancio Camilo MD 05/18/2025 4:40 PM EST Lab Draw [address] Rash; Incontinence of feces, unspecified fecal incontinence type; Encounter for screening for malignant neoplasm of prostate; Hematuria, unspecified type 05/18/2025 4:00 PM EST Office Visit [address] [phone] Shane Clifton NP Rash (Primary Dx); Incontinence of feces, unspecified fecal incontinence type; Hematuria, unspecified type; Encounter for screening for malignant neoplasm of prostate 05/02/2025 6:00 PM EST Office Visit Walk-In Clinic - [address] [phone] Jesus Head NP Dermatitis (Primary Dx); Dry eyes, bilateral 04/18/[address] [phone] Venancio Camilo MD from Last 3 Months [...] Date Site/Laterality Comments OTHER SURGICAL HISTORY PROCEDURE: [place] EXCISION MULLERIAN DUCT CYST; COMMENT: testicular cyst [...] 4 No Known Problems Father Hypertension Mother Mariah Other: anxiety Mother Mariah Other: prediabetes Mother [...] care for your loved ones. For example, childrens club attendant or elderly care for an older adult? [...] 10:30 AM EST Office Visit Adult Medicine [facility] [place] [address] [place] [address] Venancio Camilo MD [address] [place] [address] 10/10/2025 3:00 PM EDT Clinical Support Gastroenterology - [place] [address] [place] [address] Health Maintenance Due Date Last Done [...] Completed 07/02/2023 Depression Screening Completed 05/31/2025, 07/01/19 Diabetes: Annual Foot Exam Discontinued Diabetes: Annual [...] Goal Care Plan Autogenerated Problem No Antonia Rob, time checker Procedure Name Priority Date/Time Associated Diagnosis Comments ECG ANNOTATED 06/09/2025 ECG 12-LEAD Routine 06/03/2025 5:19 PM EST [...] ECG 12-LEAD Routine 05/28/2025 12:01 AM EST [employer] VIDEOFLUOROSCOPIC SWALLOW STUDY WITH BARIUM Routine 05/27/2025 [...] HC REPAIR WOUND LEVEL 1 Routine 05/24/20 25 8:12 PM EST NJ REPAIR SPRFCL WOUNDS SIMPLE SCALP/NECK/AXILLAE/GENT/ TRUNK/EXT <= 2.5 CM Routine 05/24/2025 8:12 PM EST ACTIVATED PARTIAL THROMBOPLASTIN TIME STAT 05/24/2025 7:46 PM EST PROTHROMBIN TIME WITH INR STAT 05/24/2025 7:46 PM EST XR CHEST 1 VIEW STAT 05/24/2025 7:28 PM EST HC REPAIR WOUND LEVEL 1 Routine 05/24/20 25 5:19 PM EST NJ REPAIR SPRFCL WOUNDS SIMPLE SCALP/NECK/AXILLAE/GENT/ TRUNK/EXT <= 2.5 CM Routine 05/24/2025 5:[address] ANGIO NECK WO AND/OR W CONTRAST STAT 05/24/2025 5:18 PM EST HC REPAIR WOUND LEVEL 2 Routine 05/24/20 5:15 PM EST NJ REPAIR COMPLEX WD FRHD/CHEEKS/CHIN/MTH/NEC K/AX/GENT/HANDS/FT 2.6-7.5 CM [...] AND DIFFERENTIAL STAT 05/24/2025 4:14 PM EST NJ CRITICAL CARE 30-74 MINUTES Routine 05/24/2025 3:17 [...] Recently Relevant to Health Maintenance Results * ECG-Annotated (06/09/2025) us Provider Onbase MD ECG ORDERABLES Final Result * ECG 12 lead (06/03/2025 5:19 PM EST) Only the most recent of7 resultswithin the time period is included. Ventricular Rate ECG 69 BPM GEMUSE Atrial Rate 69 BPM GEMUSE P-R Interval 142 ms GEMUSE QRS Duration 100 ms GEMUSE Q-T Interval 412 ms GEMUSE QTc 441 ms GEMUSE P Wave [place] 73 degrees GEMUSE R [place] 75 degrees GEMUSE T [place] 74 degrees GEMUSE ECG Interpretation Normal sinus rhythm Baseline artifact Confirmed by Celine Lux ([id number]) on 06/04/2025 3:25:25 PM GEMUSE 06/03/2025 5:19 PM EST 06/04/2025 3:25 PM EST us Lubna Zazueta NP ECG ORDERABLES Final Result JARVIS * (ABNORMAL) Basic metabolic panel (06/03/2025 6:38 AM EST) Only the most recent of8 resultswithin the time period is included. Sodium 140 135 - 145 mmol/L LAB CHEMISTRY METHOD 06/03/2025 9:59 AM EST [facility] Potassium 3.8 3.5 - 5.1 mmol/L LAB CHEMISTRY METHOD 06/03/2025 9:59 AM [facility] Chloride 103 98 - 107 mmol/L LAB CHEMISTRY METHOD 06/03/2025 9:59 AM [facility] CO2 30 24 - 32 mmol/L LAB CHEMISTRY METHOD 06/03/2025 9:59 AM [facility] Anion Gap 7 5 - 14 LAB CHEMISTRY METHOD 06/03/2025 9:59 AM [facility] Glucose 88 70 - 199 mg/dL LAB CHEMISTRY METHOD 06/03/2025 9:59 AM [facility] BUN 23(H) 9 - 20 mg/dL LAB CHEMISTRY METHOD 06/03/2025 9:59 AM [facility] Creatinine 0.80 0.70 - 1.30 mg/dL LAB CHEMISTRY METHOD 06/03/2025 9:59 AM [facility] eGFR 108 >=60 mL/min/1. 73m2 LAB CHEMISTRY METHOD 06/03/2025 9:59 AM [facility] Comment:Calculation based on the Chronic Kidney Disease Epidemiology Collaboration (CKD-EPI) equation refit without adjustment for race. BUN/Creatinine Ratio 28.8(H) 12.0 - 20.0 LAB CHEMISTRY METHOD 06/03/2025 9:59 AM [facility] Calcium 8.6 8.4 - 10.2 mg/dL LAB CHEMISTRY METHOD 06/03/2025 9:59 AM EST [facility] Blood Venous blood specimen / Unknown Venipuncture / Unknown 06/03/2025 6:38 AM EST 06/03/2025 8:02 AM EST Lubna Zazueta NP LAB BLOOD ORDERABLES Final Res ult Performing Organization Address City/[facility]/ZIP Co de Phone Number [facility] [address] [place] [address], * POCT Glucose, blood (05/30/2025 11:43 AM EST) Only the most recent of2 resultswithin the time period is included. Glucose POCT 124 70 - 199 mg/dL 05/30/2025 11:43 AM EST [facility] Comment: Fasting Reference Range: 70-99 mg/dL Non-Fasting Reference Range: 70-199 mg/dL Blood Capillary blood specimen / Unknown 05/30/2025 11:43 AM EST 05/30/2025 11:45 AM EST Misty Corral DO LAB POINT OF CARE TEST DOCKED DEVICE UNSOLICITED RESULTS Final Result Performing Organization Address City/[facility] Co de Phone Number [facility] [address] [place] [address], * Phosphorus (05/30/2025 6:13 AM EST) Only the most recent of6 resultswithin the time period is included. Phosphorus 3.5 2.5 - 4.5 mg/dL LAB CHEMISTRY METHOD 05/30/2025 6:52 AM EST [facility] Blood Venous blood specimen / Unknown Venipuncture / Unknown 05/30/2025 6:13 AM EST 05/30/2025 6:19 AM EST Denisha Vernon MD LAB BLOOD ORDERABLE S Final Result [facility] [address] [place] [address], * Magnesium (05/30/2025 6:13 AM EST) Only the most recent of6 resultswithin the time period is included. Magnesium 1.7 1.7 - 2.8 mg/dL LAB CHEMISTRY METHOD 05/30/2025 6:52 AM EST [facility] Blood Venous blood specimen / Unknown Venipuncture / Unknown 05/30/2025 6:13 AM EST 05/30/2025 6:19 AM EST Denisha Vernon MD LAB BLOOD ORDERABLE S Final Result Performing Organization Address [facility]/ZIP Co de Phone Number [facility] [address] [place] [address], * (ABNORMAL) Complete blood count (05/29/2025 6:45 AM EST) Only the most recent of5 resultswithin the time period is included. WBC 6.5 4.0 - 10.5 K/mcL LAB HEMETOLOGY METHOD 05/29/2025 7:35 AM [facility] RBC 4.00(L) 4.70 - 6.00 M/mcL LAB HEMETOLOGY METHOD 05/29/2025 7:35 AM EST [facility] Hemoglobin 12.1(L) 13.5 - 18.0 g/dL LAB HEMETOLOGY METHOD 05/29/2025 7:35 AM EST [facility] Hematocrit 34.7(L) 40.0 - 54.0 % LAB HEMETOLOGY METHOD 05/29/2025 7:35 AM [facility] MCV 86.9 78.0 - 100.0 FL LAB HEMETOLOGY METHOD 05/29/2025 7:35 AM EST [facility] MCH 30.4 25.0 - 33.0 pcg LAB HEMETOLOGY METHOD 05/29/2025 7:35 AM EST [facility] MCHC 34.9 32.0 - 36.0 g/dL LAB HEMETOLOGY METHOD 05/29/2025 7:35 AM EST [facility] RDW 13.2 12.1 - 17.7 % LAB HEMETOLOGY METHOD 05/29/2025 7:35 AM EST [facility] Platelets 232 150 - 450 K/mcL LAB HEMETOLOGY METHOD 05/29/2025 7:35 AM EST [facility] MPV 7.9 7.4 - 11.4 FL LAB HEMETOLOGY METHOD 05/29/2025 7:35 AM EST [facility] Blood Venous blood specimen / Unknown Venipuncture / Unknown 05/29/2025 6:45 AM EST 05/29/2025 7:16 AM EST Denisha Vernon MD LAB BLOOD ORDERABLE S Final Result [facility] [address] [place] [address], [place] [phone] * Hemoglobin A1c (05/29/2025 6:45 AM EST) Hemoglobin A1C 5.1 <5.7 % LAB CHEMISTRY METHOD 05/31/2025 6:43 AM EST [facility] Mean Bld Glu Estim. 100 mg/dL LAB CHEMISTRY METHOD 05/31/2025 6:43 AM EST [facility] Blood Venous blood specimen / Unknown Venipuncture / Unknown 05/29/2025 6:45 AM EST 05/29/2025 7:16 AM EST Narrative [facility] - 05/31/2025 6:43 AM EST ADA Guidelines: Increased risk Diabetes Mellitus A1C 5.7 - 6.4% and Fasting Blood Glucose 100 - 125 mg/dl Diabetes Mellitus: A1C >6.5% and Fasting Blood Glucose >125 mg/dl us Roopa Chase PRESS ASSISTANT AND FEEDER LAB BLOOD ORDERABLES Final Re sult [facility] ([facility]) [facility] [address] [place] [address], [place] [phone] * [employer] videofluoroscopic swallow study with barium (05/27/2025 4:14 PM EST) Narrative Anca De La Garza CCC-SLP - 05/27/2025 4:14 PM EST ROZ Rivera 05/27/2025 4:[address] [place] [address] Department of Rehabilitation Medicine Speech Language Pathology Modified Barium Swallow Study Patient Name: Rolan Esteban Date of Evaluation: 05/27/2025 Summary and Impressions: [...] loss. ~ Anca De La Garza MS, CCC-[employer] Education Provided: Education provided to patient/MD regarding [...] of subcutaneous gas. He was transferred to [facility] for trauma evaluation. On arrival, [...] Fluoroscopy view: Lateral and Anterior-Posterior Baseline Diet HEAD OF STRATEGY: Regular Solids and Thin/Regular liquids Baseline Feeding Requirements: Independent Past History of Dysphagia: See BSE report 05/26 for further details Current Diet: Regular Solids and Thin/Regular liquids Dentition: Adequate, poor condition Positioning During Eval/Treatment: [facility] chair Behaviors During Eval/Treatment: WFL Oral/Motor: Secretion [...] to eject. Anca De La Garza MS, CCC-[employer] 05/27/2025 [1] Past Medical History: Diagnosis Date [...] negative gastric biopsy OTHER SURGICAL HISTORY PROCEDURE: [place] EXCISION MULLERIAN DUCT CYST; COMMENT: testicular cyst removal Misty Corral [employer]ORER ORDERABLES Final Resu lt * XR Barium [...] Signed Date: 06/03/2025 13:27 ET Workstation ID: [id number] Transcribed By: Self Edit Transcribed Date: 06/03/2025 [...] Signed Date: 06/03/2025 13:27 ET Workstation ID: [id number] Transcribed By: Self Edit Transcribed Date: 06/03/2025 12:39 ET Misty Corral DO IMG FLUOROSCOPY PROCEDURES Final Result * EGD Anesthesia - MAC; [facility] ENDOSCOPY (05/27/2025 10:24 AM EST) Anatomical [...] drugs indefinitely. Narrative 05/27/2025 10:31 AM EST [facility] GI Patient Name: Procedure Date: 05/27/2025 10:00 AM Date of : 1975 Age: 50 Room: [facility] ENDOSCOPY 08 Gender: Male Note [...] the duodenum. Procedure Code(s): --- Professional --- 91808, Esophagogastroduodenoscopy, flexible, transoral; with biopsy, single or multiple Diagnosis Code(s): --- Professional --- K20.90, Esophagitis, unspecified without bleeding K29.70, Gastritis, unspecified, without bleeding K26.9, Duodenal ulcer, unspecified as acute or chronic, without hemorrhage or perforation R13.10, Dysphagia, unspecified CPT copyright 2020 [employer]. All rights reserved. The codes documented in this report are preliminary and upon economic specialist review may be revised to meet current compliance requirements. Attending Participation: I was present and participated during the entire procedure, including non-calvillo portions. Lori Adler MD 05/27/2025 10:31:23 AM This report has been signed electronically.Lori Adler MD Number of Addenda: 0 Note Initiated On: 05/27/2025 10:00 AM Scope In: Scope Out: Endoscopy Department at [place] [id number] Procedure Note Lori Adler MD - 05/27/2025 [facility] GI Patient Name: Procedure Date: 05/27/2025 10:00 AM Date of : 1975 Age: 50 Room: [facility] ENDOSCOPY 08 Gender: Male Note [...] the duodenum. Procedure Code(s): --- Professional --- 54475, Esophagogastroduodenoscopy, flexible, transoral; with biopsy, single or multiple Diagnosis Code(s): --- Professional --- K20.90, Esophagitis, unspecified withoutbleeding K29.70, Gastritis, unspecified, withoutbleeding K26.9, Duodenal ulcer, unspecified as acute or chronic, without hemorrhage or perforation R13.10, Dysphagia, unspecified CPT copyright 2020 [employer]. All rights reserved. The codes documented in this report are preliminary and upon economic specialist reviewmay be revised to meet current compliance requirements. Attending Participation: I was present and participated during the entire procedure, including non-calvillo portions. Lori Adler MD 05/27/2025 10:31:23 AM This report has been signed electronically.Lori Adler MD Number of Addenda: 0 Note Initiated On: 05/27/2025 10:00 AM Scope In: Scope Out: Endoscopy Department at [place] [id number] IMPRESSION: - LA Grade B esophagitis with [...] anti-inflammatory drugsindefinitely. Misty Corral DO GI~PROCEDURE ORDERABLES Fi nal Result * Tissue exam (05/27/2025 10:12 [...] are not identified 05/30/2025 12:31 PM EST [facility] at 1153 EST Gross Description A. [...] ASCP)CM - 05/27/25 05/30/2025 12:31 PM EST [facility] Disclaimer The technical components of this case were performed at [address] # [id number] The interpretation of this case included the [...] Amendments of 1988. 05/30/2025 12:31 PM EST [facility] Tissue Stomach structure / Unknown 05/27/2025 10:12 AM EST 05/27/2025 11:28 AM EST Tissue specimen (specimen) Esophageal structure / Unknown 05/27/2025 10:13 AM EST 05/27/2025 11:28 AM EST Tissue specimen (specimen) Esophageal structure / Unknown 05/27/2025 10:16 AM EST 05/27/2025 11:28 AM EST Lori Adler MD LAB PATHOLOGY ORDERABLES Key l Result [facility] [address] [place] [address], [place] [phone] * Procalcitonin (05/26/2025 5:42 AM EST) Procalcitonin <0.05 <=0.05 ng/mL LAB CHEMISTRY METHOD 05/26/2025 7:27 AM EST [facility] Blood Venous blood specimen / Unknown Venipuncture / Unknown 05/26/2025 5:42 AM EST 05/26/2025 6:29 AM EST Narrative [facility] - 05/26/2025 7:27 AM EST Procalcitonin [...] MD LAB BLOOD ORDERABLE S Final Result [facility] [address] [place] [id number] [place] [address] * XR Esophagram (05/25/2025 11:15 AM EST) [...] Signed Date: 05/25/2025 11:38 ET Workstation ID: [id number] Transcribed By: Self Edit Transcribed Date: 05/25/2025 [...] Signed Date: 05/25/2025 11:38 ET Workstation ID: [id number] Transcribed By: Self Edit Transcribed Date: 05/25/2025 [...] Signed Date: 05/25/2025 09:29 ET Workstation ID: [id number] Transcribed By: Self Edit Transcribed Date: 05/25/2025 [...] Signed Date: 05/25/2025 09:29 ET Workstation ID: [id number] Transcribed By: Self Edit Transcribed Date: 05/25/2025 09:27 ET Misty Corral DO IMG XR PROCEDURES Final Re sult * Lactate, with reflex (05/25/2025 7:29 AM EST) LACTIC ACID 1.0 0.5 - 2.2 mmol/L LAB BLOOD GAS METHOD 05/25/2025 8:13 AM EST [facility] Blood Venous blood specimen / Unknown Venipuncture / Unknown 05/25/2025 7:29 AM EST 05/25/2025 8:09 AM EST Denisha Vernon MD LAB BLOOD ORDERABLE S Final Result [facility] [address] [place] [address], [place] [phone] * C-reactive protein (05/25/2025 7:29 AM EST) C-Reactive Protein 0.6 <=0.9 mg/dL LAB CHEMISTRY METHOD 05/25/2025 8:36 AM EST [facility] Blood Venous blood specimen / Unknown Venipuncture / Unknown 05/25/2025 7:29 AM EST 05/25/2025 8:08 AM EST Denisha Vernon MD LAB BLOOD ORDERABLE S Final Result [facility]) [facility] [address] [place] [address], * MR Cervical Spine wo Contrast (05/25/2025 [...] Signed Date: 05/25/2025 08:14 ET Workstation ID: [id number] Transcribed By: Self Edit Transcribed Date: 05/25/2025 [...] Signed Date: 05/25/2025 08:14 ET Workstation ID: [id number] Transcribed By: Self Edit Transcribed Date: 05/25/2025 08:00 ET Nesha Franco DO IMG MRI PROCEDURES Final Re sult * Activated partial thromboplastin time (05/24/2025 9:59 PM EST) Only the most recent of2 resultswithin the time period is included. Pathologist [facility] aPTT 32.1 25.0 - 37.0 sec LAB COAGULATION METHOD 05/30/2025 1:49 PM EST [facility] Blood Venous blood specimen / Unknown Venipuncture / Unknown 05/24/2025 9:59 PM EST 05/30/2025 1:30 PM EST Patria Lim MD LAB BLOOD ORDERABLES Final Resul t [facility] [address] [place] [address], [place] [phone] * (ABNORMAL) Prothrombin time with INR (05/24/2025 9:59 PM EST) Only the most recent of2 resultswithin the time period is included. Protime 13.5(H) 10.5 - 13.3 sec LAB COAGULATION METHOD 05/30/2025 1:49 PM EST [facility] INR 1.2(H) 0.8 - 1.1 LAB COAGULATION METHOD 05/30/2025 1:49 PM EST [facility] Blood Venous blood specimen / Unknown Venipuncture / Unknown 05/24/2025 9:59 PM EST 05/30/2025 1:30 PM EST Narrative [facility] - 05/30/2025 1:49 PM EST Std. Therapy 2.0-3.0 INR High Dose Therapy 3.0-4.5 INR Ranges may vary depending on clinical indications and protocol. us Patria Lim MD LAB BLOOD ORDERABLES Final Resul t Performing Organization Address [facility]/ZIP Co de Phone Number [facility] [address] [place] [address], * Type and screen (05/24/2025 9:59 PM EST) Antibody Screen 2:36 PM EST [facility] Comment:This test has been i nvalidated, incorrectly reported as NEG. Corrected/Revised report is not available. Blood Venous blood specimen / Unknown Venipuncture / Unknown 05/24/2025 9:59 PM EST 05/30/2025 1:30 PM EST us Patria Lim MD LAB BLOOD BANK TEST ORDERABLES F inal Result Performing Organization Address City/[facility]/ZIP Co de Phone Number [facility] [address] [place] [address], * (ABNORMAL) Urinalysis with reflex microscopic (05/24/2025 8:32 PM EST) Pathologist [facility] [place] Urine 1.040(H) 1.003 - 1.030 LAB URINALYSIS [...] Mina MD LAB URINE ORDERABLES Final Result [facility] [address] [place] [address], * Drug abuse screen 8a panel, urine (05/24/2025 8:30 PM EST) Amphetamine Screen, Ur Negative Negative 9:37 PM EST [facility] Comment:Certain OTC medicati ons containing ephedrine, phenylephrine, pseudoephedrine and phenylpropanolamine can cause false positive results. Barbiturate Screen, Ur Negative Negative 9:37 PM EST [facility] Benzodiazepine Screen, Ur Negative Negative 05/24/2025 9:37 PM EST [facility] Cocaine Screen, Ur Negative Negative 2024 9:37 PM EST [facility] Opiate Screen, Ur Negative Negative 9:37 PM [facility] Cannabinoid (THC) Screen, Ur Negative Negative 05/24/2025 9:37 PM EST [facility] Comment:Specimens from patie nts taking pantoprazole sodium (Protonix) have been shown to produce false positive results. Oxycodone Screen, Ur Negative Negative 07/2024 9:37 PM EST [facility] Fentanyl, Ur Negative Negative 05/24/2025 9:37 PM [facility] Urine Urine specimen obtained by clean catch procedure / Unknown Non-blood Collection / Unknown 05/24/2025 8:30 PM EST 05/24/2025 9:02 PM EST Narrative [facility] - 05/24/2025 9:37 PM EST Assay cutoffs: Amphetamines 1000 ng/mL Barbiturates 200 ng/mL Benzodiazepines 200 ng/mL Cocaine 300 ng/mL Fentanyl 1 ng/mL Opiates 300 ng/mL Oxycodone 100 ng/mL THC 50 ng/mL Semi-quantitative assay for screening purposes only. Unconfirmed screening result should not be used for non-medical purposes. *ALTERNATE METHOD CONFIRMATION DONE UPON REQUEST ONLY* us Joselyn Mina MD LAB URINE ORDERABLES Final Result [facility] [address] [place] [address], * [place] REPAIR SPRFCL WOUNDS SIMPLE SCALP/NECK/AXILLAE/GENT/TRUNK/EXT <= 2.5 [...] Infection and pain Alternatives discussed: No treatment [place] protocol: Patient identity confirmed: Verbally with patient [...] IN CLINIC/BEDSIDE ORDERABL ES Final Result * [place] REPAIR SPRFCL WOUNDS SIMPLE SCALP/NECK/AXILLAE/GENT/TRUNK/EXT <= 2.5 CM, HC REPAIR WOUND LEVEL 1 (05/24/2025 5:19 PM EST) Joselyn Salmon MD - 05/24/2025 5:19 PM EST Joselyn [...] retained foreign body Alternatives discussed: No treatment [place] protocol: Procedure explained and questions answered to [...] by: Remy Laureano MD on 05/24/2025 17:57:12 Joselyn Mina MD IMG CT PROCEDURES Edited Re sult - Final * [place] REPAIR COMPLEX WD FRHD/CHEEKS/CHIN/MTH/NECK/AX/GENT/HANDS/FT 2.6-7.5 CM, HC [...] Alternatives discussed: No treatment and delayed treatment [place] protocol: Procedure explained and questions answered to [...] CBC auto differential (05/24/2025 4:14 PM EST) [facility] Signature WBC 16.1(H) 4.8 - 10.8 K/mcL LAB HEMETOLOGY METHOD 05/24/2025 4:43 PM [facility] RBC 4.90 4.50 - 5.50 M/mcL LAB HEMETOLOGY METHOD 05/24/2025 4:43 PM [facility] Hemoglobin 14.4 13.5 - 17.5 [...] 05/24/2025 4:43 PM [facility] Eosinophils Relative 0.0 % LAB [...] K/mcL LAB HEMETOLOGY METHOD 05/24/2025 4:43 PM EST [facility] Blood Venous blood specimen / Unknown Venipuncture / Unknown 05/24/2025 4:14 PM EST 05/24/2025 4:33 PM EST us Joselyn Mina MD LAB BLOOD ORDERABLES Final Result [facility] [address] [place] [address], * Drug abuse screen, serum (05/24/2025 4:14 PM EST) Pathologist [facility] Amphetamine, Serum, Qualitative Negative 05/27/2025 11:19 AM [...] Negative 05/27/2025 11:19 AM EST [facility] Alcohol (Ethanol) Level Negative 05/27/2025 11:19 AM EST [facility] Comment: Screen Decision Limits Drug Analyzed [...] developed and the performance characteristics determined by [facility]. This confirmation testing has not been cleared or approved by the FDA. The laboratory is regulated under CLIA as qualified to perform high-complexity testing. This test is used for patient testing purposes. It should not be regarded as investigational or for research. Test performed at [facility], [address] , [place] [address] Geraldine Kern MD, PhD - Development Manager Blood Venous blood specimen / Unknown Venipuncture / Unknown 05/24/2025 4:14 PM EST 05/24/2025 4:33 PM EST us Joselyn Mina MD LAB BLOOD ORDERABLES Final Result [facility] [address] [place] [address] * Thyroid stimulating hormone (05/24/2025 4:14 PM EST) TSH 0.45 0.40 - 4.00 mcIU/mL 05/24/2025 5:06 PM EST [facility] Blood Venous blood specimen / Unknown Venipuncture / Unknown 05/24/2025 4:14 PM EST 05/24/2025 4:33 PM EST us Joselyn Mina MD LAB BLOOD ORDERABLES Final Result [facility] [address] [place] [address], * Ethanol (05/24/2025 4:14 PM EST) Ethanol Level <3 0 - 10 mg/dL 05/24/2025 5:07 PM EST [facility] Blood Venous blood specimen / Unknown Venipuncture / Unknown 05/24/2025 4:14 PM EST 05/24/2025 4:33 PM EST us Joselyn Mina MD LAB BLOOD ORDERABLES Final Result Performing Organization Address [facility]/ZIP Co de Phone Number [facility] [address] [place] [address], [place] [phone] * (ABNORMAL) Acetaminophen level (05/24/2025 4:14 PM EST) Acetaminophen Level <2.0(L) 10.0 - 30.0 mcg/mL 05/24/2025 5:03 PM EST [facility] Blood Venous blood specimen / Unknown Venipuncture / Unknown 05/24/2025 4:14 PM EST 05/24/2025 4:33 PM EST us Joselyn Mina MD LAB BLOOD ORDERABLES Final Result Performing Organization Address [facility] Co de Phone Number [facility] [address] [place] [address], [place] [phone] * Salicylate level (05/24/2025 4:14 PM EST) Salicylate Level <3.0 2.0 - 29.0 mg/dL 05/24/2025 5:07 PM EST [facility] Blood Venous blood specimen / Unknown Venipuncture / Unknown 05/24/2025 4:14 PM EST 05/24/2025 4:33 PM EST us Joselyn Mina MD LAB BLOOD ORDERABLES Final Result Performing Organization Address City/[facility]/ZIP Co de Phone Number [facility] [address] [place] [address], [place] [phone] * (ABNORMAL) Comprehensive metabolic panel (05/24/2025 4:14 PM EST) Sodium 143 133 - 145 mmol/L 05/24/2025 5:03 PM [facility] Potassium 4.2 3.5 - 5.5 mmol/L 05/24/2025 5:03 PM [facility] Chloride 103 96 - 110 mmol/L 05/24/2025 5:03 PM [facility] CO2 28 21 - 32 mmol/L 05/24/2025 5:03 PM [facility] Anion Gap 12(H) 3 - [...] 6.0 - 8.0 g/dL 05/24/2025 5:03 PM EST [facility] Albumin 4.4 3.2 - 5.0 g/dL 05/24/2025 5:03 PM EST [facility] Total Bilirubin 2.1(H) 0.0 - 1.4 mg/dL 05/24/2025 5:03 PM EST [facility] Blood Venous blood specimen / Unknown Venipuncture / Unknown 05/24/2025 4:14 PM EST 05/24/2025 4:33 PM EST Joselyn Mina MD LAB BLOOD ORDERABLES Final Result [facility] [address] [place] [address], * [place] CRITICAL CARE 30-74 MINUTES (05/24/2025 3:17 PM [...] from another provider in my specialty: no us Adam Molina MD IN CLINIC/BEDSIDE ORDERABL ES Final Result * Prostate specific antigen screen (05/18/2025 4:46 PM EST) [facility] PSA 0.53 0.00 - 4.00 ng/mL 05/18/2025 7:21 PM [facility] Blood Venous blood specimen / Unknown Venipuncture / Unknown 05/18/2025 4:46 PM EST 05/18/2025 4:46 PM EST Narrative [facility] - 05/18/2025 7:21 PM EST The F[employer] IM Chemiluminescent Immunoassay is used. Results obtained with different assay methods or kits cannot be used interchangeably. Results cannot be interpreted as absolute evidence of the presence or absence of malignant disease. Shane Clifton PRESS ASSISTANT AND FEEDER LAB BLOOD ORDERABLES Final R esult [facility] [address] [place] [address], [place] [phone] * (ABNORMAL) Urinalysis with reflex microscopic and culture (05/18/2025 4:46 PM EST) [facility] [place] Urine 1.024 1.003 - 1.030 LAB URINALYSIS - AUTOMATED METHOD 05/18/2025 6:41 PM [facility] pH, Urine 5.5 5.0 - [...] METHOD 05/18/2025 6:41 PM [facility] Blood, Urine Negative Negative LAB URINALYSIS - AUTOMATED METHOD 05/18/2025 6:41 PM [facility] Urine Urine specimen obtained by clean catch procedure / Unknown Non-blood Collection / Unknown 05/18/2025 4:46 PM EST 05/18/2025 4:46 PM EST Shane Clifton PRESS ASSISTANT AND FEEDER LAB URINE ORDERABLES Final R esult Performing Organization Address City/[facility]/ZIP Co de Phone Number [facility] [address] [place] [address], [place] [phone] * Sanchez urine culture tube (05/18/2025 4:46 PM EST) Extra Tube Hold for add-ons. 05/18/2025 7:02 PM EST [facility] Comment:Auto resulted. Urine Urine specimen obtained by clean catch procedure / Unknown Non-blood Collection / Unknown 05/18/2025 4:46 PM EST 05/18/2025 4:46 PM EST Shane Clifton PRESS ASSISTANT AND FEEDER LAB URINE ORDERABLES Final R esult Performing Organization Address City/[facility]/ZIP Co de Phone Number [facility] [address] [place] [address], [place] [phone] * Microalbumin creatinine urine ratio (05/18/2025 4:46 PM EST) [facility] Creatinine, Urine 218.0 mg/dL 05/18/2025 7:23 PM EST [facility] Microalb, Ur 10.0 0.0 - 29.0 mg/L 05/18/2025 7:23 PM EST [facility] Microalb/Creat Ratio 5 <30 mg/g creat 05/18/2025 7:23 PM EST [facility] Urine Urine specimen obtained by clean catch procedure / Unknown Non-blood Collection / Unknown 05/18/2025 4:46 PM EST 05/18/2025 4:46 PM EST Shane Clifton PRESS ASSISTANT AND FEEDER LAB URINE ORDERABLES Final R esult [facility] [address] [place] [address], * HIV Screening (07/02/2023) [facility] HIV Screening abstracted Result [facility] Provider HEALTH MAINTENANCE Final Result * Hepatitis C Screening (07/02/2023) [facility] Hepatitis C Screening abstracted Result [facility] Joseph MISHRA HEALTH MAINTENANCE Final Result * (ABNORMAL) Lipid panel (07/02/2023) [facility] LDL/HDL Ratio 5(A) 0 - 4 Triglycerides 179(A) 0 - 150 mg/dL Cholesterol 185 0 - 200 mg/dL HDL 37(A) >=40 mg/dL LDL Cholesterol 113(A) 0 - 100 mg/dL Blood Venous blood specimen / Unknown Result [facility] Historical Joseph MISHRA LAB BLOOD ORDERABLES Key l Result * Depression Screening (07/01/2023) [facility] Depression Screening abstracted Historical Provider HEALTH MAINTENANCE Final Result * External Colonoscopy Report (02/14/2021 12:00 AM EDT) Anatomical Region Laterality Modality Endoscopy Historical Provider GI~PROCEDURE ORDERABLES E dited Result - Final from Last 3 Months or Most Recently Relevant to Health Maintenance Additional Health Concerns Active Problems Noted Date Diagnosed Date Autogenerated Problem 05/26/2025 Insurance [facility] Hydrocision PLAN Advance Directives * Full Code - [...] currently active code status orders. Care Teams Terrazzo Worker Helper Relationship Specialty Start Date End Date Venancio Camilo MD [address] [place] [address] PCP - General Internal Medicine 12/09/14
--- OUTSIDE RECORDS SUMMARY | 2025-06-17 19:41 | XMS_ITS | Encounter Summary ---
Author Organization [facility] Address [address] [place] [address] Care Team Providers Care Christmas Tree Grader Name Role Phone Pcp, Nani Primary Care Provider Diana Castro MD Primary Care Provider [phone] Encounter Details Date Type Department Care Team (Late st Contact Info) Description 03/19/2018 Scanned Document [facility] Urologic Surgery [place] [address] [facility] [facility] [address] [place] [address] Prashant Naylor MD [address] [facility] [address] [place] [address] Social History Tobacco Use Types Packs/Day Years [...] on filedocumented in this encounter Care Teams Christmas Tree Grader Relationship Specialty Start Date End Date Pcp, No PCP - General General Medicine 03/17/18 07/01/22 Diana Velázquez MD [address] [place] [address] PCP - General 07/02/22 documented as of this encounter
--- OUTSIDE RECORDS SUMMARY | 2025-06-17 19:42 | XMS_ITS | Clinical Summary ---
Author Organization [facility] Address [address] [address] Phone Care Team Providers Care Perforator Operator Oil Well Name Role Phone Venancio Camilo MD Primary Care Provider [phone] Allergies Active Allergy Reactions Criticality Noted Date [...] treated for 6 months for hepatitis at [facility]. Anxiety 04/14/2013 Overview (11/04/2022): Patient has a [...] Exam 07/06/2024 Diabetes: Visual Foot Exam 07/06/2024 Influenza Vaccine (#1) 2025 7, 04/17/2015, 04/15/2014 Diabetes: Hemoglobin A1C 08/27/2025 025, 07/19/2024, 07/19/2024, Additional history exists Procedures Procedure Name Priority Date/Time Associated Diagnosis Comments HEMOGLOBIN A1C Routine 09/11/2021 3:57 PM EDT from Last 3 Months or Most Recently Relevant to Health Maintenance Results * Hemoglobin A1c (09/11/2021 3:57 PM EDT) Hemoglobin A1C 5.3 (4.0-5.6) % [facility] Comment: MONITORING: In known diabetic patients, hemoglobin A1c targets should be discussed with health care provider. DIAGNOSTIC USE: The [place] [employer] (ADA) and the World Health [...] Supplement 1 Testing performed or reported by [facility], a Service of [facility], [address] [place] [address] Katlyn Holley MD, Commercial Accountant [facility]# [id number] 09/11/2021 3:57 PM EDT 09/11/2021 3:59 PM EDT Jesus Bull MD LAB BLOOD ORDERABLES Final Re sult [facility] from Last 3 Months or Most Recently Relevant to Health Maintenance Insurance [facility] Medicaid Care Teams Perforator Operator Oil Well Relationship Specialty Start Date End Date Venancio Camilo MD [address] [place] [phone] PCP - General 07/03/20
--- OUTSIDE RECORDS SUMMARY | 2025-06-17 19:42 | XMS_ITS | Clinical Summary ---
Author Organization [facility] Address [address] [place] [address] Care Team Providers Care Sole Splitter Name Role Phone Diana Velázquez MD Primary Care Provider [phone] Social History Tobacco Use Types Packs/Day Years [...] - 1-dose 75+ series) 2050 Care Teams Sole Splitter Relationship Specialty Start Date End Date Diana Velázquez MD [address] [place] [address] PCP - General 07/02/22
--- OUTSIDE RECORDS SUMMARY | 2025-06-17 19:42 | XMS_ITS | Encounter Summary ---
Author Organization [facility] Address [address] [place] [address] Phone Care Team Providers Care Area Loss Prevention Manager Name Role Phone Venancio Camilo MD Primary Care Provider [phone] Encounter Details Date Type Department Care Team (Late st Contact Info) Description 08/14/2022 Documentation Only [facility] [address] [facility] [address] [place] [phone] Daniella Darnell MA Social History Tobacco Use [...] on filedocumented in this encounter Care Teams Area Loss Prevention Manager Relationship Specialty Start Date End Date Venancio Camilo MD [address] [place] [phone] PCP - General 07/03/20 documented as of this encounter
--- OUTSIDE RECORDS SUMMARY | 2025-06-17 19:42 | XMS_ITS | Encounter Summary ---
Author Organization [facility] Address [address] [place] [address] Phone Care Team Providers Care Software Sales Consultant Name Role Phone Venancio Camilo MD Primary Care Provider [phone] Encounter Details Date Type Department Care Team (Late st Contact Info) Description 05/20/2022 Telephone [facility] [address] [place] [address] Jesus Bull MD [address] [place] [address], [address] [phone] Social History Tobacco Use Types Packs/Day Years [...] about it. Please call him back at [phone] Thank you documented in this encounter Plan of Treatment Not on file documented as of this encounter Visit Diagnoses Not on filedocumented in this encounter Care Teams Software Sales Consultant Relationship Specialty Start Date End Date Venancio Camilo MD [address] [place] [address] PCP - General 07/03/20 documented as of this encounter
--- OUTSIDE RECORDS SUMMARY | 2025-06-17 19:42 | XMS_ITS | Encounter Summary ---
Author Organization [facility] Address [address] [place] [address] Phone Care Team Providers Care Processing Inspector Name Role Phone Venancio Camilo MD Primary Care Provider [phone] Encounter Details Date Type Department Care Team (Late st Contact Info) Description 10/26/2021 Documentation Only [facility] [address] [place] [phone] Jesus Bull MD [address] [place] [address], [address] [address] Social History Tobacco Use Types Packs/Day Years [...] on filedocumented in this encounter Care Teams Processing Inspector Relationship Specialty Start Date End Date Venancio Camilo MD [address] [place] [address] PCP - General 07/03/20 documented as of this encounter
--- OUTSIDE RECORDS SUMMARY | 2025-06-17 19:42 | XMS_ITS | Encounter Summary ---
Author Organization [facility] Address [address] [place] [address] Phone Care Team Providers Care Insurance Claims Processor Name Role Phone Venancio Camilo MD Primary Care Provider Encounter Details Date Type Department Care Team (Late st Contact Info) Description 11/02/2021 Documentation Only [facility] [address] [place] [phone] Jesus Bull MD [address] [place] [address], [address] [phone] Social History Tobacco Use Types Packs/Day Years [...] on filedocumented in this encounter Care Teams Insurance Claims Processor Relationship Specialty Start Date End Date Venancio Camilo MD [address] [place] [address] PCP - General 07/03/20 documented as of this encounter
--- OUTSIDE RECORDS SUMMARY | 2025-06-17 19:42 | XMS_ITS | Encounter Summary ---
Author Organization [facility] Address [address] [place] [address] Phone Care Team Providers Care Mortgage Accounting Clerk Name Role Phone Venancio Camilo MD Primary Care Provider [phone] Encounter Details Date Type Department Care Team (Late st Contact Info) Description 08/14/2022 Documentation Only [facility] [address] [facility] [address] [place] [phone] Daniella Darnell MA Social History Tobacco Use [...] on filedocumented in this encounter Care Teams Mortgage Accounting Clerk Relationship Specialty Start Date End Date Venancio Camilo MD [address] [place] [phone] PCP - General 07/03/20 documented as of this encounter
[2025-06-17 22:35] VITALS: BP 159/87; PULSE 85; RESP 18; TEMP 37.2; O2SAT 98
[2025-06-17 22:50] VITALS: BP 159/87; PULSE 85; RESP 18; TEMP 37.2; O2SAT 98
== END 2025-06-17 22:51 | disposition home or self-care (01) ==
PROVIDERS: Physician Assistant; Emergency Provider Student in an Organized Health Care Education/Training Program; PCP Internal Medicine
DX: M79.10 Myalgia, unspecified site (principal); R30.0 Dysuria; R07.9 Chest pain, unspecified; R00.0 Tachycardia, unspecified; I45.10 Unspecified right bundle-branch block; R41.0 Disorientation, unspecified; I10 Essential (primary) hypertension; K21.9 Gastro-esophageal reflux disease without esophagitis; F41.9 Anxiety disorder, unspecified; Z87.891 Personal history of nicotine dependence
CPT/HCPCS: 36415; 70450; 71046; 80048; 80076; 80307; 81003; 82140; 83735; 84484; 85025; 93005; 99284

== ENCOUNTER → 2025-06-17 14:16 | Outpatient (BNV) | payer OTHER, SELFPAY | PROVIDERS: Emergency Provider Student in an Organized Health Care Education/Training Program; PCP Internal Medicine; Visit Provider Internal Medicine Cardiovascular Disease | DX: I45.10 Unspecified right bundle-branch block (principal); R00.0 Tachycardia, unspecified | CPT/HCPCS: 93010 ==

== ENCOUNTER → 2025-06-17 14:40 | Outpatient (BNV) | payer OTHER, SELFPAY | PROVIDERS: PCP Internal Medicine; Visit Provider Radiology Diagnostic Radiology | DX: R41.0 Disorientation, unspecified (principal); J44.9 Chronic obstructive pulmonary disease, unspecified | CPT/HCPCS: 70450; 71046 ==